=== PATIENT | female | born 1950 | race Caucasian/White ===

== ENCOUNTER 2016-06-10 18:13 | Inpatient (IN) | payer OTHER, MEDICAID ==
--- NOTE | 2016-06-10 18:33 | EDPHY ---
H & P Time Seen by Provider: 06/10/16 18:16 HPI/ROS: CHIEF COMPLAINT: Fever, altered mental status Limitations: Altered mental status, unable to provide any history HISTORY OF PRESENT ILLNESS: 66-year-old female with a history of advanced dementia and diabetes presents with fever and altered mental status. This morning she was found in bed at her long term and was unable to get up. She also developed a fever and has a moist cough. No food or fluids today. Laboratory tests prior to arrival revealed a leukocytosis and hyperglycemia. 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 REVIEW OF SYSTEMS: Unable to determine Past Medical/Surgical History: Dementia Social History: Lives at [facility] Physical Exam: General Appearance: Obtunded, mumbles when I ask her name Eyes: Pupils equal and round ENT, Mouth: Mucous membranes dry Neck: Normal inspection Respiratory: Lungs are clear to auscultation anteriorly Cardiovascular: Regular rate and rhythm Gastrointestinal: Abdomen is soft and nontender Neurological: obtunded, moves all extremities Skin: Warm and dry Extremities: normal inspection Psychiatric: unable to determine Constitutional: Initial Vital Signs Temperature (C) 38.7 C H 06/10/16 18:29 Heart Rate 103 H 06/10/16 18:29 Respiratory Rate 18 06/10/16 18:29 Blood Pressure 169/90 H 06/10/16 18:29 O2 Sat (%) 94 06/10/16 18:29 O2 Delivery Mode Nasal Cannula O2 (L/minute) 2 Allergies/Adverse Reactions: Penicillins Allergy (Verified 06/10/16 18:34) Sulfa (Sulfonamide Antibiotics) Allergy (Verified 06/10/16 18:34) Home Medications: Medication Instructions Recorded Acetaminophen [Tylenol 325mg (*)] 650 mg PO Q6H PRN 06/10/16 Ascorbic Acid [Vitamin C 500 mg 500 mg PO DAILY 06/10/16 (*)] Aspirin [Aspirin 81mg (*)] 81 mg PO DAILY 06/10/16 Clopidogrel Bisulfate [Plavix (*)] 75 mg PO DAILY 06/10/16 Cyanocobalamin [Vitamin B12 (*)] 2,500 mcg SL DAILY 06/10/16 Divalproex [Depakote Sprinkle 125 500 mg PO BID@08,20 06/10/16 MG (*)] Furosemide [Lasix 40 MG (*)] 40 mg PO DAILY 06/10/16 Herbals/Supplements -Info Only 1 ea PO DAILY 06/10/16 Insulin Glargine [Lantus 100 20 units SC DAILY@20 06/10/16 UNITS/ML (*)] LORazepam [Ativan (*)] 0.5 mg PO DAILY 06/10/16 LORazepam [Ativan (*)] 1 mg PO HS 06/10/16 Losartan Potassium [Cozaar 25 mg 25 mg PO DAILY 06/10/16 (*)] Multivitamins [Multivitamin (*)] 1 each PO DAILY 06/10/16 OLANZapine [ZyPREXA 2.5 mg (*)] 2.5 mg PO Q6H PRN 06/10/16 OLANZapine [ZyPREXA 2.5 mg (*)] 7.5 mg PO BID@,06/10/16 Medical Decision Making ED Course/Re-evaluation: This pt presents with fever and AMS. UA c/w UTI and lactate greater than 4. Meets septic shock criteria, IVF 30ml/kg given per protocol. BP normal/ hypertensive throughout ED stay; central line not indicated. Unclear allergy to PCN; for this reason (and because she has a moist and frequent cough, ? pneumonia), I decided to give her Levaquin 750mg IV (instead of Ceftriaxone). Urine/blood cx's sent prior to abx. Serial exams x 3 relatively unchanged, remains obtunded with a non-focal exam. Septic shock as etiology for AMS; I do not suspect alternative cause. Dr. Marcello Leal was consulted for admission. This pt utilized 45 minutes of critical care time by me exclusive of unbundled procedures. Differential Diagnosis: includes though not limited to pneumonia, respiratory failure, hypotension, hypoglycemia, DKA, meningitis, CVA. - Data Points Laboratory Results: Laboratory Results 06/10/16 18:28 06/10/16 18:28 Microbiology Results: MICROBIOLOGY 06/10/16 18:45 Blood Blood Culture - Preliminary 06/10/16 18:55 Blood Blood Culture - Preliminary Medications Given: Discontinued Medications Acetaminophen (Tylenol Rectal) 650 mg WA EDNOW ONE Stop: 06/10/16 18:35 Last Admin: 06/10/16 18:47 Dose: 650 mg Acetaminophen (Tylenol) 650 mg PO Q4HRS PRN PRN Reason: Pain, Mild/Fever, Can Take PO Stop: 12/07/16 19:27 Last Admin: 06/11/16 16:57 Dose: 650 mg Aspirin (Aspirin) 81 mg PO DAILY [facility] Stop: 12/08/16 08:59 Last Admin: 06/12/16 10:52 Dose: Not Given Benzocaine (Hurricaine Branch) 1 each MM ONCALL ONE Stop: 06/13/16 10:52 Last Admin: 06/13/16 12:42 Dose: Not Given Clopidogrel Bisulfate (Plavix) 75 mg PO DAILY [facility] Stop: 12/08/16 08:59 Last Admin: 06/12/16 10:52 Dose: Not Given Divalproex Sodium (Depakote Sprinkle) 500 mg PO BID@ [facility] Stop: 12/08/16 07:59 Last Admin: 06/12/16 10:53 Dose: Not Given Enoxaparin Sodium (Lovenox) 30 mg SC DAILY [facility] Stop: 12/08/16 08:59 Last Admin: 06/12/16 09:39 Dose: 30 mg Furosemide (Lasix Injection) 40 mg IVP ONCE ONE Stop: 06/12/16 01:05 Last Admin: 06/12/16 01:11 Dose: 40 mg Sodium Chloride (Ns) 1,000 mls @ 0 mls/hr IV ONCE ONE PRN Reason: Wide Open Stop: 06/10/16 18:35 Last Admin: 06/10/16 19:30 Dose: 1,000 mls Levofloxacin/Dextrose (Levaquin 750 Mg (Premix)) 150 mls @ 100 mls/hr IV EDNOW ONE PRN Reason: Protocol Stop: 06/10/16 20:32 Last Admin: 06/10/16 19:43 Dose: 150 mls Sodium Chloride (Ns) 1,000 mls @ 200 mls/hr IV CONT BAI[facility] Stop: 12/07/16 19:29 Last Admin: 06/11/16 22:00 Dose: 1,000 mls Azithromycin 500 mg/ Dextrose 255 mls @ 255 mls/hr IV DAILY [facility] PRN Reason: Protocol Stop: 07/11/16 08:59 Last Admin: 06/12/16 07:51 Dose: 255 mls Ceftriaxone Sodium/Dextrose (Rocephin 1 Gm (Premix)) 50 mls @ 100 mls/hr IV DAILY@1999 B[facility] PRN Reason: Protocol Stop: 07/10/16 19:59 Last Admin: 06/11/16 20:05 Dose: 50 mls Valproate Sodium 500 mg/ (Dextrose) 55 mls @ 55 mls/hr IV Q12HRS [facility] Stop: 12/09/16 20:59 Last Admin: 06/13/16 10:01 Dose: 55 mls Potassium Chloride (Potassium Cl 10 Meq (Premix)) 100 mls @ 100 mls/hr IV Q1H [facility] Stop: 06/12/16 18:46 Last Admin: 06/12/16 18:43 Dose: 100 mls Potassium Chloride (Potassium Cl 10 Meq (Premix)) 100 mls @ 100 mls/hr IV Q1H [facility] Stop: 06/13/16 00:59 Last Admin: 06/13/16 00:06 Dose: 100 mls Insulin Glargine (Lantus Syringe) 12 units SC HS [facility] Stop: 12/07/16 20:59 Last Admin: 06/12/16 20:37 Dose: 12 units Lidocaine (Lidocaine 2% Jelly) 2 janine TP ONCALL ONE Stop: 06/13/16 10:52 Last Admin: 06/13/16 11:30 Dose: 2 janine Lidocaine HCl (Lidocaine Hcl 1%) 1 - 30 ml MISC ONCALL ONE Stop: 06/13/16 10:52 Last Admin: 06/13/16 12:39 Dose: 30 ml Lorazepam (Ativan) 0.5 mg PO DAILY [facility] Stop: 12/08/16 08:59 Last Admin: 06/12/16 09:20 Dose: 0.5 mg Lorazepam (Ativan Injection) 0.5 mg IVP DAILY [facility] Stop: 12/10/16 08:59 Last Admin: 06/13/16 12:38 Dose: Not Given Losartan Potassium (Cozaar) 25 mg PO DAILY [facility] Stop: 12/08/16 08:59 Last Admin: 06/12/16 10:54 Dose: Not Given Multivitamins (Tab-A-Noy) 1 each PO DAILY [facility] Stop: 12/08/16 08:59 Last Admin: 06/12/16 10:54 Dose: Not Given Olanzapine (Zyprexa) 7.5 mg PO BID@ [facility] Stop: 12/08/16 08:59 Last Admin: 06/12/16 09:22 Dose: 7.5 mg Sodium Chloride (Ns *For Sepsis Order Set Only*) 2,041 ml 30 ml/kg (2041 ml) IV EDNOW ONE Stop: 06/10/16 18:42 Last Admin: 06/10/16 18:47 Dose: 2,041 ml Departure - Departure Disposition: [facility] Inpatient Acute Clinical Impression: Septic shock Urinary tract infection Qualifiers: Urinary tract infection type: acute cystitis Hematuria presence: without hematuria Qualified Code(s): N30.00 - Acute cystitis without hematuria Condition: Serious
[2016-06-10] MEDS ORDERED: ACETAMINOPHEN 650 MG SUPP PR ONE (18:34)
[2016-06-10] MEDS ORDERED: NS 1,000 ML IV ONE (18:34)
[2016-06-10 18:38] LABS: % IMMATURE GRANULYOCYTES 1.1 % (0.0-1.1); ABSOLUTE IMMATURE GRANULOCYTES 0.28 10^3/uL (0.00-0.10); ADD DIFF? NO; ADD MORPH? NO; ADD SCAN? NO; ATYPICAL LYMPHOCYTE FLAG 10 (0-99); FRAGMENT RBC FLAG 0 (0-99); HEMATOCRIT 48.4 % (38.0-47.0); LEFT SHIFT FLG 10 (0-99); LIPEMIA HEMOLYSIS FLAG 80 (0-99); MEAN CELL HEMOGLOBIN CONCENTR. 33.1 g/dL (32.4-36.7); MEAN CELL VOLUME 90.6 fL (81.5-99.8); MEAN PLATELET VOLUME 10.9 fL (8.7-11.7); PLATELET CLUMPS FLAG 20 (0-99); PLATELET COUNT 257 10^3/uL (150-400); RED BLOOD CELL COUNT 5.34 10^6/uL (4.18-5.33); RED CELL DISTRIBUTION WIDTH 12.9 % (11.5-15.2)
[2016-06-10] MEDS ORDERED: NS 1,000 ML BAG *FOR SEPSIS ORDER SET ONLY IV ONE (18:41)
[2016-06-10 18:46] LABS: INR 1.1 (0.83-1.16); PROTIME(PATIENT) 14.1 SEC (12.0-15.0)
[2016-06-10 18:47] LABS: APTT 23.5 SEC (23.0-38.0)
[2016-06-10 18:50] LABS: COLOR YELLOW; LEUKOCYTE ESTERASE,URINE 3+ (NEGATIVE); NITRITE,URINE POSITIVE (NEGATIVE)
[2016-06-10 18:51] LABS: ANION GAP 13 mEq/L (8-16); BILIRUBIN,TOTAL 1.1 mg/dL (0.1-1.4); CALCIUM 9.9 mg/dL (8.5-10.4); CARBON DIOXIDE 31 mEq/l (22-31); CHLORIDE 99 mEq/L (97-110); CREATININE 1.1 mg/dL (0.6-1.0); GLOMERULAR FILTRATION RATE 49; GLUCOSE 264 mg/dL (70-100); POTASSIUM 4.9 mEq/L (3.5-5.2); SODIUM 143 mEq/L (134-144)
[2016-06-10 18:53] LABS: BACTERIA 4+ /hpf (NONE SEEN); MUCUS 4+ /lpf (NONE-1+); WBC,URINE 50-182 /hpf (0-3)
[2016-06-10] MEDS ORDERED: ONDANSETRON DISINTEGRATING 4 MG TAB PO PRN (19:28)
[2016-06-10] MEDS ORDERED: ACETAMINOPHEN 325 MG TAB PO PRN (19:28)
[2016-06-10] MEDS ORDERED: ONDANSETRON 4 MG/2 ML VIAL IVP PRN (19:28)
[2016-06-10] MEDS ORDERED: D50W 25 GM/50 ML SYR IVP PRN (19:32)
[2016-06-10 19:33] LABS: LACGHOST ORDER
--- NOTE | 2016-06-10 20:13 | GHP ---
[f rep st] HISTORY AND PHYSICAL DATE OF ADMISSION: 06/10/2016 HISTORY OF PRESENT ILLNESS: The patient is a 66-year-old female with a history of diabetes, dementi a, as well as apparent aortic graft. She was brought in from [facility] where she lives when sophie peoples obtunded. The patient was able to provide no history to me. She was able to grunt some answers but really offered no meaningful history. She said her abdomen did hurt. She carries a history of advanced dementia. She was unable to get up and had a fever and a wet coug h today. She had leukocytosis on some lab tests as an outpatient. Her creatinine was 0.9 there. S he denied chest pain. She was unable to answer what her reaction to penicillin is. REVIEW OF SYSTEMS: Complete 10-point review of systems conducted and negative except as noted in th e HPI. PAST MEDICAL HISTORY: Diabetes, high blood pressure, aortic graft seen on her chest x-ray, vascular disease. ALLERGIES: Penicillins and sulfa. HOME MEDICATIONS: Acetaminophen, acidophilus, aspirin, B12, Depakote, furosemide, Lantus 20 units, lorazepam p.r.n., losartan, olanzapine 7.5 daily as well as 2.5 p.r.n., Plavix, vitamin C. SOCIAL HISTORY: Assumed to be a nonsmoker now. Unclear if she smoked in her life. Minimal alcohol . Lives at [facility]. FAMILY HISTORY: Parents . Brother lives in [place]. PHYSICAL EXAMINATION: VITAL SIGNS: Temp 38.7, blood pressure 169/90, pulse 103, breathing 18 times a minute, 94% on room air. GENERAL: Pale. Appears older than her stated age. Minimally responsi ve but able to grunt some answers to questions. HEENT: Sclerae anicteric. Mucous membranes are dr y. NECK: Supple without lymphadenopathy or JVD. LUNGS: Some crackles in the bases bilaterally. HEART: S1, S2 with a holosystolic murmur heard best at the left upper sternal border. ABDOMEN: So ft. There is no rebound or guarding. Bowel sounds are present. LOWER EXTREMITIES: Without edema. It looks like she does not walk. Dorsalis pedis pulses are palpable bilaterally. Calves are nont igor. SKIN: Without rash. NEUROLOGIC: Nonfocal but the patient is obtunded. LABS: Her UA shows 3+ leukocyte esterase, 10-15 red cells, 50-182 white cells. Sodium 142, potassi um 4.9, chloride 99, bicarb 31, BUN 28, creatinine 1.1. Glucose 264. Venous lactate was 3.3. It i s now 4.3. INR is 1.1. White count 24.96, hematocrit 48.4. She has a left shift. TEST DATA: Chest x-ray, interpreted by me, shows previous aortic graft, possible retrocardiac infil trate which would be on the left. It is a poor quality chest film. There is no heart failure. I franc peña discussed the case with Dr. Catherine Osorio in the emergency department. ASSESSMENT/PLAN: 66-year-old female presents with severe sepsis. 1. Severe sepsis as evidenced by lactate leukocytosis. Source of infection: Source is either urin e or lungs. Will treat for both with ceftriaxone and azithromycin noting her penicillin allergy. I do worry about the community resistance of Escherichia coli to fluoroquinolones and thus I feel diane t fluoroquinolone monotherapy is potentially inadequate for her. We will follow her response. She received appropriate fluid bolus in the emergency department. We will repeat a lactate in 4 hours. 2. Diabetes. She takes 20 units of Lantus. I will continue it at 12 given her poor p.o. intake. 3. Mental status changes. This is delirium superimposed upon dementia in this patient. It is seco ndary to her current critical illness. 4. Sepsis addendum: Will check an influenza. 5. Hypertension: We will hold losartan. 6. Code status. It appears to be full. 7. Dementia. Will follow. We will avoid sedating medications. She does take Ativan on a p.r.n. b asis as she has some behavioral issues. This might be a reasonable choice for her. 8. Prophylaxis. Pharmacologic prophylaxis is indicated. Will start low-molecular weight heparin. DISPOSITION: Inpatient status. /[id number]/MODL
[2016-06-10] MEDS: NS 1,000 ML IV SCH (20:43)
[2016-06-10] MEDS ORDERED: OLANZapine 2.5 MG TAB PO PRN (21:00)
[2016-06-10] MEDS: INSULIN GLARGINE 100 UNITS/ML SYRINGE SC SCH (21:41)
[2016-06-11 05:50] LABS: % IMMATURE GRANULYOCYTES 0.8 % (0.0-1.1); ADD DIFF? NO; ADD MORPH? NO; ADD SCAN? NO; ATYPICAL LYMPHOCYTE FLAG 10 (0-99); FRAGMENT RBC FLAG 0 (0-99); HEMATOCRIT 38.2 % (38.0-47.0); HEMOGLOBIN 12.4 g/dL (12.6-16.3); LEFT SHIFT FLG 20 (0-99); LIPEMIA HEMOLYSIS FLAG 80 (0-99); MEAN CELL HEMOGLOBIN 29.8 pg (27.9-34.1); MEAN CELL HEMOGLOBIN CONCENTR. 32.5 g/dL (32.4-36.7); MEAN CELL VOLUME 91.8 fL (81.5-99.8); MEAN PLATELET VOLUME 11.2 fL (8.7-11.7); PLATELET CLUMPS FLAG 0 (0-99); PLATELET COUNT 195 10^3/uL (150-400); RED BLOOD CELL COUNT 4.16 10^6/uL (4.18-5.33); RED CELL DISTRIBUTION WIDTH 12.7 % (11.5-15.2)
[2016-06-11] MEDS: LORazepam 0.5 MG TAB PO SCH (07:40)
[2016-06-11] MEDS: AZITHROMYCIN IV 500 MG in D5W 250 ML IV SCH (07:42)
[2016-06-11] MEDS: DIVALPROEX NA 125 MG CAP.SPRINKLE PO SCH ×2 (07:51→20:12)
[2016-06-11 07:56] LABS: % IMMATURE GRANULYOCYTES 1.1 % (0.0-1.1); ABSOLUTE IMMATURE GRANULOCYTES 0.27 10^3/uL (0.00-0.10); ADD DIFF? NO; ADD MORPH? NO; ADD SCAN? NO; ATYPICAL LYMPHOCYTE FLAG 10 (0-99); FRAGMENT RBC FLAG 0 (0-99); HEMATOCRIT 36.9 % (38.0-47.0); HEMOGLOBIN 12.1 g/dL (12.6-16.3); LEFT SHIFT FLG 30 (0-99); LIPEMIA HEMOLYSIS FLAG 80 (0-99); MEAN CELL HEMOGLOBIN 29.2 pg (27.9-34.1); MEAN CELL HEMOGLOBIN CONCENTR. 32.8 g/dL (32.4-36.7); MEAN CELL VOLUME 88.9 fL (81.5-99.8); MEAN PLATELET VOLUME 10.7 fL (8.7-11.7); PLATELET CLUMPS FLAG 40 (0-99); PLATELET COUNT 198 10^3/uL (150-400); RED BLOOD CELL COUNT 4.15 10^6/uL (4.18-5.33); RED CELL DISTRIBUTION WIDTH 12.9 % (11.5-15.2)
[2016-06-11] MEDS: OLANZapine 2.5 MG TAB PO SCH ×2 (07:59→20:12)
[2016-06-11] MEDS: CLOPIDOGREL BISULFATE 75 MG TAB PO SCH (08:02)
[2016-06-11 08:03] LABS: ALANINE AMINOTRANSFERASE 26 IU/L (9-52); ALBUMIN 2.7 g/dL (3.5-5.0); ALKALINE PHOSPHATASE 74 IU/L (38-126); ANION GAP 9 mEq/L (8-16); ASPARTATE AMINOTRANSFERASE 25 IU/L (14-46); BILIRUBIN,TOTAL 0.9 mg/dL (0.1-1.4); CALCIUM 8.1 mg/dL (8.5-10.4); CARBON DIOXIDE 23 mEq/l (22-31); CHLORIDE 112 mEq/L (97-110); CREATININE 0.6 mg/dL (0.6-1.0); GLOMERULAR FILTRATION RATE > 60; GLUCOSE 157 mg/dL (70-100); POTASSIUM 4.3 mEq/L (3.5-5.2); SODIUM 144 mEq/L (134-144); TOTAL PROTEIN 5.8 g/dL (6.3-8.2)
[2016-06-11] MEDS: ASPIRIN 81 MG CHEWABLE TAB PO SCH (08:06)
[2016-06-11] MEDS: MULTIVITAMINS 1 EACH TAB PO SCH (08:06)
[2016-06-11] MEDS: CYANO/VITAMIN B12 1000 MCG TAB SL SCH (08:08)
[2016-06-11] MEDS: ENOXAPARIN 30 MG/0.3 ML SYR SC SCH (08:11)
[2016-06-11] MEDS: INSULIN LISPRO 100 UNIT/ML SC SCH ×3 (08:15→17:39)
[2016-06-11] MEDS: LOSARTAN POTASSIUM 25 MG TAB PO SCH (08:17)
[2016-06-11] MEDS ORDERED: Herbals/Supplements -Info Only PO SCH (09:00)
[2016-06-11] MEDS: NS 1,000 ML IV SCH ×3 (11:17→22:00)
--- NOTE | 2016-06-11 13:32 | HOSPPROG ---
Hospitalist Progress Note Assessment/Plan: # Acute Severe sepsis - 2/2 presumed urinary source - GNR in urine culture this am CXR (personally reviewed and interpreted) no infiltrates- oxygen saturations 95% on 2L - cont IVF - cont empiric IV abx # pyelonephritis - cont IV ceftriaxone - sensitivities pending # Acute encephalopathy - suspect 2/2 sepsis - continue supportive care and monitor # Acute Leukocytosis - 24 this am - cont IV abx - recheck in am #GEORGE - resolved overnight with IVF # proph - heparin # diet - somnolent can eat if safe # dispo - > 2MN as requiring aggressive care for sepsis and pyelonephritis I have discussed the case with the RN - pt remains very somnolent this am Subjective: no events overnight Objective: Vital Signs Temp Pulse Resp BP Pulse Ox 37.6 C 92 18 150/72 H 95 06/11/16 08:00 06/11/16 08:00 06/11/16 08:00 06/11/16 08:00 06/11/16 08:00 Laboratory Results 06/11/16 07:34 06/11/16 07:34 06/10/16 06/11/16 06/12/16 05:59 05:59 05:59 Intake Total 3815 Balance 3815 PT 14.1 SEC (12.0-15.0) 06/10/16 18:28 INR 1.10 (0.83-1.16) 06/10/16 18:28 - Physical Exam Constitutional: chronically ill appearing Eyes: anicteric sclera Ears, Nose, Mouth, Throat: dry mucous membranes Cardiovascular: regular rate and rhythym Respiratory: no respiratory distress Gastrointestinal: normoactive bowel sounds Genitourinary: no bladder fullness Skin: warm, normal color Musculoskeletal: No asymmetric calves Neurologic: No AAOx3 Psychiatric: No interacting appropriately Lymph, Heme, Immunologic: no cervical LAD ICD10 Worksheet Patient Problems: Problems Problem Status Onset Sepsis Acute - ICD10 Problem Qualifiers (1) Sepsis Qualifiers: Sepsis type: sepsis due to unspecified organism Qualified Code(s): A41.9 - Sepsis, unspecified organism
[2016-06-11] MEDS: INSULIN GLARGINE 100 UNITS/ML SYRINGE SC SCH (20:33)
[2016-06-12] MEDS ORDERED: ACETAMINOPHEN 650 MG SUPP PR ONE (00:02)
[2016-06-12] MEDS: ACETAMINOPHEN 650 MG SUPP PR PRN ×2 (00:13→12:30)
[2016-06-12] MEDS ORDERED: FUROSEMIDE 40 MG/4 ML VIAL IVP ONE (01:04)
--- NOTE | 2016-06-12 01:07 | HOSPPROG ---
Hospitalist Progress Note Assessment/Plan: x-cover note called to bedside to evaluate patient for increased oxygen needs and fever. O: bilat rales tachypnea a/p: uti with persistent fever and tachycardia. repeat lactate is unremarkable -cont ctx and azithro acute resp failure suspect fluid overload in the setting of sepsis and fluid resuscitation -lasix 40mg ivp x 1 -buff cap ivf continue to monitor Objective: Vital Signs Temp Pulse Resp BP Pulse Ox 39.1 C H 114 H 40 H 169/89 H 87 L 06/12/16 01:02 06/12/16 01:02 06/12/16 01:02 06/12/16 01:02 06/12/16 01:02 Laboratory Results 06/11/16 07:34 06/11/16 07:34 06/10/16 06/11/16 06/12/16 05:59 05:59 05:59 Intake Total 3815 2055 Balance 3815 2055 PT 14.1 SEC (12.0-15.0) 06/10/16 18:28 INR 1.10 (0.83-1.16) 06/10/16 18:28 ICD10 Worksheet Patient Problems: Problems Problem Status Onset Sepsis Acute
[2016-06-12 05:23] LABS: ADD DIFF? YES; ADD MORPH? NO; ATYPICAL LYMPHOCYTE FLAG 0 (0-99); FRAGMENT RBC FLAG 0 (0-99); HEMATOCRIT 37.1 % (38.0-47.0); HEMOGLOBIN 12.5 g/dL (12.6-16.3); LEFT SHIFT FLG 60 (0-99); LIPEMIA HEMOLYSIS FLAG 80 (0-99); MEAN CELL HEMOGLOBIN 29.6 pg (27.9-34.1); MEAN CELL HEMOGLOBIN CONCENTR. 33.7 g/dL (32.4-36.7); MEAN CELL VOLUME 87.7 fL (81.5-99.8); MEAN PLATELET VOLUME 11.1 fL (8.7-11.7); PLATELET CLUMPS FLAG 10 (0-99); PLATELET COUNT 194 10^3/uL (150-400); RED BLOOD CELL COUNT 4.23 10^6/uL (4.18-5.33); RED CELL DISTRIBUTION WIDTH 12.4 % (11.5-15.2)
[2016-06-12 05:28] LABS: ADD SCAN? NO
[2016-06-12 05:44] LABS: ANION GAP 12 mEq/L (8-16); CALCIUM 8.4 mg/dL (8.5-10.4); CARBON DIOXIDE 24 mEq/l (22-31); CHLORIDE 105 mEq/L (97-110); CREATININE 0.6 mg/dL (0.6-1.0); GLOMERULAR FILTRATION RATE > 60; GLUCOSE 152 mg/dL (70-100); POTASSIUM 3.3 mEq/L (3.5-5.2); SODIUM 141 mEq/L (134-144)
[2016-06-12 06:38] LABS: PLATELET ESTIMATE ADEQUATE (ADEQ); TOXIC VACUOLIZATION PRESENT
[2016-06-12] MEDS: AZITHROMYCIN IV 500 MG in D5W 250 ML IV SCH (07:51)
[2016-06-12 08:18] LABS: BASE EXCESS 2.3 mEq/L (-2.5-2.5); BICARBONATE 25 mEq/L (22-26); MEASURED OXYGEN SATURATION 93 % (92-95); PCO2 33 mmHg (34-38); PO2 65 mmHg (65-75); TCO2 26 mEq/L (23-27)
[2016-06-12] MEDS ORDERED: PROTOCOL POTASSIUM 1 DOSE MISC PRN (08:53)
[2016-06-12] MEDS: LORazepam 0.5 MG TAB PO SCH (09:20)
[2016-06-12] MEDS: OLANZapine 2.5 MG TAB PO SCH (09:22)
[2016-06-12] MEDS: INSULIN LISPRO 100 UNIT/ML SC SCH ×3 (09:38→17:46)
[2016-06-12] MEDS: ENOXAPARIN 30 MG/0.3 ML SYR SC SCH (09:39)
[2016-06-12] MEDS ORDERED: OLANZapine DISINTEGR 5 MG TAB PO PRN (10:38)
[2016-06-12] MEDS: CLOPIDOGREL BISULFATE 75 MG TAB PO SCH (10:52)
[2016-06-12] MEDS: ASPIRIN 81 MG CHEWABLE TAB PO SCH (10:52)
[2016-06-12] MEDS: DIVALPROEX NA 125 MG CAP.SPRINKLE PO SCH (10:53)
[2016-06-12] MEDS: CYANO/VITAMIN B12 1000 MCG TAB SL SCH (10:53)
[2016-06-12] MEDS: MULTIVITAMINS 1 EACH TAB PO SCH (10:54)
[2016-06-12] MEDS: LOSARTAN POTASSIUM 25 MG TAB PO SCH (10:54)
[2016-06-12] MEDS ORDERED: IOPAMIDOL (ISOVUE 370) 100 ML BTL IV ONE (10:54)
[2016-06-12] MEDS: ERTAPENEM 1 GM in NS 100 ML IV SCH (12:15)
[2016-06-12] MEDS: OLANZapine DISINTEGR 5 MG TAB PO SCH ×2 (12:23→20:26)
--- NOTE | 2016-06-12 13:00 | HOSPPROG ---
Hospitalist Progress Note Assessment/Plan: # Acute Severe sepsis - 2/2 urinary and pulmonary sources - remains febrile Tm 39.2 and WBC 30 this am - decreased IVF 2/2 worsening hypoxia - changing empiric IV abx as below # Acute right sided weakness - CT Head (personally reviewed and interpreted) shows acute right subdural hematoma - stop lovenox - hold ASA/plavix (didnt receive this am 2/2 swallowing difficulties) - consulting NSG # Acute hypoxic respiratory failure - presumed 2/2 aspiration PNA - pt with worsening O2 requirements overnight- oxygen saturations 95% on 5L CT chest (personally reviewed and interpreted) with dense RLL infiltrate - based on exam today suspect aspiration likely - change Azith/ceftriaxone to Ertapenem # Acute pyelonephritis - citrobacter on Urine cx- penem sensitive - ertapenem # Acute encephalopathy - suspect 2/2 sepsis and possible SDH - continue supportive care and monitor # Acute Leukocytosis - 30 this am - Bcx NGTD - recheck in am #GEORGE - remains resolved overnight with IVF- creatinine 0.6 # proph - stop heparin 2/2 SDH # diet - NPO - failed swallow eval # dispo - > 2MN as requiring aggressive care for sepsis and pyelonephritis I have discussed the case with the NSG - they will consult and make recs on management Subjective: reports stable SOB Objective: Vital Signs Temp Pulse Resp BP Pulse Ox 39.2 C H 95 46 H 136/72 H 93 06/12/16 12:22 06/12/16 12:22 06/12/16 12:22 06/12/16 12:22 06/12/16 12:22 Microbiology 06/10/16 Unknown Urine Culture - Final Urine,Catheterized Citrobacter Freundii Laboratory Results 06/12/16 05:05 06/12/16 05:05 06/11/16 06/12/16 06/13/16 05:59 05:59 05:59 Intake Total 3815 3055 Balance 3815 3055 PT 14.1 SEC (12.0-15.0) 06/10/16 18:28 INR 1.10 (0.83-1.16) 06/10/16 18:28 - Physical Exam Constitutional: chronically ill appearing Eyes: anicteric sclera Ears, Nose, Mouth, Throat: dry mucous membranes Cardiovascular: regular rate and rhythym, tachycardia Respiratory: respiratory distress, No expiratory wheeze, No inspiratory crackles Gastrointestinal: normoactive bowel sounds Genitourinary: no bladder fullness Skin: warm, normal color Musculoskeletal: No asymmetric calves Neurologic: No AAOx3 Psychiatric: No agitated Lymph, Heme, Immunologic: no cervical LAD ICD10 Worksheet Patient Problems: Problems Problem Status Onset Sepsis Acute - ICD10 Problem Qualifiers (1) Sepsis Qualifiers: Sepsis type: sepsis due to unspecified organism Qualified Code(s): A41.9 - Sepsis, unspecified organism
[2016-06-12 13:52] LABS: APTT 32.4 SEC (23.0-38.0); INR 1.27 (0.83-1.16); PROTIME(PATIENT) 15.9 SEC (12.0-15.0)
--- NOTE | 2016-06-12 15:17 | GCON ---
[f rep st] CONSULTATION DATE OF CONSULTATION: 06/12/2016 HISTORY OF PRESENT ILLNESS: The patient is a 66-year-old female with a complex medical history and current medical problems including severe sepsis secondary to urinary and pulmonary sources who lives in assisted living and also has a history of advanced dementia, apparently. The patient was noted to have some right-sided weakness while working with the medical team. CTA of the head was performed, which showed small right-sided acute subdural hematoma resting on the right cerebellar tentorium. The patient is quite encephalopathic, does not talk and only responds to pain, and is unable to give any of provided history. Per team, it is not clear what her baseline is, but she is quite often disoriented and can be combative. PAST MEDICAL HISTORY: Diabetes, high blood pressure, history of aortic graft, seen on imaging, likely vascular disease as well as dementia. PAST SURGICAL HISTORY: Not able to obtain, noncontributory. SOCIAL HISTORY: Lives in assisted living at [facility]. FAMILY HISTORY: Parents are . She has a brother in [place]. REVIEW OF SYSTEMS: Not able to be obtained due to the patient's somnolent state. HOME MEDICATIONS: Include: 1. Tylenol. 2. Acidophilus. 3. Aspirin. 4. B-12. 5. Depakote. 6. Furosemide. 7. Lantus. 8. Lorazepam. 9. Losartan. 10. Olanzapine. 11. Plavix. 12. Vitamin C. NEUROLOGICAL PHYSICAL EXAM: VITAL SIGNS: temperature 39.2, blood pressure 136/ 72, heart rate 95, respiratory rate 46, on 5 liters of O2 by mask. GENERAL: She is resting in no apparent distress. Quite obtunded and somnolent. NEUROLOGIC: GCS appears 10 to 11. She withdraws from pain and she moves all of her extremities x4 to painful stimuli. No visible facial droop. Her pupils are equal and reactive to light. She does not spontaneously open her eyes. She does speak in response to painful stimuli. ASSESSMENT AND PLAN: This is a 66-year-old female with a small acute subdural hemorrhage on the right cerebellar tentorium, which does not well explain her current mental status or her right-sided weakness. Will continue to attribute her altered mental status to her severe sepsis and continue medical management of that. We recommend discontinuation of subq Heparin, aspirin and Plavix at this time. The patient has not been taking aspirin and plavix per report as she has been n.p.o. Will repeat a CT scan in 6 hours to monitor progression of the bleed. If it does not expand, we will likely just continue with conservative management and no surgical treatment of the subdural. If it does expand, we will continue to re-evaluate. We will follow along with the continued aggressive medical management of this patient. We appreciate the consultation. The patient was seen and discussed with Dr. Foster Guerra. /[id number]/MODL MTDD
[2016-06-12] MEDS: POTASSIUM Cl (KCl) 100 ML IV SCH ×5 (16:25→23:03)
[2016-06-12 19:00] LABS: POTASSIUM 3.6 mEq/L (3.5-5.2)
[2016-06-12] MEDS: VALPROATE SODIUM 500 MG in D5W 50 ML IV SCH (20:27)
[2016-06-12] MEDS: INSULIN GLARGINE 100 UNITS/ML SYRINGE SC SCH (20:37)
[2016-06-13] MEDS: POTASSIUM Cl (KCl) 100 ML IV SCH (00:06)
[2016-06-13 05:38] LABS: ANION GAP 12 mEq/L (8-16); CALCIUM 8.5 mg/dL (8.5-10.4); CARBON DIOXIDE 22 mEq/l (22-31); CHLORIDE 105 mEq/L (97-110); CREATININE 0.7 mg/dL (0.6-1.0); GLOMERULAR FILTRATION RATE > 60; GLUCOSE 155 mg/dL (70-100); SODIUM 139 mEq/L (134-144)
[2016-06-13 05:55] LABS: ADD DIFF? YES; ADD MORPH? NO; ADD SCAN? NO; ATYPICAL LYMPHOCYTE FLAG 30 (0-99); FRAGMENT RBC FLAG 0 (0-99); HEMATOCRIT 38.1 % (38.0-47.0); HEMOGLOBIN 12.8 g/dL (12.6-16.3); LEFT SHIFT FLG 40 (0-99); LIPEMIA HEMOLYSIS FLAG 80 (0-99); MEAN CELL HEMOGLOBIN 29.7 pg (27.9-34.1); MEAN CELL HEMOGLOBIN CONCENTR. 33.6 g/dL (32.4-36.7); MEAN CELL VOLUME 88.4 fL (81.5-99.8); MEAN PLATELET VOLUME 11.7 fL (8.7-11.7); PLATELET CLUMPS FLAG 0 (0-99); PLATELET COUNT 203 10^3/uL (150-400); RED BLOOD CELL COUNT 4.31 10^6/uL (4.18-5.33); RED CELL DISTRIBUTION WIDTH 12.7 % (11.5-15.2)
[2016-06-13] MEDS ORDERED: ORAL BALANCE GEL TUBE PO PRN (06:45)
[2016-06-13 07:15] LABS: PLATELET ESTIMATE ADEQUATE (ADEQ)
--- NOTE | 2016-06-13 07:39 | HOSPPROG ---
Hospitalist Progress Note Assessment/Plan: Called to see patient for increased tachypnea and increased oxygen requirement. chart reviewed. She has severe pneumonia, sepsis, a new subdural hematoma. CT scan of the chest and chest x-ray personally reviewed. She has significant infiltrate right lower lobe. On exam patient is attended but somewhat responsive. She is quite tachypneic with shallow breathing. Some scattered rhonchi on the right. Pretty good air movement plan: will transfer patient to step-down. Start BiPAP. Will make no changes antibiotics. She did receive a dose of Lasix yesterday will not repeat that today. Recheck chest x-ray in the morning 35 minutes of critical care time was spent with this patient Objective: Vital Signs Temp Pulse Resp BP Pulse Ox 38.0 C 107 H 42 H 159/76 H 96 06/13/16 06:22 06/13/16 06:22 06/13/16 06:22 06/13/16 06:22 06/13/16 06:22 Microbiology 06/10/16 Unknown Urine Culture - Final Urine,Catheterized Citrobacter Freundii Laboratory Results 06/13/16 04:44 06/13/16 04:44 06/12/16 06/13/16 06/14/16 05:59 05:59 05:59 Intake Total 3055 655 Balance 3055 655 PT 15.9 SEC (12.0-15.0) H 06/12/16 13:30 INR 1.27 (0.83-1.16) H 06/12/16 13:30 ICD10 Worksheet Patient Problems: Problems Problem Status Onset Sepsis Acute
[2016-06-13] MEDS ORDERED: LORazepam 2 MG/ML INJ IVP SCH (09:00)
--- NOTE | 2016-06-13 09:06 | NEUSURGPN ---
Assessment/Plan: Assessment: 66 yo female with a history of dementia as well as chronic anticoag and AMS with sepsis. Pt now has sepsis/poor pulmonary status/right sided tentorial SDH Plan: -SDH: Pt had 2 CT scans yesterday and were stable -reviewed with Dr Guerra this am and recommend no anticoagulation -no repeat CTs at this time per Dr Guerra -no neurosurgery recommended at this time -PT/OT/ST -continue to follow neuro exam -warning signs given -call with any questions or concerns -s/w Dr Guerra Subjective: Awake to verbal. Follows commands. 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 Neuro Check Frequency: per routine - Physician Discussed Patient with : Charlie Neurosurgery Physical Exam - Vitals, I&O, Labs I and O 06/12/16 06/13/16 06/14/16 05:59 05:59 05:59 Intake Total 3055 655 Balance 3055 655 Intake: IV Intake (ml) 655 IV Infused (ml) 3055 Ns 1,000 ml @ 200 mls/hr 3000 IV CONT BAILEY Rx#: [id number] cefTRIAXone 1 GM/DEXTROSE 55 50 ml @ 100 mls/hr IV DAILY@2000 [facility] Rx#: [id number] Other: Intake Quantity NPO Sufficient Output Comment Incontinence saturated diapers soaked brief Number of Voids Incontinence 5 1 Bladder Scan Volume (ml) Incontinence 275 Microbiology 06/10/16 Unknown Urine Culture - Final Urine,Catheterized Citrobacter Freundii Vital Signs Temp Pulse Resp BP Pulse Ox 39.1 C H 110 H 40 H 147/72 H 93 06/13/16 08:00 06/13/16 08:00 06/13/16 08:00 06/13/16 08:00 06/13/16 08:00 Laboratory Results 06/13/16 04:44 06/13/16 04:44 ICD10 Worksheet Patient Problems: Problems Problem Status Onset Sepsis Acute
[2016-06-13 09:45] LABS: BASE EXCESS 0.3 mEq/L (-2.5-2.5); BICARBONATE 23 mEq/L (22-26); BIPAP YES; MEASURED OXYGEN SATURATION 92 % (92-95); PCO2 33 mmHg (34-38); PO2 59 mmHg (65-75); TCO2 24 mEq/L (23-27)
[2016-06-13 09:46] LABS: EXP PRESSURE 5; INSP PRESSURE 15; O2 CONCENTRATIION 45 % (0-100); P/F RATIO 131 RATIO
[2016-06-13] MEDS: ERTAPENEM 1 GM in NS 100 ML IV SCH (10:01)
[2016-06-13] MEDS: VALPROATE SODIUM 500 MG in D5W 50 ML IV SCH (10:01)
[2016-06-13] MEDS ORDERED: ALTEPLASE 2 MG VIAL IVP PRN (10:16)
[2016-06-13] MEDS ORDERED: PROPOFOL/EMULSION 1,000 MG/100 ML BOTTLE IV ONE (10:20)
[2016-06-13] MEDS: ACETAMINOPHEN 650 MG SUPP PR PRN ×2 (10:49→15:32)
[2016-06-13] MEDS ORDERED: LIDOCAINE 2% JELLY 5 ML TUBE TP ONE (10:51)
[2016-06-13] MEDS ORDERED: BENZOCAINE UNIT DOSE SPRAY HURRICAINE MM ONE (10:51)
[2016-06-13] MEDS ORDERED: LIDOCAINE 1% 30 ML SDV MISC ONE (10:51)
[2016-06-13] MEDS: CYANO/VITAMIN B12 1000 MCG TAB SL SCH (11:03)
[2016-06-13] MEDS ORDERED: ETOMIDATE 40 MG/20 ML INJ ONE (11:35)
[2016-06-13] MEDS ORDERED: MIDAZOLAM 2 MG/2 ML VIAL ONE (11:35)
[2016-06-13] MEDS: OLANZapine DISINTEGR 5 MG TAB PO SCH (12:38)
[2016-06-13] MEDS ORDERED: MIDAZOLAM 2 MG/2 ML VIAL IVP ONE (12:47)
[2016-06-13] MEDS ORDERED: ETOMIDATE 40 MG/20 ML INJ IVP ONE (12:47)
[2016-06-13 14:30] LABS: BASE EXCESS 0.3 mEq/L (-2.5-2.5); BICARBONATE 23 mEq/L (22-26); MEASURED OXYGEN SATURATION 99 % (92-95); PCO2 33 mmHg (34-38); PO2 169 mmHg (65-75); TCO2 24 mEq/L (23-27)
[2016-06-13] MEDS: PROPOFOL/EMULSION 100 ML IV SCH (14:45)
[2016-06-13] MEDS: NS 1,000 ML IV SCH (14:46)
[2016-06-13] MEDS ORDERED: OLANZapine DISINTEGR 5 MG TAB TUBE PRN (14:48)
[2016-06-13] MEDS: INSULIN LISPRO 100 UNIT/ML SC SCH ×3 (14:49→18:42)
[2016-06-13] MEDS ORDERED: NS BOLUS 1000 ML (Wide open) IV ONE (17:00)
--- NOTE | 2016-06-13 18:06 | GPN ---
[f rep st] PROCEDURE NOTE DATE OF PROCEDURE: 06/13/2016 PROCEDURE: Urgent intubation. INDICATION: Respiratory failure and hypoxemia. CONSENT: Waived due to the emergent nature of the procedure. PREMEDICATIONS: Include 1 mg of Versed and 20 mg of etomidate. DESCRIPTION: After appropriate sedation was achieved using the above-mentioned medications, an 8.0 endotracheal tube was passed using direct laryngoscopy on the first attempt. This was followed by a ppropriate tube condensation and color change on capnography. There were equal breath sounds bilate rally with the absence of midepigastric sounds, and oxygen saturations were maintained at 100% throu ghout the procedure. Overall, patient tolerated this well without obvious complications. Chest x-r ay is pending. /[id number]/MODL
[2016-06-13] MEDS: VALPROIC ACID 250 MG/5 ML UDCUP TUBE SCH ×2 (18:42→23:06)
[2016-06-13] MEDS: AZITHROMYCIN IV 500 MG in D5W 250 ML IV SCH (19:10)
[2016-06-13] MEDS ORDERED: ACETAMINOPHEN 325 MG TAB PO PRN (19:15)
--- NOTE | 2016-06-13 19:25 | GPN ---
[f rep st] PROCEDURE NOTE DATE OF PROCEDURE: 06/13/2016 PROCEDURE: Bronchoscopy. INDICATION: Pneumonia and persistent fever. CONSENT: Waived due to the emergent nature of the procedure. ANESTHESIA: Conscious sedation was achieved using 1 mg of Versed and a propofol drip. DESCRIPTION OF PROCEDURE: The bronchoscope was easily passed through a recently placed endotracheal tube which revealed the tube to be in perfect position. There were white, somewhat thick secretion s seen at the right mainstem, tracking down to the right lower lobes. These were easily suctioned. The airways appeared to be somewhat friable, but no obvious mucosal lesions. The right lower lobe was washed vigorously, producing copious amounts of medium grade white secretions without elvia bloo d. There were no endobronchial lesions. A few of the left side revealed minimal secretions as well . Overall, the patient tolerated the procedure without complications. /[id number]/MODL
--- NOTE | 2016-06-13 19:44 | HOSPPROG ---
Hospitalist Progress Note Assessment/Plan: * Severe sepsis - UTI + aspriation pneumonia -persistent fever/tachycardia/resp failure -on IV invanz - will consult ID * Acute respiratory failure -continual decline this am - d/w Dr. Tillman -patient intubated + bronch * Metabolic encephalopathy * Subdural hematoma - stable by CT -hold ASA/Plavix * DM - Lantus * Dementia with behavior disturbances -zyprexa, depakote * h/o aortic graft CC time spent - additional 45 minutes Subjective: Called by nursing to see patient urgently due to progressively worse status through morning, now severe respiratory distress, on BIPAP, still very rapid respiratory rate, tachycaridic, very poor mental status. Objective: Vital Signs Temp Pulse Resp BP Pulse Ox 38.1 C 81 24 H 135/57 H 100 06/13/16 18:00 06/13/16 18:00 06/13/16 18:00 06/13/16 18:00 06/13/16 18:00 Microbiology 06/13/16 11:45 - Final Sputum, Induced/Suctioned 06/13/16 13:10 Gram Stain - Final Lung Right Lower Lobe - Bronchial Washings Laboratory Results 06/13/16 04:44 06/13/16 18:30 06/12/16 06/13/16 06/14/16 05:59 05:59 05:59 Intake Total 3055 655 1882 Output Total 276 Balance 3055 655 1606 PT 15.9 SEC (12.0-15.0) H 06/12/16 13:30 INR 1.27 (0.83-1.16) H 06/12/16 13:30 CXR viewed: some infiltrate tele: sinus tachy - Physical Exam Constitutional: appears nourished, uncomfortable, other (minimally responsive on BIPAP), No no apparent distress Cardiovascular: regular rate and rhythym, tachycardia, No edema Respiratory: no respiratory distress, no rales or rhonchi, clear to auscultation Gastrointestinal: normoactive bowel sounds, soft, non-tender abdomen, no palpable masses Skin: no rashes or abrasions, no fluctuance, no induration Neurologic: No AAOx3 Psychiatric: encephalopathic, poor insight, poor judgement, poor memory, No interacting appropriately ICD10 Worksheet Patient Problems: Problems Problem Status Onset Sepsis Acute Septic shock Acute Urinary tract infection Acute
[2016-06-13] MEDS ORDERED: fentanYL/NACL/100 ML BAG IV ONE (20:18)
[2016-06-13] MEDS ORDERED: DIVALPROEX NA 500 MG TAB PO SCH (21:00)
[2016-06-13] MEDS ORDERED: fentaNYL/NACL 100 ML IV SCH (21:07)
--- NOTE | 2016-06-13 21:37 | GCON ---
[f rep st] CONSULTATION INFECTIOUS DISEASE CONSULTATION DATE OF CONSULTATION: 06/13/2016 REFERRING PHYSICIAN: Barbara Gray MD REASON FOR CONSULTATION: Fever and pneumonia. HISTORY OF PRESENT ILLNESS: The patient is a 66-year-old female with a past medical history of meir ntia and diabetes, whom I am asked to see in consultation for persistent fever in the setting of travis oing antibiotic therapy for pneumonia. The history is obtained entirely from the medical record and nursing staff as the patient is currently intubated and unable to provide history. The patient was admitted on 06/10/2016 [facility] to be unable to get up with assoc iated fever and cough. Outpatient labs revealed leukocytosis. She was therefore evaluated at [facility] and noted to have a white blood cell count of approximately 25,000, with associa kevin left shift. Influenza testing by PCR was negative. [facility] read as showing no evidence of pneumonia. Subsequently, the patient had persisti ng fever with increased oxygen needs prompting further evaluation with CT scan of the chest. CT sca n revealed diffuse infiltration in the right lung with dense consolidation in the right lower lobe w ith very small associated pleural effusion. She received empiric antibiotic therapy with ceftriaxon e and azithromycin which subsequently was changed to ertapenem with concerns of aspiration. The pat ient was also noted to have what was felt to be acute right-sided weakness prompting a CT scan of th e brain. This revealed an acute right-sided subdural hematoma measuring 13 x 7.8 cm. Neurosurgical consultation was obtained with plans for continued conservative management. Repeat head CT over ti me showed stability of the subdural hematoma. The patient has had persistent high-grade fevers with the majority of her temperatures in the 38 or 39 degree range. Earlier today she had progressive r espiratory distress requiring intubation. She was noted to have yellow purulent secretions present in large volumes. Given her persistent fever, I am now asked to assist in her ongoing management. PAST MEDICAL HISTORY: Diabetes, hypertension, dementia, vascular disease. PAST SURGICAL HISTORY: The patient has visible aortic valve replacement on chest x-ray. CURRENT MEDICATIONS: Ertapenem 1 g IV daily, Pepcid 20 mg IV q.12 hours, Lantus 20 units subcutaneo us daily, Humalog with meals, Ativan 1 mg at bedtime and 0.5 mg p.o. daily, Cozaar 25 mg p.o. daily, Zyprexa 2.5 mg as needed and 7.5 mg p.o. b.i.d., valproic acid 250 mg p.o. q.6 hours, vitamin B12 2 500 mcg sublingual daily. ALLERGIES: Penicillin and sulfonamides, both listed which cannot be further characterized. SOCIAL HISTORY: The patient is a resident of [facility]. The remainder of social history cannot be obtained. FAMILY HISTORY: Currently cannot be obtained. REVIEW OF SYSTEMS: Currently cannot be obtained other than that gleaned from nursing staff regardin g current circumstances. No skin breakdown has been noted. PHYSICAL EXAMINATION: VITAL SIGNS: Temperature maximum 39.1, temperature current 38.1, heart rate 81, respiratory rate 24, blood pressure 135/57, oxygen saturation 100% on 60% FiO2. GENERAL: The p atient is intubated and sedated. HEENT: There is no scleral icterus, conjunctival injection, conju nctival petechiae. Endotracheal tube is in place. There is no nasal discharge. NECK: There is no palpable thyromegaly or adenopathy. Difficulty to range neck. CHEST: Decreased breath sounds at right base. Mechanically ventilated. Respiratory effort is increased. CARDIOVASCULAR: Regular ra te and rhythm without murmurs, gallops, rubs. ABDOMEN: Soft, nontender, nondistended. There is no palpable organomegaly. : Montoya catheter is in place. MUSCULOSKELETAL: There is no cyanosis, c lubbing, or edema. SKIN: No stigmata of endocarditis present. The skin is warm and dry to touch. NEUROLOGIC: Patient is intubated and sedated. There is a slight cogwheeling affect in the left up per extremity, but there is no other muscular rigidity noted. LABORATORY DATA: White blood cell count 25.1, hematocrit 38.1, platelets 203, neutrophils 59%, band s 24%. Serum creatinine is 0.7, AST 25, ALT 26, bilirubin 0.9, alkaline phosphatase 74, albumin 2.7 . Urinalysis shows 10-15 red blood cells and 50-182 white blood cells. Influenza by PCR is negativ e. Urine culture showing greater than 10 to the 5th Citrobacter freundii. Blood cultures x2 sets f rom 06/10/2016 are no growth. Blood cultures x2 sets from 06/13/2016 are pending. Sputum shows 3+ white blood cells with no organisms being seen. CT scan and chest x-ray are reviewed as outlined ab cynthiae. Head CT is also reviewed consistent with subdural hematoma. IMPRESSION: Fever. The patient has persistent high-grade temperature in the 38 and 39 degree range . Consideration for pneumonia, notably aspiration, is present, although the persistent high-grade f ever is unusual for this entity. This is also true for urinary tract infection. The organisms in h er urine may simply represent colonization and have no contribution to her current presentation. Lilly bdural hematoma could contribute to persistent high-grade fever from central mechanism. Other consi deration would be neuroleptic malignant syndrome with use of olanzapine, and therefore will obtain C PK to further evaluate. In terms of other pneumonias that could cause more severe illness, Legionel la would be a consideration. Hepatic abscess or other intraabdominal abscess is also a consideratio n and could be associated with high-grade persistent fevers despite antibiotic therapy. RECOMMENDATIONS: 1. Agree with continued ertapenem. 2. Will resume azithromycin for activity against Legionella. 3. Check Legionella urine antigen. 4. If symptoms persist, think she should undergo CT scan of the abdomen and pelvis to further evalu ate for intraabdominal focus of infection. 5. Follow up additional culture data as available. 6. Check CPK as this would typically be elevated with neuroleptic malignant syndrome. Thank you for this consultation. We will continue to follow the patient with you. /[id number]/MODL
[2016-06-13] MEDS: OLANZapine DISINTEGR 5 MG TAB TUBE SCH (21:58)
[2016-06-13] MEDS: CHLORHEXIDINE GLUCONATE 15 ML UDL PO SCH (21:58)
[2016-06-13] MEDS: FAMOTIDINE 20 MG/NACL 50 ML IV SCH (21:59)
[2016-06-13] MEDS: LORazepam 1 MG TAB TUBE SCH (21:59)
[2016-06-13] MEDS: INSULIN GLARGINE 100 UNITS/ML SYRINGE SC SCH (22:02)
--- NOTE | 2016-06-13 22:42 | GCON ---
[f rep st] CONSULTATION PULMONARY/CRITICAL CARE CONSULT DATE OF CONSULTATION: 06/13/2016 HISTORY OF PRESENT ILLNESS: Mrs. Das is a 66-year-old female who has history of aortic stenosis wh o underwent a recent transcatheter aortic valve replacement at [facility]. She was admitte d there from to 05/16 to 05/31/2016 after being transferred from [facility], where she w as admitted with chest pain and congestive heart failure. She underwent the procedure on the , I believe, april and seemed to do reasonably well and was [facility]. However, she was admitted here at [facility] on 06/10 with mental status changes and i ncreased white count and lactate, thought to be due to a urinary tract infection and possible pulmon pop source. She was treated with ceftriaxone and Zithromax as well as routine prophylaxis with low molecular weight heparin on top of her aspirin and Plavix. She seemed to be relatively stable until the when she had an increased respiratory rate. She was given a trial of Lasix at that time. There was some concerns about right-sided weakness as well. A head CT however showed acute subdura l hematoma. Subsequently all of her anticoagulation medications were discontinued and she was obser juan david overnight. This morning she continued to have difficulty with her pulmonary status. Her respiratory rate was i ncreasing and her oxygenation was borderline. She was placed on BiPAP. The settings were increased due to ongoing respiratory rate and a blood gas showed a pH of 7.46 with a pCO2 of 33, but a PO2 of only 59 despite 80% FiO2. She subsequently underwent intubation which is dictated under separate d ocument. She was unable to provide any historical details. REVIEW OF SYSTEMS: Otherwise negative according to nursing staff. PAST MEDICAL HISTORY: Includes: 1. Critical aortic stenosis as described above. 2. Congestive heart failure with an ejection fraction thought to be a 50%. 3. Diastolic heart failure. 4. Diabetes. 5. Dementia. 6. Hypertension. 7. B12 deficiency. SURGICAL HISTORY: Includes the TAVR as described above. SOCIAL HISTORY: As far as I can tell, is a nonsmoker. No alcohol or IV drug use. FAMILY HISTORY: Noncontributory at this time. CURRENT MEDICATIONS: Include Depakote, ertapenem, Pepcid, Lantus, Humalog, Ativan daily, Zyprexa p. r.n. agitation, and Zofran as well as vitamin B12 daily. ALLERGIES: Include penicillin and sulfa, both of which cause her fingers to tingle. PHYSICAL EXAMINATION: VITAL SIGNS: Prior to intubation, she had a fever of 39.1, respiratory rate of 41, heart rate of 110, blood pressure 147/72, oxygen saturation was 94% on BiPAP 15/5 with 80% Fi O2. GENERAL: She was somnolent but did squeeze her hands on command and shook her head yes when we asked if her BiPAP mask was on comfortable. Other than that, she was noncommunicative. HEENT: Pu pils are equally round and reactive to light. Nonicteric and noninjected. Mucous membranes were dr y without erythema or exudate. There was in her posterior pharynx some dried secretions. NECK: Lilly pple without adenopathy or jugular vein distention. LUNGS: Breath sounds were distant but essentia lly clear to auscultation. HEART: Regular rate and rhythm with a systolic ejection murmur. ABDOME N: Soft, nontender, nondistended without hepatosplenomegaly. EXTREMITIES: No clubbing, cyanosis, or edema. NEUROLOGICAL: Exam appeared to be nonfocal to me. OBJECTIVE DATA: Includes a CT scan from yesterday showing an acute subdural hematoma that was scann ed twice and remained stable at that time. Her white count today was down from 30 to 25, hematocrit was 38, platelets were 203. INR was 1.27 y esterday. Basic metabolic panel was essentially normal save for a glucose 155. Urine culture grew Citrobacter from 06/10. Blood cultures are pending at this time. ASSESSMENT AND PLAN: 1. Acute respiratory failure. Not described above is a CT scan showing a right lower lobe infiltra te with consolidation in the lower lobes, consistent with a pneumonia. It is possibly an aspiration pneumonia. She should be adequately covered with ertapenem at this time. However, she was unable to adequately protect her airway. Her blood gases remained marginal and her respiratory rate was un acceptably high so she was urgently intubated by me, again dictated separately, followed by a bronch oscopy. I did see purulent secretions in her right lung and she underwent aggressive bronchial wash ings and these were sent for culture. In the meantime, will set her on a ventilator protocol with a tidal volume of 500, respiratory rate of 15, FiO2 of 100%, and titrate that as tolerated and follow up on blood gas and chest x-ray from that. In addition we will have to follow up on the bronchosco py results and tailor antibiotics appropriately. I believe Infectious Disease has already been cont acted at this time. 2. Subdural hematoma which appeared to be fairly stable on her CT from yesterday. Neurosurgery is following. We are just observing for now, and of course holding all anticoagulation and using SCDs for deep venous thrombosis prophylaxis. 3. Urinary tract infection. This also appears to be reasonably treated and white count is starting to come down, though she is persistently febrile. We will have to watch closely for final sensitiv ities. 4. Diabetes is being managed currently with a sliding scale insulin. Appears to be relatively well controlled. 5. Congestive heart failure and recent aortic valve replacement. She seems to be stable from that perspective. There has been no hypotension. Critical care time was about 90 minutes evaluating this patient's history, looking through extensive records from outside hospitals, reviewing current records, and spending time at the bedside, discus sing the case with the nurses, and is all separate from procedures in a critically ill patient. /[id number]/MODL
[2016-06-14] MEDS: ACETAMINOPHEN 650 MG SUPP PR PRN (00:55)
[2016-06-14] MEDS ORDERED: POTASSIUM CL 20 MEQ/15 ML UDCUP TUBE ONE (01:00)
[2016-06-14] MEDS: VALPROIC ACID 250 MG/5 ML UDCUP TUBE SCH ×4 (05:11→23:02)
[2016-06-14 05:23] LABS: ADD DIFF? YES; ADD MORPH? NO; ADD SCAN? NO; ATYPICAL LYMPHOCYTE FLAG 60 (0-99); FRAGMENT RBC FLAG 0 (0-99); HEMATOCRIT 30.3 % (38.0-47.0); HEMOGLOBIN 9.7 g/dL (12.6-16.3); LEFT SHIFT FLG 60 (0-99); LIPEMIA HEMOLYSIS FLAG 80 (0-99); MEAN CELL HEMOGLOBIN 29.6 pg (27.9-34.1); MEAN CELL VOLUME 92.4 fL (81.5-99.8); MEAN PLATELET VOLUME 11.4 fL (8.7-11.7); PLATELET CLUMPS FLAG 0 (0-99); PLATELET COUNT 149 10^3/uL (150-400); RED BLOOD CELL COUNT 3.28 10^6/uL (4.18-5.33); RED CELL DISTRIBUTION WIDTH 13.1 % (11.5-15.2)
[2016-06-14 05:34] LABS: INR 1.2 (0.83-1.16); PROTIME(PATIENT) 15.2 SEC (12.0-15.0)
[2016-06-14 05:37] LABS: ALANINE AMINOTRANSFERASE 35 IU/L (9-52); ALBUMIN 1.9 g/dL (3.5-5.0); ALKALINE PHOSPHATASE 73 IU/L (38-126); ANION GAP 7 mEq/L (8-16); ASPARTATE AMINOTRANSFERASE 44 IU/L (14-46); BILIRUBIN,TOTAL 0.3 mg/dL (0.1-1.4); BILIRUBIN-CONJUGATED 0.3 mg/dL (0.0-0.5); CALCIUM 7.6 mg/dL (8.5-10.4); CARBON DIOXIDE 22 mEq/l (22-31); CHLORIDE 112 mEq/L (97-110); CREATININE 0.6 mg/dL (0.6-1.0); GLOMERULAR FILTRATION RATE > 60; GLUCOSE 206 mg/dL (70-100); POTASSIUM 4.6 mEq/L (3.5-5.2); SODIUM 141 mEq/L (134-144); TOTAL PROTEIN 4.7 g/dL (6.3-8.2)
[2016-06-14 05:54] LABS: BASE EXCESS -1.7 mEq/L (-2.5-2.5); BICARBONATE 23 mEq/L (22-26); MEASURED OXYGEN SATURATION 96 % (92-95); PCO2 41 mmHg (34-38); PO2 92 mmHg (65-75); TCO2 24 mEq/L (23-27)
[2016-06-14 05:58] LABS: ASSIST CONTROL YES; END TIDAL CO2 28; O2 CONCENTRATIION 40 % (0-100); P/F RATIO 230 RATIO; TOTAL RATE 20
[2016-06-14 06:21] LABS: LARGE PLATELETS PRESENT; PLATELET ESTIMATE DECREASED (ADEQ); POLYCHROMASIA 1+
--- NOTE | 2016-06-14 07:38 | NEUSURGPN ---
Assessment/Plan: Assessment: 66 yo female with a history of dementia as well as chronic anticoag and AMS with sepsis. Pt now has sepsis/poor pulmonary status/right sided tentorial SDH Plan: -SDH: Pt has had 2 CT scans which are stable -reviewed with Dr Guerra and recommend no anticoagulation -no repeat CTs at this time per Dr Guerra -no surgery recommended at this time -PT/OT/ST -continue to follow neuro exam -NS will sign off and follow peripherally -call with any questions or concerns -D/w Dr Guerra Subjective: Unable to obtain. Intubated/sedated. Reviewed chart and d/w RN. Objective: NAD VSS Intubated and sedated Pupils ~2mm fixed Urinary Catheter in Place: Yes Urinary Catheter Indication: Other (Use Comment) (intubated and sedated) - Physician Discussed Patient with : Charlie Neurosurgery Physical Exam - Vitals, I&O, Labs I and O 06/13/16 06/14/16 06/15/16 05:59 05:59 05:59 Intake Total 655 4067.5 Output Total 726 Balance 655 3341.5 Intake: IV Intake (ml) 655 IV Infused (ml) 3538.5 Ns 1,000 ml @ 125 mls/hr 860 IV CONT BAILEY Rx#: [id number] Ns 1,000 ml @ Wide Open 2547 IV ONCE ONE Rx#: [id number] Propofol/Emulsion 100 ml 99.5 @ Titrate IV CONT BAILEY Rx# :[id number] fentaNYL/NACL 100 ml @ 32 Per Protocol IV CONT BAILEY Rx#:[id number] Tube Feeding (ml) 300 Tube Flush (ml) 229 Output: Urine (ml) 526 Catheter 525 Incontinence 1 Liquid Stool (ml) 200 Catheter 200 Other: Intake Quantity NPO Sufficient Output Comment Incontinence soaked brief Number of Voids Incontinence 1 Number of Stools Catheter 2 Bladder Scan Volume (ml) Incontinence 275 Microbiology 06/13/16 11:45 - Final Sputum, Induced/Suctioned 06/13/16 13:10 Gram Stain - Final Lung Right Lower Lobe - Bronchial Washings Vital Signs Temp Pulse Resp BP Pulse Ox 38.1 C 71 18 95/48 L 99 06/14/16 06:00 06/14/16 06:00 06/14/16 06:00 06/14/16 06:00 06/14/16 06:00 Laboratory Results 06/14/16 05:00 06/14/16 05:00 ICD10 Worksheet Patient Problems: Problems Problem Status Onset Sepsis Acute Septic shock Acute Urinary tract infection Acute
[2016-06-14] MEDS: INSULIN LISPRO 100 UNIT/ML SC SCH ×2 (08:55→14:48)
[2016-06-14] MEDS: CYANO/VITAMIN B12 1000 MCG TAB SL SCH (08:55)
[2016-06-14] MEDS: ERTAPENEM 1 GM in NS 100 ML IV SCH (08:55)
[2016-06-14] MEDS: FAMOTIDINE 20 MG/NACL 50 ML IV SCH ×2 (08:55→22:56)
[2016-06-14] MEDS: CHLORHEXIDINE GLUCONATE 15 ML UDL PO SCH ×2 (08:55→22:57)
[2016-06-14] MEDS: OLANZapine DISINTEGR 5 MG TAB TUBE SCH ×2 (08:57→22:55)
[2016-06-14] MEDS: LORazepam 0.5 MG TAB TUBE SCH (08:57)
[2016-06-14] MEDS: AZITHROMYCIN IV 500 MG in D5W 250 ML IV SCH (09:55)
--- NOTE | 2016-06-14 10:00 | PCMIDPN ---
Assessment/Plan: Assessment/Plan: * Fever: Persistent fever but overall curve may be starting to improve. Diagnostic considerations as outlined in consultation yesterday. Blood cultures remain negative with primary culture finding being Citrobacter in urine. Will follow up BAL culture and Legionella antigen over time. Continue ertapenem and azithromycin. CPK normal making neuroleptic malignant syndrome unlikely. Central contribution with subdural hematoma remains possible. * Pneumonia: Status post intubation and bronchoscopy yesterday. BAL culture with possible early growth of yeast which does not require treatment. Await additional culture over time. 06/14/16 09:56 Subjective: Intubated, sedated. 1 loose BM overnight. Limited pulmonary secretions via ET tube. Objective: Vital Signs Temp Pulse Resp BP Pulse Ox 37.9 C 73 18 107/53 L 98 06/14/16 08:00 06/14/16 09:02 06/14/16 09:02 06/14/16 09:02 06/14/16 09:02 Microbiology 06/13/16 11:45 - Final Sputum, Induced/Suctioned 06/13/16 13:10 Gram Stain - Final Lung Right Lower Lobe - Bronchial Washings Laboratory Results 06/14/16 05:00 06/14/16 05:00 06/13/16 06/14/16 06/15/16 05:59 05:59 05:59 Intake Total 655 4067.5 Output Total 726 Balance 655 3341.5 - Physical Exam General Appearance: non-toxic EENT: ET Tube, No scleral icterus, No conjunctival petechiae Respiratory: lungs clear, No respiratory distress Cardiac/Chest: regular rate, rhythm, No systolic murmur Extremities: No inflammation Abdomen: non-tender, No distended Skin: No embolic lesions - Line/s LUE PICC Lines: No drainage, No erythema ICD10 Worksheet Patient Problems: Problems Problem Status Onset Sepsis Acute Septic shock Acute Urinary tract infection Acute
--- NOTE | 2016-06-14 10:01 | PDINTPN ---
Food Safety Scientist Progress Note Assessment/Plan: Assessment/plan: 66 F s/p recent TAVR at mid April 2016, admitted to [facility] from SNF 2/2 altered MS thought to be from UTI and/or PNA. She was treated with CTX/ Zithromax as well as LMWH for DVT prophylaxis in addition to her Plavix and ASA. She developed ?right -sided weakness and a head CT revealed an acute SDH. ALL anticoag medications were held and she was evaluated by neurosurgery who suggested close observation. However, she had persistent RR>40 with borderline oxygen so was intubated 06/13/16. * Respiratory failure with hypoxemia, now on ventilator and likely due to underlying PNA and poor airway protection. She had some inspisated mucous in her posterior pharynx and had bronchial washing post intubation (culture so far negative). Will plan on weaning today and would only consider extubation if she had excellent parameters. * PNA- ?aspiration- not very clear. Appreciate ID consult and continue with ertapenem for now. Her fever is better today and her wbc continues to fall. * SDH- clinically stable and no surgical intervention planned. Neurosurgery signing off today. Will eventually get PT/OT/rehab once improved and extubated. * UTI?- not clearly contributing as discussed in ID notes; but treated either way. * s/p TAVR- will eventually need to resume ASA/Plavix for 6 months, but obviously need to hold in setting of acute SDH. Typically held for 2 weeks. * Critical care time 40 minutes including bedside evaluation, discussion with team on rounds, with RT, and clos eevaluation of a complex critically ill patient. Subjective: Intubated 06/12 with respiratory distress (RR>40), but much more calm today Objective: Vital Signs Temp Pulse Resp BP Pulse Ox 37.9 C 73 18 107/53 L 98 06/14/16 08:00 06/14/16 09:02 06/14/16 09:02 06/14/16 09:02 06/14/16 09:02 Microbiology 06/13/16 11:45 - Final Sputum, Induced/Suctioned 06/13/16 13:10 Gram Stain - Final Lung Right Lower Lobe - Bronchial Washings Laboratory Results 06/14/16 05:00 06/14/16 05:00 06/13/16 06/14/16 06/15/16 05:59 05:59 05:59 Intake Total 655 4067.5 Output Total 726 Balance 655 3341.5 PT 15.2 SEC (12.0-15.0) H 06/14/16 05:00 INR 1.20 (0.83-1.16) H 06/14/16 05:00 Physical Exam - Physical Exam General Appearance: no apparent distress, other (sedated ) EENT: PERRL/EOMI Neck: supple Respiratory: lungs clear, normal breath sounds, No respiratory distress Cardiac/Chest: normal peripheral pulses, regular rate, rhythm, No edema Abdomen: normal bowel sounds, non-tender, soft, No distended Skin: normal color, warm/dry Lymphatic: no adenopathy Extremities: non-tender, No pedal edema Neuro/Psych: other (sedated) ICD10 Worksheet Patient Problems: Problems Problem Status Onset Sepsis Acute Septic shock Acute Urinary tract infection Acute
[2016-06-14] MEDS: LOSARTAN POTASSIUM 25 MG TAB TUBE SCH (12:19)
[2016-06-14] MEDS ORDERED: PARAMETERS MISC PRN (13:28)
[2016-06-14] MEDS ORDERED: D50W 25 GM/50 ML SYR IVP PRN (13:28)
[2016-06-14] MEDS ORDERED: D50W 25 GM/50 ML VIAL IVP PRN (13:28)
[2016-06-14] MEDS ORDERED: LABETALOL HCL 5 MG/ML 20 ML MDV IVP PRN (14:37)
[2016-06-14] MEDS: ACETAMINOPHEN 325 MG TAB TUBE PRN (14:48)
[2016-06-14] MEDS: NS 1,000 ML IV SCH (14:50)
[2016-06-14] MEDS: INSULIN REGULAR, HUMAN 100 UNIT/1 ML VIAL LOW SC SCH (18:20)
[2016-06-14 18:24] LABS: POTASSIUM 3.6 mEq/L (3.5-5.2)
--- NOTE | 2016-06-14 18:51 | HOSPPROG ---
Hospitalist Progress Note Assessment/Plan: * Severe sepsis - UTI + aspriation pneumonia -IV Invanz + Azithro -consider CT a/p if fails to improve * Acute respiratory failure s/p intubation * Metabolic encephalopathy * Subdural hematoma - stable by CT -hold ASA/Plavix * DM - Lantus * Dementia with behavior disturbances -zyprexa, depakote * Recent TAVR - need to discuss with neurosurgery when okay to restart ASA/ Plavix Subjective: no event Objective: Vital Signs Temp Pulse Resp BP Pulse Ox 37.9 C 89 27 H 134/67 H 99 06/14/16 17:41 06/14/16 17:41 06/14/16 17:41 06/14/16 17:41 06/14/16 17:41 Microbiology 06/13/16 13:10 Gram Stain - Final Lung Right Lower Lobe - Bronchial Washings 06/13/16 11:45 - Final Sputum, Induced/Suctioned Laboratory Results 06/14/16 05:00 06/14/16 18:00 06/13/16 06/14/16 06/15/16 05:59 05:59 05:59 Intake Total 655 4067.5 2597 Output Total 726 65 Balance 655 3341.5 2532 PT 15.2 SEC (12.0-15.0) H 06/14/16 05:00 INR 1.20 (0.83-1.16) H 06/14/16 05:00 d/w Dr. Tillman ICU rounds - possible extubation soon CXR - stable, no change - Physical Exam Constitutional: no apparent distress, appears nourished, not in pain Cardiovascular: regular rate and rhythym, no murmur, rub, or gallop Respiratory: no respiratory distress, no rales or rhonchi, clear to auscultation Gastrointestinal: normoactive bowel sounds, soft, non-tender abdomen, no palpable masses Skin: no rashes or abrasions, no fluctuance, no induration Neurologic: No AAOx3 Psychiatric: encephalopathic, poor insight, poor judgement, poor memory, other ( intubated and sedated), No interacting appropriately, No agitated ICD10 Worksheet Patient Problems: Problems Problem Status Onset Sepsis Acute Septic shock Acute Urinary tract infection Acute
[2016-06-14] MEDS: INSULIN GLARGINE 100 UNITS/ML SYRINGE SC SCH (22:55)
[2016-06-14] MEDS: LORazepam 1 MG TAB TUBE SCH (22:56)
[2016-06-15] MEDS: INSULIN REGULAR, HUMAN 100 UNIT/1 ML VIAL LOW SC SCH ×5 (00:19→23:40)
[2016-06-15] MEDS: PROPOFOL/EMULSION 100 ML IV SCH ×2 (02:17→16:56)
[2016-06-15] MEDS: NS 1,000 ML IV SCH ×2 (02:18→16:57)
[2016-06-15] MEDS ORDERED: POTASSIUM CL 20 MEQ TAB PO ONE (02:26)
[2016-06-15] MEDS ORDERED: POTASSIUM CL 20 MEQ/15 ML UDCUP TUBE ONE (02:30)
[2016-06-15 04:16] LABS: ADD DIFF? YES; ADD MORPH? NO; ADD SCAN? NO; ATYPICAL LYMPHOCYTE FLAG 90 (0-99); FRAGMENT RBC FLAG 0 (0-99); HEMATOCRIT 30.4 % (38.0-47.0); LEFT SHIFT FLG 50 (0-99); LIPEMIA HEMOLYSIS FLAG 80 (0-99); MEAN CELL HEMOGLOBIN 29.4 pg (27.9-34.1); MEAN CELL HEMOGLOBIN CONCENTR. 32.9 g/dL (32.4-36.7); MEAN CELL VOLUME 89.4 fL (81.5-99.8); MEAN PLATELET VOLUME 11.2 fL (8.7-11.7); PLATELET CLUMPS FLAG 0 (0-99); PLATELET COUNT 166 10^3/uL (150-400); RED CELL DISTRIBUTION WIDTH 12.9 % (11.5-15.2)
[2016-06-15 04:36] LABS: ANION GAP 5 mEq/L (8-16); CALCIUM 7.7 mg/dL (8.5-10.4); CARBON DIOXIDE 24 mEq/l (22-31); CHLORIDE 112 mEq/L (97-110); CREATININE 0.4 mg/dL (0.6-1.0); GLOMERULAR FILTRATION RATE > 60; GLUCOSE 193 mg/dL (70-100); POTASSIUM 4.1 mEq/L (3.5-5.2); SODIUM 141 mEq/L (134-144)
[2016-06-15 04:52] LABS: PLATELET ESTIMATE ADEQUATE (ADEQ)
[2016-06-15] MEDS: VALPROIC ACID 250 MG/5 ML UDCUP TUBE SCH ×4 (06:24→23:40)
[2016-06-15] MEDS: LORazepam 0.5 MG TAB TUBE SCH (08:21)
[2016-06-15] MEDS: CYANO/VITAMIN B12 1000 MCG TAB SL SCH (08:25)
[2016-06-15] MEDS: CHLORHEXIDINE GLUCONATE 15 ML UDL PO SCH ×2 (08:25→20:02)
[2016-06-15] MEDS: ERTAPENEM 1 GM in NS 100 ML IV SCH (08:26)
[2016-06-15] MEDS: AZITHROMYCIN IV 500 MG in D5W 250 ML IV SCH (08:26)
[2016-06-15] MEDS: OLANZapine DISINTEGR 5 MG TAB TUBE SCH ×2 (08:27→20:01)
[2016-06-15] MEDS: FAMOTIDINE 20 MG/NACL 50 ML IV SCH ×2 (08:27→20:01)
[2016-06-15] MEDS: LOSARTAN POTASSIUM 25 MG TAB TUBE SCH (08:28)
[2016-06-15 09:54] LABS: BASE EXCESS -0.2 mEq/L (-2.5-2.5); BICARBONATE 23 mEq/L (22-26); MEASURED OXYGEN SATURATION 97 % (92-95); PCO2 35 mmHg (34-38); PO2 82 mmHg (65-75); TCO2 24 mEq/L (23-27)
[2016-06-15 09:55] LABS: CPAP YES
[2016-06-15 09:56] LABS: PATIENT RATE 36; PRESSURE SUPPORT 7
[2016-06-15 09:57] LABS: END TIDAL CO2 27; O2 CONCENTRATIION 40 % (0-100); P/F RATIO 205 RATIO
--- NOTE | 2016-06-15 11:42 | PCMIDPN ---
Assessment/Plan: Assessment/Plan: * Fever: Fever is significantly less prominent. Improvement noted after patient had clearance of respiratory secretions which suggest pneumonia may be etiology. Blood cultures remain negative. Lorena growth present on BAL specimen which does not require therapy. Continue ertapenem and azithromycin. If Legionella antigen negative anticipate stopping azithromycin. Central component still remains possible with subdural hematoma. * Pneumonia: See above discussion. Clinically improving with probable extubation today. 06/15/16 11:39 Subjective: Liquid stool output. Patient waking up and following commands. Plans for extubation later today. Objective: Vital Signs Temp Pulse Resp BP Pulse Ox 36.9 C 93 38 H 166/76 H 98 06/15/16 08:00 06/15/16 10:00 06/15/16 10:00 06/15/16 10:00 06/15/16 10:00 Microbiology 06/13/16 13:10 Gram Stain - Final Lung Right Lower Lobe - Bronchial Washings 06/13/16 11:45 - Final Sputum, Induced/Suctioned Laboratory Results 06/15/16 04:05 06/15/16 04:05 06/14/16 06/15/16 06/16/16 05:59 05:59 05:59 Intake Total 4067.5 4112.5 Output Total 726 965 250 Balance 3341.5 3147.5 -250 Ertapenem # for Azithromycin # 2 Urine Legionella antigen pending Blood cultures no growth BAL with growth of Lorena albicans - Physical Exam General Appearance: other (Intubated but follows commands) EENT: ET Tube, No scleral icterus, No conjunctival petechiae Respiratory: lungs clear Cardiac/Chest: regular rate, rhythm Abdomen: non-tender, No distended Neuro/Psych: other (Able to squeeze fingers when asked and moves both feet when asked) ICD10 Worksheet Patient Problems: Problems Problem Status Onset Sepsis Acute Septic shock Acute Urinary tract infection Acute
[2016-06-15] MEDS: ACETAMINOPHEN 325 MG TAB TUBE PRN (13:20)
--- NOTE | 2016-06-15 13:26 | PDINTPN ---
Ratoprinter Progress Note Assessment/Plan: Assessment/plan: 66 F s/p recent TAVR at mid April 2016, admitted to [facility] from SNF 2/2 altered MS thought to be from UTI and/or PNA. She was treated with CTX/ Zithromax as well as LMWH for DVT prophylaxis in addition to her Plavix and ASA. She developed ?right -sided weakness and a head CT revealed an acute SDH. ALL anticoag medications were held and she was evaluated by neurosurgery who suggested close observation. However, she had persistent RR>40 with borderline oxygen so was intubated 06/13/16. * Respiratory failure with hypoxemia, now on ventilator and likely due to underlying PNA and poor airway protection. She had reasonable weaning today on but her RR was regularly >35 so decided to rest and re-try wean in AM. Uncertain if there is an element of cognitive barrier to full awake and cooperativeness. * PNA- ?aspiration- not very clear. Agree with no therapy for Lorena in BAL. . * SDH- clinically remains stable without evidence of decline; and no surgical intervention planned. Will eventually get PT/OT/rehab once improved and extubated. * UTI?- not clearly contributing as discussed in ID notes; but treated either way. * s/p TAVR- will eventually need to resume ASA/Plavix for 6 months, but obviously need to hold in setting of acute SDH. Typically held for 2 weeks. * Critical care time 35 minutes including bedside evaluation, discussion with team on rounds, with RT, and close evaluation of a complex critically ill patient. 06/15/16 13:23 Subjective: Stable overnight without events. More alert this AM though remains somnolent Objective: Vital Signs Temp Pulse Resp BP Pulse Ox 38.2 C 78 22 H 141/62 H 98 06/15/16 11:53 06/15/16 11:53 06/15/16 11:53 06/15/16 11:53 06/15/16 11:53 Microbiology 06/13/16 13:10 Gram Stain - Final Lung Right Lower Lobe - Bronchial Washings 06/13/16 11:45 - Final Sputum, Induced/Suctioned Laboratory Results 06/15/16 04:05 06/15/16 04:05 06/14/16 06/15/16 06/16/16 05:59 05:59 05:59 Intake Total 4067.5 4112.5 Output Total 726 965 250 Balance 3341.5 3147.5 -250 PT 15.2 SEC (12.0-15.0) H 06/14/16 05:00 INR 1.20 (0.83-1.16) H 06/14/16 05:00 Physical Exam - Physical Exam General Appearance: no apparent distress, other (minimally responsive) EENT: PERRL/EOMI Neck: supple Respiratory: lungs clear, normal breath sounds, No respiratory distress, No accessory muscle use Cardiac/Chest: normal peripheral pulses, regular rate, rhythm, No edema Abdomen: normal bowel sounds, non-tender, soft, No distended Skin: normal color, warm/dry Lymphatic: no adenopathy Extremities: No pedal edema Neuro/Psych: no motor/sensory deficits, other (follows some commands, but eyes remain closed. Grossly non-focal) ICD10 Worksheet Patient Problems: Problems Problem Status Onset Sepsis Acute Septic shock Acute Urinary tract infection Acute
--- NOTE | 2016-06-15 14:55 | HOSPPROG ---
Hospitalist Progress Note Assessment/Plan: * Severe sepsis - UTI + aspiration pneumonia -IV Invanz + Azithro -improved fever after bronch with massive secretions removal -suggests pulmonary source * Acute respiratory failure s/p intubation * Metabolic encephalopathy * Subdural hematoma - stable by CT -hold ASA/Plavix * DM - Lantus * Dementia with behavior disturbances -zyprexa, depakote * Recent TAVR - need to discuss with neurosurgery when okay to restart ASA/ Plavix Subjective: no events Objective: Vital Signs Temp Pulse Resp BP Pulse Ox 38.2 C 72 19 139/59 H 99 06/15/16 11:53 06/15/16 14:00 06/15/16 14:00 06/15/16 14:00 06/15/16 14:00 Microbiology 06/13/16 13:10 Gram Stain - Final Lung Right Lower Lobe - Bronchial Washings Bronchial Washings Culture - Final Lorena Albicans 06/13/16 11:45 - Final Sputum, Induced/Suctioned Sputum Culture - Final Lorena Albicans Laboratory Results 06/15/16 04:05 06/15/16 04:05 06/14/16 06/15/16 06/16/16 05:59 05:59 05:59 Intake Total 4067.5 4112.5 242 Output Total 818 461 7332 Balance 3341.5 3147.5 -1083 PT 15.2 SEC (12.0-15.0) H 06/14/16 05:00 INR 1.20 (0.83-1.16) H 06/14/16 05:00 AXR: good OG tube placement case d/w Dr. Tillman - ICU rounds - weaning to possible extubation - Physical Exam Constitutional: no apparent distress, appears nourished, not in pain Cardiovascular: regular rate and rhythym, no murmur, rub, or gallop Respiratory: no respiratory distress, no rales or rhonchi, clear to auscultation Gastrointestinal: normoactive bowel sounds, soft, non-tender abdomen, no palpable masses Skin: no rashes or abrasions, no fluctuance, no induration Neurologic: No AAOx3 Psychiatric: encephalopathic, poor insight, poor judgement, poor memory, other ( intubated and sedated), No interacting appropriately ICD10 Worksheet Patient Problems: Problems Problem Status Onset Sepsis Acute Septic shock Acute Urinary tract infection Acute
[2016-06-15] MEDS: LORazepam 1 MG TAB TUBE SCH (20:02)
[2016-06-15] MEDS: INSULIN GLARGINE 100 UNITS/ML SYRINGE SC SCH (21:09)
[2016-06-16 03:28] LABS: ADD DIFF? YES; ADD MORPH? NO; FRAGMENT RBC FLAG 0 (0-99); HEMATOCRIT 29.5 % (38.0-47.0); HEMOGLOBIN 9.7 g/dL (12.6-16.3); LEFT SHIFT FLG 60 (0-99); LIPEMIA HEMOLYSIS FLAG 80 (0-99); MEAN CELL HEMOGLOBIN 29.8 pg (27.9-34.1); MEAN CELL HEMOGLOBIN CONCENTR. 32.9 g/dL (32.4-36.7); MEAN CELL VOLUME 90.5 fL (81.5-99.8); MEAN PLATELET VOLUME 11.2 fL (8.7-11.7); PLATELET CLUMPS FLAG 0 (0-99); PLATELET COUNT 162 10^3/uL (150-400); RED BLOOD CELL COUNT 3.26 10^6/uL (4.18-5.33); RED CELL DISTRIBUTION WIDTH 12.8 % (11.5-15.2)
[2016-06-16 03:39] LABS: ADD SCAN? NO; ATYPICAL LYMPHOCYTE FLAG 100 (0-99)
[2016-06-16 03:54] LABS: ANION GAP 3 mEq/L (8-16); CALCIUM 7.6 mg/dL (8.5-10.4); CARBON DIOXIDE 28 mEq/l (22-31); CHLORIDE 106 mEq/L (97-110); CREATININE 0.5 mg/dL (0.6-1.0); GLOMERULAR FILTRATION RATE > 60; GLUCOSE 101 mg/dL (70-100); POTASSIUM 3.8 mEq/L (3.5-5.2); SODIUM 137 mEq/L (134-144)
[2016-06-16] MEDS ORDERED: POTASSIUM Cl (KCl) 50 ML IV ONE (04:06)
[2016-06-16 04:19] LABS: HYPOCHROMIA 1+; POLYCHROMASIA 1+; ROULEAUX PRESENT; SCHISTOCYTES 1+
[2016-06-16 04:20] LABS: PLATELET ESTIMATE ADEQUATE (ADEQ); SMUDGE CELLS 1+
[2016-06-16] MEDS: INSULIN REGULAR, HUMAN 100 UNIT/1 ML VIAL LOW SC SCH ×3 (05:03→18:35)
[2016-06-16] MEDS: VALPROIC ACID 250 MG/5 ML UDCUP TUBE SCH ×3 (05:09→17:49)
[2016-06-16] MEDS: PROPOFOL/EMULSION 100 ML IV SCH (08:18)
[2016-06-16] MEDS: CHLORHEXIDINE GLUCONATE 15 ML UDL PO SCH ×2 (08:54→19:30)
[2016-06-16] MEDS: ERTAPENEM 1 GM in NS 100 ML IV SCH (08:54)
[2016-06-16] MEDS: AZITHROMYCIN IV 500 MG in D5W 250 ML IV SCH (08:54)
[2016-06-16] MEDS: OLANZapine DISINTEGR 5 MG TAB TUBE SCH ×2 (08:55→20:29)
[2016-06-16] MEDS: FAMOTIDINE 20 MG/NACL 50 ML IV SCH ×2 (08:55→20:28)
[2016-06-16] MEDS: CYANO/VITAMIN B12 1000 MCG TAB SL SCH (08:55)
[2016-06-16] MEDS: LORazepam 0.5 MG TAB TUBE SCH (08:56)
[2016-06-16] MEDS: LOSARTAN POTASSIUM 25 MG TAB TUBE SCH (08:56)
--- NOTE | 2016-06-16 10:49 | PCMIDPN ---
Assessment/Plan: Assessment: fevers and respiratory failure. Presumed pneumonia as the cause of her fevers although fever curve is more reminiscent of a drug or central fever. She also has an abnormal UA and a positive urine culture which raises the possibility of a UTI as a source of fever. Regardless she is covered by both ertapenem and azithromycin. The azithromycin is primarily here to cover legionella and since that Ag is negative we will discontinue this med. We will proceed with ertapenem monotherapy covering pneumonia as well as the potential citrobacter UTI. another potential source of fever that more matches the observed pattern is central nervous system hemetoma -- subdural bleed seen on prior CT. Plan: 1) Continue ertapenem. 2) Discontinue azithromycin. 06/16/16 21:48 06/16/16 21:50 06/16/16 21:52 Subjective: Patient doing better. Tolerating her CPAP trial better than yesterday. Probable extubation upcoming today. Fever curve improved. Objective: ertapenem #5 azithromycin #3 Vital Signs Temp Pulse Resp BP Pulse Ox 37.9 C 90 32 H 160/97 H 100 06/16/16 09:42 06/16/16 10:00 06/16/16 10:00 06/16/16 10:00 06/16/16 10:00 Microbiology 06/13/16 13:10 Gram Stain - Final Lung Right Lower Lobe - Bronchial Washings Bronchial Washings Culture - Final Lorena Albicans 06/13/16 11:45 - Final Sputum, Induced/Suctioned Sputum Culture - Final Lorena Albicans Laboratory Results 06/16/16 03:15 06/16/16 03:15 06/15/16 06/16/16 06/17/16 05:59 05:59 05:59 Intake Total 4112.5 3189 Output Total 965 1965 7 Balance 3147.5 1224 -7 - Physical Exam General Appearance: WD/WN, no apparent distress (mild distress with ET tube in place and lightened sedation), No alert Respiratory: lungs clear, normal breath sounds, No respiratory distress Cardiac/Chest: regular rate, rhythm, tachycardia (borderline) Extremities: non-tender, normal inspection Skin: normal color, warm/dry, No rash ICD10 Worksheet Patient Problems: Problems Problem Status Onset Sepsis Acute Septic shock Acute Urinary tract infection Acute
--- NOTE | 2016-06-16 11:18 | PDINTPN ---
Harness Rigger Progress Note Assessment/Plan: Assessment/plan: 66 F s/p recent TAVR at mid April 2016, admitted to [facility] from SNF 2/2 altered MS thought to be from UTI and/or PNA. She was treated with CTX/ Zithromax as well as LMWH for DVT prophylaxis in addition to her Plavix and ASA. She developed ?right -sided weakness and a head CT revealed an acute SDH. ALL anticoag medications were held and she was evaluated by neurosurgery who suggested close observation. However, she had persistent RR>40 with borderline oxygen so was intubated 06/13/16. * Respiratory failure with hypoxemia, ventilator likely due to underlying PNA and poor airway protection. Vent day #4. Weaning again on minimal support and likely to extubate today. * PNA- ?aspiration- not very clear. Discussed with ID and remains on ertapenem. Agree with no therapy for Lorena in BAL. * SDH- No changes. Will eventually get PT/OT/rehab once improved and extubated. * UTI?- not clearly contributing as discussed in ID notes; but treated either way. * s/p TAVR- will eventually need to resume ASA/Plavix for 6 months, but obviously need to hold in setting of acute SDH. Typically held for 2 weeks. * Critical care time 40 minutes including bedside evaluation, discussion with team on rounds, with RT, and close evaluation of a complex critically ill patient. 06/15/16 13:23 06/16/16 11:15 Subjective: Weaned yesterday for several hours, but tahcypneic towards the end. Stable overnight Objective: Vital Signs Temp Pulse Resp BP Pulse Ox 37.9 C 90 32 H 160/97 H 100 06/16/16 09:42 06/16/16 10:00 06/16/16 10:00 06/16/16 10:00 06/16/16 10:00 Microbiology 06/13/16 13:10 Gram Stain - Final Lung Right Lower Lobe - Bronchial Washings Bronchial Washings Culture - Final Lorena Albicans 06/13/16 11:45 - Final Sputum, Induced/Suctioned Sputum Culture - Final Lorena Albicans Laboratory Results 06/16/16 03:15 06/16/16 03:15 06/15/16 06/16/16 06/17/16 05:59 05:59 05:59 Intake Total 4112.5 3189 Output Total 965 1965 7 Balance 3147.5 1224 -7 PT 15.2 SEC (12.0-15.0) H 06/14/16 05:00 INR 1.20 (0.83-1.16) H 06/14/16 05:00 Physical Exam - Physical Exam General Appearance: no apparent distress EENT: PERRL/EOMI Neck: supple Respiratory: lungs clear, normal breath sounds, No respiratory distress Cardiac/Chest: regular rate, rhythm, No edema Abdomen: normal bowel sounds, non-tender, soft, No distended Skin: normal color, warm/dry Lymphatic: no adenopathy Extremities: non-tender, No pedal edema (somnolent on vent, propofol) ICD10 Worksheet Patient Problems: Problems Problem Status Onset Sepsis Acute Septic shock Acute Urinary tract infection Acute
--- NOTE | 2016-06-16 13:53 | HOSPPROG ---
Hospitalist Progress Note Assessment/Plan: * Severe sepsis - suspect aspiration pneumonia more than UTI -IV Invanz -now afebrile * Acute respiratory failure s/p intubation -weaning * Metabolic encephalopathy - now sedated on vent * Subdural hematoma - stable by CT -hold ASA/Plavix * DM - Lantus * Dementia with behavior disturbances -jolanta montelongo * Recent TAVR - need to discuss with neurosurgery when okay to restart ASA/ Plavix Subjective: Weaning Objective: Vital Signs Temp Pulse Resp BP Pulse Ox 37.8 C 90 45 H 192/90 H 96 06/16/16 12:22 06/16/16 13:02 06/16/16 13:02 06/16/16 13:02 06/16/16 13:02 Microbiology 06/13/16 13:10 Gram Stain - Final Lung Right Lower Lobe - Bronchial Washings Bronchial Washings Culture - Final Lorena Albicans 06/13/16 11:45 - Final Sputum, Induced/Suctioned Sputum Culture - Final Lorena Albicans Laboratory Results 06/16/16 03:15 06/16/16 03:15 06/15/16 06/16/16 06/17/16 05:59 05:59 05:59 Intake Total 4112.5 3189 Output Total 965 1965 7 Balance 3147.5 1224 -7 PT 15.2 SEC (12.0-15.0) H 06/14/16 05:00 INR 1.20 (0.83-1.16) H 06/14/16 05:00 d/w Dr Tillman - ICU rounds - weaning coming along tele reviewed - NSR - Physical Exam Constitutional: no apparent distress, appears nourished, not in pain Eyes: PERRL, anicteric sclera Cardiovascular: regular rate and rhythym, no murmur, rub, or gallop Respiratory: no respiratory distress, no rales or rhonchi, clear to auscultation Gastrointestinal: normoactive bowel sounds, soft, non-tender abdomen, no palpable masses Skin: no rashes or abrasions, no fluctuance, no induration Neurologic: No AAOx3 Psychiatric: encephalopathic, other (intubated and sedated), No interacting appropriately, No agitated ICD10 Worksheet Patient Problems: Problems Problem Status Onset Sepsis Acute Septic shock Acute Urinary tract infection Acute
[2016-06-16] MEDS: NS 1,000 ML IV SCH ×2 (15:07→23:58)
[2016-06-16 18:26] LABS: POTASSIUM 3.5 mEq/L (3.5-5.2)
[2016-06-16] MEDS: POTASSIUM Cl (KCl) 50 ML IV SCH ×3 (19:34→22:00)
[2016-06-16] MEDS: INSULIN GLARGINE 100 UNITS/ML SYRINGE SC SCH (20:28)
[2016-06-16] MEDS: LORazepam 1 MG TAB TUBE SCH (20:29)
[2016-06-16] MEDS: ACETAMINOPHEN 325 MG TAB TUBE PRN (20:31)
[2016-06-17] MEDS: VALPROIC ACID 250 MG/5 ML UDCUP TUBE SCH ×4 (00:04→18:01)
[2016-06-17] MEDS: INSULIN REGULAR, HUMAN 100 UNIT/1 ML VIAL LOW SC SCH ×4 (00:04→18:02)
[2016-06-17 04:36] LABS: BASE EXCESS 3.6 mEq/L (-2.5-2.5); BICARBONATE 27 mEq/L (22-26); MEASURED OXYGEN SATURATION 95 % (92-95); PCO2 39 mmHg (34-38); PO2 76 mmHg (65-75); TCO2 28 mEq/L (23-27)
[2016-06-17 04:38] LABS: CPAP YES; PATIENT RATE 28; PRESSURE SUPPORT 7
[2016-06-17 04:39] LABS: O2 CONCENTRATIION 40 % (0-100); P/F RATIO 190 RATIO
[2016-06-17 05:50] LABS: ADD DIFF? YES; ADD MORPH? NO; ADD SCAN? NO; ATYPICAL LYMPHOCYTE FLAG 60 (0-99); FRAGMENT RBC FLAG 0 (0-99); HEMATOCRIT 31.4 % (38.0-47.0); HEMOGLOBIN 10.6 g/dL (12.6-16.3); LEFT SHIFT FLG 80 (0-99); LIPEMIA HEMOLYSIS FLAG 90 (0-99); MEAN CELL HEMOGLOBIN 29.7 pg (27.9-34.1); MEAN CELL HEMOGLOBIN CONCENTR. 33.8 g/dL (32.4-36.7); MEAN PLATELET VOLUME 10.8 fL (8.7-11.7); PLATELET CLUMPS FLAG 0 (0-99); PLATELET COUNT 203 10^3/uL (150-400); RED BLOOD CELL COUNT 3.57 10^6/uL (4.18-5.33); RED CELL DISTRIBUTION WIDTH 12.6 % (11.5-15.2)
[2016-06-17 06:10] LABS: ANION GAP 2 mEq/L (8-16); CALCIUM 7.9 mg/dL (8.5-10.4); CARBON DIOXIDE 28 mEq/l (22-31); CHLORIDE 105 mEq/L (97-110); CREATININE 0.5 mg/dL (0.6-1.0); GLOMERULAR FILTRATION RATE > 60; GLUCOSE 124 mg/dL (70-100); POTASSIUM 4.4 mEq/L (3.5-5.2); SODIUM 135 mEq/L (134-144)
[2016-06-17 06:23] LABS: PLATELET ESTIMATE ADEQUATE (ADEQ); POLYCHROMASIA 1+
[2016-06-17 06:28] LABS: SMUDGE CELLS 1+
--- NOTE | 2016-06-17 07:30 | PCMIDPN ---
Assessment/Plan: #Sepsis with Fever, Resp Failure, marked leukocytosis. Source asp PNA vs UTI. Reviewed CXR 06/13 possible subtle infiltrate RLL, BAL with purulence RLL, possible PNA. Patient has received 8 days of antibiotics and 6 days of empiric therapy directed more at aspiration PNA. Minimal vent settings and leukocytosis decreasing. Persistent fever but may be central fever/due to subdural hematoma. Suspect difficulties with extubation driven by mental status. --Continue to monitor for other etiologies of fever including line infection ( blood cx 06/13 neg), cdiff, drug fever --one more day of ertapenem #R Sided subdural hematoma #Lorena in BAL reflects colonization micro 06/10 blood cx (2) Neg 06/10 Ucx Citrobacter R to / gen ceph and amp/sub 06/13 blood cx (2) NGTD 06/13 BAL Lorena Day #8 Abx ertapenem 1gm IV daily, #6 s/p ceftriazone and azithro Subjective: increased RR and agitation with extubation attempt overnight no other concerns, no diarrhea Objective: Vital Signs Temp Pulse Resp BP Pulse Ox 37.5 C 82 21 H 115/56 L 99 06/17/16 06:00 06/17/16 06:00 06/17/16 06:00 06/17/16 06:00 06/17/16 06:00 Laboratory Results 06/17/16 05:28 06/17/16 05:28 06/16/16 06/17/16 06/18/16 05:59 05:59 05:59 Intake Total 3189 4506 Output Total 1965 4257 Balance 1224 249 - Physical Exam General Appearance: other (sedated) EENT: pale conjunctiva, ET Tube, NG Tube Respiratory: coarse breath sounds Neck: supple Cardiac/Chest: regular rate, rhythm Extremities: pedal edema Abdomen: normal bowel sounds, non-tender, soft Pelvic Exam: durant Skin: pallor, No rash - Line/s LUE PICC Lines: No drainage, No erythema ICD10 Worksheet Patient Problems: Problems Problem Status Onset Sepsis Acute Septic shock Acute Urinary tract infection Acute
[2016-06-17] MEDS: NS 1,000 ML IV SCH ×2 (07:37→15:57)
[2016-06-17] MEDS: CHLORHEXIDINE GLUCONATE 15 ML UDL PO SCH ×2 (08:48→19:54)
[2016-06-17] MEDS: CYANO/VITAMIN B12 1000 MCG TAB SL SCH (09:04)
[2016-06-17] MEDS: FAMOTIDINE 20 MG/NACL 50 ML IV SCH ×2 (09:06→21:23)
[2016-06-17] MEDS: ERTAPENEM 1 GM in NS 100 ML IV SCH (09:06)
[2016-06-17] MEDS: LOSARTAN POTASSIUM 25 MG TAB TUBE SCH (09:07)
[2016-06-17] MEDS: LORazepam 0.5 MG TAB TUBE SCH (09:07)
[2016-06-17] MEDS: OLANZapine DISINTEGR 5 MG TAB TUBE SCH ×2 (09:08→21:23)
[2016-06-17] MEDS: PROPOFOL/EMULSION 100 ML IV SCH (11:06)
[2016-06-17] MEDS: FUROSEMIDE 20 MG/2 ML VIAL IVP SCH ×2 (11:15→21:23)
--- NOTE | 2016-06-17 13:27 | PDINTPN ---
Pharmacy Technologist Progress Note Assessment/Plan: Assessment/plan: 66 F s/p recent TAVR at mid April 2016, admitted to [facility] from SNF 2/2 altered MS thought to be from UTI and/or PNA. She was treated with CTX/ Zithromax as well as LMWH for DVT prophylaxis in addition to her Plavix and ASA. She developed ?right -sided weakness and a head CT revealed an acute SDH. ALL anticoag medications were held and she was evaluated by neurosurgery who suggested close observation. However, she had persistent RR>40 with borderline oxygen so was intubated 06/13/16. * Respiratory failure with hypoxemia, ventilator likely due to underlying PNA and poor airway protection. Vent day #5. She continues to fail weans with increasing RR and yesterday with coarse BS. Her CXR is unremarkable, but her BNP was 4560 so lasix was ordered. Will continue weans today and hopefully extubate in AM * PNA- ?aspiration- not very clear. Discussed with ID and remains on ertapenem. Agree with no therapy for Lorena in BAL. WBC still elevated and hovering around 17. * SDH- No changes. Will eventually get PT/OT/rehab once improved and extubated. * UTI?- not clearly contributing as discussed in ID notes; but treated either way. * s/p TAVR- will eventually need to resume ASA/Plavix for 6 months, but obviously need to hold in setting of acute SDH. Typically held for 2 weeks. * Critical care time 35 minutes including bedside evaluation, discussion with team on rounds, with RT, and close evaluation of a complex critically ill patient. Objective: Vital Signs Temp Pulse Resp BP Pulse Ox 37.9 C 92 21 H 155/65 H 100 06/17/16 12:00 06/17/16 12:00 06/17/16 10:00 06/17/16 10:00 06/17/16 08:05 Laboratory Results 06/17/16 05:28 06/17/16 05:28 06/16/16 06/17/16 06/18/16 05:59 05:59 05:59 Intake Total 3189 4506 Output Total 1965 4257 Balance 1224 249 PT 15.2 SEC (12.0-15.0) H 06/14/16 05:00 INR 1.20 (0.83-1.16) H 06/14/16 05:00 Physical Exam - Physical Exam General Appearance: no apparent distress, other (sedated on vent) EENT: PERRL/EOMI Neck: non-tender, supple Respiratory: lungs clear, normal breath sounds, No respiratory distress, No rales Cardiac/Chest: normal peripheral pulses, regular rate, rhythm, No edema Abdomen: normal bowel sounds, non-tender, soft, No distended Skin: warm/dry, No cyanosis Lymphatic: no adenopathy Extremities: No pedal edema ICD10 Worksheet Patient Problems: Problems Problem Status Onset Sepsis Acute Septic shock Acute Urinary tract infection Acute
[2016-06-17] MEDS: ACETAMINOPHEN 325 MG TAB TUBE PRN (14:12)
--- NOTE | 2016-06-17 15:53 | HOSPPROG ---
Hospitalist Progress Note Assessment/Plan: * Severe sepsis - suspect aspiration pneumonia more than UTI -IV Invanz -now afebrile * Acute respiratory failure s/p intubation -weaning * Metabolic encephalopathy - now sedated on vent * Subdural hematoma - stable by CT -hold ASA/Plavix * DM - Lantus * Dementia with behavior disturbances -jolanta montelongo * Recent TAVR - need to discuss with neurosurgery when okay to restart ASA/ Plavix Subjective: No events Objective: Vital Signs Temp Pulse Resp BP Pulse Ox 38 C 82 19 133/60 H 100 06/17/16 14:00 06/17/16 14:00 06/17/16 14:00 06/17/16 14:00 06/17/16 08:05 Laboratory Results 06/17/16 05:28 06/17/16 05:28 06/16/16 06/17/16 06/18/16 05:59 05:59 05:59 Intake Total 3189 4506 Output Total 1965 4257 Balance 1224 249 PT 15.2 SEC (12.0-15.0) H 06/14/16 05:00 INR 1.20 (0.83-1.16) H 06/14/16 05:00 d/w Dr. Tillman - slow to wean CXR - negative - Physical Exam Constitutional: no apparent distress, appears nourished, not in pain, chronically ill appearing, No uncomfortable Eyes: PERRL, anicteric sclera, No pale conjunctiva, No scleral injection Cardiovascular: regular rate and rhythym, no murmur, rub, or gallop Respiratory: no respiratory distress, no rales or rhonchi, clear to auscultation Gastrointestinal: normoactive bowel sounds, soft, non-tender abdomen, no palpable masses Skin: no rashes or abrasions, no fluctuance, no induration Psychiatric: encephalopathic, other (intubated and sedated) ICD10 Worksheet Patient Problems: Problems Problem Status Onset Sepsis Acute Septic shock Acute Urinary tract infection Acute
[2016-06-17 18:07] LABS: POTASSIUM 4.3 mEq/L (3.5-5.2)
[2016-06-17] MEDS: INSULIN GLARGINE 100 UNITS/ML SYRINGE SC SCH (19:56)
[2016-06-17] MEDS: LORazepam 1 MG TAB TUBE SCH (21:23)
[2016-06-18] MEDS: NS 1,000 ML IV SCH ×3 (00:34→17:14)
[2016-06-18] MEDS: INSULIN REGULAR, HUMAN 100 UNIT/1 ML VIAL LOW SC SCH ×4 (00:34→18:04)
[2016-06-18] MEDS: VALPROIC ACID 250 MG/5 ML UDCUP TUBE SCH ×4 (00:36→18:03)
[2016-06-18] MEDS: ACETAMINOPHEN 325 MG TAB TUBE PRN (02:21)
[2016-06-18] MEDS: PROPOFOL/EMULSION 100 ML IV SCH ×2 (03:30→17:15)
[2016-06-18 04:37] LABS: ADD DIFF? YES; ADD MORPH? NO; ADD SCAN? NO; ATYPICAL LYMPHOCYTE FLAG 50 (0-99); FRAGMENT RBC FLAG 0 (0-99); HEMATOCRIT 30.7 % (38.0-47.0); HEMOGLOBIN 10.5 g/dL (12.6-16.3); LEFT SHIFT FLG 60 (0-99); LIPEMIA HEMOLYSIS FLAG 90 (0-99); MEAN CELL HEMOGLOBIN CONCENTR. 34.2 g/dL (32.4-36.7); MEAN CELL VOLUME 87.7 fL (81.5-99.8); MEAN PLATELET VOLUME 10.4 fL (8.7-11.7); PLATELET CLUMPS FLAG 20 (0-99); PLATELET COUNT 214 10^3/uL (150-400); RED CELL DISTRIBUTION WIDTH 12.8 % (11.5-15.2)
[2016-06-18 04:41] LABS: BASE EXCESS 5.7 mEq/L (-2.5-2.5); BICARBONATE 29 mEq/L (22-26); MEASURED OXYGEN SATURATION 96 % (92-95); PCO2 38 mmHg (34-38); PO2 81 mmHg (65-75); TCO2 30 mEq/L (23-27)
[2016-06-18 04:45] LABS: CPAP YES
[2016-06-18 04:46] LABS: END TIDAL CO2 27; O2 CONCENTRATIION 40 % (0-100); P/F RATIO 203 RATIO; PATIENT RATE 38; PRESSURE SUPPORT 7
[2016-06-18 04:46] LABS: ANION GAP 4 mEq/L (8-16); CALCIUM 8.2 mg/dL (8.5-10.4); CARBON DIOXIDE 30 mEq/l (22-31); CHLORIDE 102 mEq/L (97-110); CREATININE 0.5 mg/dL (0.6-1.0); GLOMERULAR FILTRATION RATE > 60; GLUCOSE 142 mg/dL (70-100); SODIUM 136 mEq/L (134-144)
[2016-06-18 06:30] LABS: PLATELET ESTIMATE ADEQUATE (ADEQ)
[2016-06-18 06:33] LABS: POLYCHROMASIA 1+
--- NOTE | 2016-06-18 08:39 | PCMIDPN ---
Assessment/Plan: #Sepsis with Fever, Resp Failure, marked leukocytosis. Unclear if infectious source to sepsis physiology - consider asp PNA vs UTI. Reviewed CXR 06/17, no focal infiltrate Minimal vent settings, suspect difficulties with extubation driven by mental status. Leukocytosis persists but no focal sign of infection including Cdiff neg 06/14 --dc ertapenem --if temp >38.5 would repeat blood cultures --will follow peripherally #R Sided subdural hematoma #Lorena in BAL reflects colonization micro 06/10 blood cx (2) Neg 06/10 Ucx Citrobacter R to / gen ceph and amp/sub 06/13 blood cx (2) NGTD 06/13 BAL Lorena Day #9 Abx ertapenem 1gm IV daily, #7 s/p ceftriazone and azithro Subjective: no specific events overnight Objective: Vital Signs Temp Pulse Resp BP Pulse Ox 37.7 C 83 20 105/53 L 98 06/18/16 08:23 06/18/16 08:23 06/18/16 08:23 06/18/16 08:23 06/18/16 08:23 Laboratory Results 06/18/16 04:20 06/18/16 04:20 06/17/16 06/18/16 06/19/16 05:59 05:59 05:59 Intake Total 4506 4413.5 Output Total 4257 6050 Balance 249 -1636.5 Tm 38 General Appearance: sedated, pallor EENT: pale conjunctiva, ET Tube, NG Tube Respiratory: on vent, no crackles, sedated Neck: supple Cardiac/Chest: regular rate, rhythm Extremities: mild anasarca Abdomen: normal bowel sounds, non-tender, soft Pelvic Exam: durant Skin: pallor, No rash LUE PICC: No drainage, No erythema ICD10 Worksheet Patient Problems: Problems Problem Status Onset Sepsis Acute Septic shock Acute Urinary tract infection Acute
[2016-06-18] MEDS: CHLORHEXIDINE GLUCONATE 15 ML UDL PO SCH ×2 (08:50→22:37)
[2016-06-18] MEDS: LOSARTAN POTASSIUM 25 MG TAB TUBE SCH (09:02)
[2016-06-18] MEDS: OLANZapine DISINTEGR 5 MG TAB TUBE SCH ×2 (09:04→22:33)
[2016-06-18] MEDS: FAMOTIDINE 20 MG/NACL 50 ML IV SCH ×2 (09:04→22:32)
[2016-06-18] MEDS: LORazepam 0.5 MG TAB TUBE SCH (09:04)
[2016-06-18] MEDS: CYANO/VITAMIN B12 1000 MCG TAB SL SCH (09:10)
--- NOTE | 2016-06-18 15:26 | HOSPPROG ---
Hospitalist Progress Note Assessment/Plan: Assessment: 66-year-old female presents with severe sepsis in the setting of urinary tract infection and aspiration pneumonia Plan: 1. Severe sepsis. POA, evidenced by tachycardia + leukocytosis + source (UTI/ asp PNA) + distant end-organ failure (lactic acidosis 4.3, GEORGE), demonstrating autonomic dysregulation in setting of infxn (per sepsis-2 criteria) - s/p empiric IV Abx and IVF - monitoring CBC 2. Acute hypoxic respiratory failure. Requiring intubation, weaning 3. Acute encephalopathy. Evidenced by global brain dysfunction characterized as poor responsiveness, reportedly a change from her baseline, likely 2/2 toxic effects of infxn, metabolic acidosis - weaned sedation for extubation trial 4. Subdural hematoma. R tentorial, stable by CT - hold ASA/Plavix 5. DM2. Cont lantus 6. Dementia w/ behavioral disturbance. Cont zyprexa 7. Recent TAVR. Restart ASA/plavix when OK w/ NSGY 8. Aspiration pneumonia. RLL on CXR (personally interpreted) likely demonstrating radiographic worsening s/p IVF - s/p 8 day Invanz, d/w Dr. Ortez, discontinue and monitor for fever 9. Citrobacter UTI. Positive UA, s/p invanz 10. GEORGE. Cr peaked at 1.1, s/p IVF, resolved Diet. TF Code. Full PPx. High risk, SCDs Dispo. ADD uncertain, pending clinical stability Subjective: Patient comfortable on vent Objective: Vital Signs Temp Pulse Resp BP Pulse Ox 37.6 C 83 25 H 110/54 L 99 06/18/16 13:19 06/18/16 15:07 06/18/16 15:07 06/18/16 13:19 06/18/16 15:07 Laboratory Results 06/18/16 04:20 06/18/16 04:20 06/17/16 06/18/16 06/19/16 05:59 05:59 05:59 Intake Total 4506 4413.5 Output Total 4257 6050 Balance 249 -1636.5 PT 15.2 SEC (12.0-15.0) H 06/14/16 05:00 INR 1.20 (0.83-1.16) H 06/14/16 05:00 - Physical Exam Constitutional: no apparent distress, not in pain, chronically ill appearing, No uncomfortable Eyes: other (Constricted pupils, fix) Cardiovascular: systolic murmur (106 systolic), No irregularly irregular, No tachycardia, No edema Respiratory: no respiratory distress, no rales or rhonchi, clear to auscultation Gastrointestinal: normoactive bowel sounds, soft, non-tender abdomen, no palpable masses, No distension Neurologic: other (Withdraw from painful stimuli) ICD10 Worksheet Patient Problems: Problems Problem Status Onset Sepsis Acute Septic shock Acute Urinary tract infection Acute
--- NOTE | 2016-06-18 16:10 | PDINTPN ---
Count Room Clerk Progress Note Assessment/Plan: Assessment/plan: 66 F s/p recent TAVR at mid April 2016, admitted to [facility] from SNF 2/2 altered MS thought to be from UTI and/or PNA. She was treated with CTX/ Zithromax as well as LMWH for DVT prophylaxis in addition to her Plavix and ASA. She developed ?right -sided weakness and a head CT revealed an acute SDH. ALL anticoag medications were held and she was evaluated by neurosurgery who suggested close observation. However, she had persistent RR>40 with borderline oxygen so was intubated 06/13/16. * Respiratory failure with hypoxemia, ventilator likely due to underlying PNA and poor airway protection. Vent day #6. She continues to fail weans with increasing RR. Serum HCO3 misty likely 2/2 lasix. Retry weans today with T piece as tolerated. * PNA- ?aspiration- not very clear. Discussed with ID and remains on ertapenem. Agree with no therapy for Lorena in BAL. WBC still elevated and hovering around 17. This remains the same and discussed with ID who suggested likely leukamoid reaction. Continue to observe but low threshold for re-culture, etc. * SDH- No changes. Will eventually get PT/OT/rehab once improved and extubated. * UTI?- not clearly contributing as discussed in ID notes; but treated either way. * s/p TAVR- will eventually need to resume ASA/Plavix for 6 months, but obviously need to hold in setting of acute SDH. Typically held for 2 weeks. * Critical care time 30 minutes including bedside evaluation, discussion with team on rounds, with RT, and close evaluation of a complex critically ill patient. 06/18/16 16:07 Subjective: Stable overnight on vent. Failed weans again 06/17 with high RR. Rx'd with lasix Objective: Vital Signs Temp Pulse Resp BP Pulse Ox 37.6 C 83 25 H 110/54 L 99 06/18/16 13:19 06/18/16 15:07 06/18/16 15:07 06/18/16 13:19 06/18/16 15:07 Laboratory Results 06/18/16 04:20 06/18/16 04:20 06/17/16 06/18/16 06/19/16 05:59 05:59 05:59 Intake Total 4506 4413.5 Output Total 4257 6050 Balance 249 -1636.5 PT 15.2 SEC (12.0-15.0) H 06/14/16 05:00 INR 1.20 (0.83-1.16) H 06/14/16 05:00 Physical Exam - Physical Exam General Appearance: no apparent distress, other (sedsated on vent) EENT: normal ENT inspection Neck: supple Respiratory: lungs clear, normal breath sounds, No respiratory distress, No rales, No rhonchi Cardiac/Chest: normal peripheral pulses, regular rate, rhythm, No edema Abdomen: normal bowel sounds, non-tender, soft, No distended Skin: normal color, warm/dry Lymphatic: no adenopathy Extremities: No pedal edema Neuro/Psych: other (sedated) ICD10 Worksheet Patient Problems: Problems Problem Status Onset Sepsis Acute Septic shock Acute Urinary tract infection Acute
[2016-06-18] MEDS: METOCLOPRAMIDE 10 MG/2 ML VIAL IVP SCH (18:03)
[2016-06-18] MEDS ORDERED: CANN-EASE 2 GM TUBE TP ONE (22:23)
[2016-06-18] MEDS: INSULIN GLARGINE 100 UNITS/ML SYRINGE SC SCH (22:37)
[2016-06-18] MEDS: LORazepam 1 MG TAB TUBE SCH (22:38)
[2016-06-19] MEDS: VALPROIC ACID 250 MG/5 ML UDCUP TUBE SCH ×5 (00:32→23:22)
[2016-06-19] MEDS: METOCLOPRAMIDE 10 MG/2 ML VIAL IVP SCH ×5 (00:32→23:21)
[2016-06-19] MEDS: INSULIN REGULAR, HUMAN 100 UNIT/1 ML VIAL LOW SC SCH ×5 (00:38→23:21)
[2016-06-19 05:01] LABS: ADD DIFF? YES; ADD MORPH? NO; ADD SCAN? NO; ATYPICAL LYMPHOCYTE FLAG 70 (0-99); FRAGMENT RBC FLAG 0 (0-99); HEMATOCRIT 29.7 % (38.0-47.0); HEMOGLOBIN 10.1 g/dL (12.6-16.3); LEFT SHIFT FLG 50 (0-99); LIPEMIA HEMOLYSIS FLAG 90 (0-99); MEAN CELL VOLUME 88.1 fL (81.5-99.8); MEAN PLATELET VOLUME 10.4 fL (8.7-11.7); PLATELET CLUMPS FLAG 0 (0-99); PLATELET COUNT 223 10^3/uL (150-400); RED BLOOD CELL COUNT 3.37 10^6/uL (4.18-5.33)
[2016-06-19] MEDS: PROPOFOL/EMULSION 100 ML IV SCH (05:14)
[2016-06-19 05:17] LABS: ANION GAP 6 mEq/L (8-16); CALCIUM 8.1 mg/dL (8.5-10.4); CARBON DIOXIDE 27 mEq/l (22-31); CHLORIDE 106 mEq/L (97-110); CREATININE 0.5 mg/dL (0.6-1.0); GLOMERULAR FILTRATION RATE > 60; GLUCOSE 92 mg/dL (70-100); SODIUM 139 mEq/L (134-144)
[2016-06-19 06:27] LABS: PLATELET ESTIMATE ADEQUATE (ADEQ); POLYCHROMASIA 1+
[2016-06-19] MEDS: CHLORHEXIDINE GLUCONATE 15 ML UDL PO SCH (08:22)
[2016-06-19] MEDS: CYANO/VITAMIN B12 1000 MCG TAB SL SCH (08:23)
[2016-06-19] MEDS: LOSARTAN POTASSIUM 25 MG TAB TUBE SCH ×2 (08:23→10:18)
[2016-06-19] MEDS: LORazepam 0.5 MG TAB TUBE SCH (08:23)
[2016-06-19] MEDS: FAMOTIDINE 20 MG/NACL 50 ML IV SCH (08:24)
[2016-06-19] MEDS: OLANZapine DISINTEGR 5 MG TAB TUBE SCH ×2 (10:39→21:02)
[2016-06-19] MEDS: NYSTATIN 15 GM CR TUBE TP SCH ×2 (10:44→21:02)
--- NOTE | 2016-06-19 13:32 | HOSPPROG ---
Hospitalist Progress Note Assessment/Plan: Assessment: 66-year-old female presents with severe sepsis in the setting of urinary tract infection and aspiration pneumonia Plan: 1. Severe sepsis. POA, evidenced by tachycardia + leukocytosis + source (UTI/ asp PNA) + distant end-organ failure (lactic acidosis 4.3, GEORGE), demonstrating autonomic dysregulation in setting of infxn (per sepsis-2 criteria) - s/p empiric IV Abx and IVF - monitoring CBC 2. Acute hypoxic respiratory failure. Evidenced by initial SpO2 87% w/ resp distress (RR 52), requiring intubation -CXR 06/17 (personally interpreted) w/o CHF -attempting extubation today, holding sedation -if fails today, repeat CXR and consider diuresing (11kg up from presentation) 3. Acute encephalopathy. Evidenced by global brain dysfunction characterized as poor responsiveness, reportedly a change from her baseline, likely 2/2 toxic effects of infxn, metabolic acidosis -hold sedation for extubation trial 4. Subdural hematoma. R tentorial, stable by CT -hold ASA/Plavix 5. DM2. Cont lantus 6. Dementia w/ behavioral disturbance. Cont zyprexa 7. Recent TAVR. Restart ASA/plavix when OK w/ NSGY, will d/w Cardiology whether ASA/Plavix have absolute indication in TAVR 8. Aspiration pneumonia. RLL on CXR (personally interpreted) likely demonstrating radiographic worsening s/p IVF - s/p 8 day Invanz - monitoring WBC off Abx 9. Citrobacter UTI. Positive UA, s/p invanz 10. GEORGE. Cr peaked at 1.1, s/p IVF, resolved Diet. TF Code. Full PPx. High risk, d/w Dr. Tillman, we agreed to start hep SC today Dispo. ADD uncertain, pending clinical stability Patient remains high risk of mortality, high medical complexity 2/2 issues outlined above. Subjective: Patient following commands off sedation Objective: Vital Signs Temp Pulse Resp BP Pulse Ox 37.6 C 96 26 H 172/88 H 96 06/19/16 06:00 06/19/16 12:00 06/19/16 12:00 06/19/16 12:00 06/19/16 12:00 Microbiology 06/13/16 12:40 Blood Culture - Final Blood 06/13/16 13:30 Blood Culture - Final Blood Laboratory Results 06/19/16 04:45 06/19/16 04:45 06/18/16 06/19/16 06/20/16 05:59 05:59 05:59 Intake Total 4413.5 3630 924 Output Total 6050 4000 Balance -1636.5 -370 924 PT 15.2 SEC (12.0-15.0) H 06/14/16 05:00 INR 1.20 (0.83-1.16) H 06/14/16 05:00 - Physical Exam Constitutional: no apparent distress, not in pain, chronically ill appearing, No uncomfortable Eyes: anicteric sclera, EOMI, other (Pupils are tracking, reactive to light, equal), No scleral injection Cardiovascular: systolic murmur (2/6 at the sternum and apex), No irregularly irregular, No tachycardia, No edema Respiratory: no respiratory distress, no rales or rhonchi, clear to auscultation Gastrointestinal: normoactive bowel sounds, soft, non-tender abdomen, no palpable masses Neurologic: other (Following one-step commands) ICD10 Worksheet Patient Problems: Problems Problem Status Onset Sepsis Acute Septic shock Acute Urinary tract infection Acute
[2016-06-19] MEDS: HEPARIN 5,000 UNIT/0.5 ML SYR SC SCH ×2 (15:24→21:02)
--- NOTE | 2016-06-19 15:56 | PDINTPN ---
Bio Medical Technician Progress Note Assessment/Plan: Assessment/plan: 66 F s/p recent TAVR at mid April 2016, admitted to [facility] from SNF 2/2 altered MS thought to be from UTI and/or PNA. She was treated with CTX/ Zithromax as well as LMWH for DVT prophylaxis in addition to her Plavix and ASA. She developed ?right -sided weakness and a head CT revealed an acute SDH. ALL anticoag medications were held and she was evaluated by neurosurgery who suggested close observation. However, she had persistent RR>40 with borderline oxygen so was intubated 06/13/16. * Respiratory failure with hypoxemia, ventilator likely due to underlying PNA and poor airway protection. Vent day #7. Tolerated TP wean quite well- plan extubation. * PNA- ?aspiration- not very clear. Discussed with ID and remains on ertapenem. Agree with no therapy for Lorena in BAL. WBC still elevated and hovering around 17. This remains the same and discussed with ID who suggested likely leukamoid reaction. Continue to observe but low threshold for re-culture, etc. Reduced today * SDH- No changes. Will eventually get PT/OT/rehab once improved and extubated. * UTI?- not clearly contributing as discussed in ID notes; but treated either way. * s/p TAVR- will eventually need to resume ASA/Plavix for 6 months, but obviously need to hold in setting of acute SDH. Typically held for 2 weeks. * Critical care time 30 minutes including bedside evaluation, discussion with team on rounds, with RT, and close evaluation of a complex critically ill patient. 06/18/16 16:07 06/19/16 15:54 Subjective: Stable overnight and started TP wean this am- stable x several hours Objective: Vital Signs Temp Pulse Resp BP Pulse Ox 36.9 C 100 32 H 176/90 H 97 06/19/16 14:00 06/19/16 14:00 06/19/16 14:00 06/19/16 14:00 06/19/16 14:00 Microbiology 06/13/16 12:40 Blood Culture - Final Blood 06/13/16 13:30 Blood Culture - Final Blood Laboratory Results 06/19/16 04:45 06/19/16 04:45 06/18/16 06/19/16 06/20/16 05:59 05:59 05:59 Intake Total 4413.5 3630 924 Output Total 6050 4000 1900 Balance -1636.5 -370 -976 PT 15.2 SEC (12.0-15.0) H 06/14/16 05:00 INR 1.20 (0.83-1.16) H 06/14/16 05:00 Physical Exam - Physical Exam General Appearance: no apparent distress EENT: PERRL/EOMI Neck: supple Respiratory: lungs clear, normal breath sounds, No respiratory distress, No rales, No rhonchi Cardiac/Chest: normal peripheral pulses, regular rate, rhythm, No edema Abdomen: normal bowel sounds, non-tender, soft, No distended Skin: normal color, warm/dry Lymphatic: no adenopathy Extremities: No pedal edema Neuro/Psych: cognition abnormalities ICD10 Worksheet Patient Problems: Problems Problem Status Onset Sepsis Acute Septic shock Acute Urinary tract infection Acute
[2016-06-19] MEDS: INSULIN GLARGINE 100 UNITS/ML SYRINGE SC SCH (20:55)
[2016-06-19] MEDS: FAMOTIDINE 20 MG TAB TUBE SCH (20:58)
[2016-06-19] MEDS: LORazepam 1 MG TAB TUBE SCH (20:58)
[2016-06-19] MEDS: LABETALOL HCL 5 MG/ML 20 ML MDV IVP PRN (22:17)
[2016-06-20 03:58] LABS: ADD DIFF? YES; ADD MORPH? NO; ADD SCAN? NO; ATYPICAL LYMPHOCYTE FLAG 40 (0-99); FRAGMENT RBC FLAG 0 (0-99); HEMATOCRIT 33.8 % (38.0-47.0); HEMOGLOBIN 11.6 g/dL (12.6-16.3); LEFT SHIFT FLG 30 (0-99); LIPEMIA HEMOLYSIS FLAG 90 (0-99); MEAN CELL HEMOGLOBIN 29.9 pg (27.9-34.1); MEAN CELL HEMOGLOBIN CONCENTR. 34.3 g/dL (32.4-36.7); MEAN CELL VOLUME 87.1 fL (81.5-99.8); MEAN PLATELET VOLUME 10.2 fL (8.7-11.7); PLATELET CLUMPS FLAG 10 (0-99); PLATELET COUNT 249 10^3/uL (150-400); RED BLOOD CELL COUNT 3.88 10^6/uL (4.18-5.33)
[2016-06-20] MEDS: LABETALOL HCL 5 MG/ML 20 ML MDV IVP PRN (04:02)
[2016-06-20 04:09] LABS: ANION GAP 7 mEq/L (8-16); CALCIUM 8.6 mg/dL (8.5-10.4); CARBON DIOXIDE 30 mEq/l (22-31); CHLORIDE 103 mEq/L (97-110); CREATININE 0.5 mg/dL (0.6-1.0); GLOMERULAR FILTRATION RATE > 60; GLUCOSE 106 mg/dL (70-100); POTASSIUM 4.1 mEq/L (3.5-5.2); SODIUM 140 mEq/L (134-144)
[2016-06-20] MEDS: HEPARIN 5,000 UNIT/0.5 ML SYR SC SCH ×3 (05:23→22:04)
[2016-06-20] MEDS: METOCLOPRAMIDE 10 MG/2 ML VIAL IVP SCH ×4 (05:24→23:27)
[2016-06-20] MEDS: VALPROIC ACID 250 MG/5 ML UDCUP TUBE SCH ×4 (05:26→23:27)
[2016-06-20] MEDS: INSULIN REGULAR, HUMAN 100 UNIT/1 ML VIAL LOW SC SCH ×4 (05:26→23:27)
[2016-06-20 05:46] LABS: LARGE PLATELETS PRESENT; PLATELET ESTIMATE ADEQUATE (ADEQ)
[2016-06-20 05:49] LABS: POLYCHROMASIA 1+; TOXIC GRANULATION PRESENT; TOXIC VACUOLIZATION PRESENT
[2016-06-20] MEDS: OLANZapine DISINTEGR 5 MG TAB TUBE SCH (07:27)
[2016-06-20] MEDS: CYANO/VITAMIN B12 1000 MCG TAB SL SCH (10:20)
[2016-06-20] MEDS: LORazepam 0.5 MG TAB TUBE SCH (10:20)
[2016-06-20] MEDS: FAMOTIDINE 20 MG TAB TUBE SCH (10:22)
[2016-06-20] MEDS: FAMOTIDINE 20 MG/NACL 50 ML IV SCH ×2 (10:25→20:09)
[2016-06-20] MEDS: NYSTATIN 15 GM CR TUBE TP SCH ×2 (11:16→20:10)
[2016-06-20 11:32] LABS: COLOR PALE YELLOW; LEUKOCYTE ESTERASE,URINE NEGATIVE (NEGATIVE); NITRITE,URINE NEGATIVE (NEGATIVE)
[2016-06-20 11:36] LABS: BACTERIA TRACE /hpf (NONE SEEN); MUCUS TRACE /lpf (NONE-1+); YEAST PRESENT /hpf (NONE SEEN)
--- NOTE | 2016-06-20 14:15 | PDINTPN ---
Home Security Alarm Installer Progress Note Assessment/Plan: Assessment: 66 F s/p recent TAVR at mid April 2016, admitted to [facility] from SNF 2/2 altered MS thought to be from UTI and/or PNA. She was treated with CTX/ Zithromax as well as LMWH for DVT prophylaxis in addition to her Plavix and ASA. She developed ?right -sided weakness and a head CT revealed an acute SDH. ALL anticoag medications were held and she was evaluated by neurosurgery who suggested close observation. However, she had persistent RR>40 with borderline oxygen so was intubated 06/13/16. * Respiratory failure with hypoxemia: New problem to me today. Extubated 06/19, now on NC O2. CXR with possible worsening pneumonia LLL. * PNA- New problem to me today. ?aspiration- Slightly worse on CXR. Off antibiotics. Agree with no therapy for Lorena in BAL. WBC still elevated and a bit higher today. * SDH- No changes. Starting to work with PT/OT/ST. * UTI?- not clearly contributing as discussed in ID notes; but treated either way, now off antibiotics. U/A with improved, not resolved, urinalysis. * s/p TAVR- will eventually need to resume ASA/Plavix for 6 months, but obviously need to hold in setting of acute SDH. Typically held for 2 weeks. * Nutrition: TF through 06/19, now NPO Plan: ID to see again. Increase activity as tolerated. Hopefully can start diet in 1-2 days, currently at aspiration risk. 06/20/16 14:22 Subjective: C/O hand pain. Weak. No cough. Objective: Vital Signs Temp Pulse Resp BP Pulse Ox 37.6 C 90 22 H 163/84 H 96 06/20/16 12:00 06/20/16 12:00 06/20/16 12:00 06/20/16 12:00 06/20/16 12:00 Laboratory Results 06/20/16 03:30 06/20/16 03:30 06/19/16 06/20/16 06/21/16 05:59 05:59 05:59 Intake Total 3630 1807 Output Total 4000 4350 850 Balance -259 -0035 -535 PT 15.2 SEC (12.0-15.0) H 06/14/16 05:00 INR 1.20 (0.83-1.16) H 06/14/16 05:00 CXR: Increased infiltrate left base. Images reviewed. U/A 10-15 WBC. Physical Exam - Physical Exam General Appearance: alert, no apparent distress EENT: normal ENT inspection Neck: normal inspection Respiratory: lungs clear, normal breath sounds, respiratory distress Cardiac/Chest: regular rate, rhythm, No edema Abdomen: normal bowel sounds, non-tender, soft Skin: normal color, warm/dry Extremities: non-tender, No normal inspection Neuro/Psych: alert, normal mood/affect, No oriented x 3 ICD10 Worksheet Patient Problems: Problems Problem Status Onset Sepsis Acute Septic shock Acute Urinary tract infection Acute
--- NOTE | 2016-06-20 15:49 | HOSPPROG ---
Hospitalist Progress Note Assessment/Plan: Assessment: 66-year-old female presents with severe sepsis in the setting of urinary tract infection and aspiration pneumonia Plan: 1. Severe sepsis. POA, evidenced by tachycardia + leukocytosis + source (UTI/ asp PNA) + distant end-organ failure (lactic acidosis 4.3, GEORGE), demonstrating autonomic dysregulation in setting of infxn (per sepsis-2 criteria) - s/p empiric IV Abx and IVF - monitoring CBC 2. Acute hypoxic respiratory failure. Evidenced by initial SpO2 87% w/ resp distress (RR 52), requiring intubation -repeat CXR w/o CHF (personally interpreted) -extubated successfully 3. Acute on chronic encephalopathy. Evidenced by global brain dysfunction characterized as poor responsiveness, reportedly an acute change from her baseline of dementia, likely 2/2 toxic effects of infxn, metabolic acidosis -remains moderately uncooperative and easily agitated -start on HS melatonin -palliative consultation to establish baseline and goals of care 4. Subdural hematoma. R tentorial, stable by CT -hold ASA/Plavix 5. DM2. Cont lantus 6. Dementia w/ behavioral disturbance. Cont zyprexa when able to take PO 7. Recent TAVR. Restart ASA/plavix when OK w/ NSGY, will d/w Cardiology whether ASA/Plavix have absolute indication in TAVR 8. Aspiration pneumonia. Possibly acute worsening, new prob, further w/u indicated. RLL on second CXR likely demonstrating radiographic worsening s/p IVF , today's CXR w/ acute worsening but infiltrate still appears small - d/w Dr. Kilgore, we agree to reconsult w/ ID and hold on Abx until then - s/p 8 day Invanz - monitoring WBC off Abx - ordered UA, normal, remove durant - get BCx 9. Citrobacter UTI. Positive UA, s/p invanz 10. GEORGE. Cr peaked at 1.1, s/p IVF, resolved Diet. NPO w/ ICE CARVER eval Code. Full PPx. High risk, hep sc Dispo. ADD uncertain, pending clinical stability Patient remains high risk of mortality, high medical complexity 2/2 issues outlined above. Subjective: Patient extubated and on oxygen, minimally cooperative Objective: Vital Signs Temp Pulse Resp BP Pulse Ox 37.5 C 93 27 H 144/77 H 95 06/20/16 14:00 06/20/16 14:00 06/20/16 14:00 06/20/16 14:00 06/20/16 14:00 Laboratory Results 06/20/16 03:30 06/20/16 03:30 06/19/16 06/20/16 06/21/16 05:59 05:59 05:59 Intake Total 3630 1807 Output Total 4000 4350 850 Balance -363 -5660 -850 PT 15.2 SEC (12.0-15.0) H 06/14/16 05:00 INR 1.20 (0.83-1.16) H 06/14/16 05:00 - Physical Exam Constitutional: no apparent distress, chronically ill appearing, obese, uncomfortable Cardiovascular: systolic murmur (106 systolic), No irregularly irregular, No tachycardia, No edema Respiratory: inspiratory crackles (Right lateral base), No expiratory wheeze, No bronchial breath sounds, No respiratory distress Gastrointestinal: normoactive bowel sounds, soft, non-tender abdomen, no palpable masses Psychiatric: encephalopathic, agitated, poor insight, poor judgement, poor memory ICD10 Worksheet Patient Problems: Problems Problem Status Onset Sepsis Acute Septic shock Acute Urinary tract infection Acute
--- NOTE | 2016-06-20 16:22 | PDPCPN ---
Palliative Care Progress Note Assessment/Plan: Referring provider: Dr Montano Reason for consult: Complex medical decision making Symptom control HPI: Veronica Das is a 66 year old female with PMH diabetes, TVAR, and dementia? admitted to the hospital from [facility] for altered mental status. Found to be in septic shock from UTI vs asp PNA. Had respiratory failure requiring intubation now extubated on tent mask. Hospitalization also complicated by SDH after right sided weakness found. Therapies involved, currently NPO due to risk of dysphagia. Antibiotics stopped over the weekend but with increasing leukocytosis, ID involved. Palliative care consulted for complex medical decision making. Met with Veronica at the bedside this afternoon. She was sleeping but able to wake up and answer some simple questions. Denied pain or SOB. Wanted to be left alone so conversation was limited. Called APS temporary [facility] guardians and spoke over the phone with Adali and Lemuel Gibson. Adali Martin had been living at home in her home in [place] up until March when her house was condemned and she was sent to [facility] on a M1 hold. She was deemed incompetent by a boring machine set up operator and underwent TVAR at [facility] in [place] in April. From there she was sent to [facility] before being admitted her at [facility]. Lemuel shared he has known Veronica for about 1 year when he worked as a information systems audit manager for the formerly [employer]. He stated she has been active in the system (fire, police, mental health, etc) in [facility] for the past 20 years but from his understanding she has been "very difficult" since a teenager. He stated she has alienated her family with "mean and odd behavior". He is not sure what her actual mental health dx is as she has never been willing to be seen by a professional. She was dx with dementia at [facility] but is unaware of this dx previously. He stated at [facility] she was heavily sedated on medications to control her behavior before being sent to . At they requested she be in a locked unit for safety concerns. He stated she has a brother who was briefly her MDPOA at [facility] but has since not wanted any contact. She is under [facility] until an official guardian through the courts can be obtained. We discussed concern for potential decline and he agreed this may be likely with her MMP now. He stated she had had a heart problem for many years but refused for it to be addressed until she was deemed not competent and therefore underwent TVAR at that time. He is not sure what her wishes would be then. Assessment: Physical: - Pain: denies pain - tylenol - Dyspnea: - oxygen per pul - fan can be helpful for subjective dyspnea Emotional/psychological: Hx of mental health disorder not diagnosed - continue on scheduled depakote and zyprexa with ativan PRN Advanced Care Planning: Is patient decisional?: No Code Status: Full MD POA: Temporary Guardian Adali [phone] Plan: Return back to [facility] when medically clear per guardian wishes. Subjective: I don't feel good Objective: Social History: Lived alone up until March. Has 5 family members local but are all estranged from patient. Medication list reviewed ROS: General: fatigue, weakness ENT: dysphagia Resp: dyspnea, cough GI: negative : negative MS: negative Skin: negative Neuro: negative Psych: hx of aggressive behavior Functional assessment: PPS: 40% Functional status: dependent on ADLs, IADLs Vital Signs Temp Pulse Resp BP Pulse Ox 37.5 C 93 27 H 144/77 H 95 06/20/16 14:00 06/20/16 14:00 06/20/16 14:00 06/20/16 14:00 06/20/16 14:00 Laboratory Results 06/20/16 03:30 06/20/16 03:30 06/19/16 06/20/16 06/21/16 05:59 05:59 05:59 Intake Total 3630 1807 Output Total 7935 7700 850 Balance -370 -2543 -850 PT 15.2 SEC (12.0-15.0) H 06/14/16 05:00 INR 1.20 (0.83-1.16) H 06/14/16 05:00 Physical Exam - Physical Exam General Appearance: alert, no apparent distress Respiratory: No respiratory distress, No accessory muscle use Skin: normal color, warm/dry Extremities: pedal edema Neuro/Psych: alert, other (flat affect) ICD10 Worksheet Patient Problems: Problems Problem Status Onset Palliative care encounter Acute Sepsis Acute Septic shock Acute Urinary tract infection Acute - ICD10 Problem Qualifiers (1) Palliative care encounter
[2016-06-20] MEDS: D5W 1/2 NS 1,000 ML IV SCH (18:25)
--- NOTE | 2016-06-20 18:29 | PCMIDPN ---
Assessment/Plan: Assessment: fevers and respiratory failure. Fevers now resolved. Patient is off antibiotics for greater than 24 hours. She is extubated and near her baseline as far as function goes. Was asked to revisit patient given increase of white blood cell count from 15.9-18.4 over the last 24 hours. Also of note the chest x-ray also called into question a somewhat worsening right lower lobe infiltrate. My review of the x-ray was not significantly changed. I also do not interpret the variation the white count as sufficiently influenza told to restart antibiotics. Would at this point continue to hold antibiotics and observe. Plan: 1) continue to hold antibiotics. 2. Follow clinical condition and laboratory values. Subjective: Patient is resting in her hospital bed. She is using a face tent for oxygenation. She is verbally responsive but not eager to converse. No new complaints. Objective: No antibiotics. Vital Signs Temp Pulse Resp BP Pulse Ox 36.8 C 93 23 H 135/88 H 95 06/20/16 16:00 06/20/16 18:00 06/20/16 18:00 06/20/16 18:00 06/20/16 18:00 Laboratory Results 06/20/16 03:30 06/20/16 03:30 06/19/16 06/20/16 06/21/16 05:59 05:59 05:59 Intake Total 3630 1807 500 Output Total 4000 4350 850 Balance -370 -2543 -350 - Physical Exam General Appearance: WD/WN, no apparent distress, non-toxic, other (Chronically ill-appearing) Respiratory: lungs clear, normal breath sounds, crackles (Mild in bilateral bases.) Cardiac/Chest: regular rate, rhythm, No tachycardia Skin: normal color, warm/dry, No rash ICD10 Worksheet Patient Problems: Problems Problem Status Onset Palliative care encounter Acute Sepsis Acute Septic shock Acute Urinary tract infection Acute
[2016-06-20] MEDS: INSULIN GLARGINE 100 UNITS/ML SYRINGE SC SCH (20:09)
[2016-06-20] MEDS: OLANZapine DISINTEGR 5 MG TAB PO SCH (20:10)
[2016-06-20] MEDS: LORazepam 1 MG TAB TUBE SCH (20:23)
[2016-06-20] MEDS: MELATONIN 3 MG TAB PO SCH (20:23)
[2016-06-20] MEDS ORDERED: LORazepam 2 MG/ML INJ IV PRN (20:52)
[2016-06-21] MEDS: D5W 1/2 NS 1,000 ML IV SCH (04:09)
[2016-06-21 04:28] LABS: ADD DIFF? YES; ADD MORPH? NO; ADD SCAN? NO; ATYPICAL LYMPHOCYTE FLAG 10 (0-99); FRAGMENT RBC FLAG 0 (0-99); HEMATOCRIT 31.6 % (38.0-47.0); HEMOGLOBIN 10.9 g/dL (12.6-16.3); LEFT SHIFT FLG 10 (0-99); LIPEMIA HEMOLYSIS FLAG 90 (0-99); MEAN CELL HEMOGLOBIN 30.1 pg (27.9-34.1); MEAN CELL HEMOGLOBIN CONCENTR. 34.5 g/dL (32.4-36.7); MEAN CELL VOLUME 87.3 fL (81.5-99.8); MEAN PLATELET VOLUME 10.2 fL (8.7-11.7); PLATELET CLUMPS FLAG 0 (0-99); PLATELET COUNT 237 10^3/uL (150-400); RED BLOOD CELL COUNT 3.62 10^6/uL (4.18-5.33)
[2016-06-21 04:44] LABS: ANION GAP 5 mEq/L (8-16); CALCIUM 8.2 mg/dL (8.5-10.4); CARBON DIOXIDE 29 mEq/l (22-31); CHLORIDE 102 mEq/L (97-110); CREATININE 0.5 mg/dL (0.6-1.0); GLOMERULAR FILTRATION RATE > 60; GLUCOSE 153 mg/dL (70-100); POTASSIUM 3.9 mEq/L (3.5-5.2); SODIUM 136 mEq/L (134-144)
[2016-06-21] MEDS: INSULIN REGULAR, HUMAN 100 UNIT/1 ML VIAL LOW SC SCH ×3 (05:09→23:19)
[2016-06-21] MEDS: METOCLOPRAMIDE 10 MG/2 ML VIAL IVP SCH ×3 (05:10→23:20)
[2016-06-21] MEDS: VALPROIC ACID 250 MG/5 ML UDCUP TUBE SCH ×2 (05:10→17:12)
[2016-06-21] MEDS: HEPARIN 5,000 UNIT/0.5 ML SYR SC SCH (05:15)
[2016-06-21 05:29] LABS: PLATELET ESTIMATE ADEQUATE (ADEQ)
[2016-06-21 05:30] LABS: POLYCHROMASIA 1+
[2016-06-21 05:32] LABS: HYPOCHROMIA 1+
[2016-06-21 06:24] LABS: BASE EXCESS 2.7 mEq/L (-2.5-2.5); BICARBONATE 27 mEq/L (22-26); MEASURED OXYGEN SATURATION 89 % (92-95); PCO2 40 mmHg (34-38); PO2 58 mmHg (65-75); TCO2 28 mEq/L (23-27)
[2016-06-21 06:27] LABS: O2 CONCENTRATIION 50 % (0-100); P/F RATIO 116 RATIO
[2016-06-21] MEDS: NYSTATIN 15 GM CR TUBE TP SCH ×2 (09:26→23:17)
[2016-06-21] MEDS: FAMOTIDINE 20 MG/NACL 50 ML IV SCH ×2 (09:26→23:17)
[2016-06-21] MEDS: CYANO/VITAMIN B12 1000 MCG TAB SL SCH (09:26)
[2016-06-21] MEDS: LOSARTAN POTASSIUM 25 MG TAB TUBE SCH (09:26)
[2016-06-21] MEDS: OLANZapine DISINTEGR 5 MG TAB PO SCH (09:27)
[2016-06-21] MEDS: FUROSEMIDE 20 MG/2 ML VIAL IVP SCH ×2 (10:00→15:38)
[2016-06-21] MEDS ORDERED: FLUMAZENIL 0.5 MG/5 ML MDV IVP PRN (10:00)
--- NOTE | 2016-06-21 11:24 | PCMIDPN ---
Assessment/Plan: Assessment/Plan: 1. Leukocytosis: --unclear if infectious or noninfectious related. - given abd pain on palpation---recommend CT abd/pelvis to further evaluate. -f/u blood cx from 06/20 pending. UA unremarkable. not having diarrhea. -has picc line in LUE: no obvious swelling at this point, monitor. -Hold off on atbx until Ct's done and evaluated -care coordinated with hospitalist team, RN 2. RLL pneumonia: -s/p 7 days of Azithro (06/10-06/16), 2 days of Ceftriaxone(06/10-06/12) and 7 days of invanz (06/12- 06/18/16). Last dose of atbx was on 06/18/16. -f/u CXR not overwhelming for worsening pneumonia. -extubated on 06/19, no new reported aspiration events since then. 3. SDH: -last head Ct done during hospital course, --stable. Last NSG note reviewed. meds off abx Subjective: REmains in ICu. off vent. ON face tent. Agitated last night and was given ativan. MOstly somnolent today but arousable. Not really communicating how she feels. Temp of 99 degrees F today but overall temp curve has been better than previously. Soft stool last night. no durant.picc line in LUE Objective: Vital Signs Temp Pulse Resp BP Pulse Ox 37.4 C 87 34 H 132/60 H 94 06/21/16 04:00 06/21/16 05:45 06/21/16 05:45 06/21/16 05:45 06/21/16 05:45 Laboratory Results 06/21/16 04:10 06/21/16 04:10 06/20/16 06/21/16 06/22/16 05:59 05:59 05:59 Intake Total 1807 1603 Output Total 2660 850 Balance -2543 753 - Physical Exam General Appearance: other (mostly somnolent, but arousable.) EENT: PERRL/EOMI, No thrush Respiratory: coarse breath sounds (mild anteriorly but limited exam) Cardiac/Chest: regular rate, rhythm Extremities: No swelling Abdomen: normal bowel sounds, tender (with guarding and lots of hand movement with exam.) Skin: other (erythema over upper lip and scattered areas on cheeks. no pustules. ) - Time Spent With Patient Time Spent with Patient: greater than 35 minutes Time Spent with Patient: Greater than 35 minutes spent on this patients care, greater than 50% of time spent counseling, educating, and coordinating care regarding the above mentioned plan. ICD10 Worksheet Patient Problems: Problems Problem Status Onset Palliative care encounter Acute Sepsis Acute Septic shock Acute Urinary tract infection Acute
[2016-06-21] MEDS ORDERED: IOPAMIDOL (ISOVUE-300) 100 ML BTL IV ONE (11:32)
[2016-06-21 12:04] LABS: ALBUMIN 2.5 g/dL (3.5-5.0); BILIRUBIN,TOTAL 0.7 mg/dL (0.1-1.4); BILIRUBIN-CONJUGATED 0.4 mg/dL (0.0-0.5); BILIRUBIN-UNCONJUGATED 0.3 mg/dL (0.0-1.1); TOTAL PROTEIN 5.9 g/dL (6.3-8.2)
[2016-06-21 12:43] LABS: BASE EXCESS 3.3 mEq/L (-2.5-2.5); BICARBONATE 27 mEq/L (22-26); MEASURED OXYGEN SATURATION 94 % (92-95); PCO2 38 mmHg (34-38); PO2 70 mmHg (65-75); TCO2 28 mEq/L (23-27)
--- NOTE | 2016-06-21 15:03 | PDINTPN ---
Mental Health Technician Progress Note Assessment/Plan: Assessment: 66 F s/p recent TAVR at mid April 2016, admitted to [facility] from SNF 2/2 altered MS thought to be from UTI and/or PNA. She was treated with CTX/ Zithromax as well as LMWH for DVT prophylaxis in addition to her Plavix and ASA. She developed ?right -sided weakness and a head CT revealed an acute SDH. ALL anticoag medications were held and she was evaluated by neurosurgery who suggested close observation. However, she had persistent RR>40 with borderline oxygen so was intubated 06/13/16. * Respiratory failure with hypoxemia: Extubated 06/19. O2 needs moderate and unchanged. ABG good. * PNA- New problem to me today. ?aspiration. CT with improved right lung, worse left base consolidation. Off antibiotics. Agree with no therapy for Lorena in BAL. WBC still elevated and a bit higher today. * SDH- Improved on CT. * UTI?- not clearly contributing as discussed in ID notes; but treated either way, now off antibiotics. U/A with improved, not resolved, urinalysis pending. * s/p TAVR- will eventually need to resume ASA/Plavix for 6 months, but obviously need to hold in setting of acute SDH. Typically held for 2 weeks. * Nutrition: TF through 06/19, now NPO * Obtuned: ? due to ativan given for agitation last night. However, didn't improve with flumazenil. CTH unremarkable. ABG OK. Plan: Continue to hold antibiotics. Hold Ativan and olanzapine. Follow urine Cx , WBC, temp. 06/21/16 15:10 06/21/16 15:12 Subjective: Minimally responsive, not responding to questions. Objective: Vital Signs Temp Pulse Resp BP Pulse Ox 37.4 C 87 34 H 132/60 H 94 06/21/16 04:00 06/21/16 05:45 06/21/16 05:45 06/21/16 05:45 06/21/16 05:45 Laboratory Results 06/21/16 04:10 06/21/16 04:10 06/20/16 06/21/16 06/22/16 05:59 05:59 05:59 Intake Total 1807 1603 Output Total 4350 850 Balance -2543 753 PT 15.2 SEC (12.0-15.0) H 06/14/16 05:00 INR 1.20 (0.83-1.16) H 06/14/16 05:00 CT Chest: Improved RLL, RUL consolidation, worsened LLL consolidation. Images reviewed. CTH: Minimal residual SDH. No acute findings. CT Abdomen: Nothing acute. Laboratory Tests 06/21/16 12:34 pCO2 38 pO2 70 ABG pH 7.46 H ABG O2 Saturation 94 Physical Exam - Physical Exam General Appearance: obtunded, No alert EENT: normal ENT inspection Neck: normal inspection Respiratory: normal breath sounds, respiratory distress, decreased breath sounds (bases) Cardiac/Chest: regular rate, rhythm, No edema Abdomen: normal bowel sounds, non-tender, soft Skin: normal color, warm/dry Extremities: normal range of motion, non-tender Neuro/Psych: No alert ICD10 Worksheet Patient Problems: Problems Problem Status Onset Palliative care encounter Acute Sepsis Acute Septic shock Acute Urinary tract infection Acute
--- NOTE | 2016-06-21 16:15 | HOSPPROG ---
Hospitalist Progress Note Assessment/Plan: Assessment: 66-year-old female presents with severe sepsis in the setting of urinary tract infection and aspiration pneumonia Plan: 1. Severe sepsis. POA, evidenced by tachycardia + leukocytosis + source (UTI/ asp PNA) + distant end-organ failure (lactic acidosis 4.3, GEORGE), demonstrating autonomic dysregulation in setting of infxn (per sepsis-2 criteria) - s/p empiric IV Abx and IVF - monitoring CBC 2. Acute hypoxic respiratory failure. Evidenced by initial SpO2 87% w/ resp distress (RR 52), requiring intubation -repeat CXR w/ e/o volume overload -extubated successfully -off IVF, starting diuretics 3. Acute on chronic encephalopathy. New worsening today, further w/u indicated. Evidenced by global brain dysfunction characterized as poor responsiveness, reportedly an acute change from her baseline of dementia, likely 2/2 toxic effects of infxn, metabolic acidosis, exacerbated by ativan given o/n -remains somnolent today -holding any sedating Rx (including zyprexa) -HCT ordered and w/o ICH, ABG ordered and wnl -CT abd w/o infxn 4. Subdural hematoma. R tentorial, stable by CT -holding ASA/Plavix 5. DM2. Cont lantus 6. Dementia w/ behavioral disturbance. Holding zyprexa, APX guardian questioning dementia, suggesting may be a mental health illness 7. Recent TAVR. Restart ASA/plavix when OK w/ NSGY, will d/w Cardiology whether ASA/Plavix have absolute indication in TAVR 8. Aspiration pneumonia. CT w/ bilat ASD but is s/p 9 days of Abx (d/w Dr. Guzman, does not recommend Abx today but we will monitor WBC) 9. Citrobacter UTI. Positive UA, s/p invanz 10. GEORGE. Cr peaked at 1.1, s/p IVF, resolved Diet. NPO w/ HOME HEALTH CARE RESPIRATORY THERAPIST eval Code. Full PPx. High risk, lovenox 40 Dispo. ADD uncertain, pending clinical stability Patient remains high risk of mortality, high medical complexity 2/2 issues outlined above. Subjective: patient received Ativan overnight, somnolent today Objective: Vital Signs Temp Pulse Resp BP Pulse Ox 37.4 C 94 32 H 139/68 H 96 06/21/16 08:00 06/21/16 15:24 06/21/16 15:24 06/21/16 15:24 06/21/16 15:24 Laboratory Results 06/21/16 04:10 06/21/16 04:10 06/20/16 06/21/16 06/22/16 05:59 05:59 05:59 Intake Total 1807 1603 Output Total 4350 850 Balance -2543 753 PT 15.2 SEC (12.0-15.0) H 06/14/16 05:00 INR 1.20 (0.83-1.16) H 06/14/16 05:00 - Physical Exam Constitutional: no apparent distress, not in pain, chronically ill appearing, obese, No uncomfortable Cardiovascular: regular rate and rhythym, no murmur, rub, or gallop, No irregularly irregular, No edema Respiratory: reduced air movement ( bilateral bases), inspiratory crackles ( bilaterally), No expiratory wheeze, No bronchial breath sounds Gastrointestinal: normoactive bowel sounds, tenderness ( diffusely throughout), No guarding, No distension Neurologic: other ( responsive to painful stimuli) Psychiatric: not anxious, encephalopathic, other ( not following commands), No interacting appropriately, No agitated ICD10 Worksheet Patient Problems: Problems Problem Status Onset Sepsis Acute Septic shock Acute Urinary tract infection Acute Palliative care encounter Acute
[2016-06-21] MEDS: MELATONIN 3 MG TAB PO SCH (19:35)
[2016-06-22 05:37] LABS: % IMMATURE GRANULYOCYTES 0.9 % (0.0-1.1); ABSOLUTE IMMATURE GRANULOCYTES 0.16 10^3/uL (0.00-0.10); ADD DIFF? NO; ADD MORPH? NO; ADD SCAN? NO; ATYPICAL LYMPHOCYTE FLAG 0 (0-99); FRAGMENT RBC FLAG 0 (0-99); HEMATOCRIT 32.6 % (38.0-47.0); HEMOGLOBIN 10.9 g/dL (12.6-16.3); LEFT SHIFT FLG 10 (0-99); LIPEMIA HEMOLYSIS FLAG 80 (0-99); MEAN CELL HEMOGLOBIN 28.8 pg (27.9-34.1); MEAN CELL HEMOGLOBIN CONCENTR. 33.4 g/dL (32.4-36.7); MEAN PLATELET VOLUME 9.8 fL (8.7-11.7); PLATELET CLUMPS FLAG 0 (0-99); PLATELET COUNT 246 10^3/uL (150-400); RED BLOOD CELL COUNT 3.79 10^6/uL (4.18-5.33)
[2016-06-22] MEDS: METOCLOPRAMIDE 10 MG/2 ML VIAL IVP SCH ×4 (05:47→19:04)
[2016-06-22] MEDS: VALPROIC ACID 250 MG/5 ML UDCUP TUBE SCH ×3 (05:48→07:39)
[2016-06-22 05:49] LABS: ANION GAP 6 mEq/L (8-16); CALCIUM 8.4 mg/dL (8.5-10.4); CARBON DIOXIDE 27 mEq/l (22-31); CHLORIDE 103 mEq/L (97-110); CREATININE 0.5 mg/dL (0.6-1.0); GLOMERULAR FILTRATION RATE > 60; GLUCOSE 96 mg/dL (70-100); POTASSIUM 3.7 mEq/L (3.5-5.2); SODIUM 136 mEq/L (134-144)
[2016-06-22] MEDS: INSULIN REGULAR, HUMAN 100 UNIT/1 ML VIAL LOW SC SCH ×4 (06:10→19:04)
[2016-06-22] MEDS: HEPARIN 5,000 UNIT/0.5 ML SYR SC SCH (07:39)
[2016-06-22] MEDS ORDERED: MAGNESIUM SULF 1 GM/DEXTROSE 100 ML IV ONE (08:23)
[2016-06-22] MEDS: LOSARTAN POTASSIUM 25 MG TAB TUBE SCH (09:57)
[2016-06-22] MEDS: CYANO/VITAMIN B12 1000 MCG TAB SL SCH (09:57)
[2016-06-22] MEDS: FUROSEMIDE 20 MG/2 ML VIAL IVP SCH ×2 (09:58→15:20)
[2016-06-22] MEDS: POTASSIUM Cl (KCl) 100 ML IV SCH ×3 (09:58→12:33)
[2016-06-22] MEDS: NYSTATIN 15 GM CR TUBE TP SCH ×2 (09:59→20:52)
[2016-06-22] MEDS: FAMOTIDINE 20 MG/NACL 50 ML IV SCH ×2 (09:59→20:52)
[2016-06-22] MEDS: ENOXAPARIN 40 MG/0.4 ML SYR SC SCH (09:59)
--- NOTE | 2016-06-22 11:33 | PDINTPN ---
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 from SNF 2/2 altered MS thought to be from UTI and/or PNA. She was treated with CTX/ Zithromax as well as LMWH for DVT prophylaxis in addition to her Plavix and ASA. She developed ?right -sided weakness and a head CT revealed an acute SDH. ALL anticoag medications were held and she was evaluated by neurosurgery who suggested close observation. However, she had persistent RR>40 with borderline oxygen so was intubated 06/13/16. * Respiratory failure with hypoxemia: Extubated 06/19. O2 needs moderate and unchanged. ABG good. * PNA- ?aspiration. CT with improved right lung, worse left base consolidation. Off antibiotics. Agree with no therapy for Lorena in BAL. WBC still elevated but down a bit. * SDH- Improved on CT. * UTI?- not clearly contributing as discussed in ID notes; but treated either way, now off antibiotics. U/A with improved, not resolved, pyuria. * s/p TAVR- will eventually need to resume ASA/Plavix for 6 months, but obviously need to hold in setting of acute SDH. Typically held for 2 weeks. * Nutrition: TF through 06/19 (never consistently at goal), now NPO but getting more alert. * Obtuned: ? due to ativan given for agitation last night. However, didn't improve with flumazenil. CTH unremarkable. ABG OK. Plan: Continue to hold antibiotics. Hold Ativan and olanzapine. Follow WBC, temp. ST eval, ? start PO soon vs. feeding tube. 06/22/16 13:29 06/22/16 13:30 Subjective: More alert, hungry. Feels a bit short of breath. Objective: Vital Signs Temp Pulse Resp BP Pulse Ox 36.8 C 97 24 H 134/64 H 96 06/22/16 07:41 06/22/16 10:00 06/22/16 10:00 06/22/16 10:00 06/22/16 10:00 Laboratory Results 06/22/16 05:15 06/22/16 05:15 06/21/16 06/22/16 06/23/16 05:59 05:59 05:59 Intake Total 1603 583 Output Total 850 Balance 753 583 PT 15.2 SEC (12.0-15.0) H 06/14/16 05:00 INR 1.20 (0.83-1.16) H 06/14/16 05:00 Physical Exam - Physical Exam General Appearance: alert, no apparent distress EENT: normal ENT inspection Neck: normal inspection Respiratory: lungs clear, crackles (bases) Cardiac/Chest: regular rate, rhythm, No edema Abdomen: normal bowel sounds, non-tender Skin: normal color, warm/dry Extremities: normal inspection Neuro/Psych: alert, No normal mood/affect, No oriented x 3 ICD10 Worksheet Patient Problems: Problems Problem Status Onset Palliative care encounter Acute Sepsis Acute Septic shock Acute Urinary tract infection Acute
--- NOTE | 2016-06-22 15:35 | PCMIDPN ---
Assessment/Plan: #Sepsis with Fever, Resp Failure s/p 7 days ertapenem; extubated, sepsis resolved #Leukocytosis: unclear etiology, cdiff neg, munoz CT yesterday negative, AF, slight improvement today #R Sided subdural hematoma #Lorena in BAL reflects colonization 1) No further recs, continue to monitor off antibiotics 2) will follow peripherally micro 06/10 blood cx (2) Neg 06/10 Ucx Citrobacter R to / gen ceph and amp/sub 06/13 blood cx (2) NGTD 06/13 BAL Lorena Subjective: able to state she is in [place]. Conversational but does not have complete thoughts Objective: Vital Signs Temp Pulse Resp BP Pulse Ox 36.8 C 103 H 21 H 157/74 H 95 06/22/16 11:44 06/22/16 14:00 06/22/16 14:00 06/22/16 14:00 06/22/16 14:00 Laboratory Results 06/22/16 05:15 06/22/16 05:15 06/21/16 06/22/16 06/23/16 05:59 05:59 05:59 Intake Total 1603 583 Output Total 850 Balance 753 583 - Physical Exam General Appearance: alert, no apparent distress EENT: pale conjunctiva, dry mucous membranes Respiratory: coarse breath sounds, No accessory muscle use Neck: supple Cardiac/Chest: regular rate, rhythm Abdomen: non-tender, soft Skin: pallor, No rash Neuro/Psych: alert ICD10 Worksheet Patient Problems: Problems Problem Status Onset Palliative care encounter Acute Sepsis Acute Septic shock Acute Urinary tract infection Acute
--- NOTE | 2016-06-22 16:05 | HOSPPROG ---
Hospitalist Progress Note Assessment/Plan: INTERVAL SUMMARY & DAILY PROGRESS NOTE DATE OF ADMISSION:06/10/16 INTERVAL DIAGNOSES 1. Severe sepsis present on arrival 2. Acute hypoxic respiratory failure 3. Acute on chronic encephalopathy 4. Acute subdural hematoma 5. diabetes mellitus type 2 6. His reported dementia with behavioral disturbance 7. Recent TAVR 8. aspiration pneumonia 9. Citrobacter UTI 10. acute kidney injury CONSULTATIONS Pulmonary Critical Care, Infectious Disease PROCEDURES / IMAGING CT of the head demonstrates no increase in the small subdural hematoma, possible left sided pneumonia on chest CT, abdominal CT without significant abnormalities CHIEF COMPLAINT Acute encephalopathy SUBJECTIVE Patient is less responsive today HOSPITAL COURSE BY PROBLEM The patient presented with acute unresponsiveness from [facility], where she lives in long-term care. It was concluded that she most likely was experiencing severe sepsis and respiratory failure in the setting of possible pneumonia or Citrobacter UTI. She received full course of antibiotics for a total of 9 days and she was successfully extubated. Since she has been extubated, her mental status has waxed and waned and is unclear how much of her residual encephalopathy acute versus chronic. She does not have any family or friends and her guardian is through Adult protective Services. Her guardian has reported that her baseline mentation is very agitated, minimally cooperative , currently has full resuscitation and goals of care which they are not comfortable modifying at this time. We are attempting to hold any sedating medications and monitor her mental status for improvement. Will also monitoring her closely for infection, given her persistently elevated and fluctuating white blood cell count. Assessment: 66-year-old female presents with severe sepsis in the setting of urinary tract infection and aspiration pneumonia, c/b persistent encephalopathy Plan: 1. Severe sepsis. POA, 2/2 either aspiration PNA vs. UTI, resolved 2. Acute hypoxic respiratory failure. 2/2 asp PNA, requiring intubation, now extubated and on 3L -repeat CXR w/ e/o volume overload (personally interpreted), diuresing aggressively w/ net neg 3kg o/n, continue lasix another 24hrs and monitor weights closely 3. Acute on chronic encephalopathy. Waxing/waning w/ less responsiveness today w /o receiving any sedating Rx -d/w Dr. Kilgore, we agreed to cont PRN zyprexa, hold scheduled zyprexa, avoid benzos -hold depakote, but add IV scheduled if behavior is aggressive/agitated 4. Subdural hematoma. R tentorial, stable by CT -holding ASA/Plavix 5. DM2. Holding lantus 2/2 poor PO intake 6. Dementia w/ behavioral disturbance. APS guardian questioning dementia, suggesting may be a mental health illness 7. Recent TAVR. Restart ASA/plavix when OK w/ NSGY 8. Aspiration pneumonia. 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 Citrobacter UTI. Positive UA, s/p invanz 10. GEORGE. Cr peaked at 1.1, s/p IVF, resolved Diet. NPO w/ GLUER MACHINE SETUP OPERATOR eval Code. Full PPx. High risk, lovenox 40 Dispo. ADD uncertain, pending clinical stability Patient remains high risk of mortality, high medical complexity 2/2 issues outlined above. Subjective: Patient not participating with exam Objective: Vital Signs Temp Pulse Resp BP Pulse Ox 36.8 C 102 H 24 H 126/66 H 94 06/22/16 11:44 06/22/16 16:00 06/22/16 16:00 06/22/16 16:00 06/22/16 16:00 Laboratory Results 06/22/16 05:15 06/22/16 05:15 06/21/16 06/22/16 06/23/16 05:59 05:59 05:59 Intake Total 1603 583 Output Total 850 Balance 753 583 PT 15.2 SEC (12.0-15.0) H 06/14/16 05:00 INR 1.20 (0.83-1.16) H 06/14/16 05:00 - Physical Exam Constitutional: no apparent distress, not in pain, chronically ill appearing, No uncomfortable Eyes: PERRL, anicteric sclera, EOMI Cardiovascular: regular rate and rhythym, no murmur, rub, or gallop, No irregularly irregular, No edema Respiratory: reduced air movement ( poor inspiratory effort), inspiratory crackles ( bilateral bases), No expiratory wheeze, No bronchial breath sounds Gastrointestinal: normoactive bowel sounds, soft, non-tender abdomen, no palpable masses, No distension Psychiatric: encephalopathic, other ( not responding to verbal stimuli) ICD10 Worksheet Patient Problems: Problems Problem Status Onset Palliative care encounter Acute Sepsis Acute Septic shock Acute Urinary tract infection Acute
[2016-06-23] MEDS: METOCLOPRAMIDE 10 MG/2 ML VIAL IVP SCH ×5 (01:35→23:20)
[2016-06-23] MEDS: INSULIN REGULAR, HUMAN 100 UNIT/1 ML VIAL LOW SC SCH ×5 (01:35→22:55)
[2016-06-23] MEDS: ACETAMINOPHEN 650 MG SUPP PR PRN (02:54)
[2016-06-23 03:30] LABS: % IMMATURE GRANULYOCYTES 0.9 % (0.0-1.1); ABSOLUTE IMMATURE GRANULOCYTES 0.18 10^3/uL (0.00-0.10); ADD DIFF? NO; ADD MORPH? NO; ADD SCAN? NO; ATYPICAL LYMPHOCYTE FLAG 0 (0-99); FRAGMENT RBC FLAG 0 (0-99); HEMATOCRIT 31.6 % (38.0-47.0); HEMOGLOBIN 10.7 g/dL (12.6-16.3); LEFT SHIFT FLG 0 (0-99); LIPEMIA HEMOLYSIS FLAG 90 (0-99); MEAN CELL HEMOGLOBIN 29.6 pg (27.9-34.1); MEAN CELL HEMOGLOBIN CONCENTR. 33.9 g/dL (32.4-36.7); MEAN CELL VOLUME 87.3 fL (81.5-99.8); MEAN PLATELET VOLUME 10.2 fL (8.7-11.7); PLATELET CLUMPS FLAG 0 (0-99); PLATELET COUNT 252 10^3/uL (150-400); RED BLOOD CELL COUNT 3.62 10^6/uL (4.18-5.33); RED CELL DISTRIBUTION WIDTH 13.1 % (11.5-15.2)
[2016-06-23 03:44] LABS: ANION GAP 8 mEq/L (8-16); CALCIUM 8.5 mg/dL (8.5-10.4); CARBON DIOXIDE 27 mEq/l (22-31); CHLORIDE 100 mEq/L (97-110); CREATININE 0.5 mg/dL (0.6-1.0); GLOMERULAR FILTRATION RATE > 60; GLUCOSE 94 mg/dL (70-100); POTASSIUM 3.6 mEq/L (3.5-5.2); SODIUM 135 mEq/L (134-144)
[2016-06-23] MEDS: FUROSEMIDE 20 MG/2 ML VIAL IVP SCH (10:07)
[2016-06-23] MEDS: FAMOTIDINE 20 MG/NACL 50 ML IV SCH ×2 (10:07→20:57)
[2016-06-23] MEDS: OLANZapine DISINTEGR 5 MG TAB PO SCH ×2 (10:07→20:57)
[2016-06-23] MEDS: NYSTATIN 15 GM CR TUBE TP SCH ×2 (10:16→21:10)
[2016-06-23] MEDS: CYANO/VITAMIN B12 1000 MCG TAB SL SCH (10:17)
[2016-06-23] MEDS: ENOXAPARIN 40 MG/0.4 ML SYR SC SCH (10:19)
[2016-06-23] MEDS: CHLORHEXIDINE GLUCONATE 15 ML UDL PO SCH (11:37)
--- NOTE | 2016-06-23 14:04 | HOSPPROG ---
Hospitalist Progress Note Assessment/Plan: # acute on chronic encephalopathy - possibly at baseline - will get collateral - underlying dementia with behavioral disturbance - home zyprexa/depakote # aspiration pna s/p invanz # citrobacter uti s/p invanz # leukocytosis - persistent, unclear baseline # subdural hematoma - stable - holding asa/plavix # recent TAVR - will d/w nsg if ok to restart asa/plavix # DM2 - hold lantus # vte ppx - lovenox ## chart reviewed imaging reviewed Subjective: asking for a diet and to have her rollbelt removed Objective: Vital Signs Temp Pulse Resp BP Pulse Ox 36.6 C 82 23 H 156/52 H 100 06/23/16 07:46 06/23/16 12:00 06/23/16 07:46 06/23/16 12:00 06/23/16 12:00 Laboratory Results 06/23/16 03:00 06/23/16 03:00 06/22/16 06/23/16 06/24/16 05:59 05:59 05:59 Intake Total 583 942 Balance 583 942 PT 15.2 SEC (12.0-15.0) H 06/14/16 05:00 INR 1.20 (0.83-1.16) H 06/14/16 05:00 - Physical Exam Constitutional: no apparent distress Cardiovascular: regular rate and rhythym, no murmur, rub, or gallop Respiratory: no respiratory distress, reduced air movement (mild), No expiratory wheeze, No inspiratory crackles Gastrointestinal: normoactive bowel sounds, soft, non-tender abdomen, no palpable masses ICD10 Worksheet Patient Problems: Problems Problem Status Onset Sepsis Acute Septic shock Acute Urinary tract infection Acute Palliative care encounter Acute
[2016-06-23] MEDS ORDERED: ACETAMINOPHEN 325 MG TAB PO PRN (15:04)
[2016-06-23] MEDS: VALPROIC ACID 250 MG/5 ML UDCUP PO SCH ×2 (17:37→23:21)
--- NOTE | 2016-06-24 03:44 | HOSPPROG ---
Hospitalist Progress Note Assessment/Plan: Patient refusing Depakene oral liq b/c she does not like the taste. Adjusted dosing to 1000mg ER PO daily, start in AM. Objective: Vital Signs Temp Pulse Resp BP Pulse Ox 36.9 C 106 H 18 119/68 92 06/23/16 19:26 06/23/16 19:26 06/23/16 19:26 06/23/16 19:26 06/23/16 19:26 Laboratory Results 06/23/16 03:00 06/23/16 03:00 06/22/16 06/23/16 06/24/16 05:59 05:59 05:59 Intake Total 583 942 Balance 583 942 PT 15.2 SEC (12.0-15.0) H 06/14/16 05:00 INR 1.20 (0.83-1.16) H 06/14/16 05:00 ICD10 Worksheet Patient Problems: Problems Problem Status Onset Sepsis Acute Septic shock Acute Urinary tract infection Acute Palliative care encounter Acute
[2016-06-24] MEDS: METOCLOPRAMIDE 10 MG/2 ML VIAL IVP SCH ×3 (05:02→19:20)
[2016-06-24 05:23] LABS: % IMMATURE GRANULYOCYTES 0.7 % (0.0-1.1); ADD DIFF? NO; ADD MORPH? NO; ADD SCAN? NO; ATYPICAL LYMPHOCYTE FLAG 20 (0-99); FRAGMENT RBC FLAG 0 (0-99); HEMATOCRIT 30.7 % (38.0-47.0); HEMOGLOBIN 10.4 g/dL (12.6-16.3); LEFT SHIFT FLG 10 (0-99); LIPEMIA HEMOLYSIS FLAG 90 (0-99); MEAN CELL HEMOGLOBIN 29.1 pg (27.9-34.1); MEAN CELL HEMOGLOBIN CONCENTR. 33.9 g/dL (32.4-36.7); MEAN CELL VOLUME 85.8 fL (81.5-99.8); PLATELET CLUMPS FLAG 10 (0-99); PLATELET COUNT 262 10^3/uL (150-400); RED BLOOD CELL COUNT 3.58 10^6/uL (4.18-5.33); RED CELL DISTRIBUTION WIDTH 13.2 % (11.5-15.2)
[2016-06-24 05:30] LABS: ANION GAP 6 mEq/L (8-16); CALCIUM 8.6 mg/dL (8.5-10.4); CARBON DIOXIDE 30 mEq/l (22-31); CHLORIDE 102 mEq/L (97-110); CREATININE 0.5 mg/dL (0.6-1.0); GLOMERULAR FILTRATION RATE > 60; GLUCOSE 132 mg/dL (70-100); POTASSIUM 3.7 mEq/L (3.5-5.2); SODIUM 138 mEq/L (134-144)
--- NOTE | 2016-06-24 08:26 | HOSPPROG ---
Hospitalist Progress Note Assessment/Plan: Patient is a 66-year-old female who was admitted for being obtunded. She resides at [facility]. Has underlying diabetes as well as dementia. Today is my 1st encounter with the patient. Chart reviewed. Reviewed her care with Dr Coombs # acute on chronic encephalopathy -likely at her baseline - underlying dementia with behavioral disturbance - home zyprexa/depakote # aspiration pna s/p invanz # citrobacter uti s/p invanz # leukocytosis - persistent, higher than her baseline, but stable # subdural hematoma - stable - Asa restarted/ Dr Coombs spoke with neurosurgery and ok with this/Plavix on hold # recent TAVR - restart asa/plavix on hold # DM2 - hold lantus # vte ppx - lovenox #plan: should be ready for dc in next 1-2 days Subjective: Krysta is c/o of the bad food. Wants her hair brushed and washed. Objective: Vital Signs Temp Pulse Resp BP Pulse Ox 36.6 C 85 22 H 107/59 L 91 L 06/24/16 04:00 06/24/16 04:00 06/24/16 04:00 06/24/16 04:00 06/24/16 04:00 Laboratory Results 06/24/16 05:00 06/24/16 05:00 06/23/16 06/24/16 06/25/16 05:59 05:59 05:59 Intake Total 942 250 Balance 942 250 PT 15.2 SEC (12.0-15.0) H 06/14/16 05:00 INR 1.20 (0.83-1.16) H 06/14/16 05:00 - Physical Exam Constitutional: no apparent distress, not in pain, chronically ill appearing Eyes: PERRL Ears, Nose, Mouth, Throat: hearing normal Cardiovascular: regular rate and rhythym Respiratory: no respiratory distress, reduced air movement Skin: warm, No normal color (pale) Neurologic: AAOx3 Psychiatric: interacting appropriately, not anxious ICD10 Worksheet Patient Problems: Problems Problem Status Onset Palliative care encounter Acute Sepsis Acute Septic shock Acute Urinary tract infection Acute
[2016-06-24] MEDS: CYANO/VITAMIN B12 1000 MCG TAB SL SCH (10:01)
[2016-06-24] MEDS: OLANZapine DISINTEGR 5 MG TAB PO SCH ×2 (10:05→20:14)
[2016-06-24] MEDS: FUROSEMIDE 40 MG TAB PO SCH (10:07)
[2016-06-24] MEDS: ASPIRIN EC 81 MG TAB PO SCH (10:07)
[2016-06-24] MEDS: ENOXAPARIN 40 MG/0.4 ML SYR SC SCH (10:07)
[2016-06-24] MEDS: DIVALPROEX ER 500 MG TAB PO SCH (10:09)
[2016-06-24] MEDS: INSULIN REGULAR, HUMAN 100 UNIT/1 ML VIAL LOW SC SCH ×4 (10:10→22:43)
[2016-06-24] MEDS: FAMOTIDINE 20 MG/NACL 50 ML IV SCH ×2 (10:11→20:14)
[2016-06-24] MEDS: NYSTATIN 15 GM CR TUBE TP SCH ×2 (10:12→20:15)
[2016-06-24] MEDS: LOSARTAN POTASSIUM 25 MG TAB PO SCH (11:22)
[2016-06-25] MEDS: METOCLOPRAMIDE 10 MG/2 ML VIAL IVP SCH ×3 (00:30→12:33)
[2016-06-25] MEDS: FAMOTIDINE 20 MG/NACL 50 ML IV SCH ×2 (08:20→10:16)
[2016-06-25] MEDS: OLANZapine DISINTEGR 5 MG TAB PO SCH ×2 (08:21→20:18)
[2016-06-25] MEDS: FUROSEMIDE 40 MG TAB PO SCH (08:25)
[2016-06-25] MEDS: LOSARTAN POTASSIUM 25 MG TAB PO SCH (08:25)
[2016-06-25] MEDS: CYANO/VITAMIN B12 1000 MCG TAB SL SCH (08:27)
[2016-06-25] MEDS: ASPIRIN EC 81 MG TAB PO SCH (08:27)
[2016-06-25] MEDS: ENOXAPARIN 40 MG/0.4 ML SYR SC SCH (08:28)
[2016-06-25] MEDS: INSULIN REGULAR, HUMAN 100 UNIT/1 ML VIAL LOW SC SCH ×4 (08:53→22:41)
[2016-06-25] MEDS: NYSTATIN 15 GM CR TUBE TP SCH ×2 (08:54→20:31)
--- NOTE | 2016-06-25 09:34 | HOSPPROG ---
Hospitalist Progress Note Assessment/Plan: Patient is a 66-year-old female who was admitted for being obtunded. She resides at [facility]. Has underlying diabetes as well as dementia. # acute on chronic encephalopathy -likely at her baseline - underlying dementia with behavioral disturbance - home Zyprexa/Depakote - declining Depakote in capsule form/ will resume her home dosing # aspiration pna s/p invanz -poor respiratory effort -needs frequent encouragement but can be diff with her behavioral disturbance -requiring 3 liters of O2 # citrobacter uti s/p invanz # leukocytosis - persistent, higher than her baseline, but stable # subdural hematoma - stable - Asa restarted/ Dr Coombs spoke with neurosurgery and ok with this/Plavix on hold # recent TAVR - restart asa/plavix on hold # DM2 - hold lantus # vte ppx - lovenox #plan: pending/needs aggressive pulmonary toileting, recheck labs in a.m. Subjective: Alissa is upset about her depakote in tablet form/ difficult for her to swallow. Objective: Vital Signs Temp Pulse Resp BP Pulse Ox 36.8 C 93 16 132/81 H 91 L 06/25/16 08:00 06/25/16 08:00 06/25/16 08:00 06/25/16 08:00 06/25/16 08:00 Laboratory Results 06/24/16 05:00 06/24/16 05:00 06/24/16 06/25/16 06/26/16 05:59 05:59 05:59 Intake Total 250 320 Output Total 500 Balance 250 -180 PT 15.2 SEC (12.0-15.0) H 06/14/16 05:00 INR 1.20 (0.83-1.16) H 06/14/16 05:00 - Physical Exam Constitutional: no apparent distress, chronically ill appearing Eyes: PERRL Ears, Nose, Mouth, Throat: hearing normal Cardiovascular: regular rate and rhythym Respiratory: no respiratory distress, reduced air movement (bases/poor resp inspiration) Gastrointestinal: normoactive bowel sounds Skin: warm, No normal color (pale) Musculoskeletal: generalized weakness Neurologic: AAOx3 Psychiatric: not encephalopathic, thought process linear ICD10 Worksheet Patient Problems: Problems Problem Status Onset Palliative care encounter Acute Sepsis Acute Septic shock Acute Urinary tract infection Acute
[2016-06-25] MEDS: DIVALPROEX ER 500 MG TAB PO SCH (10:16)
[2016-06-25] MEDS: DIVALPROEX NA 125 MG CAP.SPRINKLE PO SCH ×2 (10:22→20:20)
[2016-06-25] MEDS: OLANZapine DISINTEGR 5 MG TAB PO PRN (16:53)
[2016-06-26 08:21] LABS: % IMMATURE GRANULYOCYTES 0.9 % (0.0-1.1); ABSOLUTE IMMATURE GRANULOCYTES 0.08 10^3/uL (0.00-0.10); ADD DIFF? NO; ADD MORPH? NO; ADD SCAN? NO; ATYPICAL LYMPHOCYTE FLAG 40 (0-99); FRAGMENT RBC FLAG 0 (0-99); HEMATOCRIT 31.1 % (38.0-47.0); HEMOGLOBIN 10.3 g/dL (12.6-16.3); LEFT SHIFT FLG 0 (0-99); LIPEMIA HEMOLYSIS FLAG 80 (0-99); MEAN CELL HEMOGLOBIN 29.6 pg (27.9-34.1); MEAN CELL HEMOGLOBIN CONCENTR. 33.1 g/dL (32.4-36.7); MEAN CELL VOLUME 89.4 fL (81.5-99.8); PLATELET CLUMPS FLAG 0 (0-99); PLATELET COUNT 252 10^3/uL (150-400); RED BLOOD CELL COUNT 3.48 10^6/uL (4.18-5.33); RED CELL DISTRIBUTION WIDTH 13.7 % (11.5-15.2)
[2016-06-26 08:28] LABS: ANION GAP 9 mEq/L (8-16); CALCIUM 8.7 mg/dL (8.5-10.4); CARBON DIOXIDE 28 mEq/l (22-31); CHLORIDE 100 mEq/L (97-110); CREATININE 0.5 mg/dL (0.6-1.0); GLOMERULAR FILTRATION RATE > 60; GLUCOSE 153 mg/dL (70-100); POTASSIUM 4.3 mEq/L (3.5-5.2); SODIUM 137 mEq/L (134-144)
[2016-06-26] MEDS: CYANO/VITAMIN B12 1000 MCG TAB SL SCH (09:42)
[2016-06-26] MEDS: OLANZapine DISINTEGR 5 MG TAB PO SCH (09:43)
[2016-06-26] MEDS: LOSARTAN POTASSIUM 25 MG TAB PO SCH (09:44)
[2016-06-26] MEDS: DIVALPROEX NA 125 MG CAP.SPRINKLE PO SCH (09:45)
[2016-06-26] MEDS: ASPIRIN EC 81 MG TAB PO SCH (09:52)
[2016-06-26] MEDS: FUROSEMIDE 40 MG TAB PO SCH (09:52)
[2016-06-26] MEDS: ENOXAPARIN 40 MG/0.4 ML SYR SC SCH (09:53)
[2016-06-26] MEDS: NYSTATIN 15 GM CR TUBE TP SCH (09:57)
[2016-06-26] MEDS: INSULIN REGULAR, HUMAN 100 UNIT/1 ML VIAL LOW SC SCH ×2 (09:57→12:26)
--- NOTE | 2016-06-26 10:59 | HOSPPROG ---
Hospitalist Progress Note Assessment/Plan: Patient is a 66-year-old female who was admitted for being obtunded. She resides at [facility]. Has underlying diabetes as well as dementia. # acute on chronic encephalopathy -likely at her baseline - underlying dementia with behavioral disturbance - home Zyprexa/Depakote # aspiration pna s/p invanz -poor respiratory effort -needs frequent encouragement but can be diff with her behavioral disturbance -requiring 3 liters of O2 # citrobacter uti s/p invanz # leukocytosis - much improved # subdural hematoma - stable - Asa restarted/ Dr Coombs spoke with neurosurgery and ok with this/Plavix on hold - I spoke with the PA, Janis Vera, who will discuss w neurosurgeon as to when to restart Plavix # recent TAVR - restart asa/plavix on hold # DM2 - hold lantus # vte ppx - lovenox #plan: dc to [facility] Subjective: Alissa has no specific complaints, except for the food. Objective: Vital Signs Temp Pulse Resp BP Pulse Ox 37.3 C 99 14 134/87 H 94 06/26/16 09:25 06/26/16 09:25 06/26/16 09:25 06/26/16 09:25 06/26/16 09:25 Microbiology 06/20/16 17:45 Blood Culture - Final Blood 06/20/16 17:30 Blood Culture - Final Blood Laboratory Results 06/26/16 07:55 06/26/16 07:55 06/25/16 06/26/16 06/27/16 05:59 05:59 05:59 Intake Total 320 Output Total 500 250 Balance -180 -250 PT 15.2 SEC (12.0-15.0) H 06/14/16 05:00 INR 1.20 (0.83-1.16) H 06/14/16 05:00 - Physical Exam Constitutional: not in pain, chronically ill appearing Eyes: PERRL Ears, Nose, Mouth, Throat: hearing normal Cardiovascular: regular rate and rhythym Respiratory: no respiratory distress, reduced air movement (bibasilar/poor respiratoroy effort) Gastrointestinal: normoactive bowel sounds Skin: warm, No normal color (pale) Musculoskeletal: generalized weakness Neurologic: AAOx3 Psychiatric: interacting appropriately, other (frustrated, wants dishes, glasses on tray positioned frequently) ICD10 Worksheet Patient Problems: Problems Problem Status Onset Palliative care encounter Acute Sepsis Acute Septic shock Acute Urinary tract infection Acute
--- NOTE | 2016-06-26 11:12 | PDIAF ---
- Diagnosis Diagnosis: Subdural hematoma, aspiration pna, UTI, recent TAVR Code Status: Full Code - Medication Management Discharge Medications: Medications to Continue on Transfer Acetaminophen [Tylenol 325mg (*)] 650 mg PO Q6H PRN 06/10/16 [Last Taken ] Ascorbic Acid [Vitamin C 500 mg (*)] 500 mg PO DAILY 06/10/16 [Last Taken ] Aspirin [Aspirin 81mg (*)] 81 mg PO DAILY 06/10/16 [Last Taken 06/09/16] Clopidogrel Bisulfate [Plavix (*)] 75 mg PO DAILY 06/10/16 [Last Taken 06/09/16] Cyanocobalamin [Vitamin B12 (*)] 2,500 mcg SL DAILY 06/10/16 [Last Taken ] Divalproex [Depakote Sprinkle 125 MG (*)] 500 mg PO BID@,06/10/16 [Last Taken 06/09/16 20:00] Furosemide [Lasix 40 MG (*)] 40 mg PO DAILY 06/10/16 [Last Taken 06/09/16] Herbals/Supplements -Info Only 1 ea PO DAILY 06/10/16 [Last Taken Unknown] LORazepam [Ativan (*)] 0.5 mg PO DAILY 06/10/16 [Last Taken 06/09/16] LORazepam [Ativan (*)] 1 mg PO HS 06/10/16 [Last Taken 06/09/16] Losartan Potassium [Cozaar 25 mg (*)] 25 mg PO DAILY 06/10/16 [Last Taken ] Multivitamins [Multivitamin (*)] 1 each PO DAILY 06/10/16 [Last Taken 06/09/16] OLANZapine [ZyPREXA 2.5 mg (*)] 2.5 mg PO Q6H PRN 06/10/16 [Last Taken 06/06/16] OLANZapine [ZyPREXA 2.5 mg (*)] 7.5 mg PO BID@,06/10/16 [Last Taken 20:00] Acetaminophen [Tylenol 325mg (*)] 650 mg PO Q4 PRN #0 tab 06/26/16 [Last Taken Unknown] Insulin Glargine [Lantus 100 UNITS/ML (*)] 10 units SC DAILY@20 #0 ml 06/26/16 [ Last Taken Unknown] Melatonin [Melatonin 3 MG (*)] 3 mg PO HS #0 tab 06/26/16 [Last Taken Unknown] Discharge Medications: Refer to the Discharge Home Medication list for PRN reason. - Orders Services needed: Physical Therapy, Occupational Therapy Oxygen: 3 liters Diet Recommendation: no restrictions on diet Diet Texture: Dysphagia 3 - Advanced - Moist, Bite-Size, Thin Liquids, Meds Whole in Puree Additional: PATIENT IS USUALLY ON LANTUS 20 UNITS/ HELD DURING HER HOSPITAL STAY. WAS ON SLIDING SCALE. WILL DECREASE HER LANTUS DOSE TO 10 UNITS/ GLUCOSES HAVE BEEN STABLE. Patient needs encouragement to get oob, needs to eat meals in the chair. Neurosurgery is fine with resuming plavix and aspirin/ monitor for any neuro changes. - Labs/Radiology BMP Date: 07/04/16 CBC Date: 07/04/16 FBS Date: 06/27/16 (daily till stable) Call or Fax Lab and Imaging Results to: repeat chest xray in 6 weeks to be sure resolution of pna - Follow Up Care Current Providers and Referrals: BLANCA KIMBALL [Primary Care Provider] - As per Instructions
--- NOTE | 2016-06-26 12:48 | GDS ---
[f rep st] DISCHARGE SUMMARY DISCHARGE DIAGNOSES: 1. Acute on chronic encephalopathy. 2. Aspiration pneumonia. 3. Citrobacter urinary tract infection. 4. Leukocytosis. 5. Subdural hematoma. 6. Recent transcatheter aortic valve replacement. 7. Diabetes type 2. CONSULTATIONS DURING HER STAY: 1. Jordan Lisa, physician metallurgical laboratory assistant with Neurosurgery services. 2. Dr. Ellis Tillman, water pump installer. 3. Dr. Lalo Hargrove with Infectious Disease. HISTORY OF PRESENT ILLNESS: Briefly, the patient is a 66-year-old female with a history of diabetes, dementia and a recent transcatheter aortic valve replacement, who was brought in from [facility] after she was found obtunded. On admission, she was unable to provide any history to the admitting doctor. It was noted that she had severe sepsis as evidenced by a lactate and increased white blood cell count. She was treated with the sepsis protocol. It was noted that she had some right-sided weakness during her admission. A CT of the head was performed which showed a small right-sided acute subdural hematoma resting on the right cerebellar tentorium. She was evaluated by the neurosurgery team, and recommendation at that time was to stop Plavix and aspirin. She had serial CTs of her head, most recent on June 21. It showed minimal residual of the right tentorial subacute subdural hematoma. She had no new foci or acute hemorrhage. I spoke with the neurosurgical team today and they are in agreement of restarting her Plavix and aspirin. In addition, during her stay, she was seen and evaluated by the Infectious Disease team due to her sepsis, and she had persistent fevers with increased oxygen needs. A CT of her chest was performed which revealed diffuse infiltration in the right lung with dense consolidation in the right lower lobe with a small associated pleural effusion. It was also noted that at that time, she likely had an aspiration pneumonia. She was treated for this and improved throughout her stay. Today, she will be discharged to [facility]. She was residing there prior. HOSPITAL COURSE: Per problem: 1. Acute encephalopathy, this was multifactorial. She has underlying dementia plus she had a small subdural hematoma. She is likely at her baseline. On Zyprexa and Depakote. 2. Aspiration pneumonia. She was treated with Invanz. She is requiring 3 L of oxygen. She will need aggressive pulmonary toileting. 3. Citrobacter urinary tract infection. Invanz. 4. Leukocytosis. Her white blood cell count is much improved. 5. Subdural hematoma. This is stable. 6. Recent TAVR. Plavix and aspirin. 7. Diabetes type 2. Lantus had been placed on hold. She was placed on a sliding scale while here. I have reduced her long-acting Lantus. This can be increased if needed. PENDING LABS AND TESTS: None. CONDITION AT DISCHARGE: Stable. Blood pressure is 134/87, O2 sats on 3 L are 94%, respiratory rate is 14, pulse is 99, temperature is 37.3 Celsius. MEDICATIONS AT DISCHARGE: Please see the EMR. To the best of my knowledge, I have resumed all of her home medications except for the Lantus at lower dose. DISCHARGE INSTRUCTIONS: 1. She needs aggressive pulmonary toileting and needs to get out of bed for all her meals. 2. If she develops any fever, chills, chest pain, shortness of breath, or any neurologic changes, to return to the ER. Greater than 30 minutes discharging and coordinating her care. /[id number]/MODL MTDD
[2016-06-26] MEDS: OLANZapine DISINTEGR 5 MG TAB PO PRN (15:00)
[2016-06-26 16:34] VITALS: BP 113/72; PULSE 82; RESP 18; TEMP 97.5; O2SAT 91
== END 2016-06-26 17:01 | DRG 870 ==
LOC: F3E 20:18 → F2N 06-13 04:58 → F3E 06-23 17:43
PROVIDERS: ADMIT Internal Medicine; ATTEND Internal Medicine
PROC: 5A1955Z Respiratory Ventilation, Greater than 96 Consecutive Hours (ICD-10-PCS; principal; 2016-06-13)
PROC: 0BH18EZ Insertion of Endotracheal Airway into Trachea, Via Natural or Artificial Opening Endoscopic (ICD-10-PCS; principal; 2016-06-13)
PROC: 0B968ZX Drainage of Right Lower Lobe Bronchus, Via Natural or Artificial Opening Endoscopic, Diagnostic (ICD-10-PCS; 2016-06-13)
PROC: 0B938ZX Drainage of Right Main Bronchus, Via Natural or Artificial Opening Endoscopic, Diagnostic (ICD-10-PCS; 2016-06-13)
PROC: 3E1F88Z Irrigation of Respiratory Tract using Irrigating Substance, Via Natural or Artificial Opening Endoscopic (ICD-10-PCS; 2016-06-13)
PROC: 0DH67UZ Insertion of Feeding Device into Stomach, Via Natural or Artificial Opening (ICD-10-PCS; 2016-06-13)
PROC: 02HV33Z Insertion of Infusion Device into Superior Vena Cava, Percutaneous Approach (ICD-10-PCS; 2016-06-13)
PROC: 3E0G76Z Introduction of Nutritional Substance into Upper GI, Via Natural or Artificial Opening (ICD-10-PCS; 2016-06-14)
DX: A41.9 Sepsis, unspecified organism (principal); J69.0 Pneumonitis due to inhalation of food and vomit; R65.21 Severe sepsis with septic shock; N39.0 Urinary tract infection, site not specified; B96.89 Other specified bacterial agents as the cause of diseases classified elsewhere; J96.01 Acute respiratory failure with hypoxia; G93.41 Metabolic encephalopathy; I62.00 Nontraumatic subdural hemorrhage, unspecified; N17.9 Acute kidney failure, unspecified; I50.30 Unspecified diastolic (congestive) heart failure; E11.9 Type 2 diabetes mellitus without complications; F03.91 Unspecified dementia, unspecified severity, with behavioral disturbance; I11.0 Hypertensive heart disease with heart failure; E53.8 Deficiency of other specified B group vitamins; Z95.2 Presence of prosthetic heart valve; Z79.82 Long term (current) use of aspirin; Z79.02 Long term (current) use of antithrombotics/antiplatelets
CPT/HCPCS: 87449-90; 92526-GN; 92610-GN; 97162-GP; 97164-GP; 97166-GO; 97168-GO; 97530-GO; 97530-GP; 97535-GO; C1751; G8978-GP-CM; G8979-GP-CK; G8987-GO-CL; G8987-GO-CM; G8988-GO-CK; G8996-GN-CL; G8997-GN-CI; G8997-GN-CJ; J0456; J0696; J1335; J1650; J1815; J1956; J2060; J2250; J2704; J2765; J3010; J3475; J3490; Q9967

== ENCOUNTER 2016-07-01 18:31 | Inpatient (IN) | payer OTHER, MEDICAID ==
--- NOTE | 2016-07-01 18:50 | CPEKG ---
Heart Rate: 97 RR Interval: 619 P-R Interval: 152 QRSD Interval: 92 QT Interval: 376 QTC Interval: 478 P [place]: 12 QRS [place]: 7 T Wave [place]: 168 EKG Severity - NORMAL ECG - EKG Impression: SINUS RHYTHM Electronically Signed By: Suzan Ron 02-Jul-2016 00:43:42
--- NOTE | 2016-07-01 18:58 | EDPHY ---
H & P Stated Complaint: ams Time Seen by Provider: 07/01/16 18:32 HPI/ROS: CHIEF COMPLAINT: Altered mental status HISTORY OF PRESENT ILLNESS: This is a 66-year-old female who was discharged 2 [facility] on June 26, 5 days ago, following an admission for urosepsis, aspiration pneumonia, and a subdural hematoma. At that hospitalization, the patient was transferred from [facility] after she was found obtunded. During her hospital course she was found to be in severe sepsis and head documented Citrobacter urinary tract infection. She developed some right-sided weakness during her admission and a CT scan was performed which showed a small right-sided acute subdural hematoma. In addition the patient had persistent fevers and increased oxygen needs. CT scan of her chest demonstrated diffuse infiltration in the right lung with dense consolidation in the right lower lobe an associated small pleural effusion. Of note the patient also had a recent transcatheter aortic valve replacement and had been on Plavix and aspirin. These medications were held after her subdural was identified, however, neurosurgery felt they were safe to be restarted upon discharge back to [facility]. She was discharged on 3 L of O2. Today the patient presents via EMS. Evidently she was noted to be less responsive around 3:00 p.m.. There is no history of fever from the half-way , however they do note continued leukocytosis on recent blood work performed. Patient was noted to be hypoxic and is currently on 4 L. The patient herself denies any fevers, chest pain, shortness of breath. She denies any vomiting or diarrhea. REVIEW OF SYSTEMS: Limited secondary to the patient's clinical condition. PAST MEDICAL HISTORY: Acute on chronic encephalopathy, aspiration pneumonia, Citrobacter urinary tract infection, subdural hematoma, recent transcatheter aortic valve replacement, diabetes. SOCIAL HISTORY: Currently resides at [facility]. Full core. VITAL SIGNS Reviewed by me. GENERAL: Pale, looks somewhat older than stated age, lying with close. Will answer simple questions. HEENT: Atraumatic. Eyes: Pupils 3 mm and reactive bilaterally. No icterus, no injection. Mouth: Slightly dry mucous membranes. No erythema or lesions. Neck: supple with no adenopathy. LUNGS: Rhonchi in the right lower lobe. CARDIAC: Distant, regular, soft murmur appreciated. ABDOMEN: Soft, complaints of epigastric discomfort with palpation. No distension. No guarding. BACK: No CVA tenderness. EXTREMITIES: No trauma. No edema. Range of motion is normal throughout. NEURO: lethargic but arousable. Oriented to person and place. Grossly nonfocal. SKIN: Warm and dry, no rash. PSYCHIATRIC: No agitation. - Medical/Surgical History Hx Asthma: No Hx Chronic Respiratory Disease: No Hx Diabetes: Yes Hx Cardiac Disease: Yes Hx Renal Disease: No Hx Cirrhosis: No Hx Alcoholism: No Hx HIV/AIDS: No Hx Splenectomy or Spleen Trauma: No Other PMH: PMH: dementia, CHF, Diabetic type II, HTN. pvd , delusional disorder Constitutional: Initial Vital Signs Heart Rate 92 07/01/16 18:45 Respiratory Rate 20 07/01/16 18:45 Blood Pressure 127/73 H 07/01/16 18:45 O2 Sat (%) 96 07/01/16 18:45 O2 Delivery Mode Nasal Cannula O2 (L/minute) 4 Allergies/Adverse Reactions: Penicillins Allergy (Verified 07/01/16 18:56) Sulfa (Sulfonamide Antibiotics) Allergy (Verified 07/01/16 18:56) Home Medications: Medication Instructions Recorded Acetaminophen [Tylenol 325mg (*)] 650 mg PO Q6H PRN 06/10/16 Ascorbic Acid [Vitamin C 500 mg 500 mg PO DAILY 06/10/16 (*)] Aspirin [Aspirin 81mg (*)] 81 mg PO DAILY 06/10/16 Clopidogrel Bisulfate [Plavix (*)] 75 mg PO DAILY 06/10/16 Cyanocobalamin [Vitamin B12 (*)] 2,500 mcg SL DAILY 06/10/16 Divalproex [Depakote Sprinkle 125 500 mg PO BID@08,20 06/10/16 MG (*)] Furosemide [Lasix 40 MG (*)] 40 mg PO DAILY 06/10/16 Herbals/Supplements -Info Only 1 ea PO DAILY 06/10/16 LORazepam [Ativan (*)] 0.5 mg PO DAILY 06/10/16 LORazepam [Ativan (*)] 1 mg PO HS 06/10/16 Losartan Potassium [Cozaar 25 mg 25 mg PO DAILY 06/10/16 (*)] OLANZapine [ZyPREXA 2.5 mg (*)] 2.5 mg PO Q6H PRN 06/10/16 OLANZapine [ZyPREXA 2.5 mg (*)] 7.5 mg PO BID@09,20 06/10/16 Insulin Glargine [Lantus 100 10 units SC HS 07/01/16 UNITS/ML (*)] Multivitamins W-Minerals [Thera M 1 each PO DAILY 07/01/16 Plus Tablet (*)] Medical Decision Making - Diagnostics EKG Interpretation: 12-LEAD EKG: Please see the full report in [facility]. My interpretation: Sinus rhythm, no ischemic changes noted Imaging: Imaging Impressions Chest X-Ray 07/01/16 18:41 Impression: Opacification of both lower lobes, which is stable in appearance, compatible with bilateral lower lobe pneumonia. E:CN/amm Head CT 07/01/16 18:49 Impression: 1. Continued resolution of a right subdural hematoma along the right tentorium. No new hemorrhage is visualized. 2. Moderate periventricular and deep hemispheric white matter change indicating small vessel ischemic disease. No evidence for acute infarct. 3. Possible sinusitis. 4. Other chronic findings, as above. Results called and discussed with Suzan Ron M.D., on July 01, 2016 at 2007 hours. E:amm ED Course/Re-evaluation: 66-year-old female presenting from [facility] concerns regarding possible ongoing sepsis and altered mental status today. On arrival the patient can provide very little history. She is lethargic but responds to simple questions. Head CT does not demonstrate any new hemorrhage, subdural as continuing to resolve. Laboratory evaluation is remarkable for lactic [place] 2[place] [id number]. Largely unremarkable electrolytes. Urinalysis is clean. Patient's course was discussed with the hospitalist service. Dr. Genna Weston will admit to [facility]. Vital signs remained stable. At around 9:00 p.m. I was asked to see the patient due to concerns regarding abrupt alteration in mental status. Patient is much more somnolent currently is very difficult to arouse. Only medication she has received in the emergency department set was her antibiotic. Vital signs remained stable. I-STAT demonstrates a normal glucose but hemoglobin hematocrit which are trending downward. Rectal exam was performed. No melena. Stool was negative for occult blood. Patient was seen by the hospitalist service, Dr. Jami De Luna in the emergency department. Decision was made the patient would undergo another head CT as she is on anticoagulants. Patient's repeat CT scan demonstrates no intracranial hemorrhage. On return from CT the patient is much more alert. She tells me she is having some chest discomfort. Troponins remain negative. Vital signs remained stable. Patient was admitted to the Step-Down Unit for further evaluation of waxing and waning mental status. Most likely related to metabolic causes. Severe Sepsis/Septic Shock Care Note The patient presents to the ED with concerns regarding pneumonia and urinary tract infection. The patient did have evidence of end-organ dysfunction and met criteria for severe sepsis. This condition was identified by myself at 1945. The patients vital signs are 114/71, 20, afebrile, 97% on 4 L, heart rate 90.. The patient has a venous lactic acid performed within 3 hours of the identification of severe sepsis which was found to be 2.4. The patient has blood cultures drawn and received Invanz as well as vancomycin IV, per the severe sepsis treatment protocol. The initial lactate was elevated and rechecked within 6 hours of the identification time of severe sepsis and found to be: 1.5 Differential Diagnosis: After the history was obtained and physical exam performed, the following differential for the patient's altered mental status was considered included but was not limited to hypoglycemia, electrolyte disturbances, intracranial hemorrhage, hypoxemia, infection, tumor, drug or alcohol intoxication, stroke, or TIA. Consult/Admit Bed Type: Dr. Jami De Luna, step-down - Data Points Laboratory Results: Laboratory Results 07/01/16 18:30 07/01/16 18:30 07/01/16 07/01/16 07/01/16 20:07 19:49 19:49 WBC RBC Hgb Hct MCV MCH MCHC RDW Plt Count MPV Neut % (Auto) Lymph % (Auto) [place] % (Auto) Eos % (Auto) Baso % (Auto) Nucleat RBC Rel Count Absolute Neuts (auto) Absolute Lymphs (auto) Absolute Monos (auto) Absolute Eos (auto) Absolute Basos (auto) Absolute Nucleated RBC Immature Gran % Immature Gran # PT INR APTT VBG Lactic Acid 1.5 mmol/L mmol/L (0.7-2.1) Sodium Potassium Chloride Carbon Dioxide Anion Gap BUN Creatinine Estimated GFR Glucose Calcium Total Bilirubin 0.3 mg/dL mg/dL (0.1-1.4) Conjugated Bilirubin 0.3 mg/dL mg/dL (0.0-0.5) Unconjugated Bilirubin 0.0 mg/dL mg/dL (0.0-1.1) AST 15 IU/L IU/L (14-46) ALT 24 IU/L IU/L (9-52) Alkaline Phosphatase 54 IU/L IU/L (38-126) Troponin I < 0.012 ng/mL ng/mL (0-0.034) Total Protein 5.2 g/dL L g/dL (6.3-8.2) Albumin 2.0 g/dL L g/dL (3.5-5.0) Urine Color YELLOW Urine Appearance CLEAR Urine pH 6.0 (5.0-7.5) Ur Specific [place] 1.008 (1.002-1.030) Urine Protein NEGATIVE (NEGATIVE) Urine Ketones NEGATIVE (NEGATIVE) Urine Blood NEGATIVE (NEGATIVE) Urine Nitrate NEGATIVE (NEGATIVE) Urine Bilirubin NEGATIVE (NEGATIVE) Urine Urobilinogen NEGATIVE EU EU (0.2-1.0) Ur Leukocyte Esterase NEGATIVE (NEGATIVE) Urine Glucose NEGATIVE (NEGATIVE) Valproic Acid 07/01/16 07/01/16 07/01/16 18:35 18:30 18:30 WBC RBC Hgb Hct MCV MCH MCHC RDW Plt Count MPV Neut % (Auto) Lymph % (Auto) [place] % (Auto) Eos % (Auto) Baso % (Auto) Nucleat RBC Rel Count Absolute Neuts (auto) Absolute Lymphs (auto) Absolute Monos (auto) Absolute Eos (auto) Absolute Basos (auto) Absolute Nucleated RBC Immature Gran % Immature Gran # PT INR APTT VBG Lactic Acid 2.4 mmol/L H mmol/L (0.7-2.1) Sodium 134 mEq/L mEq/L (134-144) Potassium 4.3 mEq/L mEq/L (3.5-5.2) Chloride 92 mEq/L L mEq/L (97-110) Carbon Dioxide 32 mEq/l H mEq/l (22-31) Anion Gap 10 mEq/L mEq/L (8-16) BUN 16 mg/dL mg/dL (7-23) Creatinine 0.7 mg/dL mg/dL (0.6-1.0) Estimated GFR > 60 Glucose 152 mg/dL H mg/dL (70-100) Calcium 8.9 mg/dL mg/dL (8.5-10.4) Total Bilirubin 0.4 mg/dL mg/dL (0.1-1.4) Conjugated Bilirubin Unconjugated Bilirubin AST ALT Alkaline Phosphatase Troponin I < 0.012 ng/mL ng/mL (0-0.034) Total Protein Albumin Urine Color Urine Appearance Urine pH Ur Specific [place] Urine Protein Urine Ketones Urine Blood Urine Nitrate Urine Bilirubin Urine Urobilinogen Ur Leukocyte Esterase Urine Glucose Valproic Acid 64.7 mcg/mL mcg/mL (50.0-150.0) 07/01/16 07/01/16 18:30 18:30 WBC 11.46 10^3/uL H 10^3/uL (3.80-9.50) RBC 3.96 10^6/uL L 10^6/uL (4.18-5.33) Hgb 11.5 g/dL L g/dL (12.6-16.3) Hct 35.3 % L % (38.0-47.0) MCV 89.1 fL fL (81.5-99.8) MCH 29.0 pg pg (27.9-34.1) MCHC 32.6 g/dL g/dL (32.4-36.7) RDW 13.2 % % (11.5-15.2) Plt Count 288 10^3/uL 10^3/uL (150-400) MPV 10.0 fL fL (8.7-11.7) Neut % (Auto) 65.9 % % (39.3-74.2) Lymph % (Auto) 20.6 % % (15.0-45.0) Wright % (Auto) 11.0 % % (4.5-13.0) Eos % (Auto) 1.3 % % (0.6-7.6) Baso % (Auto) 0.6 % % (0.3-1.7) Nucleat RBC Rel Count 0.0 % % (0.0-0.2) Absolute Neuts (auto) 7.55 10^3/uL H 10^3/uL (1.70-6.50) Absolute Lymphs (auto) 2.36 10^3/uL 10^3/uL (1.00-3.00) Absolute Monos (auto) 1.26 10^3/uL H 10^3/uL (0.30-0.80) Absolute Eos (auto) 0.15 10^3/uL 10^3/uL (0.03-0.40) Absolute Basos (auto) 0.07 10^3/uL 10^3/uL (0.02-0.10) Absolute Nucleated RBC 0.00 10^3/uL 10^3/uL (0-0.01) Immature Gran % 0.6 % % (0.0-1.1) Immature Gran # 0.07 10^3/uL 10^3/uL (0.00-0.10) PT 13.6 SEC SEC (12.0-15.0) INR 1.05 (0.83-1.16) APTT 27.9 SEC SEC (23.0-38.0) VBG Lactic Acid Sodium Potassium Chloride Carbon Dioxide Anion Gap BUN Creatinine Estimated GFR Glucose Calcium Total Bilirubin Conjugated Bilirubin Unconjugated Bilirubin AST ALT Alkaline Phosphatase Troponin I Total Protein Albumin Urine Color Urine Appearance Urine pH Ur Specific [place] Urine Protein Urine Ketones Urine Blood Urine Nitrate Urine Bilirubin Urine Urobilinogen Ur Leukocyte Esterase Urine Glucose Valproic Acid Medications Given: Discontinued Medications Sodium Chloride (Ns) 1,900 mls @ 3,800 mls/hr 30 ml/kg infuse over 30 min ( 1900 ml) IV EDNOW ONE Stop: 07/01/16 20:13 Last Admin: 07/01/16 20:27 Dose: 1,900 mls Ertapenem 1 gm/ Sodium (Chloride) 100 mls @ 200 mls/hr IV EDNOW ONE PRN Reason: Protocol Stop: 07/01/16 20:20 Last Admin: 07/01/16 22:03 Dose: 100 mls Vancomycin/Sodium Chloride (Vancomycin 1 Gm (Premix)) 250 mls @ 250 mls/hr IV EDNOW ONE PRN Reason: Protocol Stop: 07/01/16 20:50 Last Admin: 07/01/16 20:33 Dose: 250 mls Departure - Departure Disposition: [facility] Inpatient Acute Clinical Impression: Sepsis Qualifiers: Sepsis type: sepsis due to unspecified organism Qualified Code(s): A41.9 - Sepsis, unspecified organism Altered mental status Qualifiers: Altered mental status type: somnolence Qualified Code(s): R40.0 - Somnolence Condition: Fair
[2016-07-01 19:00] LABS: % IMMATURE GRANULYOCYTES 0.6 % (0.0-1.1); ABSOLUTE IMMATURE GRANULOCYTES 0.07 10^3/uL (0.00-0.10); ADD DIFF? NO; ADD MORPH? NO; ADD SCAN? NO; ATYPICAL LYMPHOCYTE FLAG 30 (0-99); FRAGMENT RBC FLAG 0 (0-99); HEMATOCRIT 35.3 % (38.0-47.0); HEMOGLOBIN 11.5 g/dL (12.6-16.3); LEFT SHIFT FLG 0 (0-99); LIPEMIA HEMOLYSIS FLAG 80 (0-99); MEAN CELL HEMOGLOBIN CONCENTR. 32.6 g/dL (32.4-36.7); MEAN CELL VOLUME 89.1 fL (81.5-99.8); PLATELET CLUMPS FLAG 0 (0-99); PLATELET COUNT 288 10^3/uL (150-400); RED BLOOD CELL COUNT 3.96 10^6/uL (4.18-5.33); RED CELL DISTRIBUTION WIDTH 13.2 % (11.5-15.2)
[2016-07-01 19:03] LABS: INR 1.05 (0.83-1.16); PROTIME(PATIENT) 13.6 SEC (12.0-15.0)
[2016-07-01 19:04] LABS: APTT 27.9 SEC (23.0-38.0)
[2016-07-01 19:07] LABS: ANION GAP 10 mEq/L (8-16); BILIRUBIN,TOTAL 0.4 mg/dL (0.1-1.4); CALCIUM 8.9 mg/dL (8.5-10.4); CARBON DIOXIDE 32 mEq/l (22-31); CHLORIDE 92 mEq/L (97-110); CREATININE 0.7 mg/dL (0.6-1.0); GLOMERULAR FILTRATION RATE > 60; GLUCOSE 152 mg/dL (70-100); POTASSIUM 4.3 mEq/L (3.5-5.2); SODIUM 134 mEq/L (134-144)
[2016-07-01 19:18] LABS: TROPONIN I < 0.012 ng/mL (0-0.034)
[2016-07-01] MEDS ORDERED: NS 1,900 ML IV ONE (19:44)
[2016-07-01 19:50] LABS: LACGHOST ORDER
[2016-07-01] MEDS ORDERED: VANCOMYCIN HCL/NORMAL SALINE 250 ML IV ONE (19:51)
[2016-07-01] MEDS ORDERED: ERTAPENEM 1 GM in NS 100 ML IV ONE (19:51)
[2016-07-01 20:21] LABS: COLOR YELLOW; LEUKOCYTE ESTERASE,URINE NEGATIVE (NEGATIVE); NITRITE,URINE NEGATIVE (NEGATIVE)
[2016-07-01] MEDS ORDERED: ALBUTEROL 3 ML DEYVIAL IH PRN (21:00)
[2016-07-01] MEDS ORDERED: ACETAMINOPHEN 650 MG SUPP PR PRN (21:00)
[2016-07-01] MEDS ORDERED: ONDANSETRON DISINTEGRATING 4 MG TAB PO PRN (21:00)
[2016-07-01] MEDS ORDERED: ONDANSETRON 4 MG/2 ML VIAL IVP PRN (21:00)
[2016-07-01] MEDS ORDERED: HYDROmorphONE/DILAUDID 1 MG/ML SYR IVP PRN (21:00)
[2016-07-01] MEDS ORDERED: LORazepam 2 MG/ML INJ IVP PRN (21:00)
[2016-07-01] MEDS ORDERED: NS 1,000 ML IV SCH (21:00)
[2016-07-01 21:20] LABS: ALANINE AMINOTRANSFERASE 24 IU/L (9-52); ALKALINE PHOSPHATASE 54 IU/L (38-126); ASPARTATE AMINOTRANSFERASE 15 IU/L (14-46); BILIRUBIN,TOTAL 0.3 mg/dL (0.1-1.4); BILIRUBIN-CONJUGATED 0.3 mg/dL (0.0-0.5); TOTAL PROTEIN 5.2 g/dL (6.3-8.2)
[2016-07-01] MEDS ORDERED: OLANZapine 2.5 MG TAB PO PRN (21:24)
[2016-07-01] MEDS ORDERED: D50W 25 GM/50 ML SYR IVP PRN (21:27)
[2016-07-01 21:32] LABS: TROPONIN I < 0.012 ng/mL (0-0.034)
[2016-07-01 22:17] LABS: BASE EXCESS 3.7 mEq/L (-2.5-2.5); BICARBONATE 29 mEq/L (22-26); MEASURED OXYGEN SATURATION 95 % (92-95); PCO2 47 mmHg (34-38); PO2 80 mmHg (65-75); TCO2 30 mEq/L (23-27)
[2016-07-01 22:19] LABS: O2 CONCENTRATION LITERS 2.5 LITERS
--- NOTE | 2016-07-01 22:55 | GHP ---
[f rep st] HISTORY AND PHYSICAL DATE OF ADMISSION: 07/01/2016 CHIEF COMPLAINT: Altered mental status. HISTORY OF PRESENT ILLNESS: This is a 66-year-old female, who has a past medical history of chronic encephalopathy secondary to dementia with underlying behavioral disturbance complicated by recent s ubdural hematoma in the setting of being on aspirin and Plavix. Recently in this hospital for sepsi s related to urinary tract infection as well as aspiration pneumonia and worsening mental status. D ischarged to [facility]. She is brought back here today after she was found minimally responsive at [facility]. It seems that at baseline she is able to verbally communicate, at least per jenaro rd, and her current mental status is a significant change from her usual baseline. I am unable to o btain any history from her as she is completely unresponsive at the time my evaluation. In terms of report from [facility], it sounds as if she was in her usual state of health prior to today, and they also noted that she was hypoxic when they evaluated her, both at [facility] and in the ER. PAST MEDICAL HISTORY: 1. Chronic encephalopathy secondary to dementia with behavioral disturbance, chronically on Zyprexa and Depakote. 2. Recent subdural hematoma while on aspirin and Plavix. 3. Valvular heart disease status post TAVR. 4. Type 2 diabetes. 5. Recent aspiration pneumonia. 6. Congestive heart failure. Ejection fraction reported at 50%. 7. Hypertension. 8. B12 deficiency. SURGICAL HISTORY: TAVR. SOCIAL HISTORY: This is unobtainable secondary to patient being completely obtunded. However, she does reside at [facility] and presumably is a nonsmoker and not using drugs or alcohol. FAMILY HISTORY: This is unobtainable by patient and not available per chart review. CODE STATUS: Patient is a full code. REVIEW OF SYSTEMS: Again, this is unobtainable secondary to patient's mental status. MEDICATIONS: Include: 1. Multivitamin. 2. Tylenol. 3. Vitamin C. 4. Lasix. 5. Depakote. 6. Vitamin B12. 7. Plavix. 8. Aspirin. 9. Losartan. 10. Ativan. 11. Insulin glargine. 12. Olanzapine. ALLERGIES: Include penicillin and sulfa. PHYSICAL EXAMINATION: VITAL SIGNS: BP 165/86, heart rate 86, respiratory rate 20, O2 sat is 97% on 4 L. Temperature is 36.9. At hospital discharge 1 week ago, she was discharged on 3 L of oxygen. GENERAL APPEARANCE: This is a chronically ill-appearing female. She is obtunded and not responsiv e. EYES: Pupils are equal and pinpoint and minimally reactive to light. HEENT: Mucous membranes are slightly dry. Oropharynx is clear. CARDIOVASCULAR: Regular rate and rhythm, no MRG. PULMONARY: Diffuse rhonchi and coarse breath sounds throughout anterior exam. ABD OMEN: Soft, nontender. Bowel sounds are present. EXTREMITIES: No clubbing, cyanosis, or edema. SKIN: Pale, warm, dry. NEURO/PSYCH: The patient will withdraw to pain and grunt in response to st ernal rub, but otherwise will not open her eyes volitionally and otherwise completely nonresponsive and somnolent. CLINICAL DATA: Labs reviewed significant for a bicarb of 32. Glucose of 152, troponin's less than 0.012. Lactic acid initially 2.4, now 1.5. Urinalysis completely normal. CBC [facility] blood cell count of 11.46 and hematocrit 35.3. IMAGING: Chest x-ray, personally reviewed and interpreted, shows bilateral lower lobe opacities sim ilar to prior x-ray and consistent with pneumonia. Head CT shows continued resolution of right subdural hematoma without new hemorrhage. No evidence f or acute infarct. EKG reviewed and interpreted independently by myself. Shows sinus rhythm without acute ischemic tracey nges. ASSESSMENT AND PLAN: This is a 66-year-old female with a past medical history of chronic dementia w ith behavioral disturbance as well as recent subdural hematoma and recent aspiration pneumonia prese nting with acute encephalopathy. 1. Acute on chronic encephalopathy. This is a significant change from her baseline where she is at least able to verbally interact. She does not appear to have any focal neurologic signs on exam an d head CT appears stable to improved in terms of her prior subdural hematoma. Suspect this is secon roger to infection as per next. She does have pinpoint pupils, so another possibility would be inadv ertent medication overdose, though it does not appear she is chronically on any opiate pain medicati ons. She will be monitored overnight. We will treat infection as number next. 2. Healthcare-associated pneumonia. Patient with likely recurrent bilateral lower lobe opacificati ons consistent with pneumonia. She is at high risk for aspiration pneumonia and has had prior issue s with aspiration. We will treat for now as hospital-acquired pneumonia with vancomycin and cefepim e. Blood cultures have been obtained and are pending. We will also obtain sputum cultures. 3. Severe sepsis, patient meeting systemic inflammatory response syndrome criteria on arrival, and also with elevated lactate meeting criteria for severe sepsis. Infection is as per above. Her lact ic acid has now cleared. She is hemodynamically stable. 4. Recent subdural hematoma. Again, this is noted to be improved. She was restarted on her aspiri n and Plavix. After hospital discharge per Neurosurgery. 5. Dementia with behavioral disturbance. She is chronically on Depakote, olanzapine, and Ativan wh ich will be continued when she is more alert. I do not suspect that her presenting issues are prima rily psychiatric in nature. 6. Disposition: Inpatient status. The patient will require greater than a 48-hour stay for evalua tion and management of above given her multiple active issues at presentation and high-risk presenti ng issues. 7. Patient is new to my care. Old records reviewed and summarized as per HPI and past medical hist ory. Care plan reviewed with ER physician, including plans for antibiotic therapy. /[id number]/MODL
[2016-07-01 23:14] LABS: % IMMATURE GRANULYOCYTES 0.6 % (0.0-1.1); ABSOLUTE IMMATURE GRANULOCYTES 0.05 10^3/uL (0.00-0.10); ADD DIFF? NO; ADD MORPH? NO; ADD SCAN? NO; ATYPICAL LYMPHOCYTE FLAG 40 (0-99); FRAGMENT RBC FLAG 0 (0-99); HEMATOCRIT 33.1 % (38.0-47.0); HEMOGLOBIN 10.8 g/dL (12.6-16.3); LEFT SHIFT FLG 0 (0-99); LIPEMIA HEMOLYSIS FLAG 80 (0-99); MEAN CELL HEMOGLOBIN 29.5 pg (27.9-34.1); MEAN CELL HEMOGLOBIN CONCENTR. 32.6 g/dL (32.4-36.7); MEAN CELL VOLUME 90.4 fL (81.5-99.8); MEAN PLATELET VOLUME 9.6 fL (8.7-11.7); PLATELET CLUMPS FLAG 20 (0-99); PLATELET COUNT 229 10^3/uL (150-400); RED BLOOD CELL COUNT 3.66 10^6/uL (4.18-5.33); RED CELL DISTRIBUTION WIDTH 13.2 % (11.5-15.2)
[2016-07-02 01:08] LABS: PHENCYCLIDINE URINE BCH < 6 ng/ml (NEGATIVE); PHENCYCLIDINE URINE BCH NEGATIVE (NEGATIVE); TETRAHYDROCANNABINOL URINE < 5 ng/mL (NEGATIVE); TETRAHYDROCANNABINOL URINE NEGATIVE (NEGATIVE)
[2016-07-02] MEDS: IPRATROPIUM/ALBUTEROL 3 ML DEYVIAL IH SCH ×5 (03:17→20:51)
[2016-07-02 03:19] LABS: % IMMATURE GRANULYOCYTES 0.6 % (0.0-1.1); ABSOLUTE IMMATURE GRANULOCYTES 0.05 10^3/uL (0.00-0.10); ADD DIFF? NO; ADD MORPH? NO; ADD SCAN? NO; ATYPICAL LYMPHOCYTE FLAG 30 (0-99); FRAGMENT RBC FLAG 0 (0-99); HEMATOCRIT 29.8 % (38.0-47.0); HEMOGLOBIN 9.7 g/dL (12.6-16.3); LEFT SHIFT FLG 0 (0-99); LIPEMIA HEMOLYSIS FLAG 80 (0-99); MEAN CELL HEMOGLOBIN 29.3 pg (27.9-34.1); MEAN CELL HEMOGLOBIN CONCENTR. 32.6 g/dL (32.4-36.7); MEAN PLATELET VOLUME 9.6 fL (8.7-11.7); PLATELET CLUMPS FLAG 0 (0-99); PLATELET COUNT 218 10^3/uL (150-400); RED BLOOD CELL COUNT 3.31 10^6/uL (4.18-5.33); RED CELL DISTRIBUTION WIDTH 13.5 % (11.5-15.2)
[2016-07-02 03:33] LABS: ANION GAP 8 mEq/L (8-16); CALCIUM 7.8 mg/dL (8.5-10.4); CARBON DIOXIDE 27 mEq/l (22-31); CHLORIDE 105 mEq/L (97-110); CREATININE 0.5 mg/dL (0.6-1.0); GLOMERULAR FILTRATION RATE > 60; GLUCOSE 114 mg/dL (70-100); MAGNESIUM 1.7 mg/dL (1.6-2.3); POTASSIUM 4.1 mEq/L (3.5-5.2); SODIUM 140 mEq/L (134-144)
[2016-07-02] MEDS ORDERED: VANCOMYCIN 750 MG in D5W 150 ML IV SCH (08:30)
[2016-07-02] MEDS ORDERED: CEFEPIME HCL 1 GM in D5W 50 ML IV SCH (09:00)
[2016-07-02] MEDS: ENOXAPARIN 40 MG/0.4 ML SYR SC SCH (09:09)
[2016-07-02] MEDS: INSULIN LISPRO 100 UNIT/ML SC SCH ×3 (09:11→18:37)
[2016-07-02] MEDS: ASPIRIN 81 MG CHEWABLE TAB PO SCH ×2 (11:14→14:27)
[2016-07-02] MEDS: DIVALPROEX NA 125 MG CAP.SPRINKLE PO SCH ×3 (11:14→20:37)
[2016-07-02] MEDS: CLOPIDOGREL BISULFATE 75 MG TAB PO SCH ×2 (11:14→14:27)
[2016-07-02] MEDS: OLANZapine 2.5 MG TAB PO SCH ×3 (11:15→20:36)
[2016-07-02] MEDS: LOSARTAN POTASSIUM 25 MG TAB PO SCH (11:15)
[2016-07-02] MEDS: ERTAPENEM 1 GM in NS 100 ML IV SCH (13:09)
--- NOTE | 2016-07-02 14:34 | HOSPPROG ---
Hospitalist Progress Note Assessment/Plan: * Aspiration PNA -IV Invanz * Dysphagia -honey thick liquids * Metabolic encephalopathy -improved * Advanced dementia with agitation * Recent SDH -ASA/Plavix resumed * s/p TAVR * DM II Subjective: screaming out, confused. Objective: Vital Signs Temp Pulse Resp BP Pulse Ox 36.9 C 87 21 H 135/67 H 95 07/02/16 07:49 07/02/16 08:50 07/02/16 07:49 07/02/16 08:50 07/02/16 07:49 Laboratory Results 07/02/16 03:05 07/02/16 03:05 07/01/16 07/02/16 07/03/16 05:59 05:59 05:59 Intake Total 2850 Output Total 2450 Balance 400 PT 13.6 SEC (12.0-15.0) 07/01/16 18:30 INR 1.05 (0.83-1.16) 07/01/16 18:30 d/w dr. jordan chavarria - ICU rounds - pneumonia, dementia, checking swallow cxr: bibasilar infiltrates - Physical Exam Constitutional: no apparent distress, appears nourished, not in pain Cardiovascular: regular rate and rhythym, no murmur, rub, or gallop Respiratory: no respiratory distress, no rales or rhonchi, clear to auscultation Gastrointestinal: normoactive bowel sounds, soft, non-tender abdomen, no palpable masses Skin: no rashes or abrasions, no fluctuance, no induration Neurologic: No AAOx3 Psychiatric: agitated, poor insight, poor judgement, poor memory, No flat affect ICD10 Worksheet Patient Problems: Problems Problem Status Onset Altered mental status Acute Sepsis Acute Palliative care encounter Acute Septic shock Acute Urinary tract infection Acute
[2016-07-02] MEDS ORDERED: INSULIN GLARGINE 100 UNITS/ML SYRINGE SC SCH (21:00)
[2016-07-02] MEDS ORDERED: LORazepam 1 MG TAB PO SCH (21:00)
[2016-07-03 03:34] VITALS: RESP 14
[2016-07-03 04:06] LABS: % IMMATURE GRANULYOCYTES 0.4 % (0.0-1.1); ABSOLUTE IMMATURE GRANULOCYTES 0.03 10^3/uL (0.00-0.10); ADD DIFF? NO; ADD MORPH? NO; ADD SCAN? NO; ATYPICAL LYMPHOCYTE FLAG 20 (0-99); FRAGMENT RBC FLAG 0 (0-99); HEMOGLOBIN 10.7 g/dL (12.6-16.3); LEFT SHIFT FLG 0 (0-99); LIPEMIA HEMOLYSIS FLAG 80 (0-99); MEAN CELL HEMOGLOBIN 29.2 pg (27.9-34.1); MEAN CELL HEMOGLOBIN CONCENTR. 33.4 g/dL (32.4-36.7); MEAN CELL VOLUME 87.2 fL (81.5-99.8); MEAN PLATELET VOLUME 9.7 fL (8.7-11.7); PLATELET CLUMPS FLAG 0 (0-99); PLATELET COUNT 226 10^3/uL (150-400); RED BLOOD CELL COUNT 3.67 10^6/uL (4.18-5.33); RED CELL DISTRIBUTION WIDTH 13.2 % (11.5-15.2)
[2016-07-03 04:29] LABS: ANION GAP 8 mEq/L (8-16); CALCIUM 8.8 mg/dL (8.5-10.4); CARBON DIOXIDE 27 mEq/l (22-31); CHLORIDE 104 mEq/L (97-110); CREATININE 0.5 mg/dL (0.6-1.0); GLOMERULAR FILTRATION RATE > 60; GLUCOSE 99 mg/dL (70-100); POTASSIUM 4.5 mEq/L (3.5-5.2); SODIUM 139 mEq/L (134-144)
[2016-07-03] MEDS: IPRATROPIUM/ALBUTEROL 3 ML DEYVIAL IH SCH ×2 (05:14→10:40)
[2016-07-03] MEDS: ERTAPENEM 1 GM in NS 100 ML IV SCH (08:58)
[2016-07-03] MEDS: ENOXAPARIN 40 MG/0.4 ML SYR SC SCH (08:59)
[2016-07-03] MEDS ORDERED: FUROSEMIDE 40 MG TAB PO SCH (09:00)
[2016-07-03] MEDS ORDERED: LORazepam 0.5 MG TAB PO SCH (09:00)
[2016-07-03] MEDS ORDERED: CYANO/VITAMIN B12 1000 MCG TAB SL SCH (09:00)
[2016-07-03 09:05] VITALS: BP 122/53; PULSE 81; TEMP 98.5; O2SAT 98
[2016-07-03] MEDS: DIVALPROEX NA 125 MG CAP.SPRINKLE PO SCH (09:58)
[2016-07-03] MEDS: ASPIRIN 81 MG CHEWABLE TAB PO SCH (09:58)
[2016-07-03] MEDS: OLANZapine 2.5 MG TAB PO SCH (09:59)
[2016-07-03] MEDS: CLOPIDOGREL BISULFATE 75 MG TAB PO SCH (09:59)
[2016-07-03] MEDS: LOSARTAN POTASSIUM 25 MG TAB PO SCH (10:00)
[2016-07-03] MEDS: INSULIN LISPRO 100 UNIT/ML SC SCH ×2 (11:13→14:13)
--- NOTE | 2016-07-03 11:29 | PDIAF ---
- Diagnosis Diagnosis: aspiration pneumonia Code Status: Full Code - Medication Management Discharge Medications: Medications to Continue on Transfer Acetaminophen [Tylenol 325mg (*)] 650 mg PO Q6H PRN 06/10/16 [Last Taken ] Ascorbic Acid [Vitamin C 500 mg (*)] 500 mg PO DAILY 06/10/16 [Last Taken ] Aspirin [Aspirin 81mg (*)] 81 mg PO DAILY 06/10/16 [Last Taken 07/01/16] Clopidogrel Bisulfate [Plavix (*)] 75 mg PO DAILY 06/10/16 [Last Taken 07/01/16] Cyanocobalamin [Vitamin B12 (*)] 2,500 mcg SL DAILY 06/10/16 [Last Taken ] Divalproex [Depakote Sprinkle 125 MG (*)] 500 mg PO BID@06/10/16 [Last Taken 07/01/16 08:00] Furosemide [Lasix 40 MG (*)] 40 mg PO DAILY 06/10/16 [Last Taken 07/01/16] Herbals/Supplements -Info Only 1 ea PO DAILY 06/10/16 [Last Taken Unknown] LORazepam [Ativan (*)] 0.5 mg PO DAILY 06/10/16 [Last Taken 07/01/16] LORazepam [Ativan (*)] 1 mg PO HS 06/10/16 [Last Taken 06/30/16] Losartan Potassium [Cozaar 25 mg (*)] 25 mg PO DAILY 06/10/16 [Last Taken ] OLANZapine [ZyPREXA 2.5 mg (*)] 2.5 mg PO Q6H PRN 06/10/16 [Last Taken 06/06/16] OLANZapine [ZyPREXA 2.5 mg (*)] 7.5 mg PO BID@06/10/16 [Last Taken 08:00] Insulin Glargine [Lantus 100 UNITS/ML (*)] 10 units SC HS 07/01/16 [Last Taken 06/30/16] Multivitamins W-Minerals [Thera M Plus Tablet (*)] 1 each PO DAILY 07/01/16 [ Last Taken 07/01/16] Cefuroxime Axetil [Ceftin (*)] 500 mg PO BID #10 tab 07/03/16 [Last Taken Unknown] Clindamycin HCl [Clindamycin] 300 mg PO TID #10 cap 07/03/16 [Last Taken Unknown ] Penitentiary Antibiotic Stop Date: 07/07/16 (stop date for clinda/ceftin) Discharge Medications: Refer to the Discharge Home Medication list for PRN reason. - Orders Services needed: Speech Language Pathologist Diet Texture: Dysphagia 2 - Mechanically Altered - Chopped, Ground, Honey Thick Liquids, Meds Crushed in Puree - Follow Up Care Current Providers and Referrals: BLANCA KIMBALL [Primary Care Provider] - As per Instructions
--- NOTE | 2016-07-03 15:59 | GDS ---
[f rep st] DISCHARGE SUMMARY DISCHARGE DIAGNOSES: 1. Aspiration pneumonia. 2. Significant dysphagia, now on honey thick liquids. 3. Metabolic encephalopathy. 4. Advanced dementia with agitation. 5. Recent subdural hematoma. 6. Recent transcatheter aortic valve replacement for aortic stenosis. 7. Diabetes type 2. HISTORY: Veronica Das is a 66-year-old, long-term resident of [facility] with advanced dementia . She was recently intubated for pneumonia and a subdural hematoma. She was discharged back to [facility]. She now re-presents to the hospital after being found at [facility] unresponsive. M edical evaluation revealed an aspiration pneumonia. She was treated with IV antibiotics and improve d. Swallow evaluation showed significant dysphagia. She had a video fluoro swallow study, the resu lts of which indicated a need for honey thickened liquids, which will be continued at discharge. I suspect aspiration and not a detention acquired organism, and her cultures were negative. So, I think she will be okay to switch to oral therapy. She has a penicillin allergy. So, we will discha rge her on a short course of Ceftin and clindamycin. DISCHARGE MEDICATIONS: Please see computer record for full detailed list. New medications: 1. Clindamycin 300 mg p.o. 3 times a day for 5 more days. 2. Ceftin 500 mg p.o. twice daily for 5 more days. DISCHARGE INSTRUCTIONS: 1. Dysphagia to mechanically altered diet chopped ground with honey thickened liquids and medicatio ns crushed in puree. 2. Ongoing speech therapy at [facility]. Greater 30 minutes' time spent arranging this discharge. Patient seen examined by me on the day of discharge. /[id number]/MODL
--- NOTE | 2016-07-06 11:37 | PQFORM ---
PHYSICIAN QUERY FORM Needs Your Response This query form is being sent to you to assure this patient record is coded properly. Please respond to the question below: PROFESSIONAL DEVELOPMENT MANAGER QUESTION: Dr Gray Sever Sepsis was documented on this patients H/P but not carried out through to the Discharge Summary. Did this patient have Severe Sepsis _x__ Yes ___ No ___ Undetermined ___ Other (Please document ) Thank You Riana GONSALEZ Molding Press Operator INSTRUCTIONS FOR RESPONSE: Answer question by clicking on the "Edit Document" button. Move cursor to area below the stars. When complete, hit "Save." Click on the "Sign" button, then click "Sign" again. Type in your PIN and hit "Enter." MTDD
--- NOTE | 2016-07-06 11:40 | PQFORM ---
PHYSICIAN QUERY FORM Needs Your Response This query form is being sent to you to assure this patient record is coded properly. Please respond to the question below: TUFTING CREELER QUESTION: Dr Gray: Is this patients dysphagia a residual to recent previous Subarachnoid hemorrhage ? ___ Yes ___ No __x_ Unable to determine ___ Other (please document ) Thank You Riana GONSALEZ Applications Coordinator INSTRUCTIONS FOR RESPONSE: Answer question by clicking on the "Edit Document" button. Move cursor to area below the stars. When complete, hit "Save." Click on the "Sign" button, then click "Sign" again. Type in your PIN and hit "Enter." MTDD
== END 2016-07-03 15:14 | DRG 871 ==
LOC: EDUNIT# → OBSVTOIN 21:00 → F2N 07-02 00:25
PROVIDERS: ADMIT Internal Medicine; ATTEND Internal Medicine
DX: A41.9 Sepsis, unspecified organism (principal); R65.20 Severe sepsis without septic shock; J69.0 Pneumonitis due to inhalation of food and vomit; R13.10 Dysphagia, unspecified; E11.9 Type 2 diabetes mellitus without complications; F03.91 Unspecified dementia, unspecified severity, with behavioral disturbance; E53.8 Deficiency of other specified B group vitamins; I10 Essential (primary) hypertension; Z95.2 Presence of prosthetic heart valve; Z86.73 Personal history of transient ischemic attack (TIA), and cerebral infarction without residual deficits
CPT/HCPCS: 80307; 82947-QW; 92526-GN; 92610-GN; 92611-GN; 96365; 97163-GP; 97166-GO; G0480; G8978-GP-CL; G8979-GP-CJ; G8987-GO-CM; G8988-GO-CM; G8989-GO-CM; G8996-GN-CK; G8997-GN-CI; J0692; J1335; J1650; J1815; J2060; J3370

== ENCOUNTER 2016-12-16 08:36 | Inpatient (IN) | payer OTHER, MEDICAID ==
--- NOTE | 2016-12-16 08:41 | EDPHY ---
HPI/HX/ROS/PE/MDM Narrative: CHIEF COMPLAINT: Altered mental status HPI: The patient is a 58-year-old female with a history of diabetes and dementia. She lives at [facility] for long-term care. She was brought to the emergency department by ambulance. Per EMS, the patient has apparently been acting more confused than normal although she is normally alert and oriented x1 at baseline. It is unclear when this began per nursing staff via EMS report. The patient is unable to provide any history but denies any specific pain. REVIEW OF SYSTEMS: Unable to obtain secondary to dementia. PMH: Includes diabetes, dementia. SOCIAL HISTORY: Lives in a longterm. Chronically disabled. PHYSICAL EXAM: General:Patient is awake, in no acute distress. Head: Normocephalic, atraumatic. ENT:Eyes are normal to inspection. ENT inspection normal. Neck: Normal inspection. Full range of motion. Respiratory:No respiratory distress. Breath sounds normal bilaterally. Cardiovascular: Tachycardic rate, regular rhythm.. Strong peripheral pulses. Normal cap refill. Abdomen:The abdomen is nontender to palpation. There are no peritoneal signs. There are normal bowel sounds. Skin: Normal color. No rash. Warm and dry. Extremities: Normal appearance. Full range of motion. Neuro: No focal deficits. MDM: This patient presents with AMS and elevated lactate and glucose. I suspect this is all secondary to severe sepsis from UTI. Patient is responding well to IV fluids. She requires admission to the hospital for further treatment and workup. I see no evidence of septic shock, pneumonia, CVA or trauma. - Data Points Imaging Results: Imaging Impressions Chest X-Ray 12/16/16 08:40 Impression: No pneumonia. FARHEEN in place. Laboratory Results: Laboratory Results 12/16/16 08:58 12/16/16 08:58 12/16/16 12/16/16 12/16/16 10:35 10:30 08:58 WBC RBC Hgb Hct MCV MCH MCHC RDW Plt Count MPV Neut % (Auto) Lymph % (Auto) [place] % (Auto) Eos % (Auto) Baso % (Auto) Nucleat RBC Rel Count Absolute Neuts (auto) Absolute Lymphs (auto) Absolute Monos (auto) Absolute Eos (auto) Absolute Basos (auto) Absolute Nucleated RBC Immature Gran % Immature Gran # VBG Lactic Acid 2.4 mmol/L H mmol/L (0.7-2.1) Sodium 139 mEq/L mEq/L (134-144) Potassium 4.6 mEq/L mEq/L (3.5-5.2) Chloride 101 mEq/L mEq/L (97-110) Carbon Dioxide 22 mEq/l mEq/l (22-31) Anion Gap 16 mEq/L mEq/L (8-16) BUN 34 mg/dL H mg/dL (7-23) Creatinine 0.9 mg/dL mg/dL (0.6-1.0) Estimated GFR > 60 Glucose 421 mg/dL H mg/dL (70-100) Calcium 9.8 mg/dL mg/dL (8.5-10.4) Urine Color [place] Urine Appearance TURBID Urine pH 7.0 (5.0-7.5) Ur Specific [place] 1.022 (1.002-1.030) Urine Protein 2+ H (NEGATIVE) Urine Ketones NEGATIVE (NEGATIVE) Urine Blood 1+ H (NEGATIVE) Urine Nitrate NEGATIVE (NEGATIVE) Urine Bilirubin NEGATIVE (NEGATIVE) Urine Urobilinogen NEGATIVE EU EU (0.2-1.0) Ur Leukocyte Esterase 2+ H (NEGATIVE) Urine RBC 25-50 /hpf H /hpf (0-3) Urine WBC 50-182 /hpf H /hpf (0-3) Ur Epithelial Cells TRACE /lpf /lpf (NONE-1+) Urine Glucose 3+ H (NEGATIVE) 12/16/16 12/16/16 08:58 08:58 WBC 22.21 10^3/uL H 10^3/uL (3.80-9.50) RBC 4.46 10^6/uL 10^6/uL (4.18-5.33) Hgb 13.5 g/dL g/dL (12.6-16.3) Hct 39.8 % % (38.0-47.0) MCV 89.2 fL fL (81.5-99.8) MCH 30.3 pg pg (27.9-34.1) MCHC 33.9 g/dL g/dL (32.4-36.7) RDW 12.2 % % (11.5-15.2) Plt Count 293 10^3/uL 10^3/uL (150-400) MPV 10.5 fL fL (8.7-11.7) Neut % (Auto) 75.8 % H % (39.3-74.2) Lymph % (Auto) 11.0 % L % (15.0-45.0) [place] % (Auto) 12.1 % % (4.5-13.0) Eos % (Auto) 0.0 % L % (0.6-7.6) Baso % (Auto) 0.3 % % (0.3-1.7) Nucleat RBC Rel Count 0.0 % % (0.0-0.2) Absolute Neuts (auto) 16.83 10^3/uL H 10^3/uL (1.70-6.50) Absolute Lymphs (auto) 2.45 10^3/uL 10^3/uL (1.00-3.00) Absolute Monos (auto) 2.68 10^3/uL H 10^3/uL (0.30-0.80) Absolute Eos (auto) 0.00 10^3/uL L 10^3/uL (0.03-0.40) Absolute Basos (auto) 0.07 10^3/uL 10^3/uL (0.02-0.10) Absolute Nucleated RBC 0.00 10^3/uL 10^3/uL (0-0.01) Immature Gran % 0.8 % % (0.0-1.1) Immature Gran # 0.18 10^3/uL H 10^3/uL (0.00-0.10) VBG Lactic Acid 3.1 mmol/L H mmol/L (0.7-2.1) Sodium Potassium Chloride Carbon Dioxide Anion Gap BUN Creatinine Estimated GFR Glucose Calcium Urine Color Urine Appearance Urine pH Ur Specific [place]bot Urine Protein Urine Ketones Urine Blood Urine Nitrate Urine Bilirubin Urine Urobilinogen Ur Leukocyte Esterase Urine RBC Urine WBC Ur Epithelial Cells Urine Glucose Medications Given: Discontinued Medications Sodium Chloride (Ns) 2,000 mls @ 4,000 mls/hr 30 ml/kg infuse over 30 min ( 2000 ml) IV EDNOW ONE PRN Reason: Protocol Stop: 12/16/16 09:51 Last Admin: 12/16/16 09:48 Dose: 2,000 mls Ceftriaxone Sodium/Dextrose (Rocephin 1 Gm (Premix)) 50 mls @ 100 mls/hr IV EDNOW ONE PRN Reason: Protocol Stop: 12/16/16 09:54 Last Admin: 12/16/16 09:47 Dose: 50 mls General Time Seen by Provider: 12/16/16 08:39 Initial Vital Signs: Initial Vital Signs Temperature (C) 36.8 C 12/16/16 08:36 Heart Rate 105 H 12/16/16 08:36 Respiratory Rate 16 12/16/16 08:36 Blood Pressure 121/74 H 12/16/16 08:36 O2 Sat (%) 92 12/16/16 08:36 O2 Delivery Mode Room Air Allergies/Adverse Reactions: Penicillins Allergy (Verified 07/01/16 18:56) Sulfa (Sulfonamide Antibiotics) Allergy (Verified 07/01/16 18:56) Home Medications: Medication Instructions Recorded Acetaminophen [Tylenol 325mg (*)] 650 mg PO Q6H PRN 06/10/16 Ascorbic Acid [Vitamin C 500 mg 500 mg PO DAILY 06/10/16 (*)] Aspirin [Aspirin 81mg (*)] 81 mg PO DAILY 06/10/16 Clopidogrel Bisulfate [Plavix (*)] 75 mg PO DAILY 06/10/16 Cyanocobalamin [Vitamin B12 (*)] 2,500 mcg SL DAILY 06/10/16 Divalproex [Depakote Sprinkle 125 500 mg PO BID@06/10/16 MG (*)] Furosemide [Lasix 40 MG (*)] 40 mg PO DAILY 06/10/16 Herbals/Supplements -Info Only 1 ea PO DAILY 06/10/16 LORazepam [Ativan (*)] 0.5 mg PO DAILY 06/10/16 LORazepam [Ativan (*)] 1 mg PO HS 06/10/16 Losartan Potassium [Cozaar 25 mg 25 mg PO DAILY 06/10/16 (*)] OLANZapine [ZyPREXA 2.5 mg (*)] 2.5 mg PO Q6H PRN 06/10/16 OLANZapine [ZyPREXA 2.5 mg (*)] 7.5 mg PO BID@,06/10/16 Insulin Glargine [Lantus 100 10 units SC HS 07/01/16 UNITS/ML (*)] Multivitamins W-Minerals [Thera M 1 each PO DAILY 07/01/16 Plus Tablet (*)] Cefuroxime Axetil [Ceftin (*)] 500 mg PO BID #10 tab 07/03/16 Clindamycin HCl [Clindamycin] 300 mg PO TID #10 cap 07/03/16 Departure - Departure Disposition: [facility] Inpatient Acute Clinical Impression: Sepsis, Urinary tract infection, Altered mental status Condition: Fair
[2016-12-16 09:14] LABS: % IMMATURE GRANULYOCYTES 0.8 % (0.0-1.1); ABSOLUTE IMMATURE GRANULOCYTES 0.18 10^3/uL (0.00-0.10); ADD DIFF? NO; ADD MORPH? NO; ADD SCAN? NO; ATYPICAL LYMPHOCYTE FLAG 0 (0-99); FRAGMENT RBC FLAG 0 (0-99); HEMATOCRIT 39.8 % (38.0-47.0); HEMOGLOBIN 13.5 g/dL (12.6-16.3); LEFT SHIFT FLG 0 (0-99); LIPEMIA HEMOLYSIS FLAG 90 (0-99); MEAN CELL HEMOGLOBIN 30.3 pg (27.9-34.1); MEAN CELL HEMOGLOBIN CONCENTR. 33.9 g/dL (32.4-36.7); MEAN CELL VOLUME 89.2 fL (81.5-99.8); MEAN PLATELET VOLUME 10.5 fL (8.7-11.7); PLATELET CLUMPS FLAG 10 (0-99); PLATELET COUNT 293 10^3/uL (150-400); RED BLOOD CELL COUNT 4.46 10^6/uL (4.18-5.33); RED CELL DISTRIBUTION WIDTH 12.2 % (11.5-15.2)
[2016-12-16] MEDS ORDERED: NS 2,000 ML IV ONE (09:22)
[2016-12-16 09:36] LABS: ANION GAP 16 mEq/L (8-16); CALCIUM 9.8 mg/dL (8.5-10.4); CARBON DIOXIDE 22 mEq/l (22-31); CHLORIDE 101 mEq/L (97-110); CREATININE 0.9 mg/dL (0.6-1.0); GLOMERULAR FILTRATION RATE > 60; GLUCOSE 421 mg/dL (70-100); POTASSIUM 4.6 mEq/L (3.5-5.2); SODIUM 139 mEq/L (134-144)
[2016-12-16 10:07] LABS: LACGHOST ORDER
[2016-12-16 10:53] LABS: COLOR AMBER; LEUKOCYTE ESTERASE,URINE 2+ (NEGATIVE); NITRITE,URINE NEGATIVE (NEGATIVE)
[2016-12-16 11:14] LABS: RBC,URINE 25-50 /hpf (0-3); WBC,URINE 50-182 /hpf (0-3)
[2016-12-16] MEDS ORDERED: D50W 25 GM/50 ML SYR IVP PRN (14:35)
[2016-12-16] MEDS ORDERED: ONDANSETRON 4 MG/2 ML VIAL IVP PRN (14:36)
[2016-12-16] MEDS ORDERED: ONDANSETRON DISINTEGRATING 4 MG TAB PO PRN (14:36)
[2016-12-16] MEDS ORDERED: ACETAMINOPHEN 325 MG TAB PO PRN (14:36)
[2016-12-16] MEDS ORDERED: INSULIN GLARGINE 100 UNITS/ML SYRINGE SC ONE (14:45)
[2016-12-16] MEDS ORDERED: NS 1,000 ML IV SCH (14:45)
--- NOTE | 2016-12-16 15:01 | PDGENHP ---
History and Physical - Chief Complaint confusion - History of Present Illness This is a 66 yo F who lives at [facility] due to confusion. she has a hx of dementia but was found to be more confused than usual. Her baseline is AAO x1. In the E.D. she was noted to have a Leukocytosis and UA c/w likely UTI. Serum lactate elevated and she was started on IVF and Rocephin. CXR was unremarkable and she does not have any Resp symptoms. BP is stable. she is not tachycardic. It is unclear if she has had a baseline. she was also noted to have hyperglycemia. She is confused and hx obtained from the medical record. ROS: unable to obtain unless specified above PMhx: DMII, Dementia PSHx: unknown Soc Hx: lives at [facility]. ETOH and tobacco use unclear FmHx: unknown Meds/all: per below. allergy to PCN, but tolerating Rocephin well Labs reviewed CXR: personally reviewed, No acute findings. History Information - Allergies/Home Medication List Allergies/Adverse Reactions: Penicillins Allergy (Verified 07/01/16 18:56) Sulfa (Sulfonamide Antibiotics) Allergy (Verified 07/01/16 18:56) Home Medications: Herbals/Supplements -Info Only 1 ea PO DAILY 12/16/16 [Last Taken Unknown] Insulin Glargine [Lantus 100 UNITS/ML (*)] 10 units SC HS 12/16/16 [Last Taken Unknown] Losartan Potassium [Cozaar 25 mg (*)] 25 mg PO DAILY 12/16/16 [Last Taken Unknown] OLANZapine [ZyPREXA 2.5 mg (*)] 2.5 mg PO HS 12/16/16 [Last Taken Unknown] OLANZapine [Zyprexa] 10 mg PO HS 12/16/16 [Last Taken Unknown] I have personally reviewed and updated: medical history - Social History Smoking Status: Never smoked Review of Systems Review of Systems: Physical Exam Physical Exam: Temp Pulse Resp BP Pulse Ox 37.3 C 91 18 150/86 H 90 L 12/16/16 12:24 12/16/16 12:24 12/16/16 12:24 12/16/16 12:24 12/16/16 12:24 Eyes: PERRL, EOMI Ears, Nose, Mouth, Throat: poor dentition, dry mucous membranes Cardiovascular: regular rate and rhythym, No JVD, No edema Respiratory: no respiratory distress, clear to auscultation Gastrointestinal: normoactive bowel sounds, soft, non-tender abdomen Skin: warm, No mottled Neurologic: No AAOx3, No facial droop Psychiatric: encephalopathic, poor judgement, poor memory, No interacting appropriately, No not anxious Lab Data & Imaging Review 12/16/16 08:58 12/16/16 08:58 WBC 22.21 10^3/uL (3.80-9.50) H 12/16/16 08:58 RBC 4.46 10^6/uL (4.18-5.33) 12/16/16 08:58 Hgb 13.5 g/dL (12.6-16.3) 12/16/16 08:58 Hct 39.8 % (38.0-47.0) 12/16/16 08:58 MCV 89.2 fL (81.5-99.8) 12/16/16 08:58 MCH 30.3 pg (27.9-34.1) 12/16/16 08:58 MCHC 33.9 g/dL (32.4-36.7) 12/16/16 08:58 RDW 12.2 % (11.5-15.2) 12/16/16 08:58 Plt Count 293 10^3/uL (150-400) 12/16/16 08:58 MPV 10.5 fL (8.7-11.7) 12/16/16 08:58 Neut % (Auto) 75.8 % (39.3-74.2) H 12/16/16 08:58 Lymph % (Auto) 11.0 % (15.0-45.0) L 12/16/16 08:58 Walker % (Auto) 12.1 % (4.5-13.0) 12/16/16 08:58 Eos % (Auto) 0.0 % (0.6-7.6) L 12/16/16 08:58 Baso % (Auto) 0.3 % (0.3-1.7) 12/16/16 08:58 Nucleat RBC Rel Count 0.0 % (0.0-0.2) 12/16/16 08:58 Absolute Neuts (auto) 16.83 10^3/uL (1.70-6.50) H 12/16/16 08:58 Absolute Lymphs (auto) 2.45 10^3/uL (1.00-3.00) 12/16/16 08:58 Absolute Monos (auto) 2.68 10^3/uL (0.30-0.80) H 12/16/16 08:58 Absolute Eos (auto) 0.00 10^3/uL (0.03-0.40) L 12/16/16 08:58 Absolute Basos (auto) 0.07 10^3/uL (0.02-0.10) 12/16/16 08:58 Absolute Nucleated RBC 0.00 10^3/uL (0-0.01) 12/16/16 08:58 Immature Gran % 0.8 % (0.0-1.1) 12/16/16 08:58 Immature Gran # 0.18 10^3/uL (0.00-0.10) H 12/16/16 08:58 VBG Lactic Acid 2.4 mmol/L (0.7-2.1) H 12/16/16 10:35 Sodium 139 mEq/L (134-144) 12/16/16 08:58 Potassium 4.6 mEq/L (3.5-5.2) 12/16/16 08:58 Chloride 101 mEq/L (97-110) 12/16/16 08:58 Carbon Dioxide 22 mEq/l (22-31) 12/16/16 08:58 Anion Gap 16 mEq/L (8-16) 12/16/16 08:58 BUN 34 mg/dL (7-23) H 12/16/16 08:58 Creatinine 0.9 mg/dL (0.6-1.0) 12/16/16 08:58 Estimated GFR > 60 12/16/16 08:58 Glucose 421 mg/dL (70-100) H 12/16/16 08:58 Calcium 9.8 mg/dL (8.5-10.4) 12/16/16 08:58 Urine Color WESTON 12/16/16 10:30 Urine Appearance TURBID 12/16/16 10:30 Urine pH 7.0 (5.0-7.5) 12/16/16 10:30 Ur Specific [place] 1.022 (1.002-1.030) 12/16/16 10:30 Urine Protein 2+ (NEGATIVE) H 12/16/16 10:30 Urine Ketones NEGATIVE (NEGATIVE) 12/16/16 10:30 Urine Blood 1+ (NEGATIVE) H 12/16/16 10:30 Urine Nitrate NEGATIVE (NEGATIVE) 12/16/16 10:30 Urine Bilirubin NEGATIVE (NEGATIVE) 12/16/16 10:30 Urine Urobilinogen NEGATIVE EU (0.2-1.0) 12/16/16 10:30 Ur Leukocyte Esterase 2+ (NEGATIVE) H 12/16/16 10:30 Urine RBC 25-50 /hpf (0-3) H 12/16/16 10:30 Urine WBC 50-182 /hpf (0-3) H 12/16/16 10:30 Ur Epithelial Cells TRACE /lpf (NONE-1+) 12/16/16 10:30 Urine Glucose 3+ (NEGATIVE) H 12/16/16 10:30 Assessment & Plan Assessment: #Sepsis, source likely urine #Acute on Chronic Encephalopathy #Hyperglycemia and Hx of IDDM #Weakness and Deconditioning #HTN Plan: -admit -Cont Rocephin -Provide more IVF -Give Insulin, check A1C -Hold Losartan -Hold Zyprexa -Lovenox for DVT proph -Full code presumed -PT/OT
[2016-12-16] MEDS ORDERED: D10W 250 ML PRN HYPOGLYCEMIA IV (15:30)
[2016-12-16 18:30] LABS: GLUCOSE 457 mg/dL (70-100)
[2016-12-16] MEDS: INSULIN LISPRO 100 UNIT/ML SC SCH (18:41)
[2016-12-16] MEDS: INSULIN GLARGINE 100 UNITS/ML SYRINGE SC SCH (21:51)
[2016-12-17 05:56] LABS: % IMMATURE GRANULYOCYTES 0.5 % (0.0-1.1); ABSOLUTE IMMATURE GRANULOCYTES 0.09 10^3/uL (0.00-0.10); ADD DIFF? NO; ADD MORPH? NO; ADD SCAN? NO; ATYPICAL LYMPHOCYTE FLAG 20 (0-99); FRAGMENT RBC FLAG 0 (0-99); HEMOGLOBIN 11.3 g/dL (12.6-16.3); LEFT SHIFT FLG 0 (0-99); LIPEMIA HEMOLYSIS FLAG 80 (0-99); MEAN CELL HEMOGLOBIN 30.6 pg (27.9-34.1); MEAN CELL HEMOGLOBIN CONCENTR. 33.2 g/dL (32.4-36.7); MEAN CELL VOLUME 92.1 fL (81.5-99.8); MEAN PLATELET VOLUME 10.3 fL (8.7-11.7); PLATELET CLUMPS FLAG 0 (0-99); PLATELET COUNT 220 10^3/uL (150-400); RED BLOOD CELL COUNT 3.69 10^6/uL (4.18-5.33); RED CELL DISTRIBUTION WIDTH 12.4 % (11.5-15.2)
[2016-12-17 06:05] LABS: ANION GAP 10 mEq/L (8-16); CALCIUM 8.9 mg/dL (8.5-10.4); CARBON DIOXIDE 23 mEq/l (22-31); CHLORIDE 113 mEq/L (97-110); CREATININE 0.6 mg/dL (0.6-1.0); GLOMERULAR FILTRATION RATE > 60; GLUCOSE 224 mg/dL (70-100); POTASSIUM 3.9 mEq/L (3.5-5.2); SODIUM 146 mEq/L (134-144)
[2016-12-17 08:55] LABS: GLUCOSE 222 mg/dL (70-100)
[2016-12-17] MEDS: INSULIN LISPRO 100 UNIT/ML SC SCH ×3 (09:21→17:36)
[2016-12-17] MEDS: ENOXAPARIN 40 MG/0.4 ML SYR SC SCH (09:21)
[2016-12-17] MEDS: MULTIVITAMINS W-MINERALS 1 EACH TAB PO SCH (09:22)
[2016-12-17] MEDS: LOSARTAN POTASSIUM 50 MG TAB PO SCH (09:22)
--- NOTE | 2016-12-17 11:23 | ASMTCMCOM ---
CM Note CM Note Notes: Patient admitted with UTI. Lives at [facility] - yesterday, they called 911 when they found patient more confused than normal. I spoke with patient, wondering if there was anyone she wanted me to call, and she said no. I mentioned her brother (name/number listed in chart) and she said "He doesn't care." I did leave a message for Kaelyn Melton who is listed in chart as patient's family preservation caseworker. Anticipated d/c plan is back to [facility]. CM will follow. Date Signed: 12/17/2016 11:23 AM Electronically Signed By:Mariah Villar RN
--- NOTE | 2016-12-17 14:19 | HOSPPROG ---
Hospitalist Progress Note Assessment/Plan: Patient is a 66-year-old female who was at [facility]. She has a history of dementia and was noted to be more confused than her baseline at baseline she is alert and oriented x1. Today is my 1st encounter with the patient. Chart reviewed. * Sepsis, source likely urine lactate elevated on admit/elevated wbc count * Urinary tract infection asked for urine sent to be cultured on Ceftriaxone/ hx of Citrobacter which was sensitive to this * Acute on Chronic Encephalopathy at baseline she is oriented only to herself this is where she is at today * Hyperglycemia and Hx of IDDM Lantus and sliding scale *Weakness and Deconditioning patient says she has been bedridden *hx of TAVR *HTN bp 131/65 *DVT prophylaxis: LMWH *Plan: ask ST to see/she was evaluated by them in June, continue iv fluids/ concerned she is very dehydrated/ doesn't eat or drink unless fed. F/u with urine culture/ repeat lactate. Subjective: Pat answers by only saying 'yes' or. 'no'/has no complaints. Objective: Vital Signs Temp Pulse Resp BP Pulse Ox 37.2 C 90 16 131/65 H 91 L 12/17/16 12:00 12/17/16 12:00 12/17/16 12:00 12/17/16 12:00 12/17/16 12:00 Microbiology 12/16/16 15:45 Gram Stain - Final Vaginal - Swab Laboratory Results 12/17/16 05:04 12/17/16 08:25 12/16/16 12/17/16 12/18/16 05:59 05:59 05:59 Intake Total 1788 Balance 1788 - Physical Exam Constitutional: appears nourished, not in pain, chronically ill appearing Eyes: PERRL Ears, Nose, Mouth, Throat: hearing normal Cardiovascular: regular rate and rhythym, systolic murmur Respiratory: no respiratory distress Gastrointestinal: normoactive bowel sounds Skin: warm Musculoskeletal: generalized weakness Neurologic: other (alert) Psychiatric: flat affect ICD10 Worksheet Patient Problems: Problems Problem Status Onset Altered mental status Acute Sepsis Acute Urinary tract infection Acute Palliative care encounter Acute Septic shock Acute
[2016-12-17] MEDS ORDERED: ASPIRIN 325 MG TAB PO SCH (16:15)
[2016-12-17] MEDS: ASPIRIN EC 81 MG TAB PO SCH (17:36)
[2016-12-17] MEDS: CLOPIDOGREL BISULFATE 75 MG TAB PO SCH (17:36)
[2016-12-17] MEDS: INSULIN GLARGINE 100 UNITS/ML SYRINGE SC SCH (20:17)
[2016-12-17 22:19] LABS: GLUCOSE 123 mg/dL (70-100)
[2016-12-18] MEDS: ASPIRIN EC 81 MG TAB PO SCH (08:10)
[2016-12-18] MEDS: MULTIVITAMINS W-MINERALS 1 EACH TAB PO SCH (08:10)
[2016-12-18] MEDS: CLOPIDOGREL BISULFATE 75 MG TAB PO SCH (08:10)
[2016-12-18] MEDS: LOSARTAN POTASSIUM 50 MG TAB PO SCH (08:12)
[2016-12-18] MEDS: ENOXAPARIN 40 MG/0.4 ML SYR SC SCH (08:39)
[2016-12-18] MEDS: INSULIN LISPRO 100 UNIT/ML SC SCH ×3 (08:40→17:17)
[2016-12-18 08:57] LABS: % IMMATURE GRANULYOCYTES 0.7 % (0.0-1.1); ADD DIFF? NO; ADD MORPH? NO; ADD SCAN? NO; ATYPICAL LYMPHOCYTE FLAG 20 (0-99); FRAGMENT RBC FLAG 0 (0-99); HEMATOCRIT 33.5 % (38.0-47.0); HEMOGLOBIN 11.3 g/dL (12.6-16.3); LEFT SHIFT FLG 0 (0-99); LIPEMIA HEMOLYSIS FLAG 80 (0-99); MEAN CELL HEMOGLOBIN 30.2 pg (27.9-34.1); MEAN CELL HEMOGLOBIN CONCENTR. 33.7 g/dL (32.4-36.7); MEAN CELL VOLUME 89.6 fL (81.5-99.8); MEAN PLATELET VOLUME 10.1 fL (8.7-11.7); PLATELET CLUMPS FLAG 0 (0-99); PLATELET COUNT 214 10^3/uL (150-400); RED BLOOD CELL COUNT 3.74 10^6/uL (4.18-5.33); RED CELL DISTRIBUTION WIDTH 11.9 % (11.5-15.2)
[2016-12-18 09:25] LABS: ALANINE AMINOTRANSFERASE 32 IU/L (9-52); ALBUMIN 2.8 g/dL (3.5-5.0); ALKALINE PHOSPHATASE 60 IU/L (38-126); ANION GAP 9 mEq/L (8-16); ASPARTATE AMINOTRANSFERASE 30 IU/L (14-46); BILIRUBIN,TOTAL 0.6 mg/dL (0.1-1.4); CALCIUM 8.6 mg/dL (8.5-10.4); CARBON DIOXIDE 21 mEq/l (22-31); CHLORIDE 108 mEq/L (97-110); CREATININE 0.5 mg/dL (0.6-1.0); GLOMERULAR FILTRATION RATE > 60; GLUCOSE 115 mg/dL (70-100); POTASSIUM 3.4 mEq/L (3.5-5.2); SODIUM 138 mEq/L (134-144); TOTAL PROTEIN 5.7 g/dL (6.3-8.2)
[2016-12-18] MEDS ORDERED: PROTOCOL POTASSIUM 1 DOSE MISC PRN (09:33)
[2016-12-18] MEDS ORDERED: MAGNESIUM HYDROXIDE 30 ML UDCUP PO PRN (09:34)
[2016-12-18] MEDS ORDERED: BISACODYL 10 MG SUPP PR PRN (09:34)
[2016-12-18] MEDS ORDERED: LACTULOSE 20 GM/30 ML UDCUP PO PRN (09:34)
--- NOTE | 2016-12-18 09:34 | HOSPPROG ---
Hospitalist Progress Note Assessment/Plan: Patient is a 66-year-old female who was at [facility]. She has a history of dementia and was noted to be more confused than her baseline at baseline she is alert and oriented x1. * Sepsis, source likely urine lactate & wbc improved blood cx NGTD * Urinary tract infection urine cx pending on Ceftriaxone/ hx of Citrobacter which was sensitive to this * Acute on Chronic Encephalopathy at baseline she is oriented only to herself she is at her baseline * Hyperglycemia and Hx of IDDM Lantus and sliding scale/A1C is pending *Weakness and Deconditioning patient says she has been bedridden *hx of TAVR resumed aspirin and Plavix *HTN elevated this morning *DVT prophylaxis: LMWH *Plan: hold Lasix until she has more intake/ requires 1:1 nursing care to feed her, added bowel protocol, stop fluids. Subjective: when asked if anything hurts, she says 'no' Objective: Vital Signs Temp Pulse Resp BP Pulse Ox 36.3 C 87 16 178/100 H 94 12/18/16 07:30 12/18/16 07:30 12/18/16 07:30 12/18/16 07:30 12/18/16 07:30 Microbiology 12/16/16 15:45 Gram Stain - Final Vaginal - Swab Laboratory Results 12/18/16 08:40 12/18/16 08:40 12/17/16 12/18/16 12/19/16 05:59 05:59 05:59 Intake Total 1788 1100 Balance 1788 1100 - Physical Exam Constitutional: no apparent distress, chronically ill appearing Eyes: PERRL Ears, Nose, Mouth, Throat: hearing normal Cardiovascular: regular rate and rhythym, systolic murmur Respiratory: no respiratory distress Gastrointestinal: normoactive bowel sounds, other (slightly rounded) Skin: warm Musculoskeletal: generalized weakness Neurologic: other (only answers with yes and no) Psychiatric: flat affect ICD10 Worksheet Patient Problems: Problems Problem Status Onset Altered mental status Acute Sepsis Acute Urinary tract infection Acute Palliative care encounter Acute Septic shock Acute
[2016-12-18] MEDS ORDERED: POTASSIUM CL 10 MEQ TAB PO ONE (09:56)
[2016-12-18] MEDS ORDERED: POTASSIUM CL 20 MEQ/15 ML UDCUP PO ONE (10:00)
[2016-12-18] MEDS: POLYETHYLENE GLYCOL 3350 17 GM PKT PO SCH (10:55)
[2016-12-18] MEDS ORDERED: INSULIN GLARGINE 100 UNITS/ML SYRINGE SC SCH (13:04)
[2016-12-18 18:36] LABS: POTASSIUM 3.8 mEq/L (3.5-5.2)
[2016-12-18] MEDS: POTASSIUM Cl (KCl) 100 ML IV SCH (19:16)
[2016-12-18] MEDS: SENNOSIDES/DOCUSATE SODIUM TAB PO SCH (20:42)
[2016-12-19 04:52] VITALS: RESP 18
[2016-12-19 05:41] LABS: POTASSIUM 4.1 mEq/L (3.5-5.2)
[2016-12-19 06:15] LABS: HEMOGLOBIN A1C 7.5 % (4.0-6.0)
--- NOTE | 2016-12-19 08:34 | HOSPPROG ---
Hospitalist Progress Note Assessment/Plan: Patient is a 66-year-old female who was at [facility]. She has a history of dementia and was noted to be more confused than her baseline at baseline she is alert and oriented x1. * Sepsis, source likely urine lactate & wbc improved blood cx NGTD * Urinary tract infection urine cx is growing Proteus on Ceftriaxone/ can DC home on Levaquin awaiting sensitivities * Acute on Chronic Encephalopathy at baseline she is oriented only to herself she is at her baseline * Hyperglycemia and Hx of IDDM Lantus and sliding scale/A1C is 7.5 *Weakness and Deconditioning patient says she has been bedridden *hx of TAVR resumed aspirin and Plavix *HTN elevated this morning *DVT prophylaxis: LMWH *Plan: hold Lasix until she has more intake/ requires 1:1 nursing care to feed her, added bowel protocol. she is much better today/ very talkative and wants to go back to her SNF. Subjective: Krysta says she feels fine and wants to be dc. Objective: Vital Signs Temp Pulse Resp BP Pulse Ox 37.2 C 86 18 151/83 H 93 12/19/16 07:58 12/19/16 07:58 12/19/16 07:58 12/19/16 07:58 12/19/16 07:58 Microbiology 12/16/16 15:45 Gram Stain - Final Vaginal - Swab Vaginal Culture - Final Laboratory Results 12/18/16 08:40 12/19/16 05:04 12/18/16 12/19/16 12/20/16 05:59 05:59 05:59 Intake Total 1100 1057 Balance 1100 1057 - Physical Exam Constitutional: not in pain, chronically ill appearing Eyes: PERRL Ears, Nose, Mouth, Throat: hearing normal Cardiovascular: regular rate and rhythym, systolic murmur Respiratory: no respiratory distress Gastrointestinal: normoactive bowel sounds Skin: warm Musculoskeletal: other (non ambulatroy) Psychiatric: interacting appropriately, not anxious ICD10 Worksheet Patient Problems: Problems Problem Status Onset Altered mental status Acute Sepsis Acute Urinary tract infection Acute Palliative care encounter Acute Septic shock Acute
[2016-12-19] MEDS: INSULIN LISPRO 100 UNIT/ML SC SCH ×2 (08:57→13:25)
[2016-12-19] MEDS ORDERED: NON-FORMULARY NEW DRUG (Ranitidine Hcl [Zantac] 150 MG) PO SCH (09:00)
[2016-12-19] MEDS ORDERED: FAMOTIDINE 20 MG TAB PO SCH (09:00)
[2016-12-19] MEDS: ENOXAPARIN 40 MG/0.4 ML SYR SC SCH (10:27)
[2016-12-19] MEDS: LOSARTAN POTASSIUM 50 MG TAB PO SCH (10:28)
[2016-12-19] MEDS: CLOPIDOGREL BISULFATE 75 MG TAB PO SCH (10:28)
[2016-12-19] MEDS: ASPIRIN EC 81 MG TAB PO SCH (10:28)
[2016-12-19] MEDS: MULTIVITAMINS W-MINERALS 1 EACH TAB PO SCH (10:31)
[2016-12-19] MEDS: SENNOSIDES/DOCUSATE SODIUM TAB PO SCH (10:31)
--- NOTE | 2016-12-19 10:35 | PDIAF ---
- Diagnosis Diagnosis: sepsis, uti, diabetes - Medication Management Discharge Medications: Medications to Continue on Transfer Herbals/Supplements -Info Only 1 ea PO DAILY 12/16/16 [Last Taken Unknown] Losartan Potassium [Cozaar 25 mg (*)] 25 mg PO DAILY 12/16/16 [Last Taken Unknown] OLANZapine [ZyPREXA 2.5 mg (*)] 2.5 mg PO HS 12/16/16 [Last Taken Unknown] OLANZapine [Zyprexa] 10 mg PO HS 12/16/16 [Last Taken Unknown] Aspirin EC [Aspirin EC 81 mg (*)] 81 mg PO DAILY 12/17/16 [Last Taken Unknown] Clopidogrel Bisulfate [Plavix (*)] 75 mg PO DAILY 12/17/16 [Last Taken Unknown] Furosemide [Lasix 40 MG (*)] 40 mg PO DAILY 12/17/16 [Last Taken Unknown] Ranitidine HCl [Zantac] 150 mg PO DAILY 12/18/16 [Last Taken 12/14/16] Insulin Glargine [Lantus 100 UNITS/ML (*)] 13 units SC HS #0 12/19/16 [Last Taken Unknown] Multivitamins W-Minerals [Thera M Plus Tablet (*)] 1 each PO DAILY tab [Last Taken Unknown] Polyethylene Glycol 3350 [Miralax 17 gm (*)] 17 gm PO DAILY pkt 12/19/16 [Last Taken Unknown] Sennosides/Docusate Sodium [Senokot-S] 1 - 2 tab PO BID tab 12/19/16 [Last Taken Unknown] levOFLOXACIN [levAQUIN (*)] 750 mg PO DAILY #4 tab 12/19/16 [Last Taken Unknown] Inpatient Coder Antibiotics: levaquin 750 mg daily x 4 more days Intermediate Antibiotic Stop Date: 12/24/16 Discharge Medications: Refer to the Discharge Home Medication list for PRN reason. PICC Care - Routine: N/A - Orders Services needed: Physical Therapy, Occupational Therapy, Speech Language Pathologist Diet Texture: Dysphagia 1 - Pureed, Thin Liquids, Meds Crushed in Puree Additional: HgB A1c is 7.5, Lantus dose increased. Lasix has been held during her hospital stay/ ok to resume if she is eating and drinking well.The sensitivities of her urine culture are pending/ is growing out proteus. Levaquin should cover this. - Labs/Radiology BMP Date: 12/24/16 CBC Date: 12/24/16 - Follow Up Care Current Providers and Referrals: Patient,NotPresent [Unknown] - As per Instructions
[2016-12-19] MEDS: POLYETHYLENE GLYCOL 3350 17 GM PKT PO SCH (10:50)
--- NOTE | 2016-12-19 11:43 | GDS ---
[f rep st] DISCHARGE SUMMARY DISCHARGE DIAGNOSES: 1. Sepsis secondary to urinary tract infection. 2. Urinary tract infection. 3. Toyzn-kv-yinxdwx encephalopathy. 4. Hyperglycemia and history of insulin-dependent diabetes. 5. Weakness and deconditioning. 6. History of a transcatheter aortic valve replacement. 7. Hypertension. HISTORY OF PRESENT ILLNESS: Briefly, the patient is a 66-year-old female, who was at [facility]. She has a history of dementia and was noted to be more confused than her baseline. At baseline, she is alert and oriented to herself. She was admitted to [facility], and noted to have a very high white blood cell count of 22.81 with a lactate of 3.1. She was hydrated during her stay, and treated with ceftriaxone. She will be discharged to the snf facility on Levaquin. Will get repeat labs done later this week. HOSPITAL COURSE PER PROBLEM: 1. Sepsis. She is markedly better after getting treated with IV fluids and antibiotics. Blood cultures have no growth to date. 2. Urinary tract infection. Urine culture is growing Proteus. She was on ceftriaxone. She will be discharged home on Levaquin. 3. Zighd-ar-sgeirry encephalopathy. She is at her baseline. She is very talkative today, and was barely speaking on admission. 4. Hyperglycemia. History of insulin-dependent diabetes. Lantus dose has been increased. Her A1c is 7.5. 5. Weakness and deconditioning. The patient said she has been bedridden for years; she does not know why. 6. History of TAVR. She is on aspirin and Plavix. 7. Hypertension. Blood pressure has been elevated during her stay. CONDITION AT DISCHARGE: Stable. Blood pressure is 151/83, heart rate is 86, respiratory rate is 18, O2 sats on room air 93%, temperature is 37.2 Celsius. MEDICATIONS AT DISCHARGE: Please see the EMR. DISCHARGE INSTRUCTIONS: 1. Recommending Lasix not be resumed until she continues to eat regularly. 2. To continue Levaquin, and follow up with the sensitivities. 3. If she develops fever, chills, chest pain, or shortness of breath, return to the ER. Greater than 30 minutes discharging and coordinating her care. /[id number]/MODL MTDD
--- NOTE | 2016-12-19 11:58 | ASMTCMCOM ---
CM Note CM Note Notes: Pt is being discharged back to [facility] today. CM notified Yvette at [facility] and she will schedule wheelchair mushroom picker for 2PM. CM notified JOSEPH Yost regarding d/c and provided her a phone number to give report. CM faxed over d/c orders. KM spoke w/ Brianda Nguyễn from [employer]. Brianda notified CM that they have letter of guardianship. KM asked Brianda to fax over a copy of guardianship. The paperwork is in pts chart and KM notified Brianda that pt is being discharged today. CM available for changes. Date Signed: 12/19/2016 11:57 AM Electronically Signed By:AMAURI Garcia
[2016-12-19 12:07] VITALS: BP 147/104; PULSE 92; TEMP 98.8; O2SAT 96
--- NOTE | 2016-12-19 16:07 | ASDISCHSUM ---
Discharge Information Plan Status:SNF Medically Cleared to Leave:12/19/2016 Discharge Date:12/19/2016 02:45 PM D/C Disposition:Long-Term Facility ADT D/C Disposition:Long-Term Facility Projected Discharge Date:12/19/2016 12:00 AM Transportation at D/C: Discharge Delay Reason: Follow-Up Date:12/19/2016 12:00 AM Discharge Slot: Final Diagnosis: Placement Information Referral Type:*Care Home/SNF Referral ID:[id number] Provider Name:Ion Matthews/MAYANK Golden Address 1:[address] [facility] Phone Number: Address 2: Fax Number: [facility]:Ion Selection Factors: State:[place] Patient Contact Information Contact Name:FINA Relationship: Address: Work Phone: City: [facility] Phone: [facility] Code: Email: Financial Information Financial Class: Primary Plan Desc:MEDICARE INPATIENT Primary Plan Number:[id number] Secondary Plan Desc:MED[place] Secondary Plan Number:[id number] Assessment Information [facility] CM Progress Note CM Note CM Note Notes: Patient admitted with UTI. Lives at [facility] - yesterday, they called 911 when they found patient more confused than normal. I spoke with patient, wondering if there was anyone she wanted me to call, and she said no. I mentioned her brother (name/number listed in chart) and she said "He doesn't care." I did leave a message for Kaelyn Melotn who is listed in chart as patient's pillowcase maker. Anticipated d/c plan is back to [facility]. CM will follow. Date Signed: 12/17/2016 11:23 AM Electronically Signed By:Mariah Villar RN [facility] CM Progress Note CM Note CM Note Notes: Pt is being discharged back to [facility] today. CM notified Yvette at [facility] and she will schedule wheelchair greens picker for 2PM. CM notified JOSEPH Yost regarding d/c and provided her a phone number to give report. CM faxed over d/c orders. CM spoke w/ Brianda Nguyễn from [employer]. Brianda notified CM that they have letter of guardianship. KM asked Brianda to fax over a copy of guardianship. The paperwork is in pts chart and KM notified Brianda that pt is being discharged today. CM available for changes. Date Signed: 12/19/2016 11:57 AM Electronically Signed By:AMAURI Garcia Intervention Information Intervention Type:*Incorrect Registration Date of Service:12/16/2016 02:36 PM Patient Type:Inpatient Staff Member:JOSEPH Thomason, Aby Hours:0.25 Discipline: Severity:1 (0-1 Hours) Comment:Registered observation, admit order wr itten for inpatient status Intervention Type:*IM-Signed Date of Service:12/19/2016 11:06 AM Patient Type:Inpatient Staff Member:Elsi Salguero Hours: Discipline: Severity: Comment:
== END 2016-12-19 14:45 | DRG 871 ==
LOC: EDUNIT# → F3E 12:20 → OBSVTOIN 14:36
PROVIDERS: ADMIT Family Medicine; ATTEND Internal Medicine
DX: A41.59 Other Gram-negative sepsis (principal); R65.20 Severe sepsis without septic shock; N39.0 Urinary tract infection, site not specified; B96.4 Proteus (mirabilis) (morganii) as the cause of diseases classified elsewhere; G93.40 Encephalopathy, unspecified; E11.65 Type 2 diabetes mellitus with hyperglycemia; I10 Essential (primary) hypertension; F03.90 Unspecified dementia, unspecified severity, without behavioral disturbance, psychotic disturbance, mood disturbance, and anxiety; Z79.4 Long term (current) use of insulin; Z95.2 Presence of prosthetic heart valve
CPT/HCPCS: 82947-QW; 92526-GN; 92610-GN; 96365; 97162-GP; 97166-GO; G8978-GP-CM; G8979-GP-CM; G8987-GO-CN; G8988-GO-CM; G8996-GN-CJ; G8996-GN-CK; G8997-GN-CK; G8998-GN-CJ; J0696; J1650; J1815

== ENCOUNTER 2017-02-04 14:25 | Inpatient (IN) | payer OTHER, MEDICAID ==
--- NOTE | 2017-02-04 14:48 | EDPHY ---
H & P Time Seen by Provider: 02/04/17 14:47 HPI/ROS: CHIEF COMPLAINT: Fever and lethargy for 2 days HISTORY OF PRESENT ILLNESS: Patient was admitted in November and discharged on 12/19/2016, discharge summary personally reviewed. She had sepsis with Proteus UTI and was treated with Rocephin and Levaquin. Patient arrives from [facility] nonverbal with decreased responsiveness and febrile. Further review of systems and history unobtainable as the patient is nonverbal on arrival. PAST MEDICAL HISTORY: Includes CHF, dementia, diabetes, hypertension, coronary disease. Trans catheter aortic valve repair. Social history: [facility] resident General Appearance: Lethargic, nonverbal Eyes: No scleral icterus. ENT, Mouth: Dry mucous membranes. Respiratory: Decreased breath sounds at the bases but no wheezing or rhonchi. Cardiovascular: Regular rate and rhythm. Gastrointestinal: Abdomen is soft and non tender. Neurological: Decreased responsiveness. Withdraws to pain. Will withdraw all 4 extremities. Occasionally makes noises but not any interpretable words. Skin: Warm and dry, no rashes. Musculoskeletal: Does not have stiff neck or meningeal signs. Psychiatric: Unable, nonverbal. Emergency Department course/MDM: Slightly hypoxic, history of recent Proteus UTI. Blood cultures, lactate, cath urine, chest x-ray. 1602: Giacomo, admit. Will give cefepime 2 g IV with recent UTI and ceftriaxone and Levaquin. Penicillin allergy but tolerated ceftriaxone during last hospitalization. Patient was noted to be mildly hypoxemic but with her encephalopathy my initial clinical impression this is possibly hypoventilation. No definite infiltrate seen on chest x-ray, she does have urine reason to have fever and sepsis and encephalopathy. Pneumonia can be considered depending on her clinical course during the next 12- 24 hours. Smoking Status: Never smoked Constitutional: Initial Vital Signs Temperature (C) 38.7 C H 02/04/17 14:30 Heart Rate 92 02/04/17 14:30 Respiratory Rate 18 02/04/17 14:30 Blood Pressure 118/67 02/04/17 14:30 O2 Sat (%) 86 L 02/04/17 14:30 O2 Delivery Mode Room Air Allergies/Adverse Reactions: Penicillins Allergy (Verified 02/04/17 16:51) Sulfa (Sulfonamide Antibiotics) Allergy (Verified 02/04/17 16:51) Home Medications: Medication Instructions Recorded Losartan Potassium [Cozaar 25 mg 25 mg PO DAILY 12/16/16 (*)] OLANZapine [ZyPREXA 2.5 mg (*)] 2.5 mg PO HS 12/16/16 OLANZapine [Zyprexa] 10 mg PO HS 12/16/16 Aspirin EC [Aspirin EC 81 mg (*)] 81 mg PO DAILY 12/17/16 Clopidogrel Bisulfate [Plavix (*)] 75 mg PO DAILY 12/17/16 Furosemide [Lasix 40 MG (*)] 40 mg PO DAILY 12/17/16 Ranitidine HCl [Zantac] 150 mg PO DAILY 12/18/16 Multivitamins W-Minerals [Thera M 1 each PO DAILY tab 12/19/16 Plus Tablet (*)] Acetaminophen [Tylenol 325mg (*)] 650 mg PO Q6 PRN 02/04/17 Ascorbic Acid [Vitamin C 500 mg 500 mg PO DAILY 02/04/17 (*)] Cyanocobalamin (Vitamin B-12) 2,500 mcg SL DAILY 02/04/17 [Vitamin B-12] Divalproex [Depakote Sprinkle 125 500 mg PO TID 02/04/17 MG (*)] Insulin Glargine [Lantus 100 10 units SC HS 02/04/17 UNITS/ML (*)] Melatonin [Melatonin 3 MG (*)] 3 mg PO HS PRN 02/04/17 Nystatin Powder [Mycostatin Powder 1 janine TP DAILY PRN 02/04/17 (RX)] Ondansetron Odt [Zofran Odt 4 mg 4 mg PO Q6 PRN 02/04/17 (*)] Sodium Chloride/Aloe Vera [Saline 14.1 gm NS DAILY PRN 02/04/17 Nasal Gel] Sodium Cl Nasal [[place] (*)] 1 spray NS DAILY PRN 02/04/17 Medical Decision Making - Diagnostics Imaging Results: Imaging Impressions Chest X-Ray 02/04/17 14:54 Impression: 1. Status post TAVR. 2. Mild hypoventilatory features with mild perihilar bronchitis and small posterior pleural effusions with bibasilar subsegmental atelectasis versus minimal infiltrates. Differential Diagnosis: Differential considered including but not limited to UTI, sepsis, pneumonia, meningitis, influenza. - Data Points Laboratory Results: Laboratory Results 02/04/17 14:30 02/04/17 14:30 02/04/17 02/04/17 02/04/17 15:07 15:07 14:47 WBC RBC Hgb Hct MCV MCH MCHC RDW Plt Count MPV Neut % (Auto) Lymph % (Auto) [place] % (Auto) Eos % (Auto) Baso % (Auto) Nucleat RBC Rel Count Absolute Neuts (auto) Absolute Lymphs (auto) Absolute Monos (auto) Absolute Eos (auto) Absolute Basos (auto) Absolute Nucleated RBC Immature Gran % Immature Gran # PT INR APTT VBG Lactic Acid 1.6 mmol/L mmol/L 2.3 mmol/L H mmol/L (0.7-2.1) (0.7-2.1) Sodium Potassium Chloride Carbon Dioxide Anion Gap BUN Creatinine Estimated GFR Glucose Calcium Total Bilirubin Urine Color YELLOW Urine Appearance TURBID Urine pH 5.0 (5.0-7.5) Ur Specific [place] 1.020 (1.002-1.030) Urine Protein 2+ H (NEGATIVE) Urine Ketones TRACE H (NEGATIVE) Urine Blood NEGATIVE (NEGATIVE) Urine Nitrate NEGATIVE (NEGATIVE) Urine Bilirubin NEGATIVE (NEGATIVE) Urine Urobilinogen 2.0 EU H EU (0.2-1.0) Ur Leukocyte Esterase 3+ H (NEGATIVE) Urine RBC 50-182 /hpf H /hpf (0-3) Urine WBC 50-182 /hpf H /hpf (0-3) Ur Epithelial Cells TRACE /lpf /lpf (NONE-1+) Urine Bacteria 4+ /hpf H /hpf (NONE SEEN) Urine Mucus TRACE /lpf /lpf (NONE-1+) Urine Glucose NEGATIVE (NEGATIVE) Valproic Acid 02/04/17 02/04/17 02/04/17 14:30 14:30 14:30 WBC 24.89 10^3/uL H 10^3/uL (3.80-9.50) RBC 4.37 10^6/uL 10^6/uL (4.18-5.33) Hgb 13.4 g/dL g/dL (12.6-16.3) Hct 38.7 % % (38.0-47.0) MCV 88.6 fL fL (81.5-99.8) MCH 30.7 pg pg (27.9-34.1) MCHC 34.6 g/dL g/dL (32.4-36.7) RDW 12.0 % % (11.5-15.2) Plt Count 151 10^3/uL 10^3/uL (150-400) MPV 10.4 fL fL (8.7-11.7) Neut % (Auto) 73.9 % % (39.3-74.2) Lymph % (Auto) 6.3 % L % (15.0-45.0) [place] % (Auto) 18.7 % H % (4.5-13.0) Eos % (Auto) 0.0 % L % (0.6-7.6) Baso % (Auto) 0.2 % L % (0.3-1.7) Nucleat RBC Rel Count 0.0 % % (0.0-0.2) Absolute Neuts (auto) 18.38 10^3/uL H 10^3/uL (1.70-6.50) Absolute Lymphs (auto) 1.57 10^3/uL 10^3/uL (1.00-3.00) Absolute Monos (auto) 4.66 10^3/uL H 10^3/uL (0.30-0.80) Absolute Eos (auto) 0.00 10^3/uL L 10^3/uL (0.03-0.40) Absolute Basos (auto) 0.06 10^3/uL 10^3/uL (0.02-0.10) Absolute Nucleated RBC 0.00 10^3/uL 10^3/uL (0-0.01) Immature Gran % 0.9 % % (0.0-1.1) Immature Gran # 0.22 10^3/uL H 10^3/uL (0.00-0.10) PT 14.5 SEC SEC (12.0-15.0) INR 1.14 (0.83-1.16) APTT 25.6 SEC SEC (23.0-38.0) VBG Lactic Acid Sodium 141 mEq/L mEq/L (134-144) Potassium 3.7 mEq/L mEq/L (3.5-5.2) Chloride 96 mEq/L L mEq/L (97-110) Carbon Dioxide 32 mEq/l H mEq/l (22-31) Anion Gap 13 mEq/L mEq/L (8-16) BUN 22 mg/dL mg/dL (7-23) Creatinine 0.8 mg/dL mg/dL (0.6-1.0) Estimated GFR > 60 Glucose 216 mg/dL H mg/dL (70-100) Calcium 9.2 mg/dL mg/dL (8.5-10.4) Total Bilirubin 0.3 mg/dL mg/dL (0.1-1.4) Urine Color Urine Appearance Urine pH Ur Specific [place] Urine Protein Urine Ketones Urine Blood Urine Nitrate Urine Bilirubin Urine Urobilinogen Ur Leukocyte Esterase Urine RBC Urine WBC Ur Epithelial Cells Urine Bacteria Urine Mucus Urine Glucose Valproic Acid 32.4 mcg/mL L mcg/mL (50.0-150.0) Medications Given: Discontinued Medications Ertapenem 1 gm/ Sodium (Chloride) 100 mls @ 200 mls/hr IV EDNOW ONE PRN Reason: Protocol Stop: 02/04/17 16:31 Last Admin: 02/04/17 17:18 Dose: Not Given Sodium Chloride (Ns) 2,200 mls @ 4,400 mls/hr 30 ml/kg infuse over 30 min ( 2200 ml) IV EDNOW ONE PRN Reason: Protocol Stop: 02/04/17 16:31 Last Admin: 02/04/17 16:41 Dose: 2,200 mls Cefepime HCl 2 gm/ Dextrose 100 mls @ 200 mls/hr IV EDNOW ONE PRN Reason: Protocol Stop: 02/04/17 16:33 Last Admin: 02/04/17 17:14 Dose: 100 mls Departure - Departure Disposition: [facility] Inpatient Acute Clinical Impression: Sepsis Qualifiers: Sepsis type: sepsis due to unspecified organism Qualified Code(s): A41.9 - Sepsis, unspecified organism Urinary tract infection Qualifiers: Urinary tract infection type: acute pyelonephritis Qualified Code(s): N10 - Acute pyelonephritis Condition: Serious
[2017-02-04 14:54] LABS: % IMMATURE GRANULYOCYTES 0.9 % (0.0-1.1); ABSOLUTE IMMATURE GRANULOCYTES 0.22 10^3/uL (0.00-0.10); ADD DIFF? NO; ADD MORPH? NO; ADD SCAN? NO; ATYPICAL LYMPHOCYTE FLAG 0 (0-99); FRAGMENT RBC FLAG 0 (0-99); HEMATOCRIT 38.7 % (38.0-47.0); HEMOGLOBIN 13.4 g/dL (12.6-16.3); LEFT SHIFT FLG 30 (0-99); LIPEMIA HEMOLYSIS FLAG 90 (0-99); MEAN CELL HEMOGLOBIN 30.7 pg (27.9-34.1); MEAN CELL HEMOGLOBIN CONCENTR. 34.6 g/dL (32.4-36.7); MEAN CELL VOLUME 88.6 fL (81.5-99.8); MEAN PLATELET VOLUME 10.4 fL (8.7-11.7); PLATELET CLUMPS FLAG 0 (0-99); PLATELET COUNT 151 10^3/uL (150-400); RED BLOOD CELL COUNT 4.37 10^6/uL (4.18-5.33)
[2017-02-04 15:00] LABS: ANION GAP 13 mEq/L (8-16); CALCIUM 9.2 mg/dL (8.5-10.4); CARBON DIOXIDE 32 mEq/l (22-31); CHLORIDE 96 mEq/L (97-110); CREATININE 0.8 mg/dL (0.6-1.0); GLOMERULAR FILTRATION RATE > 60; GLUCOSE 216 mg/dL (70-100); POTASSIUM 3.7 mEq/L (3.5-5.2); SODIUM 141 mEq/L (134-144)
[2017-02-04 15:07] LABS: BILIRUBIN,TOTAL 0.3 mg/dL (0.1-1.4)
[2017-02-04 15:19] LABS: INR 1.14 (0.83-1.16); PROTIME(PATIENT) 14.5 SEC (12.0-15.0)
[2017-02-04 15:25] LABS: APTT 25.6 SEC (23.0-38.0)
[2017-02-04 15:48] LABS: COLOR YELLOW; LEUKOCYTE ESTERASE,URINE 3+ (NEGATIVE); NITRITE,URINE NEGATIVE (NEGATIVE)
[2017-02-04 15:51] LABS: BACTERIA 4+ /hpf (NONE SEEN); MUCUS TRACE /lpf (NONE-1+); RBC,URINE 50-182 /hpf (0-3); WBC,URINE 50-182 /hpf (0-3)
[2017-02-04] MEDS ORDERED: ERTAPENEM 1 GM in NS 100 ML IV ONE (16:02)
[2017-02-04] MEDS ORDERED: NS 2,200 ML IV ONE (16:02)
[2017-02-04] MEDS ORDERED: ACETAMINOPHEN 325 MG TAB PO PRN (16:03)
[2017-02-04] MEDS ORDERED: ONDANSETRON 4 MG/2 ML VIAL IVP PRN (16:03)
[2017-02-04] MEDS ORDERED: ONDANSETRON DISINTEGRATING 4 MG TAB PO PRN (16:03)
[2017-02-04] MEDS ORDERED: CEFEPIME HCL 2 GM in D5W 100 ML IV ONE (16:04)
--- NOTE | 2017-02-04 16:35 | ASMTCMCOM ---
CM Note CM Note Notes: Chart reviewed and LACE completed prior to admission. Patient is non verbal and unaccompanied in the ER after arriving via EMS from [facility] . I have LM with her NOK listed in the chart: Yahir (brother) [phone] to inform him of patient's admission and phone number for CM to follow and coordinate return to at D/C Date Signed: 02/04/2017 04:34 PM Electronically Signed By:Valentina Wright RN
[2017-02-04] MEDS ORDERED: D50W 25 GM/50 ML SYR IVP PRN (16:49)
[2017-02-04] MEDS ORDERED: NYSTATIN POWDER 15 GM BTL TP PRN (17:02)
--- NOTE | 2017-02-04 17:39 | GHP ---
[f rep st] HISTORY AND PHYSICAL DATE OF ADMISSION: 02/04/2017 CHIEF COMPLAINT: 1. Sepsis. 2. UTI. HISTORY OF PRESENT ILLNESS: A 67-year-old female with history of diabetes, dementia, aortic graft, sent over from [facility] with fevers and somnolence. I spoke with [facility] staff who said she was sleeping all day yesterday "out of it and only awoke up to sternal rub. Chest x- ray yesterday showed atelectasis. This morning, had fever of 101.5 and RR 30s. Also has had nonproductive cough for 1 week. History of UTIs of Proteus November 2016, Citrobacter May 2016, both sensitive to ceftriaxone. REVIEW OF SYSTEMS: I completed a 10-point review of systems. Negative except noted in HPI. Most of this was obtained from staff and ED record, as the patient is only partially participating in interview. 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 PAST SURGICAL HISTORY: TAVR. ALLERGIES: Penicillin, sulfa, but has tolerated ceftriaxone in prior admissions. HOME MEDICATIONS: Zofran as needed, Depakote 500 mg t.i.d., [place] nasal spray, Nystatin powder, melatonin 3 mg q.h.s., Tylenol as needed, Zyprexa 10 mg q.h.s., olanzapine 2.5 mg q.h.s., multivitamin, vitamin C, ranitidine 150 mg daily, losartan 25 mg daily, Plavix 75 mg daily, glargine 10 units subcu h.s., Lasix 40 mg daily, vitamin B12, aspirin 81 mg daily. FAMILY HISTORY: Could not obtain from patient due to encephalopathy. PHYSICAL EXAM: VITAL SIGNS: Temperature 38.7, blood pressure 139/96, heart rate 90s, respiration 16, 91% on 4 L, 86% on room air. GENERAL: The patient is ill appearing, pale. HEENT: PERRLA. Dry mucous membranes. Dry tongue. No oral lesions. CV: Regular rate and rhythm. No murmurs, gallops, or rubs. LUNGS: can not participate in lung exam, but rhonchorous cough. ABDOMEN: Soft , nontender, nondistended. : Suprapubic tenderness on the right. MUSCULOSKELETAL: Moving all 4 extremities. NEURO: 2 through 12 intact. Withdrawals from pain. PSYCH: Alert to hospital and year. She knows her birthday. Skin: pressure ulcer lateral left heel LABORATORY DATA: WBCs 24, hemoglobin 13, hematocrit 38, platelets 151. Coags within normal, lactate 2.3, repeat 1.6. Sodium 141, potassium 4.4, chloride 96 , carbon dioxide 32, creatinine 0.8, glucose 216. UA 50-182 WBCs, +4 bacteria, +3 leuk esterase. Valproic acid 32.4. Chest x-ray, personally reviewed by me, status post TAVR, mild perihilar bronchitis, RML opacity, small effusions ASSESSMENT AND PLAN: 1. Sepsis: Fever, positive urinary tract infection, tachycardia. However, also with new cough. CXR with small infiltrates. Suspect aspiration since unresponsive past 24 hrs.. Urine/blood cultures, procalcitonin pending. Add full resp panel, sputum culture. Prior Proteus/Citrobacter sensitive to ceftriaxone. (she tolerated this abx last admission). Add Clindamycin for aspiration (PCN-allergy) 2. Acute on chronic encephalopathy: likely due to UTI, but h/o subdural hematoma and currently on antiplatelets.Hold these meds until CTH done. Has history of behavioral disturbance, on Zyprexa and Depakote. 3. Diabetes: hold glargine with NPO. SSI. 4. Hypertension: Hold antihypertensive with sepsis. 5. History of subdural hematoma: on Plavix, ASA. Check CTH 6. Acute hypoxic resp failure: rapid clinical decline once arrived on floor. Required 15L NRB. CXR shows RML infiltrate. Suspect aspiration with somnolence over past 24hrs. Add Clindamycin (unknown PCN-allergy). ABG, dimer pending 6. Aortic graft: On Plavix and aspirin. 7. Compensated systolic heart failure. Ejection fraction of 50%: We will hold Lasix and losartan with sepsis. 8. Lactic acidosis: Secondary to acute infection and dehydration. Resolved with IV fluids. 9. Diet: Regular when more alert. 10. Deep vein thrombosis prophylaxis high risk: Lovenox. 11. Heel ulcer: present on admission. Wound care Disp: transfer to ICU given acute hypoxia. Requires IV abx, ICU monitoring. Critical care time spent: 70 min bedside with pt, talking with NH staff and reviewing prior records /[id number]/MODL MTDD
[2017-02-04 18:03] LABS: BASE EXCESS 4.6 mEq/L (-2.5-2.5); BICARBONATE 28 mEq/L (22-26); MEASURED OXYGEN SATURATION 96 % (92-95); PCO2 42 mmHg (34-38); PO2 85 mmHg (65-75); TCO2 30 mEq/L (23-27)
[2017-02-04 18:04] LABS: P/F RATIO 85 RATIO
[2017-02-04 18:05] LABS: O2 CONCENTRATIION 100 % (0-100)
[2017-02-04] MEDS ORDERED: IOPAMIDOL (ISOVUE 370) 100 ML BTL IV ONE (19:59)
[2017-02-04] MEDS ORDERED: MELATONIN 3 MG TAB PO PRN (21:00)
[2017-02-04] MEDS: CLINDAMYCIN 600 MG/DEXTROSE 50 ML IV SCH (21:10)
--- NOTE | 2017-02-04 22:29 | CPEKG ---
Heart Rate: 86 RR Interval: 698 P-R Interval: 156 QRSD Interval: 80 QT Interval: 368 QTC Interval: 440 P [place]: 240 QRS [place]: 6 T Wave [place]: 199 EKG Severity - ABNORMAL ECG - EKG Impression: ECTOPIC ATRIAL RHYTHM EKG Impression: PROBABLE INFERIOR INFARCT, AGE INDETERMINATE EKG Impression: ST DEPRESSION LATERAL LEADS. Electronically Signed By: Sunny Rivera 05-Feb-2017 09:36:15
[2017-02-05] MEDS: CLINDAMYCIN 600 MG/DEXTROSE 50 ML IV SCH ×2 (01:35→07:41)
[2017-02-05] MEDS: OLANZapine 10 MG TAB PO SCH ×2 (02:26→22:04)
[2017-02-05] MEDS: OLANZapine 2.5 MG TAB PO SCH ×2 (02:26→22:04)
[2017-02-05] MEDS: DIVALPROEX NA 125 MG CAP.SPRINKLE PO SCH ×4 (02:27→22:03)
[2017-02-05] MEDS: INSULIN LISPRO 100 UNIT/ML SC SCH ×4 (02:27→18:08)
--- NOTE | 2017-02-05 06:01 | PDMN ---
Medical Necessity Medical necessity: C/M review: est. > 2 MN LOS for eval and TX of acute and persistent sepsis, urinary tract infection, acute on chronic encephalopathy, acute hypoxic respiratory failure, lactic acidosis, requiring transfer from medical surgical unit to SDU ICU, planned Wound Care consult, ongoing IV Ceftriaxone, IV Clindamycin, pulse oximetry, supplemental O2 15l/min nonrebreather mask, acute OT/ST, comorbid diabetes, hypertension, aortic graft, compensated systolic heart failure, hx subdural hematoma per H/P.
[2017-02-05 08:01] LABS: HEMATOCRIT 24.9 % (38.0-47.0); HEMOGLOBIN 8.4 g/dL (12.6-16.3); MEAN CELL HEMOGLOBIN 30.5 pg (27.9-34.1); MEAN CELL HEMOGLOBIN CONCENTR. 33.7 g/dL (32.4-36.7); MEAN CELL VOLUME 90.5 fL (81.5-99.8); RED BLOOD CELL COUNT 2.75 10^6/uL (4.18-5.33)
[2017-02-05] MEDS: ASCORBIC ACID 500 MG TAB PO SCH (08:03)
[2017-02-05] MEDS: ENOXAPARIN 40 MG/0.4 ML SYR SC SCH (08:03)
[2017-02-05] MEDS: MULTIVITAMINS W-MINERALS 1 EACH TAB PO SCH (08:03)
[2017-02-05] MEDS ORDERED: CLOPIDOGREL BISULFATE 75 MG TAB PO SCH (09:00)
[2017-02-05] MEDS ORDERED: ASPIRIN EC 81 MG TAB PO SCH (09:00)
--- NOTE | 2017-02-05 09:35 | HOSPPROG ---
Hospitalist Progress Note Assessment/Plan: DIAGNOSES: # acute encephalopathy # acute complicated UTI, health care associated # acute hypoxemic respiratory failure, with Rhino/enterovirus, right lower lobe infiltrate / health care associated pneumonia (I think this pneumonia is a result of her rhinovirus and not likely an aspiration pneumonia # anemia, with drop in hemoglobin over night, normocytic though no current signs of bleeding, suspect at least partly due to dilution # advanced stage early onset dementia # hx of systolic CHF, DM, B12 defic, Aortic graft, SDH, B12 defic PLANS: -continue current empiric abx, follow cultures -respiratory supportive care -will need to recheck hemoglobin, and will check Hemoccult -avoid sedating / director of oncology active meds -follow sugars closely; will resume lantus as her fasting sugars high -fall risk precautions -DVT and ulcer prophylaxis -physical occupational therapy, swallow eval -at present can transfer back to med surg I reviewed in detail today with Dr. Luciano Kilgore Also seen on multidisciplinary rounds in ICU SUBJECTIVE: Patient denies any particular discomfort but she is fairly confused, yells frequently for her nurse OBJECTIVE Vitals reviewed: T-max 38 degrees this morning, otherwise stable [employer], my review: Sinus Exam: Somnolent but arousable to conversation with some effort, disoriented skin warm dry pale in color resps not labored lungs clear BSs heart regular abd soft nondistended nontender, bowel sounds present limbs warm, no edema iv site ok Laboratory data: Hemoglobin dropped from 13-10, white blood cell count still elevated at 18,000 thousand, platelets dropped overnight as well I reviewed her CT scan images of the head, no evidence of hemorrhage or other acute changes Chest x-ray repeated today my interpretation of the images right lower lobe infiltrate is present, poor inspiratory volumes Objective: Vital Signs Temp Pulse Resp BP Pulse Ox 36.9 C 72 17 132/67 H 95 02/05/17 07:46 02/05/17 07:46 02/05/17 07:46 02/05/17 07:46 02/05/17 07:46 Microbiology 02/05/17 04:55 Respiratory Panel (PCR) - Final Nasal, Sinus - Swab Human Rhinovirus/Enterovirus Laboratory Results 02/05/17 07:45 02/04/17 02/05/17 02/06/17 06:59 06:59 06:59 Intake Total 150 Output Total 50 Balance 100 PT 14.5 SEC (12.0-15.0) 02/04/17 14:30 INR 1.14 (0.83-1.16) 02/04/17 14:30 - Time Spent With Patient Time Spent with Patient: greater than 35 minutes Time Spent with Patient: Greater than 35 minutes spent on this patients care, greater than 50% of time spent counseling, educating, and coordinating care regarding the above mentioned plan. ICD10 Worksheet Patient Problems: Problems Problem Status Onset Sepsis Acute Urinary tract infection Acute Altered mental status Acute Palliative care encounter Acute Septic shock Acute
[2017-02-05 09:42] LABS: % IMMATURE GRANULYOCYTES 0.9 % (0.0-1.1); ABSOLUTE IMMATURE GRANULOCYTES 0.16 10^3/uL (0.00-0.10); ADD DIFF? NO; ADD MORPH? NO; ADD SCAN? NO; ATYPICAL LYMPHOCYTE FLAG 0 (0-99); FRAGMENT RBC FLAG 0 (0-99); HEMATOCRIT 31.6 % (38.0-47.0); HEMOGLOBIN 10.5 g/dL (12.6-16.3); LEFT SHIFT FLG 10 (0-99); LIPEMIA HEMOLYSIS FLAG 80 (0-99); MEAN CELL HEMOGLOBIN 29.8 pg (27.9-34.1); MEAN CELL HEMOGLOBIN CONCENTR. 33.2 g/dL (32.4-36.7); MEAN CELL VOLUME 89.8 fL (81.5-99.8); MEAN PLATELET VOLUME 10.4 fL (8.7-11.7); PLATELET CLUMPS FLAG 30 (0-99); PLATELET COUNT 124 10^3/uL (150-400); RED BLOOD CELL COUNT 3.52 10^6/uL (4.18-5.33); RED CELL DISTRIBUTION WIDTH 12.1 % (11.5-15.2)
[2017-02-05] MEDS ORDERED: ALTEPLASE 2 MG VIAL IVP PRN (09:49)
[2017-02-05 09:59] LABS: ANION GAP 10 mEq/L (8-16); CALCIUM 8.6 mg/dL (8.5-10.4); CARBON DIOXIDE 27 mEq/l (22-31); CHLORIDE 106 mEq/L (97-110); CREATININE 0.5 mg/dL (0.6-1.0); GLOMERULAR FILTRATION RATE > 60; GLUCOSE 196 mg/dL (70-100); POTASSIUM 3.4 mEq/L (3.5-5.2); SODIUM 143 mEq/L (134-144)
[2017-02-05] MEDS ORDERED: AZITHROMYCIN 250 MG TAB PO ONE (10:42)
[2017-02-05] MEDS ORDERED: PNEUMOC 13-VAL CONJ-DIP CRM/PF 0.5 ML SYR IM ONE (11:37)
--- NOTE | 2017-02-05 12:01 | WOCRNPDOC ---
LIL[facility] Advanced Assessment Note - Skin Integrity Problem, Advanced Assess Left Lateral Heel Pressure Injury Dressing Type: Open to Air (wearing off-loading heel boots from facility) Exudate Amount: None Lucille Wound Tissue: Intact Lucille Wound Swelling: None Wound Bed Color: Brown, Purple, Yellow Site Odor: None Site Measurement - Head-to-Toe Length X Width X Depth (cm): 1.1cmx0.6avp0ij Pressure Injury Stage: Deep Tissue Injury (DTI) Pressure Injury Present on Admit: Yes (Documented in H&P) Skin Integrity Problem Comment: Firm, discolored tissue noted over lateral aspect of patient's L heel w/ intact skin over the top. Underlying tissue is brown/purple/yellow in color, non-blanching, appearance indicative of a deep tissue injury. Presently, site is non-fluctuant. No erythema or swelling observed periwound. Current treatment will include off-loading the site completely using the SHAYY Prevalon boot, and monitoring as wound evolves. Wound care will follow-up with patient on Saturday 02/10 to re-assess. Report given to site superintendent Tina. Coccyx Pressure Injury Dressing Type: Allevyn Life Dressing Description: Intact Exudate Amount: None Exudate Characteristic(s): None Integumentary Issue Intervention: Visualized Under Dressing Lucille Wound Tissue: Blanching, Erythema Lucille Wound Swelling: None Wound Bed Color: Purple, Red Wound Bed Constitution: Red/[place] - Non Granular Tissue (in proximal wound) Site Odor: None Site Measurement - Head-to-Toe Length X Width X Depth (cm): Proximal: 0.2cmx0.2cmx0.2cm. Distal x 2 (side by side): L 0.1cmx0.5ibw8hk; R 0.2cmx0.8hiq3mm Pressure Injury Stage: Deep Tissue Injury (DTI) Pressure Injury Present on Admit: Yes (Not noted in H&P; hospitalist notified) Skin Integrity Problem Comment: Three, discrete pinpoint wounds noted on patient 's coccyx. Proximally, there is a small area of partial-thickness tissue loss noted over an area of dimpled, scarred tissue. While partial-thickness loss denotes a stage 2 injury, scar tissue and dimpled indentation suggest this may have been a deeper, more significant injury at some point. I will refrain from staging this as a less serious injury, and will initiate interventions to treat it as though it were a stage 3 or 4. Distally, there are two dark purple, pinpoint spots on the coccyx, with intact skin. These are more consistent with deep tissue injuries. Lucille-wound tissue is blanching throughout. Dressing orders written to encompass all three wounds, and pressure-relieving interventions initiated, including turns side to side q2, TAPS, and low air loss bed. Right Lateral Heel Pressure Injury Dressing Type: Open to Air (off-loading heel boot from facility) Exudate Amount: None Lucille Wound Tissue: Intact Lucille Wound Swelling: None Site Measurement - Head-to-Toe Length X Width X Depth (cm): 0.5cmx0.9ywy6ep Pressure Injury Stage: Stage 1 Pressure Injury Present on Admit: Yes (Not documented in H&P; hospitalist notified) Skin Integrity Problem Comment: Small area of non-blanching tissue noted over R lateral heel, skin intact and no periwound erythema or swelling observed. Patient has a deeper injury on L heel in same spot, indicating that her feet pronate when she is in bed and place increased pressure over those areas. While she was admitted w/ off-loading heel boots from her facility, I changed her over to the Prevalon off-loading boots that we stock, as they off-load and cushion more aggressively. Wound care will continue to follow this patient.
--- NOTE | 2017-02-05 17:53 | ASMTCMCOM ---
CM Note CM Note Notes: Pt needed to have PICC placement today. Pt has adv dementia per RN and not able to sign consent. RN spoke w/pt's brother who did not feel comfortable giving consent. Paperwork from [facility] where pt came from shows that pt has legally appointed Guardian, Charlene Kraus, through [facility]. Spoke w/Lay from this agency who was able to contact guardian and get consent (she discussed this w/ floor RN). Anticipate that pt will dc back to [facility] when medically stable. KM w/f. Date Signed: 02/05/2017 05:52 PM Electronically Signed By:Veronica Yost, RN
[2017-02-05] MEDS: INSULIN GLARGINE 100 UNITS/ML SYRINGE SC SCH (22:04)
[2017-02-05] MEDS: FAMOTIDINE 20 MG TAB PO SCH (22:04)
[2017-02-06 05:07] LABS: % IMMATURE GRANULYOCYTES 1.2 % (0.0-1.1); ABSOLUTE IMMATURE GRANULOCYTES 0.16 10^3/uL (0.00-0.10); ADD DIFF? NO; ADD MORPH? NO; ADD SCAN? NO; ATYPICAL LYMPHOCYTE FLAG 10 (0-99); FRAGMENT RBC FLAG 0 (0-99); HEMATOCRIT 32.9 % (38.0-47.0); HEMOGLOBIN 10.9 g/dL (12.6-16.3); LEFT SHIFT FLG 10 (0-99); LIPEMIA HEMOLYSIS FLAG 80 (0-99); MEAN CELL HEMOGLOBIN 29.6 pg (27.9-34.1); MEAN CELL HEMOGLOBIN CONCENTR. 33.1 g/dL (32.4-36.7); MEAN CELL VOLUME 89.4 fL (81.5-99.8); MEAN PLATELET VOLUME 10.2 fL (8.7-11.7); PLATELET CLUMPS FLAG 10 (0-99); PLATELET COUNT 144 10^3/uL (150-400); RED BLOOD CELL COUNT 3.68 10^6/uL (4.18-5.33); RED CELL DISTRIBUTION WIDTH 11.8 % (11.5-15.2)
[2017-02-06 05:36] LABS: INR 1.11 (0.83-1.16); PROTIME(PATIENT) 14.2 SEC (12.0-15.0)
[2017-02-06 05:37] LABS: ANION GAP 8 mEq/L (8-16); CALCIUM 8.7 mg/dL (8.5-10.4); CARBON DIOXIDE 30 mEq/l (22-31); CHLORIDE 102 mEq/L (97-110); CREATININE 0.6 mg/dL (0.6-1.0); GLOMERULAR FILTRATION RATE > 60; GLUCOSE 111 mg/dL (70-100); POTASSIUM 3.3 mEq/L (3.5-5.2); SODIUM 140 mEq/L (134-144)
[2017-02-06] MEDS ORDERED: NON-FORMULARY NEW DRUG (Ranitidine Hcl [Zantac] 150 MG) PO SCH (09:00)
[2017-02-06] MEDS ORDERED: CYANOCOBALAMIN 2500 MCG SL SCH (09:00)
[2017-02-06] MEDS: FUROSEMIDE 40 MG TAB PO SCH (10:05)
[2017-02-06] MEDS: MULTIVITAMINS W-MINERALS 1 EACH TAB PO SCH (10:05)
[2017-02-06] MEDS: AZITHROMYCIN 250 MG TAB PO SCH (10:06)
[2017-02-06] MEDS: CYANO/VITAMIN B12 1000 MCG TAB PO SCH (10:06)
[2017-02-06] MEDS: FAMOTIDINE 20 MG TAB PO SCH ×2 (10:06→21:29)
[2017-02-06] MEDS: ASCORBIC ACID 500 MG TAB PO SCH (10:06)
--- NOTE | 2017-02-06 10:06 | ASMTCMCOM ---
CM Note CM Note Notes: Meganelisabeth Nguyễn from [facility] called and wanted to know if we had obtained consent for patient to receive PICC line needed over the weekend. Informed Megan the CM had gotten in touch with the patient's guardian, Charlene Kraus, and the PICC line was placed. Patient's nurse expressed concern patient is continuing to aspirate and is wondering if her diet needs to be altered for [facility]. Patient remains full code status. Palliative care consult has been ordered. CM will follow. Date Signed: 02/06/2017 10:05 AM Electronically Signed By:Alix Noland LCSW
[2017-02-06] MEDS: DIVALPROEX NA 125 MG CAP.SPRINKLE PO SCH ×3 (10:07→21:30)
[2017-02-06] MEDS: ENOXAPARIN 40 MG/0.4 ML SYR SC SCH (10:30)
[2017-02-06] MEDS: INSULIN LISPRO 100 UNIT/ML SC SCH ×3 (10:30→17:11)
[2017-02-06] MEDS: LOSARTAN POTASSIUM 25 MG TAB PO SCH (11:13)
--- NOTE | 2017-02-06 17:02 | HOSPPROG ---
Hospitalist Progress Note Assessment/Plan: * Metabolic encephalopathy - improved * Acute respiratory failure 15L - now down to 2L * Pneumonia - suspect bacterial superimposed on Rhinovirus -ceftriaxone, azithro * Possible UTI * Early onset dementia * Dysphagia - now on nectar thick liquids -consider aspiration PNA but is improving on abx for CAP * Non-compliance with diet modifications -consider alternative COR status as high risk -palliative care consult * s/p TAVR * DM -Lantus Subjective: no complaints. Objective: Vital Signs Temp Pulse Resp BP Pulse Ox 36.9 C 76 20 137/6 H 96 02/06/17 15:23 02/06/17 15:23 02/06/17 15:23 02/06/17 15:23 02/06/17 15:23 Microbiology 02/05/17 05:10 - Final Sputum, Induced/Suctioned Laboratory Results 02/06/17 04:43 02/06/17 04:43 02/05/17 02/06/17 02/07/17 05:59 05:59 05:59 Intake Total 150 1200 Output Total 50 Balance 100 1200 PT 14.2 SEC (12.0-15.0) 02/06/17 04:43 INR 1.11 (0.83-1.16) 02/06/17 04:43 case dw Kaelyn Santana W[employer]TER palliative - she has consulted on patient in past. she will call guardian CXR viewed, my personal interpretation is - RLL infiltrate - Physical Exam Constitutional: no apparent distress, appears nourished, not in pain Cardiovascular: regular rate and rhythym, no murmur, rub, or gallop Respiratory: no respiratory distress, no rales or rhonchi, clear to auscultation Gastrointestinal: normoactive bowel sounds, soft, non-tender abdomen, no palpable masses Neurologic: No AAOx3 Psychiatric: interacting appropriately, encephalopathic, poor insight, poor judgement, poor memory, No thought process linear ICD10 Worksheet Patient Problems: Problems Problem Status Onset Sepsis Acute Urinary tract infection Acute Altered mental status Acute Palliative care encounter Acute Septic shock Acute
[2017-02-06] MEDS: OLANZapine 2.5 MG TAB PO SCH (21:29)
[2017-02-06] MEDS: OLANZapine 10 MG TAB PO SCH (21:29)
[2017-02-06] MEDS: INSULIN GLARGINE 100 UNITS/ML SYRINGE SC SCH (21:29)
[2017-02-07 05:01] LABS: % IMMATURE GRANULYOCYTES 1.2 % (0.0-1.1); ABSOLUTE IMMATURE GRANULOCYTES 0.12 10^3/uL (0.00-0.10); ADD DIFF? NO; ADD MORPH? NO; ADD SCAN? NO; ATYPICAL LYMPHOCYTE FLAG 40 (0-99); FRAGMENT RBC FLAG 0 (0-99); HEMATOCRIT 29.7 % (38.0-47.0); HEMOGLOBIN 10.4 g/dL (12.6-16.3); LEFT SHIFT FLG 20 (0-99); LIPEMIA HEMOLYSIS FLAG 90 (0-99); MEAN CELL HEMOGLOBIN 30.4 pg (27.9-34.1); MEAN CELL VOLUME 86.8 fL (81.5-99.8); MEAN PLATELET VOLUME 10.3 fL (8.7-11.7); PLATELET CLUMPS FLAG 10 (0-99); PLATELET COUNT 165 10^3/uL (150-400); RED BLOOD CELL COUNT 3.42 10^6/uL (4.18-5.33); RED CELL DISTRIBUTION WIDTH 11.8 % (11.5-15.2)
[2017-02-07 05:27] LABS: ANION GAP 6 mEq/L (8-16); CALCIUM 8.1 mg/dL (8.5-10.4); CARBON DIOXIDE 31 mEq/l (22-31); CHLORIDE 101 mEq/L (97-110); CREATININE 0.5 mg/dL (0.6-1.0); GLOMERULAR FILTRATION RATE > 60; GLUCOSE 95 mg/dL (70-100); POTASSIUM 3.2 mEq/L (3.5-5.2); SODIUM 138 mEq/L (134-144)
[2017-02-07] MEDS: ENOXAPARIN 40 MG/0.4 ML SYR SC SCH (08:29)
[2017-02-07] MEDS: FAMOTIDINE 20 MG TAB PO SCH ×2 (08:41→22:56)
[2017-02-07] MEDS: CYANO/VITAMIN B12 1000 MCG TAB PO SCH (08:41)
[2017-02-07] MEDS: AZITHROMYCIN 250 MG TAB PO SCH (08:41)
[2017-02-07] MEDS: DIVALPROEX NA 125 MG CAP.SPRINKLE PO SCH ×3 (08:42→22:55)
[2017-02-07] MEDS: INSULIN LISPRO 100 UNIT/ML SC SCH ×3 (08:42→17:57)
[2017-02-07] MEDS: ASCORBIC ACID 500 MG TAB PO SCH (08:42)
[2017-02-07] MEDS: FUROSEMIDE 40 MG TAB PO SCH (08:54)
[2017-02-07] MEDS: LOSARTAN POTASSIUM 25 MG TAB PO SCH (08:55)
[2017-02-07] MEDS: MULTIVITAMINS W-MINERALS 1 EACH TAB PO SCH (08:55)
--- NOTE | 2017-02-07 13:22 | HOSPPROG ---
Hospitalist Progress Note Assessment/Plan: 67-year-old female sent from [facility] secondary to altered mental status. This is my 1st encounter, chart reviewed. Patient discussed with Dr. Gooden admitting provider. * Metabolic encephalopathy - improved Unclear baseline mentation Likely at her baseline * Acute respiratory failure 15L - now down to 2L Multifactorial * Pneumonia - suspect bacterial superimposed on Rhinovirus -ceftriaxone, azithro * Possible UTI Unable to get repeat urine sample due to patient's incontinent On antibiotic therapy Consider urine culture in the future * Early onset dementia Patient intermittently confused * Dysphagia - now on nectar thick liquids consider aspiration PNA but is improving on abx for CAP * Non-compliance with diet modifications -consider alternative COR status as high risk -palliative care consult today * s/p TAVR * DM -Lantus * sepsis Ruled out * skin Multiple areas See wound care note * disposition Await palliative care conference Recommended patient be DNR Patient has no family, tavera of the state Will return to [facility] when able Subjective: Complains of being thirsty. No other specific complaints. Denies any active pain. Objective: Vital Signs Temp Pulse Resp BP Pulse Ox 37.6 C 78 16 121/80 H 94 02/07/17 08:00 02/07/17 08:00 02/07/17 08:00 02/07/17 08:00 02/07/17 08:00 Microbiology 02/05/17 05:10 - Final Sputum, Induced/Suctioned Sputum Culture - Final Laboratory Results 02/07/17 04:30 02/07/17 04:30 02/06/17 02/07/17 02/08/17 05:59 05:59 05:59 Intake Total 1200 1180 Balance 1200 1180 PT 14.2 SEC (12.0-15.0) 02/06/17 04:43 INR 1.11 (0.83-1.16) 02/06/17 04:43 - Physical Exam Constitutional: appears nourished, not in pain, chronically ill appearing Eyes: PERRL, anicteric sclera, EOMI Ears, Nose, Mouth, Throat: moist mucous membranes, hearing normal, ears appear normal Cardiovascular: No JVD, No tachycardia, No edema Respiratory: no respiratory distress, no rales or rhonchi, reduced air movement Gastrointestinal: No tenderness, No ascites, No guarding Skin: warm, erythema, No mottled Musculoskeletal: no joint effusions, pain with ROM, generalized weakness Psychiatric: not anxious, poor insight, poor judgement, poor memory ICD10 Worksheet Patient Problems: Problems Problem Status Onset Sepsis Acute Septic shock Acute Urinary tract infection Acute Palliative care encounter Acute Altered mental status Acute
--- NOTE | 2017-02-07 17:20 | PDPCPN ---
Palliative Care Progress Note Assessment/Plan: Referring provider: Dr Gray Reason for consult: Complex medical decision making Symptom control HPI: Veronica Das is a 67 yo female with PMH diabetes, recent TVAR, and dementia admitted from for fevers and fatigue. Found to have acute respiratory distress from PNA. Also with possible UTI being treated with antibiotics. this is her 4th admission this year. Has hx of dysphagia with non compliance of diet modifications. previous conversations with guardian office has revealed Veronica to have a hx of "odd and mean behavior" which has completed her care as well as her relationships with her family. She was non compliant prior to being deemed incompetent when her house was condemned and placed under state guardianship. Palliative care consulted for complex medical decision making. Veronica seen this afternoon. She was asking for water. She knows she is at [facility] but did not know why. She stated she has been living at [facility] and it has been ok there. Attempted to ask her about her overall quality of life but she was unable to participate in a meaningful conversation. She is most focused on her immediate needs (water, reposition, blankets) and was not able to answer more abstract questions. Attempted to reach guardian Megan per note in chart but the wrong number. Case management aware and working on getting the correct number for the guardian office to discuss goals. Assessment: Physical: - Pain: occasional body pain - tylenol PRN - cough - nebs - oxygen as needed - dysphagia - speech following - on altered diet but not consistent with her desires( wants thin liquids of water) Emotional/psychological: Has had hx of suspected mental health disorder but never officially dx. - on tobin zyprexa as well as depakote Advanced Care Planning: Is patient decisional?: No Code Status: Full MD POA: State Guardian Plan: will continue to try to reach State guardian. Return to when medically ready Subjective: i want some water Objective: Social History: Has 5 family members all local but estranged from all of them. was living in [facility] up until March Medication list reviewed ROS: General: fatigue, weakness ENT: dysphagia Resp: dyspnea, cough GI: negative : negative MS: occasional body pain Skin: negative Neuro: negative Psych: confusion at times Functional assessment: PPS: 40% Functional status: dependent on ADLs, IADLs Vital Signs Temp Pulse Resp BP Pulse Ox 37.1 C 103 H 18 141/64 H 92 02/07/17 16:00 02/07/17 16:00 02/07/17 16:00 02/07/17 16:00 02/07/17 16:00 Microbiology 02/05/17 05:10 - Final Sputum, Induced/Suctioned Sputum Culture - Final Laboratory Results 02/07/17 04:30 02/07/17 04:30 02/06/17 02/07/17 02/08/17 05:59 05:59 05:59 Intake Total 1200 1180 Balance 1200 1180 PT 14.2 SEC (12.0-15.0) 02/06/17 04:43 INR 1.11 (0.83-1.16) 02/06/17 04:43 Physical Exam - Physical Exam General Appearance: alert, no apparent distress EENT: other (dry) Respiratory: No respiratory distress, No accessory muscle use Skin: normal color, warm/dry Extremities: No pedal edema Neuro/Psych: alert, disoriented to time ICD10 Worksheet Patient Problems: Problems Problem Status Onset Sepsis Acute Urinary tract infection Acute Altered mental status Acute Palliative care encounter Acute Septic shock Acute
[2017-02-07] MEDS: INSULIN GLARGINE 100 UNITS/ML SYRINGE SC SCH (22:56)
[2017-02-07] MEDS: OLANZapine 10 MG TAB PO SCH (22:56)
[2017-02-07] MEDS: OLANZapine 2.5 MG TAB PO SCH (22:56)
[2017-02-07 23:16] VITALS: BP 149/80; TEMP 98.1
[2017-02-08] MEDS: AZITHROMYCIN 250 MG TAB PO SCH (08:58)
[2017-02-08] MEDS: CYANO/VITAMIN B12 1000 MCG TAB PO SCH (08:58)
[2017-02-08] MEDS: ASCORBIC ACID 500 MG TAB PO SCH (08:58)
[2017-02-08] MEDS: FAMOTIDINE 20 MG TAB PO SCH (08:58)
[2017-02-08] MEDS: ENOXAPARIN 40 MG/0.4 ML SYR SC SCH (08:59)
[2017-02-08] MEDS: MULTIVITAMINS W-MINERALS 1 EACH TAB PO SCH (08:59)
[2017-02-08] MEDS: DIVALPROEX NA 125 MG CAP.SPRINKLE PO SCH (08:59)
[2017-02-08] MEDS: LOSARTAN POTASSIUM 25 MG TAB PO SCH (08:59)
[2017-02-08] MEDS: FUROSEMIDE 40 MG TAB PO SCH (08:59)
[2017-02-08] MEDS: INSULIN LISPRO 100 UNIT/ML SC SCH ×2 (09:00→12:30)
[2017-02-08 09:54] VITALS: PULSE 85; RESP 19; O2SAT 92
--- NOTE | 2017-02-08 11:29 | PDIAF ---
- Diagnosis Diagnosis: pna Code Status: Full Code - Medication Management Discharge Medications: Medications to Continue on Transfer Losartan Potassium [Cozaar 25 mg (*)] 25 mg PO DAILY 12/16/16 [Last Taken ] OLANZapine [ZyPREXA 2.5 mg (*)] 2.5 mg PO HS 12/16/16 [Last Taken 02/02/17] OLANZapine [Zyprexa] 10 mg PO HS 12/16/16 [Last Taken 02/02/17] Aspirin EC [Aspirin EC 81 mg (*)] 81 mg PO DAILY 12/17/16 [Last Taken 02/02/17] Clopidogrel Bisulfate [Plavix (*)] 75 mg PO DAILY 12/17/16 [Last Taken 02/02/17] Furosemide [Lasix 40 MG (*)] 40 mg PO DAILY 12/17/16 [Last Taken 02/02/17] Ranitidine HCl [Zantac] 150 mg PO DAILY 12/18/16 [Last Taken 02/02/17] Multivitamins W-Minerals [Thera M Plus Tablet (*)] 1 each PO DAILY tab [Last Taken 02/02/17] Acetaminophen [Tylenol 325mg (*)] 650 mg PO Q6 PRN 02/04/17 [Last Taken Unknown] Ascorbic Acid [Vitamin C 500 mg (*)] 500 mg PO DAILY 02/04/17 [Last Taken ] Cyanocobalamin (Vitamin B-12) [Vitamin B-12] 2,500 mcg SL DAILY 02/04/17 [Last Taken 02/02/17] Divalproex [Depakote Sprinkle 125 MG (*)] 500 mg PO TID 02/04/17 [Last Taken 12/11] Insulin Glargine [Lantus 100 UNITS/ML (*)] 10 units SC HS 02/04/17 [Last Taken 02/03/17] Melatonin [Melatonin 3 MG (*)] 3 mg PO HS PRN 02/04/17 [Last Taken Unknown] Nystatin Powder [Mycostatin Powder] 1 janine TP DAILY PRN 02/04/17 [Last Taken Unknown] Ondansetron Odt [Zofran Odt 4 mg (*)] 4 mg PO Q6 PRN 02/04/17 [Last Taken Unknown] Sodium Chloride/Aloe Vera [Saline Nasal Gel] 14.1 gm NS DAILY PRN 02/04/17 [ Last Taken Unknown] Sodium Cl Nasal [Cass [place] (*)] 1 spray NS DAILY PRN 02/04/17 [Last Taken Unknown] Discharge Medications: Refer to the Discharge Home Medication list for PRN reason. PICC Care - Routine: N/A - Orders Services needed: Registered Nurse, Physical Therapy, Occupational Therapy Isolation Type: Droplet Isolation Diet Texture: Dysphagia 2 - Mechanically Altered - Chopped, Ground, [place] Thick Liquids, Meds Crushed in Puree - Follow Up Care Current Providers and Referrals: Patient,NotPresent [Primary Care Provider] - As per Instructions
--- NOTE | 2017-02-08 14:39 | ASMTCMCOM ---
CM Note CM Note Notes: Patient is being d/c'ed today returning to [facility]. Spoke with Yvette at [facility], arranged transport and sent all d/c summaries to [facility]. Yvette is going to call back with the correct phone number for patient's guardian. Will talk with her about their need to change patient's code status and get guardian informed and involved. Date Signed: 02/08/2017 02:37 PM Electronically Signed By:Alix Noland LCSW
--- NOTE | 2017-02-08 16:38 | ASDISCHSUM ---
Discharge Information Plan Status:Snf Return Medically Cleared to Leave: Discharge Date:02/08/2017 01:23 PM CM D/C Disposition:Correction Facility ADT D/C Disposition:Correction Facility Projected Discharge Date:02/08/2017 11:00 AM Transportation at D/C:ALS/BLS Discharge Delay Reason: Follow-Up Date:02/08/2017 11:00 AM Discharge Slot: Final Diagnosis: Placement Information Referral Type:*Snf/SNF Referral ID:[id number] Provider Name:Ion Matthews/[employer] Address 1:[address] Phone Number: Address 2: Fax Number: [facility]:[place] Selection Factors: State:[place] Patient Contact Information Contact Name:FINA Relationship: Address: Work Phone: City: [facility] Phone: [facility] Code: Email: Financial Information Financial Class: Primary Plan Desc:MEDICARE INPATIENT Primary Plan Number:[id number] Secondary Plan Desc:MEDICAID [place] Secondary Plan Number:[id number] Assessment Information LACE LACE Acuity / Level of Care Answers: Was the patient admitted to hospital via the emergency department? Yes: Comorbidities - select Answers: Diabetes without all that apply complications Dementia Emergency dept visits in Answers: 3 last 6 months Score: 10 Date Signed: 02/04/2017 04:18 PM Electronically Signed By:Valentina Wright RN [facility] CM Progress Note CM Note CM Note Notes: Chart reviewed and LACE completed prior to admission. Patient is non verbal and unaccompanied in the ER after arriving via EMS from [facility] . I have LM with her NOK listed in the chart: Yahir (brother) [phone] to inform him of patient's admission and phone number for CM to follow and coordinate return to at D/C Date Signed: 02/04/2017 04:34 PM Electronically Signed By:Valentina Wright RN [facility] CM Progress Note CM Note CM Note Notes: Pt needed to have PICC placement today. Pt has adv dementia per RN and not able to sign consent. RN spoke w/pt's brother who did not feel comfortable giving consent. Paperwork from [facility] where pt came from shows that pt has legally appointed Guardian, Charlene Kraus, through [facility]. Spoke w/Lay from this agency who was able to contact guardian and get consent (she discussed this w/ floor RN). Anticipate that pt will dc back to [facility] when medically stable. CM w/f. Date Signed: 02/05/2017 05:52 PM Electronically Signed By:Veronica Yost RN [facility] CM Progress Note CM Note CM Note Notes: Megan Nguyễn from [facility] called and wanted to know if we had obtained consent for patient to receive PICC line needed over the weekend. Informed Megan the CM had gotten in touch with the patient's guardian, Charlene Kraus, and the PICC line was placed. Patient's nurse expressed concern patient is continuing to aspirate and is wondering if her diet needs to be altered for [facility]. Patient remains full code status. Palliative care consult has been ordered. CM will follow. Date Signed: 02/06/2017 10:05 AM Electronically Signed By:Alix Noland LCSW [facility] CM Progress Note CM Note CM Note Notes: Patient is being d/c'ed today returning to [facility]. Spoke with Yvette at [facility], arranged transport and sent all d/c summaries to [facility]. Yvette is going to call back with the correct phone number for patient's guardian. Will talk with her about their need to change patient's code status and get guardian informed and involved. Date Signed: 02/08/2017 02:37 PM Electronically Signed By:Alix Noland LCSW Intervention Information
--- NOTE | 2017-02-08 22:44 | GDS ---
[f rep st] DISCHARGE SUMMARY DISCHARGE DIAGNOSES: 1. Metabolic encephalopathy. 2. Acute respiratory failure. 3. Pneumonia. 4. Rhinovirus. 5. Pyuria. 6. Dementia. 7. Dysphagia. 8. Noncompliance with diet modifications. 9. Diabetes mellitus. PHYSICAL EXAM: GENERAL: The patient is alert. VITAL SIGNS: Afebrile 36.7, pulse 85, respiratory r ate 19, blood pressure 133/75. She is saturating 92% on 3 L. I have seen and evaluated the patient on the day of discharge. HOSPITAL COURSE: The patient is a 67-year-old female who resides at [facility], who presented to the emergency room after having suffered altered mental status. She was evaluated and diagnosed with : 1. Metabolic encephalopathy, and this has improved. The patient has returned to her baseline mentat ion. The etiology of this is likely infectious source. 2. Acute respiratory failure. The patient was requiring 15 L of oxygen at the time of admission. S he is now down to 2 or 3 L. Her acute respiratory failure is likely secondary to acute infectious pr ocess. 3. Pneumonia. The patient received antibiotic therapy, Rocephin and azithromycin, during this hospi talization. She has completed her course of antibiotic therapy. 4. Rhinovirus. She has been placed on droplet precautions. 5. Pyuria. Urine culture was not sent during this hospitalization, and the patient was treated with antibiotic therapy for her pneumonia, and if her symptoms should recur, she should have a urine cult ure sent. However, the patient is incontinent, making it difficult to obtain a urine culture. 6. Dementia. The patient is confused at baseline. She is a tavera of the [facility] and has no family. 7. Dysphagia. Her diet has been changed to nectar thick liquids. She did have a consultation josé miguel brooke this hospitalization from Speech Therapy. She is noncompliant with her diet modifications. 8. Diabetes mellitus. Lantus has been continued. 9. Skin. She has multiple areas of erythema. Wound Care saw the patient during this hospitalizatio n. 10. Disposition. The patient will be discharged to return to [facility], where she normally resi segundo. It is recommended that she have a palliative care conference and be made a DNR. This was attem pted during this hospitalization; however, communication was difficult with the State care provider. I have discussed this with Case Management, as well as our palliative care team. Again, it is recom mended that she be made a [id number]. There are no pending studies. DISCHARGE MEDICATIONS: Please refer to EMR form. I have not adjusted the patient's previously presc ribed home medications to the best of my knowledge. I spent greater than 35 minutes in the care, coordination, and management of this patient's dispositi on. /[id number]/MODL
--- NOTE | 2017-02-13 13:33 | PQFORM ---
PHYSICIAN QUERY FORM Needs Your Response This query form is being sent to you to assure this patient record is coded properly. Please respond to the question below: MANUSCRIPT EDITOR QUESTION: Dear CAMILA Brand, In reviewing this patients medical record it was noted the patient had the diagnosis of "Sepsis." Patient presented with a fever of 38.7, WBC of 24.89 and Tachycardia. Patient was diagnosed with "Sepsis" due to UTI in the ER report. In the H&P patient was diagnosed with "Sepsis, with positive UTI, fever , tachycardia and a cough. In the Medical Necessity Note patent was diagnosed with "acute and persistent sepsis." After study, should the diagnosis of "Sepsis, Present on admission" be included in the Discharge Summary? ___x_ Yes ____ No ____ Unable to determine Other more appropriate diagnosis Thank you ZULEIMA Guaman HIM/Coding Dept. [phone] INSTRUCTIONS FOR RESPONSE: Answer question by clicking on the "Edit Document" button. Move cursor to area below the stars. When complete, hit "Save." Click on the "Sign" button, then click "Sign" again. Type in your PIN and hit "Enter." MTDD
== END 2017-02-08 13:23 | DRG 871 ==
LOC: EDUNIT# → F1N 16:52 → F2N 18:00 → F3E 02-05 14:19
PROVIDERS: ADMIT Internal Medicine; ATTEND Internal Medicine
PROC: 02HV33Z Insertion of Infusion Device into Superior Vena Cava, Percutaneous Approach (ICD-10-PCS; principal; 2017-02-06)
DX: A41.9 Sepsis, unspecified organism (principal); G93.41 Metabolic encephalopathy; J96.00 Acute respiratory failure, unspecified whether with hypoxia or hypercapnia; J18.9 Pneumonia, unspecified organism; N39.0 Urinary tract infection, site not specified; B34.8 Other viral infections of unspecified site; F03.90 Unspecified dementia, unspecified severity, without behavioral disturbance, psychotic disturbance, mood disturbance, and anxiety; E11.9 Type 2 diabetes mellitus without complications; R13.10 Dysphagia, unspecified; I10 Essential (primary) hypertension; L89.629 Pressure ulcer of left heel, unspecified stage; L89.159 Pressure ulcer of sacral region, unspecified stage; L89.611 Pressure ulcer of right heel, stage 1; Z91.11 Patient's noncompliance with dietary regimen; Z23 Encounter for immunization; Z88.0 Allergy status to penicillin; Z95.3 Presence of xenogenic heart valve
CPT/HCPCS: 92526-GN; 92610-GN; 97165-GO; 97530-GO; C1751; G0009; G8987-GO-CN; G8988-GO-CL; G8996-GN-CJ; G8997-GN-CJ; G8998-GN-CJ; J0692; J0696; J1335; J1650; J1815; Q9967

== ENCOUNTER 2017-02-14 17:05 | Inpatient (IN) | payer OTHER, MEDICAID ==
--- NOTE | 2017-02-14 17:04 | EDPHY ---
H & P Constitutional: Initial Vital Signs Temperature (C) 36.7 C 02/14/17 17:17 Heart Rate 99 02/14/17 17:17 Respiratory Rate 20 02/14/17 17:17 Blood Pressure 104/80 02/14/17 17:17 O2 Sat (%) 84 L 02/14/17 17:17 O2 Delivery Mode Oxymask O2 (L/minute) 14 Allergies/Adverse Reactions: Penicillins Allergy (Verified 02/04/17 16:51) Sulfa (Sulfonamide Antibiotics) Allergy (Verified 02/04/17 16:51) Home Medications: Medication Instructions Recorded Losartan Potassium [Cozaar 25 mg 25 mg PO DAILY 12/16/16 (*)] OLANZapine [ZyPREXA 2.5 mg (*)] 2.5 mg PO HS 12/16/16 OLANZapine [Zyprexa] 10 mg PO HS 12/16/16 Aspirin EC [Aspirin EC 81 mg (*)] 81 mg PO DAILY 12/17/16 Clopidogrel Bisulfate [Plavix (*)] 75 mg PO DAILY 12/17/16 Furosemide [Lasix 40 MG (*)] 40 mg PO DAILY 12/17/16 Ranitidine HCl [Zantac] 150 mg PO DAILY 12/18/16 Multivitamins W-Minerals [Thera M 1 each PO DAILY tab 12/19/16 Plus Tablet (*)] Acetaminophen [Tylenol 325mg (*)] 650 mg PO Q6 PRN 02/04/17 Ascorbic Acid [Vitamin C 500 mg 500 mg PO DAILY 02/04/17 (*)] Cyanocobalamin (Vitamin B-12) 2,500 mcg SL DAILY 02/04/17 [Vitamin B-12] Divalproex [Depakote Sprinkle 125 500 mg PO TID 02/04/17 MG (*)] Insulin Glargine [Lantus 100 10 units SC HS 02/04/17 UNITS/ML (*)] Melatonin [Melatonin 3 MG (*)] 3 mg PO HS PRN 02/04/17 Nystatin Powder [Mycostatin Powder] 1 janine TP DAILY PRN 02/04/17 Ondansetron Odt [Zofran Odt 4 mg 4 mg PO Q6 PRN 02/04/17 (*)] Sodium Chloride/Aloe Vera [Saline 14.1 gm NS DAILY PRN 02/04/17 Nasal Gel] Sodium Cl Nasal [[place] (*)] 1 spray NS DAILY PRN 02/04/17 Medical Decision Making - Diagnostics Imaging Results: Imaging Impressions Chest X-Ray 02/14/17 17:10 Impression: Stable bibasilar consolidation possibly related to atelectasis and/ or pneumonia. PICC Line Insertion 02/14/17 17:28 Impression: 4 [place] double lumen peripherally inserted central catheter is ready to use. Imaging: Discussed imaging studies w/ animal chiropractor Radiologist, I viewed and interpreted images myself ED Course/Re-evaluation: CHIEF COMPLAINT: AMS, elevated WBC HISTORY OF PRESENT ILLNESS: The patient is a 68 y/o female arriving via EMS from [facility] with altered mentation and increased WBC. Her medical history includes respiratory failure, dementia, hypertension, diabetes, and heart failure. Patient was admitted here 02/04, 10 days ago, with sepsis and pneumonia and completed a course of Rocephin and azithromycin during her stay. She was additionally treated for metabolic encephalopathy and acute respiratory failure during that admission requiring 15LPM during initial presentation. She was discharged to [facility] once her mental status returned to baseline. In the paperwork transported with her, it appears she had a chest x-ray on 02/09 and a second one today that showed an improvement in a right perihilar infiltrate. Her WBC has increased from 13 on 02/09 to 23 today. EMS says staff denies recent change in mental status since becoming ill a few weeks ago. Staff at [facility] apparently administered aspirin and a nebulizer treatment prior to EMS transport, though it's not clear she ever had cardiac symptoms. She is unable to provide any history due to condition. She was hypoxemic at 89% on 6LPM for EMS and required nonrebreather to maintain oxygenation. REVIEW OF SYSTEMS: Unable to obtain due to patient condition. PHYSICAL EXAM: HR, BP, O2 Sat, RR. Temp noted General Appearance: Somnolent, pale, ill-appearing, able to state her name Head: Atraumatic without scalp tenderness or obvious injury Eyes: Pupils equal, round, reactive to light and accommodation, EOMI, no trauma , no injection. Ears: Clear bilaterally, no perforation, normal landmarks Nose: Atraumatic, no rhinorrhea, clear. Throat: There is no erythema or exudates, no lesions, normal tonsils, mucus membranes dry. Neck: Supple Respiratory: Lungs have coarse rhonchi throughout. Patient on NRB. Cardiovascular: Regular rate and rhythm, no murmurs, rubs, or gallops. Good capillary refill all extremities. Gastrointestinal: Abdomen is soft, nontender, non-distended, no masses, no rebound, no guarding, no peritoneal signs. Musculoskeletal: Moves all 4 extremities. Neurological: Somnolent, responds to some verbal cues, oriented x1. Withdraws from pain, no obvious focal deficit. Skin: No rashes Past medical history: Dementia, systolic heart failure, sepsis, muscle weakness , diabetes, hypertension, subdural hematoma, recurrent UTI Past surgical history: Aortic graft Family history: Noncontributory Social history: Full code. Currently living at [facility]. [facility] of the [facility]. Prior medical records reviewed including admission 02/04/17 for sepsis. DIAGNOSTICS/PROCEDURES/CRITICAL CARE TIME: PICC line placement by IR. Chest x-ray: bibasilar infiltrate, stable Critical care time spent by me, Dr. Azul, exclusively with this patient was 40 minutes, exclusive of PA time and exclusive of procedures. The organ system at risk was cardiopulmonary and I gave IVF, antibiotics, had PICC established, and admitted to hospitalist for severe sepsis to prevent worsening of the patients condition. DIFFERENTIAL DIAGNOSIS: The differential diagnosis for the patient's altered mental status included but was not limited to hypoglycemia, infectious process, electrolyte abnormality, head injury, neurologic process, anemia, cardiac process, and intoxicants. MEDICAL DECISION MAKING: This is a 67 y/o female with dementia, heart failure, and respiratory failure who presents with altered mentation and an elevated WBC. She is somnolent, pale , and generally ill-appearing. She responds to some questions and is oriented to self only. She is unable to contribute to history and it's unclear what her baseline mental status is due to her dementia. We are unable to get a peripheral IV and patient required PICC when she was here one week ago. I have ordered another PICC today for IV access and sepsis labs. Chest x-ray ordered. 1919: Lactate 2.4. WBC 23. Patient mildly tachycardic at triage. BP remains above 100 systolic. Severe sepsis declared. IV fluid bolus and 750mg IV Levaquin administered for pneumonia. 1924: Spoke with Dr. Tavarez, hospitalist. She recommends adding 2gm IV Cefepime and will admit patient. - Data Points Laboratory Results: Laboratory Results 02/14/17 18:45 02/14/17 18:45 02/14/17 02/14/17 02/14/17 18:45 18:45 18:45 WBC RBC Hgb Hct MCV MCH MCHC RDW Plt Count MPV Neut % (Auto) Lymph % (Auto) [place] % (Auto) Eos % (Auto) Baso % (Auto) Nucleat RBC Rel Count Absolute Neuts (auto) Absolute Lymphs (auto) Absolute Monos (auto) Absolute Eos (auto) Absolute Basos (auto) Absolute Nucleated RBC Immature Gran % Immature Gran # Platelet Estimate PT 14.5 SEC SEC (12.0-15.0) INR 1.14 (0.83-1.16) APTT 28.2 SEC SEC (23.0-38.0) VBG Lactic Acid 2.4 mmol/L H mmol/L (0.7-2.1) Sodium 136 mEq/L mEq/L (134-144) Potassium 4.7 mEq/L mEq/L (3.5-5.2) Chloride 96 mEq/L L mEq/L (97-110) Carbon Dioxide 29 mEq/l mEq/l (22-31) Anion Gap 11 mEq/L mEq/L (8-16) BUN 19 mg/dL mg/dL (7-23) Creatinine 0.7 mg/dL mg/dL (0.6-1.0) Estimated GFR > 60 Glucose 243 mg/dL H mg/dL (70-100) Calcium 8.8 mg/dL mg/dL (8.5-10.4) Total Bilirubin 0.4 mg/dL mg/dL (0.1-1.4) 02/14/17 18:45 WBC 23.84 10^3/uL H 10^3/uL (3.80-9.50) RBC 3.89 10^6/uL L 10^6/uL (4.18-5.33) Hgb 11.8 g/dL L g/dL (12.6-16.3) Hct 34.4 % L % (38.0-47.0) MCV 88.4 fL fL (81.5-99.8) MCH 30.3 pg pg (27.9-34.1) MCHC 34.3 g/dL g/dL (32.4-36.7) RDW 13.0 % % (11.5-15.2) Plt Count 424 10^3/uL H 10^3/uL (150-400) MPV 8.8 fL fL (8.7-11.7) Neut % (Auto) Not Reported Lymph % (Auto) Not Reported [place] % (Auto) Not Reported Eos % (Auto) Not Reported Baso % (Auto) Not Reported Nucleat RBC Rel Count 0.0 % % (0.0-0.2) Absolute Neuts (auto) Not Reported Absolute Lymphs (auto) Not Reported Absolute Monos (auto) Not Reported Absolute Eos (auto) Not Reported Absolute Basos (auto) Not Reported Absolute Nucleated RBC 0.00 10^3/uL 10^3/uL (0-0.01) Immature Gran % Not Reported Immature Gran # Not Reported Platelet Estimate Pending PT INR APTT VBG Lactic Acid Sodium Potassium Chloride Carbon Dioxide Anion Gap BUN Creatinine Estimated GFR Glucose Calcium Total Bilirubin Microbiology Results: MICROBIOLOGY 02/14/17 17:45 Nasal, Sinus - Swab Respiratory Panel (PCR) - Final No Organism Detected Departure - Departure Disposition: [facility] Inpatient Acute Clinical Impression: Severe sepsis Pneumonia Qualifiers: Pneumonia type: due to unspecified organism Laterality: bilateral Lung location : lower lobe of lung Qualified Code(s): J18.9 - Pneumonia, unspecified organism Condition: Fair Referrals: CHILO CUMMINGS MD [Other] - As per Instructions Report Scribed for: Herman Diaz Report Scribed by: Kamilah Cunningham Date of Report: 02/14/17 Time of Report: 17:24
[2017-02-14] MEDS ORDERED: ALTEPLASE 2 MG VIAL IVP PRN (17:28)
[2017-02-14 19:02] LABS: ADD DIFF? YES; ADD MORPH? NO; ADD SCAN? NO; ATYPICAL LYMPHOCYTE FLAG 10 (0-99); FRAGMENT RBC FLAG 10 (0-99); HEMATOCRIT 34.4 % (38.0-47.0); HEMOGLOBIN 11.8 g/dL (12.6-16.3); LEFT SHIFT FLG 40 (0-99); LIPEMIA HEMOLYSIS FLAG 90 (0-99); MEAN CELL HEMOGLOBIN 30.3 pg (27.9-34.1); MEAN CELL HEMOGLOBIN CONCENTR. 34.3 g/dL (32.4-36.7); MEAN CELL VOLUME 88.4 fL (81.5-99.8); MEAN PLATELET VOLUME 8.8 fL (8.7-11.7); PLATELET CLUMPS FLAG 0 (0-99); PLATELET COUNT 424 10^3/uL (150-400); RED BLOOD CELL COUNT 3.89 10^6/uL (4.18-5.33)
[2017-02-14 19:09] LABS: APTT 28.2 SEC (23.0-38.0); INR 1.14 (0.83-1.16); PROTIME(PATIENT) 14.5 SEC (12.0-15.0)
[2017-02-14 19:12] LABS: ANION GAP 11 mEq/L (8-16); BILIRUBIN,TOTAL 0.4 mg/dL (0.1-1.4); CALCIUM 8.8 mg/dL (8.5-10.4); CARBON DIOXIDE 29 mEq/l (22-31); CHLORIDE 96 mEq/L (97-110); CREATININE 0.7 mg/dL (0.6-1.0); GLOMERULAR FILTRATION RATE > 60; GLUCOSE 243 mg/dL (70-100); POTASSIUM 4.7 mEq/L (3.5-5.2); SODIUM 136 mEq/L (134-144)
[2017-02-14] MEDS ORDERED: NS 2,200 ML IV ONE (19:20)
[2017-02-14] MEDS ORDERED: CEFEPIME HCL 2 GM in D5W 100 ML IV ONE (19:26)
[2017-02-14 19:42] LABS: PLATELET ESTIMATE ADEQUATE (ADEQ)
[2017-02-14] MEDS: traZODone 50 MG TAB PO PRN (21:18)
[2017-02-14] MEDS ORDERED: ONDANSETRON DISINTEGRATING 4 MG TAB PO PRN (22:33)
[2017-02-14] MEDS ORDERED: ONDANSETRON 4 MG/2 ML VIAL IVP PRN (22:33)
[2017-02-14] MEDS ORDERED: ALBUTEROL 3 ML DEYVIAL IH PRN (22:33)
[2017-02-14] MEDS: VANCOMYCIN 1 GM in D5W 250 ML IV SCH (23:58)
--- NOTE | 2017-02-15 00:26 | PDGENHP ---
History and Physical - Chief Complaint Leukocytosis - History of Present Illness 67 yo F w/ DM and dementia brought to ED from [facility] due to leukocytosis. Patient was admitted here earlier this month for AHRF and pneumonia, which was treated with course of ceftriaxone and azithromycin. She was also found to be positive for rhinovirus at that time. Patient denies specific complaints to me and is not able to provide additional history. From documentation with patient it seems her care facility was concerned about rising WBC without clear explanation. She has demonstrates a cough of complains of no other symptoms. She is A&Ox1 currently, which I presume is not far from her recent baseline from review of documentation from recent admission. History Information - Allergies/Home Medication List Allergies/Adverse Reactions: Penicillins Allergy (Verified 02/14/17 21:22) Sulfa (Sulfonamide Antibiotics) Allergy (Verified 02/04/17 16:51) Home Medications: Losartan Potassium [Cozaar 25 mg (*)] 25 mg PO DAILY 12/16/16 [Last Taken ] OLANZapine [ZyPREXA 2.5 mg (*)] 2.5 mg PO HS 12/16/16 [Last Taken 02/13/17] OLANZapine [Zyprexa] 10 mg PO HS 12/16/16 [Last Taken 02/13/17] Aspirin EC [Aspirin EC 81 mg (*)] 81 mg PO DAILY 12/17/16 [Last Taken 02/13/17] Clopidogrel Bisulfate [Plavix (*)] 75 mg PO DAILY 12/17/16 [Last Taken 02/13/17] Furosemide [Lasix 40 MG (*)] 40 mg PO DAILY 12/17/16 [Last Taken 02/13/17] Ranitidine HCl [Zantac] 150 mg PO DAILY 12/18/16 [Last Taken 02/13/17] Acetaminophen [Tylenol 325mg (*)] 650 mg PO Q6 PRN 02/04/17 [Last Taken Unknown] Ascorbic Acid [Vitamin C 500 mg (*)] 500 mg PO DAILY 02/04/17 [Last Taken ] Cyanocobalamin (Vitamin B-12) [Vitamin B-12] 2,500 mcg SL DAILY 02/04/17 [Last Taken 02/13/17] Divalproex [Depakote Sprinkle 125 MG (*)] 500 mg PO TID 02/04/17 [Last Taken ] Insulin Glargine [Lantus 100 UNITS/ML (*)] 10 units SC HS 02/04/17 [Last Taken 02/13/17] Melatonin [Melatonin 3 MG (*)] 3 mg PO HS PRN 02/04/17 [Last Taken 02/01/17] Nystatin Powder [Mycostatin Powder] 1 janine TP DAILY PRN 02/04/17 [Last Taken Unknown] Ondansetron Odt [Zofran Odt 4 mg (*)] 4 mg PO Q6 PRN 02/04/17 [Last Taken Unknown] Sodium Chloride/Aloe Vera [Saline Nasal Gel] 1 janine NS Q3 PRN 02/04/17 [Last Taken Unknown] Sodium Cl Nasal [[place] (*)] 1 spray NS Q8 PRN 02/04/17 [Last Taken Unknown ] Ipratropium/Albuterol [Duoneb (*)] 3 ml IH Q6 PRN 02/14/17 [Last Taken Unknown] Potassium Cl [Klor-Con 20 meq (*)] 20 meq PO DAILY 02/14/17 [Last Taken 02/13/17 ] I have personally reviewed and updated: family history, medical history - Past Medical History dementia, diabetes type 2 - Family History Additional family history: Asked, unable to answer - Social History Smoking Status: Never smoked Review of Systems Review of Systems: ROS: 10pt was reviewed & negative except for what was stated in HPI & below Physical Exam Physical Exam: Temp Pulse Resp BP Pulse Ox 37.0 C 92 18 121/65 H 93 02/14/17 23:23 02/14/17 23:23 02/14/17 23:23 02/14/17 23:23 02/14/17 23:23 O2 (L/minute) 4 Constitutional: no apparent distress, chronically ill appearing Eyes: PERRL, EOMI Ears, Nose, Mouth, Throat: moist mucous membranes, no oral mucosal ulcers Cardiovascular: regular rate and rhythym, systolic murmur Respiratory: no respiratory distress, inspiratory crackles (Bibasilar), No expiratory wheeze, No respiratory distress Gastrointestinal: normoactive bowel sounds, soft, non-tender abdomen Skin: warm, normal color Neurologic: sensation intact bilaterally, CN II-XII Intact, other (A&Ox1) Psychiatric: poor insight, poor memory Lab Data & Imaging Review 02/14/17 18:45 02/14/17 18:45 WBC 23.84 10^3/uL (3.80-9.50) H 02/14/17 18:45 RBC 3.89 10^6/uL (4.18-5.33) L 02/14/17 18:45 Hgb 11.8 g/dL (12.6-16.3) L 02/14/17 18:45 Hct 34.4 % (38.0-47.0) L 02/14/17 18:45 MCV 88.4 fL (81.5-99.8) 02/14/17 18:45 MCH 30.3 pg (27.9-34.1) 02/14/17 18:45 MCHC 34.3 g/dL (32.4-36.7) 02/14/17 18:45 RDW 13.0 % (11.5-15.2) 02/14/17 18:45 Plt Count 424 10^3/uL (150-400) H 02/14/17 18:45 MPV 8.8 fL (8.7-11.7) 02/14/17 18:45 Neut % (Auto) Not Reported 02/14/17 18:45 Lymph % (Auto) Not Reported 02/14/17 18:45 [place] % (Auto) Not Reported 02/14/17 18:45 Eos % (Auto) Not Reported 02/14/17 18:45 Baso % (Auto) Not Reported 02/14/17 18:45 Nucleat RBC Rel Count 0.0 % (0.0-0.2) 02/14/17 18:45 Absolute Neuts (auto) Not Reported 02/14/17 18:45 Absolute Lymphs (auto) Not Reported 02/14/17 18:45 Absolute Monos (auto) Not Reported 02/14/17 18:45 Absolute Eos (auto) Not Reported 02/14/17 18:45 Absolute Basos (auto) Not Reported 02/14/17 18:45 Absolute Nucleated RBC 0.00 10^3/uL (0-0.01) 02/14/17 18:45 Immature Gran % Not Reported 02/14/17 18:45 Seg Neutrophils % 79 % 02/14/17 18:45 Band Neutrophils % 4 % 02/14/17 18:45 Lymphocytes % 11 % 02/14/17 18:45 Monocytes % 5 % 02/14/17 18:45 Metamyelocytes % 1 % 02/14/17 18:45 Immature Gran # Not Reported 02/14/17 18:45 Absolute Seg Neuts 18.83 10^/uL (1.70-6.50) H 02/14/17 18:45 Absolute Band Neuts 0.95 10^3/uL (0.00-0.70) H 02/14/17 18:45 Absolute Lymphocytes 2.62 10^3/uL (1.00-3.00) 02/14/17 18:45 Absolute Monocytes 1.19 10^3/uL (0.30-0.80) H 02/14/17 18:45 Absolute Metamyelocyte 0.24 10^3/mL (0.00-0.00) H 02/14/17 18:45 RBC/WBC/PLT Morphology NORMAL (NORMAL) 02/14/17 18:45 Platelet Estimate ADEQUATE (ADEQ) 02/14/17 18:45 PT 14.5 SEC (12.0-15.0) 02/14/17 18:45 INR 1.14 (0.83-1.16) 02/14/17 18:45 APTT 28.2 SEC (23.0-38.0) 02/14/17 18:45 VBG Lactic Acid 2.7 mmol/L (0.7-2.1) H 02/14/17 20:41 Sodium 136 mEq/L (134-144) 02/14/17 18:45 Potassium 4.7 mEq/L (3.5-5.2) 02/14/17 18:45 Chloride 96 mEq/L (97-110) L 02/14/17 18:45 Carbon Dioxide 29 mEq/l (22-31) 02/14/17 18:45 Anion Gap 11 mEq/L (8-16) 02/14/17 18:45 BUN 19 mg/dL (7-23) 02/14/17 18:45 Creatinine 0.7 mg/dL (0.6-1.0) 02/14/17 18:45 Estimated GFR > 60 02/14/17 18:45 Glucose 243 mg/dL (70-100) H 02/14/17 18:45 Calcium 8.8 mg/dL (8.5-10.4) 02/14/17 18:45 Total Bilirubin 0.4 mg/dL (0.1-1.4) 02/14/17 18:45 Imaging Review: CXR with stable bibasilar infiltrates. Visualized and Interpreted Chest x-ray results: Yes Chest X-Ray results: infiltrate Assessment & Plan Assessment: 67 yo F w/ IDDM and dementia presents with rising WBC 2/2 likely pneumonia. Plan: 1. Presumed pneumonia - WBC 23 on admission increased from 10 at time of 02/07 discharge. Noting cough and persistent bibasilar infiltrates, respiratory infectious source most likely explanation. Chronic aspiration is likely playing a role as well. No evidence of infected skin lesions on my skin exam. - Vanc/Cefepime for HCAP coverage noting recent admission and possibility of post-viral pneumonia - Would add anaerobic coverage if worsening - Blood cultures, procalcitonin, and UA ordered - SINK MAKER eval ordered 2. Acute on chronic HRF - Currently maintaining sats w/ 4 L/min O2. Unclear how much of an acute change this is as she was discharged with 3 L on 02/07. - Acute treatment as above - Wean O2 as able 3. IDDM - On insulin glargine 10 u qHS as outpatient per med list. Will manage with SSI for now. 4. Dementia - Patient has dementia at baseline and is a t[place]a of the state. She was seen by palliative care during recent admission (records personally reviewed ) with the intent of guiding future care decisions, however, this proved difficult and not much progress was made. Patient is A&Ox1-2 currently, which seems to be fairly close to baseline from review of records. - CM consult placed Diet - Regular, SINK MAKER eval ordered Code - Full, reviewed MOST form Ppx - SCDs Dispo - Admit to inpatient status noting need for IV antibiotics and complex medical decision making surrounding dementia and legal status
--- NOTE | 2017-02-15 01:31 | PDMN ---
Medical Necessity Medical necessity: C/M review: est. > 2 MN LOS for eval and TX of acute presumed pneumonia, elevated WBC, acute on chronic hypoxic respiratory failure requiring ongoing IV Cefepime, IV Vancomycin, pulse oximetry, supplemental O2, acute inpt ST, comorbid recent hospitalization for acute hypoxic respiratory failure, pneumonia treated with course of IV Ceftriaxone, IV Azithramycin, insulin dependent type 2 diabetes, chronic aspiration, dementia per H/P.
[2017-02-15 04:08] LABS: ADD DIFF? YES; ADD MORPH? NO; ADD SCAN? NO; ATYPICAL LYMPHOCYTE FLAG 0 (0-99); FRAGMENT RBC FLAG 0 (0-99); HEMATOCRIT 28.5 % (38.0-47.0); HEMOGLOBIN 9.9 g/dL (12.6-16.3); LEFT SHIFT FLG 20 (0-99); LIPEMIA HEMOLYSIS FLAG 90 (0-99); MEAN CELL HEMOGLOBIN 30.9 pg (27.9-34.1); MEAN CELL HEMOGLOBIN CONCENTR. 34.7 g/dL (32.4-36.7); MEAN CELL VOLUME 89.1 fL (81.5-99.8); MEAN PLATELET VOLUME 8.9 fL (8.7-11.7); PLATELET CLUMPS FLAG 0 (0-99); PLATELET COUNT 264 10^3/uL (150-400); RED CELL DISTRIBUTION WIDTH 12.7 % (11.5-15.2)
[2017-02-15 04:37] LABS: HYPOCHROMIA 1+; MICROCYTES 1+; PLATELET ESTIMATE ADEQUATE (ADEQ)
[2017-02-15 04:45] LABS: ANION GAP 10 mEq/L (8-16); CALCIUM 8.3 mg/dL (8.5-10.4); CARBON DIOXIDE 25 mEq/l (22-31); CHLORIDE 100 mEq/L (97-110); CREATININE 0.6 mg/dL (0.6-1.0); GLOMERULAR FILTRATION RATE > 60; GLUCOSE 190 mg/dL (70-100); POTASSIUM 4.2 mEq/L (3.5-5.2); SODIUM 135 mEq/L (134-144)
[2017-02-15] MEDS: CEFEPIME HCL 2 GM in D5W 100 ML IV SCH ×3 (04:53→20:33)
[2017-02-15 05:19] LABS: PROCALCITONIN 0.11 ng/mL (0.02-0.10)
[2017-02-15] MEDS: ACETAMINOPHEN 325 MG TAB PO PRN ×2 (10:51→18:34)
[2017-02-15] MEDS: VANCOMYCIN 1 GM in D5W 250 ML IV SCH (10:52)
[2017-02-15] MEDS: INSULIN LISPRO 100 UNIT/ML SC SCH ×3 (10:52→18:34)
--- NOTE | 2017-02-15 11:57 | ASMTCMCOM ---
CM Note CM Note Notes: Chart reviewed. Patient from [facility]. Needs unclear at this point. Anticipate return to [facility] when medically stable for discharge. CM to follow. Date Signed: 02/15/2017 11:57 AM Electronically Signed By:Cammy Wall RN
[2017-02-15] MEDS ORDERED: SODIUM CL NASAL 45 ML BTL NS PRN (13:27)
[2017-02-15] MEDS ORDERED: MELATONIN 3 MG TAB PO PRN (13:27)
[2017-02-15] MEDS ORDERED: SODIUM CL NASAL GEL 14.1 GM TUBE TP PRN (13:27)
--- NOTE | 2017-02-15 15:33 | HOSPPROG ---
Hospitalist Progress Note Assessment/Plan: * Recurrent aspiration PNA -known non-compliance with dietary modification per ST -Cefepime + Flagyl -palliative care consultation due to frequent recurrent aspiration pneumonias - may be more appropriate for DNR * Acute respiratory failure * Advanced dementia with acute metabolic encephalopathy -patient is a tavera of [facility] which makes decision making more difficult -d/w Kaelyn Santana PULLING MACHINE OPERATOR palliative care - last admit court appointed guardian could not be located * DM II -Lantus * Dysphagia -nectar thick liquids * s/p TAVR Subjective: Very confused Objective: Vital Signs Temp Pulse Resp BP Pulse Ox 36.1 C 89 24 H 136/72 H 95 02/15/17 11:41 02/15/17 11:41 02/15/17 11:41 02/15/17 11:41 02/15/17 11:41 Laboratory Results 02/15/17 03:50 02/15/17 03:50 02/14/17 02/15/17 02/16/17 05:59 05:59 05:59 Intake Total 2490 Balance 2490 PT 14.5 SEC (12.0-15.0) 02/14/17 18:45 INR 1.14 (0.83-1.16) 02/14/17 18:45 CXR viewed, my personal interpretation is - minimal infiltrate - Physical Exam Constitutional: no apparent distress, appears nourished, not in pain Cardiovascular: regular rate and rhythym, no murmur, rub, or gallop Respiratory: no respiratory distress, no rales or rhonchi, clear to auscultation Gastrointestinal: normoactive bowel sounds, soft, non-tender abdomen, no palpable masses Skin: no rashes or abrasions, no fluctuance, no induration Neurologic: No AAOx3 Psychiatric: encephalopathic, agitated, poor insight, poor judgement, poor memory, No interacting appropriately, No thought process linear ICD10 Worksheet Patient Problems: Problems Problem Status Onset Pneumonia Acute Severe sepsis Acute Altered mental status Acute Palliative care encounter Acute Sepsis Acute Septic shock Acute Urinary tract infection Acute
[2017-02-15] MEDS: metroNIDAZOLE 500 MG TAB PO SCH ×2 (15:36→20:33)
[2017-02-15] MEDS: DIVALPROEX NA 125 MG CAP.SPRINKLE PO SCH ×2 (15:36→20:34)
[2017-02-15 18:13] LABS: COLOR AMBER; LEUKOCYTE ESTERASE,URINE 3+ (NEGATIVE); NITRITE,URINE NEGATIVE (NEGATIVE)
[2017-02-15 18:27] LABS: MUCUS TRACE /lpf (NONE-1+); RBC,URINE 50-182 /hpf (0-3); WBC,URINE 50-182 /hpf (0-3); YEAST PRESENT /hpf (NONE SEEN)
[2017-02-15] MEDS: OLANZapine 10 MG TAB PO SCH (20:33)
[2017-02-15] MEDS: OLANZapine 2.5 MG TAB PO SCH (20:33)
[2017-02-15] MEDS: INSULIN GLARGINE 100 UNITS/ML SYRINGE SC SCH (21:51)
[2017-02-15] MEDS: traZODone 50 MG TAB PO PRN (21:51)
[2017-02-16] MEDS: CEFEPIME HCL 2 GM in D5W 100 ML IV SCH ×3 (05:11→21:18)
[2017-02-16 05:28] LABS: % IMMATURE GRANULYOCYTES 1.2 % (0.0-1.1); ABSOLUTE IMMATURE GRANULOCYTES 0.28 10^3/uL (0.00-0.10); ADD DIFF? NO; ADD MORPH? NO; ADD SCAN? NO; ATYPICAL LYMPHOCYTE FLAG 0 (0-99); FRAGMENT RBC FLAG 0 (0-99); HEMATOCRIT 28.6 % (38.0-47.0); HEMOGLOBIN 9.7 g/dL (12.6-16.3); LEFT SHIFT FLG 20 (0-99); LIPEMIA HEMOLYSIS FLAG 90 (0-99); MEAN CELL HEMOGLOBIN 29.8 pg (27.9-34.1); MEAN CELL HEMOGLOBIN CONCENTR. 33.9 g/dL (32.4-36.7); MEAN CELL VOLUME 87.7 fL (81.5-99.8); MEAN PLATELET VOLUME 8.9 fL (8.7-11.7); PLATELET CLUMPS FLAG 0 (0-99); PLATELET COUNT 236 10^3/uL (150-400); RED BLOOD CELL COUNT 3.26 10^6/uL (4.18-5.33); RED CELL DISTRIBUTION WIDTH 12.6 % (11.5-15.2)
[2017-02-16 06:03] LABS: ANION GAP 6 mEq/L (8-16); CALCIUM 8.1 mg/dL (8.5-10.4); CARBON DIOXIDE 26 mEq/l (22-31); CHLORIDE 97 mEq/L (97-110); CREATININE 0.5 mg/dL (0.6-1.0); GLOMERULAR FILTRATION RATE > 60; GLUCOSE 146 mg/dL (70-100); POTASSIUM 4.2 mEq/L (3.5-5.2); SODIUM 129 mEq/L (134-144)
[2017-02-16] MEDS: INSULIN LISPRO 100 UNIT/ML SC SCH ×3 (07:30→18:49)
[2017-02-16] MEDS ORDERED: CYANOCOBALAMIN 2500 MCG SL SCH (09:00)
[2017-02-16] MEDS ORDERED: NON-FORMULARY NEW DRUG (Ranitidine Hcl [Zantac] 150 MG) PO SCH (09:00)
[2017-02-16] MEDS: ACETAMINOPHEN 325 MG TAB PO PRN (11:21)
[2017-02-16] MEDS: ENOXAPARIN 40 MG/0.4 ML SYR SC SCH (11:21)
[2017-02-16] MEDS: ASPIRIN EC 81 MG TAB PO SCH (11:22)
[2017-02-16] MEDS: CLOPIDOGREL BISULFATE 75 MG TAB PO SCH (11:22)
[2017-02-16] MEDS: DIVALPROEX NA 125 MG CAP.SPRINKLE PO SCH ×3 (11:22→21:02)
[2017-02-16] MEDS: FAMOTIDINE 20 MG TAB PO SCH (11:23)
[2017-02-16] MEDS: LOSARTAN POTASSIUM 25 MG TAB PO SCH (11:23)
[2017-02-16] MEDS: metroNIDAZOLE 500 MG TAB PO SCH ×2 (11:46→16:33)
--- NOTE | 2017-02-16 15:01 | HOSPPROG ---
Hospitalist Progress Note Assessment/Plan: * Recurrent aspiration PNA -known non-compliance with dietary modification per ST -Cefepime + Flagyl -palliative care consultation due to frequent recurrent aspiration pneumonias - may be more appropriate for DNR * Acute respiratory failure * Advanced dementia with acute metabolic encephalopathy -patient is a tavera of [facility] which makes decision making more difficult -last admit court appointed guardian could not be located * DM II -Lantus * Dysphagia -nectar thick liquids * s/p TAVR * 03/30 BC positive - suspect contaminant * Leukocytosis -await urine culture -consider further imaging if continues to worsen Subjective: somnolent after trazadone last night, per nursing was awake and animated yesterday afternoon Objective: Vital Signs Temp Pulse Resp BP Pulse Ox 37.5 C 99 24 H 135/79 H 93 02/16/17 11:06 02/16/17 11:06 02/16/17 11:06 02/16/17 11:06 02/16/17 11:06 Laboratory Results 02/16/17 05:10 02/16/17 05:10 02/15/17 02/16/17 02/17/17 05:59 05:59 05:59 Intake Total 2490 1230 120 Balance 2490 1230 120 PT 14.5 SEC (12.0-15.0) 02/14/17 18:45 INR 1.14 (0.83-1.16) 02/14/17 18:45 - Physical Exam Constitutional: no apparent distress, appears nourished, not in pain Cardiovascular: regular rate and rhythym, no murmur, rub, or gallop Respiratory: no respiratory distress, no rales or rhonchi, clear to auscultation Gastrointestinal: normoactive bowel sounds, soft, non-tender abdomen, no palpable masses Skin: no rashes or abrasions, no fluctuance, no induration Neurologic: No AAOx3 Psychiatric: encephalopathic, poor insight, poor judgement, poor memory, No interacting appropriately, No agitated ICD10 Worksheet Patient Problems: Problems Problem Status Onset Pneumonia Acute Severe sepsis Acute Altered mental status Acute Palliative care encounter Acute Sepsis Acute Septic shock Acute Urinary tract infection Acute
[2017-02-16 19:55] LABS: ADD MORPH? NO; ADD SCAN? NO; ATYPICAL LYMPHOCYTE FLAG 0 (0-99); FRAGMENT RBC FLAG 0 (0-99); LEFT SHIFT FLG 30 (0-99)
[2017-02-16 20:02] LABS: % IMMATURE GRANULYOCYTES 1.3 % (0.0-1.1); ABSOLUTE IMMATURE GRANULOCYTES 0.29 10^3/uL (0.00-0.10); ADD DIFF? NO; HEMATOCRIT 27.9 % (38.0-47.0); HEMOGLOBIN 9.4 g/dL (12.6-16.3); LIPEMIA HEMOLYSIS FLAG 80 (0-99); MEAN CELL HEMOGLOBIN 29.6 pg (27.9-34.1); MEAN CELL HEMOGLOBIN CONCENTR. 33.7 g/dL (32.4-36.7); MEAN CELL VOLUME 87.7 fL (81.5-99.8); MEAN PLATELET VOLUME 9.2 fL (8.7-11.7); PLATELET CLUMPS FLAG 0 (0-99); PLATELET COUNT 232 10^3/uL (150-400); RED BLOOD CELL COUNT 3.18 10^6/uL (4.18-5.33); RED CELL DISTRIBUTION WIDTH 12.5 % (11.5-15.2)
[2017-02-16] MEDS: VANCOMYCIN 750 MG in D5W 150 ML IV SCH (20:09)
[2017-02-16 20:10] LABS: ALANINE AMINOTRANSFERASE 20 IU/L (9-52); ALBUMIN 2.3 g/dL (3.5-5.0); ALKALINE PHOSPHATASE 68 IU/L (38-126); ANION GAP 8 mEq/L (8-16); ASPARTATE AMINOTRANSFERASE 23 IU/L (14-46); BILIRUBIN,TOTAL 0.5 mg/dL (0.1-1.4); CARBON DIOXIDE 27 mEq/l (22-31); CHLORIDE 96 mEq/L (97-110); CREATININE 0.5 mg/dL (0.6-1.0); GLOMERULAR FILTRATION RATE > 60; GLUCOSE 159 mg/dL (70-100); POTASSIUM 3.7 mEq/L (3.5-5.2); SODIUM 131 mEq/L (134-144); TOTAL PROTEIN 5.5 g/dL (6.3-8.2)
--- NOTE | 2017-02-16 20:55 | HOSPPROG ---
Hospitalist Progress Note Assessment/Plan: Called by RN re: concerns of aspiration despite adhering to the honey-thick CLINICAL RESEARCH COORDINATOR recs, patient appeared to be aspirating to RN. - o2 requirements unchanged, VSS - evaluated patient, poor insp effort, no wheezes or upper airway sounds, heart rhythm regular, AAOx2 (person and place), follows some commands - reviewed daily progress note, labs, micro results - unclear as to the meaning of the GPC clusters on BCx but negative PCR ( perhaps the specific type of staph is not one on the PCR list?), so gave dose of Vanco for empiric coverage if this is a true infxn w/ ongoing WBC 23K - made patient complete NPO, no PO Rx, needs CLINICAL RESEARCH COORDINATOR reassessment in AM - adjusted flagyl to IV q8, OK to hold other non-essential PO home Rx this evening - recheck WBC in AM - does not require repeat CXR or diuresis at this time Objective: Vital Signs Temp Pulse Resp BP Pulse Ox 36.6 C 95 16 107/58 L 89 L 02/16/17 20:00 02/16/17 20:00 02/16/17 20:00 02/16/17 20:00 02/16/17 20:00 Laboratory Results 02/16/17 19:40 02/16/17 19:40 02/15/17 02/16/17 02/17/17 05:59 05:59 05:59 Intake Total 2490 1230 440 Balance 2490 1230 440 PT 14.5 SEC (12.0-15.0) 02/14/17 18:45 INR 1.14 (0.83-1.16) 02/14/17 18:45 ICD10 Worksheet Patient Problems: Problems Problem Status Onset Sepsis Acute Septic shock Acute Urinary tract infection Acute Palliative care encounter Acute Altered mental status Acute Pneumonia Acute Severe sepsis Acute
[2017-02-16] MEDS: OLANZapine 2.5 MG TAB PO SCH (21:02)
[2017-02-16] MEDS: OLANZapine 10 MG TAB PO SCH (21:02)
[2017-02-16] MEDS: INSULIN GLARGINE 100 UNITS/ML SYRINGE SC SCH (21:19)
[2017-02-17] MEDS: CEFEPIME HCL 2 GM in D5W 100 ML IV SCH ×3 (05:08→22:04)
[2017-02-17 05:50] LABS: ADD DIFF? YES; ADD MORPH? NO; ADD SCAN? NO; ATYPICAL LYMPHOCYTE FLAG 0 (0-99); FRAGMENT RBC FLAG 0 (0-99); HEMATOCRIT 26.9 % (38.0-47.0); LEFT SHIFT FLG 20 (0-99); LIPEMIA HEMOLYSIS FLAG 80 (0-99); MEAN CELL HEMOGLOBIN 29.3 pg (27.9-34.1); MEAN CELL HEMOGLOBIN CONCENTR. 33.5 g/dL (32.4-36.7); MEAN CELL VOLUME 87.6 fL (81.5-99.8); MEAN PLATELET VOLUME 9.2 fL (8.7-11.7); PLATELET CLUMPS FLAG 10 (0-99); PLATELET COUNT 235 10^3/uL (150-400); RED BLOOD CELL COUNT 3.07 10^6/uL (4.18-5.33); RED CELL DISTRIBUTION WIDTH 12.7 % (11.5-15.2)
[2017-02-17 05:51] LABS: ANION GAP 5 mEq/L (8-16); CALCIUM 8.1 mg/dL (8.5-10.4); CARBON DIOXIDE 27 mEq/l (22-31); CHLORIDE 100 mEq/L (97-110); CREATININE 0.5 mg/dL (0.6-1.0); GLOMERULAR FILTRATION RATE > 60; GLUCOSE 108 mg/dL (70-100); POTASSIUM 3.6 mEq/L (3.5-5.2); SODIUM 132 mEq/L (134-144)
[2017-02-17 06:40] LABS: PLATELET ESTIMATE ADEQUATE (ADEQ)
[2017-02-17] MEDS: INSULIN LISPRO 100 UNIT/ML SC SCH ×3 (07:59→17:22)
[2017-02-17] MEDS: VANCOMYCIN 750 MG in D5W 150 ML IV SCH (08:30)
[2017-02-17] MEDS: ENOXAPARIN 40 MG/0.4 ML SYR SC SCH (09:56)
[2017-02-17] MEDS ORDERED: IOPAMIDOL (ISOVUE-300) 100 ML BTL ONE (10:51)
--- NOTE | 2017-02-17 11:11 | ASMTCMCOM ---
CM Note CM Note Notes: 02/17/2017 Case Management Note Discussed case with Kaelyn from Palliative. Please see Palliative note. Pt has a state appointed guardian Charlene Nayana from the [facility] Department of Human Services. Adali Murphy is pt [facility] Transfer Station Attendant and can be reached at [phone]. Lemuel Gibson is the Adult Protection Building Services Supervisor and can be reached at [phone]. Per the documentation in the chart, medical decisions that are non emergent will be answered M - F from 8:00 am to 5:00 pm by the [facility] team members. There is an convention services director case management assistant available for emergent decisions during non business hours. Charlene Kraus can be reached for emergencies that happen after business hours on her personal celll phone at [phone]. Other emergency contact numbers can be found in the chart. There is a completed MOST form in the chart. Case Management d/c poc: pt to return to [facility] where she resides when medically stable. Case Management available if needs change. Date Signed: 02/17/2017 11:10 AM Electronically Signed By:Valerie Stover RN
[2017-02-17] MEDS: CLOPIDOGREL BISULFATE 75 MG TAB PO SCH (11:21)
[2017-02-17] MEDS: ASPIRIN EC 81 MG TAB PO SCH (11:21)
[2017-02-17] MEDS: FAMOTIDINE 20 MG TAB PO SCH (11:22)
[2017-02-17] MEDS: DIVALPROEX NA 125 MG CAP.SPRINKLE PO SCH ×3 (11:22→22:05)
[2017-02-17] MEDS: LOSARTAN POTASSIUM 25 MG TAB PO SCH (11:22)
--- NOTE | 2017-02-17 13:03 | PDPCPN ---
Palliative Care Progress Note Assessment/Plan: Referring provider: Dr Montano Reason for consult: Complex medical decision making Symptom control HPI: Veronica Das is a 67 yo with PMH dementia, DM, recent TVAR, and now recurrent aspiration PNA with known non compliance of diet modifications admitted to the hospital from [facility] for leukocytosis. Recent discharge 1 week prior after being treated for ACHF, aspiration PNA, and rhinovirus. Here being treated for presumed recurrent aspiration PNA. Has been followed by speech in the past with recommendations for nectar thick liquids which Veronica does not like or always follow. Palliative care consulted for complex medical decision making. Spoke with State Guardian office Adali on Monday. She stated the caseworkers can help with coordination but all medical decisions are made by the director which is Charlene Warner. She is available for emergency decisions if needed but will have the telephonic case manager follow up on monday for general and routine care. Explained the medical recommendation for DNR/DNI if allowing for oral intake with previously stated no artificial nutrition on her MOST form. Assessment: Physical: - Pain: appears comfortable -tylenol PRN - Dyspnea: - - weakness - nursing support Emotional/psychological: dementia: on scheduled depakote and zyprexa Advanced Care Planning: Is patient decisional?: No Code Status: Full- no artifical nutrition by tube POA: State guardian [facility] Plan: State guardian is available for emergencies over the weekend. Will follow up with guardian on Monday. Will need discussion on MOST form if goal is still to allow for feeding without artificial nutrition. 02/17/17 13:27 Subjective: sleeping Objective: Social History: Lives at [facility]. Was living in [facility] up until March. Has 5 family members local but estranged from all of them. Medication list reviewed ROS: General: fatigue, weakness ENT: dysphagia Resp: dyspnea, cough GI: poor appetite : negative MS: negative Skin: negative Neuro: negative Psych: confusion Functional assessment: PPS: 30% Functional status: dependent on ADLs, IADLs Vital Signs Temp Pulse Resp BP Pulse Ox 37.1 C 88 19 150/78 H 90 L 02/17/17 08:00 02/17/17 08:00 02/17/17 08:00 02/17/17 08:00 02/17/17 08:00 Laboratory Results 02/17/17 05:12 02/17/17 05:12 02/16/17 02/17/17 02/18/17 05:59 05:59 05:59 Intake Total 1230 640 Balance 1230 640 PT 14.5 SEC (12.0-15.0) 02/14/17 18:45 INR 1.14 (0.83-1.16) 02/14/17 18:45 Physical Exam - Physical Exam General Appearance: no apparent distress, other (sleeping) Respiratory: other (tachypenic), No respiratory distress, No accessory muscle use Skin: normal color, warm/dry Extremities: No pedal edema ICD10 Worksheet Patient Problems: Problems Problem Status Onset Pneumonia Acute Severe sepsis Acute Altered mental status Acute Palliative care encounter Acute Sepsis Acute Septic shock Acute Urinary tract infection Acute
[2017-02-17] MEDS: ACETAMINOPHEN 325 MG TAB PO PRN (15:49)
--- NOTE | 2017-02-17 16:06 | HOSPPROG ---
Hospitalist Progress Note Assessment/Plan: * Severe sepsis (POA) -persistent severe leukocytosis and encephalopathy, lactate improved -CT unremarkable -BC most c/w contaminant - DC Vanco -suspect PNA as source * Recurrent aspiration PNA -known non-compliance with dietary modification per ST -Cefepime + Flagyl -palliative care consultation due to frequent recurrent aspiration pneumonias - may be more appropriate for DNR * Acute respiratory failure * Advanced dementia with acute metabolic encephalopathy -patient is a tavera of [facility] * DM II -Lantus * Dysphagia -nectar thick liquids - now NPO due to poor mental status * s/p TAVR * Severe metabolic encephalopathy Subjective: Mental status remains very poor, minimamally responsive Objective: Vital Signs Temp Pulse Resp BP Pulse Ox 37.1 C 88 19 150/78 H 90 L 02/17/17 08:00 02/17/17 08:00 02/17/17 08:00 02/17/17 08:00 02/17/17 08:00 Laboratory Results 02/17/17 05:12 02/17/17 05:12 02/16/17 02/17/17 02/18/17 05:59 05:59 05:59 Intake Total 1230 640 Balance 1230 640 PT 14.5 SEC (12.0-15.0) 02/14/17 18:45 INR 1.14 (0.83-1.16) 02/14/17 18:45 CT head/chest/abd/pelvis - no occult infection, some PNA d/w Kaelyn Santana THERAPY COORDINATOR - have contacted [facility] - decision maker for patient out until monday - Physical Exam Constitutional: no apparent distress, appears nourished, not in pain Cardiovascular: regular rate and rhythym, no murmur, rub, or gallop Respiratory: no respiratory distress, no rales or rhonchi, clear to auscultation Gastrointestinal: normoactive bowel sounds, soft, non-tender abdomen, no palpable masses Skin: no rashes or abrasions, no fluctuance, no induration Neurologic: No AAOx3 Psychiatric: encephalopathic, poor insight, poor judgement, poor memory, No agitated ICD10 Worksheet Patient Problems: Problems Problem Status Onset Pneumonia Acute Severe sepsis Acute Altered mental status Acute Palliative care encounter Acute Sepsis Acute Septic shock Acute Urinary tract infection Acute
[2017-02-17] MEDS: OLANZapine 10 MG TAB PO SCH (22:04)
[2017-02-17] MEDS: OLANZapine 2.5 MG TAB PO SCH (22:04)
[2017-02-17] MEDS: INSULIN GLARGINE 100 UNITS/ML SYRINGE SC SCH (22:05)
[2017-02-18] MEDS: CEFEPIME HCL 2 GM in D5W 100 ML IV SCH ×3 (05:33→22:08)
[2017-02-18 06:00] LABS: ADD DIFF? YES; ADD MORPH? NO; ADD SCAN? NO; ATYPICAL LYMPHOCYTE FLAG 30 (0-99); FRAGMENT RBC FLAG 0 (0-99); HEMATOCRIT 26.8 % (38.0-47.0); HEMOGLOBIN 9.4 g/dL (12.6-16.3); LEFT SHIFT FLG 20 (0-99); LIPEMIA HEMOLYSIS FLAG 90 (0-99); MEAN CELL HEMOGLOBIN 30.4 pg (27.9-34.1); MEAN CELL HEMOGLOBIN CONCENTR. 35.1 g/dL (32.4-36.7); MEAN CELL VOLUME 86.7 fL (81.5-99.8); MEAN PLATELET VOLUME 9.2 fL (8.7-11.7); PLATELET CLUMPS FLAG 0 (0-99); PLATELET COUNT 263 10^3/uL (150-400); RED BLOOD CELL COUNT 3.09 10^6/uL (4.18-5.33); RED CELL DISTRIBUTION WIDTH 12.9 % (11.5-15.2)
[2017-02-18 06:15] LABS: ANION GAP 9 mEq/L (8-16); CALCIUM 8.3 mg/dL (8.5-10.4); CARBON DIOXIDE 27 mEq/l (22-31); CHLORIDE 99 mEq/L (97-110); CREATININE 0.5 mg/dL (0.6-1.0); GLOMERULAR FILTRATION RATE > 60; GLUCOSE 135 mg/dL (70-100); POTASSIUM 3.6 mEq/L (3.5-5.2); SODIUM 135 mEq/L (134-144)
[2017-02-18 06:32] LABS: HYPOCHROMIA 1+; PLATELET ESTIMATE ADEQUATE (ADEQ); POLYCHROMASIA 1+
[2017-02-18] MEDS: INSULIN LISPRO 100 UNIT/ML SC SCH ×3 (09:58→18:00)
[2017-02-18] MEDS: ENOXAPARIN 40 MG/0.4 ML SYR SC SCH (10:11)
[2017-02-18] MEDS: FAMOTIDINE 20 MG TAB PO SCH (10:56)
[2017-02-18] MEDS: LOSARTAN POTASSIUM 25 MG TAB PO SCH (10:56)
[2017-02-18] MEDS: ASPIRIN EC 81 MG TAB PO SCH (10:57)
[2017-02-18] MEDS: DIVALPROEX NA 125 MG CAP.SPRINKLE PO SCH ×3 (10:57→22:22)
[2017-02-18] MEDS: CLOPIDOGREL BISULFATE 75 MG TAB PO SCH (10:57)
--- NOTE | 2017-02-18 17:01 | HOSPPROG ---
Hospitalist Progress Note Assessment/Plan: * Severe sepsis (POA) -persistent severe leukocytosis and encephalopathy, lactate improved -CT unremarkable -BC most c/w contaminant - DC Vanco -query recurrent aspiration PNA as source - minimal infiltrate on ct -consider lorena glabrata UTI - d/w Dr. Daniels * Recurrent aspiration PNA -known non-compliance with dietary modification per ST -Cefepime + Flagyl -palliative care consultation due to frequent recurrent aspiration pneumonias - may be more appropriate for DNR * Acute respiratory failure * Advanced dementia with acute metabolic encephalopathy -patient is a tavera of [facility] * DM II -Lantus * Dysphagia -nectar thick liquids - now NPO due to poor mental status * s/p TAVR * Severe metabolic encephalopathy Subjective: mental status a little better today Objective: Vital Signs Temp Pulse Resp BP Pulse Ox 36.6 C 87 18 133/77 H 92 02/18/17 08:00 02/18/17 08:00 02/18/17 08:00 02/18/17 08:00 02/18/17 08:00 Microbiology 02/15/17 18:30 Urine Culture - Final Urine,Clean Catch Lorena Glabrata Laboratory Results 02/18/17 05:40 02/18/17 05:40 02/17/17 02/18/17 02/19/17 05:59 05:59 05:59 Intake Total 640 1300 440 Balance 640 1300 440 PT 14.5 SEC (12.0-15.0) 02/14/17 18:45 INR 1.14 (0.83-1.16) 02/14/17 18:45 tele reviewed - NSR - Physical Exam Constitutional: no apparent distress, appears nourished, not in pain Cardiovascular: regular rate and rhythym, no murmur, rub, or gallop Respiratory: no respiratory distress, no rales or rhonchi, clear to auscultation Gastrointestinal: normoactive bowel sounds, soft, non-tender abdomen, no palpable masses Skin: no rashes or abrasions, no fluctuance, no induration Neurologic: No AAOx3 Psychiatric: encephalopathic, poor insight, poor judgement, poor memory, other ( a little more awake today), No interacting appropriately ICD10 Worksheet Patient Problems: Problems Problem Status Onset Pneumonia Acute Severe sepsis Acute Altered mental status Acute Palliative care encounter Acute Sepsis Acute Septic shock Acute Urinary tract infection Acute
[2017-02-18] MEDS: INSULIN GLARGINE 100 UNITS/ML SYRINGE SC SCH (22:08)
[2017-02-18] MEDS: OLANZapine 10 MG TAB PO SCH (22:22)
[2017-02-18] MEDS: OLANZapine 2.5 MG TAB PO SCH (22:22)
[2017-02-19] MEDS: CEFEPIME HCL 2 GM in D5W 100 ML IV SCH (04:32)
[2017-02-19 04:54] LABS: % IMMATURE GRANULYOCYTES 1.4 % (0.0-1.1); ABSOLUTE IMMATURE GRANULOCYTES 0.13 10^3/uL (0.00-0.10); ADD DIFF? NO; ADD MORPH? NO; ADD SCAN? NO; ATYPICAL LYMPHOCYTE FLAG 20 (0-99); FRAGMENT RBC FLAG 0 (0-99); HEMATOCRIT 26.6 % (38.0-47.0); HEMOGLOBIN 9.1 g/dL (12.6-16.3); LEFT SHIFT FLG 20 (0-99); LIPEMIA HEMOLYSIS FLAG 90 (0-99); MEAN CELL HEMOGLOBIN 29.9 pg (27.9-34.1); MEAN CELL HEMOGLOBIN CONCENTR. 34.2 g/dL (32.4-36.7); MEAN CELL VOLUME 87.5 fL (81.5-99.8); MEAN PLATELET VOLUME 9.1 fL (8.7-11.7); PLATELET CLUMPS FLAG 0 (0-99); PLATELET COUNT 289 10^3/uL (150-400); RED BLOOD CELL COUNT 3.04 10^6/uL (4.18-5.33); RED CELL DISTRIBUTION WIDTH 13.2 % (11.5-15.2)
[2017-02-19 05:00] LABS: ANION GAP 10 mEq/L (8-16); CALCIUM 8.1 mg/dL (8.5-10.4); CARBON DIOXIDE 27 mEq/l (22-31); CHLORIDE 102 mEq/L (97-110); CREATININE 0.5 mg/dL (0.6-1.0); GLOMERULAR FILTRATION RATE > 60; GLUCOSE 120 mg/dL (70-100); POTASSIUM 3.2 mEq/L (3.5-5.2); SODIUM 139 mEq/L (134-144)
[2017-02-19 09:47] VITALS: TEMP 97.8
[2017-02-19] MEDS: ASPIRIN EC 81 MG TAB PO SCH (09:56)
[2017-02-19] MEDS: DIVALPROEX NA 125 MG CAP.SPRINKLE PO SCH (09:56)
[2017-02-19] MEDS: CLOPIDOGREL BISULFATE 75 MG TAB PO SCH (09:56)
[2017-02-19] MEDS: FAMOTIDINE 20 MG TAB PO SCH (09:56)
[2017-02-19] MEDS: ENOXAPARIN 40 MG/0.4 ML SYR SC SCH (09:56)
[2017-02-19] MEDS: INSULIN LISPRO 100 UNIT/ML SC SCH ×2 (10:23→13:16)
--- NOTE | 2017-02-19 10:24 | PDIAF ---
- Diagnosis Diagnosis: Recurrent aspiration pneumonia Code Status: Full Code - Medication Management Discharge Medications: Medications to Continue on Transfer Losartan Potassium [Cozaar 25 mg (*)] 25 mg PO DAILY 12/16/16 [Last Taken ] OLANZapine [ZyPREXA 2.5 mg (*)] 2.5 mg PO HS 12/16/16 [Last Taken 02/13/17] OLANZapine [Zyprexa] 10 mg PO HS 12/16/16 [Last Taken 02/13/17] Aspirin EC [Aspirin EC 81 mg (*)] 81 mg PO DAILY 12/17/16 [Last Taken 02/13/17] Clopidogrel Bisulfate [Plavix (*)] 75 mg PO DAILY 12/17/16 [Last Taken 02/13/17] Furosemide [Lasix 40 MG (*)] 40 mg PO DAILY 12/17/16 [Last Taken 02/13/17] Ranitidine HCl [Zantac] 150 mg PO DAILY 12/18/16 [Last Taken 02/13/17] Multivitamins W-Minerals [Thera M Plus Tablet (*)] 1 each PO DAILY tab [Last Taken 02/13/17] Acetaminophen [Tylenol 325mg (*)] 650 mg PO Q6 PRN 02/04/17 [Last Taken Unknown] Ascorbic Acid [Vitamin C 500 mg (*)] 500 mg PO DAILY 02/04/17 [Last Taken ] Cyanocobalamin (Vitamin B-12) [Vitamin B-12] 2,500 mcg SL DAILY 02/04/17 [Last Taken 02/13/17] Divalproex [Depakote Sprinkle 125 MG (*)] 500 mg PO TID 02/04/17 [Last Taken ] Insulin Glargine [Lantus 100 UNITS/ML (*)] 10 units SC HS 02/04/17 [Last Taken 02/13/17] Melatonin [Melatonin 3 MG (*)] 3 mg PO HS PRN 02/04/17 [Last Taken 02/01/17] Nystatin Powder [Mycostatin Powder] 1 janine TP DAILY PRN 02/04/17 [Last Taken Unknown] Ondansetron Odt [Zofran Odt 4 mg (*)] 4 mg PO Q6 PRN 02/04/17 [Last Taken Unknown] Sodium Chloride/Aloe Vera [Saline Nasal Gel] 1 janine NS Q3 PRN 02/04/17 [Last Taken Unknown] Sodium Cl Nasal [Capac Nash (*)] 1 spray NS Q8 PRN 02/04/17 [Last Taken Unknown ] Ipratropium/Albuterol [Duoneb (*)] 3 ml IH Q6 PRN 02/14/17 [Last Taken Unknown] Potassium Cl [Klor-Con 20 meq (*)] 20 meq PO DAILY 02/14/17 [Last Taken 02/13/17 ] Cefixime [Suprax] 400 mg PO DAILY #7 capsule 02/19/17 [Last Taken Unknown] metroNIDAZOLE [Flagyl 500 mg (*)] 500 mg PO TID #30 tab 02/19/17 [Last Taken Unknown] Superintendent [employer] Antibiotic Stop Date: 02/26/17 Discharge Medications: Refer to the Discharge Home Medication list for PRN reason. - Orders Services needed: Speech Language Pathologist Isolation Type: None Diet Texture: Dysphagia 1 - Pureed, Honey Thick Liquids, Meds Crushed in Puree Equipment: Palliative Care Consult Additional: Recommend discussion with [facility] appointed guardian regarding possible DNR status. Patient has recurrent aspiration pneumonia, non- compliant with dietary restrictions. Recommend DNR. - Follow Up Care Current Providers and Referrals: CHILO CUMMINGS MD [Other] - As per Instructions
[2017-02-19] MEDS: LOSARTAN POTASSIUM 25 MG TAB PO SCH (10:46)
--- NOTE | 2017-02-19 11:06 | ASMTCMCOM ---
CM Note CM Note Notes: Jorge contact information Charlene Bishop [phone]. Adali [phone]. Date Signed: 02/15/2017 01:57 PM Electronically Signed By:Cammy Wall RN
[2017-02-19 12:07] VITALS: BP 142/85; PULSE 95; RESP 16; O2SAT 98
--- NOTE | 2017-02-19 14:00 | ASDISCHSUM ---
Discharge Information Plan Status:SNF Medically Cleared to Leave: Discharge Date:02/19/2017 01:17 PM D/C Disposition:Jail Facility ADT D/C Disposition:Jail Facility Projected Discharge Date:02/20/2017 11:00 AM Transportation at D/C:Wheelchair Van Discharge Delay Reason: Follow-Up Date:02/20/2017 11:00 AM Discharge Slot: Final Diagnosis: Placement Information Referral Type:*[facility]/SNF Referral ID:[id number] Provider Name:Ion Matthews/MAYANK Golden Address 1:[address] Phone Number: Address 2: Fax Number: [facility]:[place] Selection Factors: State:[place] Patient Contact Information Contact Name:FINA Relationship: Address: Work Phone: City: [facility] Phone: [facility] Code: Email: Financial Information Financial Class: Primary Plan Desc:MEDICARE INPATIENT Primary Plan Number:[id number] Secondary Plan Desc:MEDICAID [place] Secondary Plan Number:[id number] Assessment Information LACE LACE Length of stay for Answers: 1 day current admission Acuity / Level of Care Answers: Was the patient admitted to hospital via the emergency department? Yes: Comorbidities - select Answers: Dementia all that apply Emergency dept visits in Answers: 3 last 6 months Score: 10 Date Signed: 02/15/2017 11:46 AM Electronically Signed By:Cammy Wall RN [facility] CM Progress Note CM Note CM Note Notes: Chart reviewed. Patient from [facility]. Needs unclear at this point. Anticipate return to [facility] when medically stable for discharge. CM to follow. Date Signed: 02/15/2017 11:57 AM Electronically Signed By:Cammy Wall RN [facility] CM Progress Note CM Note CM Note Notes: Jorge contact information Charlene Ashtono [phone]. Adali [phone]. Date Signed: 02/15/2017 01:57 PM Electronically Signed By:Cammy Wall RN [facility] CM Progress Note CM Note CM Note Notes: 02/17/2017 Case Management Note Discussed case with Kaelyn from Palliative. Please see Palliative note. Pt has a state appointed guardian Charlene Kraus from the [facility] Department of Human Services. Adali Natehelene is pt [facility] [employer] and can be reached at [phone]. Lemuel Gibson is the Adult Protection Manager [employer] and can be reached at [phone]. Per the documentation in the chart, medical decisions that are non emergent will be answered M - F from 8:00 am to 5:00 pm by the [facility] team members. There is an astronomy professor registered nurse hh case manager available for emergent decisions during non business hours. Charlene Nayana can be reached for emergencies that happen after business hours on her personal celll phone at [phone]. Other emergency contact numbers can be found in the chart. There is a completed MOST form in the chart. Case Management d/c poc: pt to return to [facility] where she resides when medically stable. Case Management available if needs change. Date Signed: 02/17/2017 11:10 AM Electronically Signed By:Valerie Stover RN Case Management Discharge Plan Note Case Management Discharge Discharge Order Complete? Answers: Yes Patient to Obtain Answers: Other Notes: Ion Barnum Medications Transportation Arranged Answers: JOE Thompson Case Management Transport Answers: Yes Form Complete Faxed Final Orders Answers: Yes Agency/Facility Transfer Answers: Yes Report Printed & Faxed to Receiving Agency Discharge Comments Notes: Patient is tavera of [facility] Date Signed: 02/19/2017 11:05 AM Electronically Signed By:Cammy Wall RN Intervention Information
--- NOTE | 2017-02-19 20:57 | GDS ---
[f rep st] DISCHARGE SUMMARY DISCHARGE DIAGNOSES: 1. Recurrent aspiration pneumonia. 2. Severe sepsis. 3. Chronic dysphagia with noncompliance with dietary modifications. 4. Advanced dementia. 5. Acute respiratory failure. 6. Acute metabolic encephalopathy. 7. Diabetes type 2. 8. Status post transcatheter aortic valve replacement. HISTORY: The patient is a 67-year-old female with advanced dementia, living in a fci, with known severe dysphagia for which honey-thick liquids are chronically recommended. She is noncomplian t with these dietary modifications. She presents to the hospital frequently with recurrent aspiratio n pneumonias. Her presentation again this time was for the same. She was quite sick with severe sep sis and a severe persistent metabolic encephalopathy. Eventually, she did improve and was able to to lerate oral intake again with modifications in place. The patient is a tavera of [facility] and cannot make decisions for herself. My opinion is that a DNR COR status should be considered in her, given her advanced debilitated state with recurrent aspirati on pneumonias and inability to follow dietary modifications and understand the consequences, given he r advanced dementia. I think she will continue to have recurrent admissions for aspiration pneumonia and eventually go into a fulminant respiratory failure requiring intubation in the near future. I b linettee DNR would be a more appropriate status for her, given these above conditions. We attempted to contact her guardian through [facility] and were unsuccessful in terms of discussing this with the person who actually had decision-making capabilities. I am recommending upon return to [facility] that Palliative Care continue to be involved and that her physicians at [facility] continue to wo rk with her guardians at [facility] regarding an appropriate COR status. DISCHARGE MEDICATIONS: Please see computerized record for full detailed list. New medications: Antibiotics will be: 1. Cefixime 400 mg p.o. daily for 7 days. 2. Flagyl 500 mg p.o. three times daily for 7 days. ADDITIONAL DISCHARGE INSTRUCTIONS: 1. Dysphagia 1 diet, pureed with honey-thick liquids and medications crushed in puree. 2. Ongoing speech therapy. 3. Palliative Care consultation. 4. Recommend discussion with [facility] appointed guardian regarding possible DNR status. Greater than 30 minutes' time was spent arranging this discharge. Patient seen and examined by me on the day of discharge. /[id number]/MODL
== END 2017-02-19 13:17 | DRG 871 ==
LOC: EDUNIT# → F2W 21:49 → F3E 02-18 20:40
PROVIDERS: ADMIT Hospitalist; ATTEND Hospitalist
PROC: 02HV33Z Insertion of Infusion Device into Superior Vena Cava, Percutaneous Approach (ICD-10-PCS; principal; 2017-02-14)
DX: A41.9 Sepsis, unspecified organism (principal); R65.20 Severe sepsis without septic shock; J69.0 Pneumonitis due to inhalation of food and vomit; J96.00 Acute respiratory failure, unspecified whether with hypoxia or hypercapnia; G93.41 Metabolic encephalopathy; R13.10 Dysphagia, unspecified; Z91.11 Patient's noncompliance with dietary regimen; F03.90 Unspecified dementia, unspecified severity, without behavioral disturbance, psychotic disturbance, mood disturbance, and anxiety; E11.9 Type 2 diabetes mellitus without complications; Z95.2 Presence of prosthetic heart valve
CPT/HCPCS: 92526-GN; 92610-GN; 96374; C1751; G8996-GN-CK; G8997-GN-CK; J0692; J1650; J1815; J1956; J3370; Q9967

== ENCOUNTER 2017-02-25 13:57 | Inpatient (IN) | payer OTHER, MEDICAID ==
--- NOTE | 2017-02-25 13:54 | EDPHY ---
H & P HPI/ROS: CHIEF COMPLAINT: Possible sepsis Limitations: Altered mental status HISTORY OF PRESENT ILLNESS: The patient is a 67 y/o female with a history of recurrent aspiration pneumonia arriving via EMS from [facility] for possible sepsis. She was admitted to this hospital from 02/15/17-02/19/17 for pneumonia and severe sepsis. She was prescribed Cefixime and Flagyl upon discharge. In the last 24 hours her caregivers noticed she stopped eating and had an altered mental status. Associated with persistent cough and fever. She is unable to answer questions and groans to pain stimuli. Prior medical records reviewed including discharge summary from Dr. Gray on , REVIEW OF SYSTEMS: Unable to obtain Past Medical/Surgical History: Dementia, CHF, type 2 diabetes, hypertension, stent LAD Social History: Lives at [facility], single, retired Physical Exam: General Appearance: Obtunded, unable to answer questions, pale Eyes: Pupils equal and round, no conjunctival pallor or injection ENT, Mouth: Mucous membranes dry Neck: Normal inspection Respiratory: Left-sided rales to auscultation Cardiovascular: Irregular tachycardia Gastrointestinal: Abdomen is soft and non-tender Neurological: Groans to pain by stimuli. Skin: Abrasion to right side of chin. Warm and dry, no rash Extremities: Nontender, no pedal edema Psychiatric: Mood and affect normal Constitutional: Initial Vital Signs Temperature (C) 38 C 02/25/17 14:02 Heart Rate 110 H 02/25/17 14:02 Respiratory Rate 22 H 02/25/17 14:02 Blood Pressure 147/89 H 02/25/17 14:02 O2 Sat (%) 86 L 02/25/17 14:02 O2 Delivery Mode Room Air O2 (L/minute) 3 Allergies/Adverse Reactions: Penicillins Allergy (Verified 02/14/17 21:22) Sulfa (Sulfonamide Antibiotics) Allergy (Verified 02/04/17 16:51) Home Medications: Medication Instructions Recorded Losartan Potassium [Cozaar 25 mg 25 mg PO DAILY 12/16/16 (*)] OLANZapine [ZyPREXA 2.5 mg (*)] 2.5 mg PO HS 12/16/16 OLANZapine [Zyprexa] 10 mg PO HS 12/16/16 Aspirin EC [Aspirin EC 81 mg (*)] 81 mg PO DAILY 12/17/16 Clopidogrel Bisulfate [Plavix (*)] 75 mg PO DAILY 12/17/16 Furosemide [Lasix 40 MG (*)] 40 mg PO DAILY 12/17/16 Ranitidine HCl [Zantac] 150 mg PO DAILY 12/18/16 Multivitamins W-Minerals [Thera M 1 each PO DAILY tab 12/19/16 Plus Tablet (*)] Acetaminophen [Tylenol 325mg (*)] 650 mg PO Q6 PRN 02/04/17 Cyanocobalamin (Vitamin B-12) 2,500 mcg SL DAILY 02/04/17 [Vitamin B-12] Insulin Glargine [Lantus 100 10 units SC HS 02/04/17 UNITS/ML (*)] Melatonin [Melatonin 3 MG (*)] 3 mg PO HS PRN 02/04/17 Nystatin Powder [Mycostatin Powder] 1 janine TP DAILY PRN 02/04/17 Ondansetron Odt [Zofran Odt 4 mg 4 mg PO Q6 PRN 02/04/17 (*)] Sodium Chloride/Aloe Vera [Saline 1 janine NS Q3 PRN 02/04/17 Nasal Gel] Sodium Cl Nasal [[place] (*)] 1 spray NS Q8 PRN 02/04/17 Potassium Cl [Klor-Con 20 meq (*)] 20 meq PO DAILY 02/14/17 Cefixime [Suprax] 400 mg PO DAILY #7 capsule 02/19/17 metroNIDAZOLE [Flagyl 500 mg (*)] 500 mg PO TID #30 tab 02/19/17 Ascorbic Acid [Vitamin C 500 mg 500 mg PO DAILY 02/25/17 (*)] Herbals/Supplements -Info Only 1 ea PO DAILY 02/25/17 Medical Decision Making - Diagnostics EKG Interpretation: EKG interpreted by me reveals sinus tachycardia with a rate of 110, normal axis , normal intervals, ST and T segments normal. Interpretation: sinus tachycardia Imaging Results: Imaging Impressions Chest X-Ray 02/25/17 14:04 Impression: Improved aeration in both lower lobes from the comparison chest CT. Opacification remains in the right lower lobe, which could be residual pneumonia or atelectasis. Other chronic findings, as above. Imaging: I viewed and interpreted images myself ED Course/Re-evaluation: The patient is a 67 y/o female with a history of aspiration pneumonia presenting with altered mental status and decreased appetite in the last 24 hours. On exam she has left-sided lung rales, tachycardia, hypoxia and does not answer questions. Likely worsening pneumonia. 1403: Patient's EKG reveals sinus tachycardia Patient's chest x-ray reveals right lower lobe pneumonia. Meets SIRS criteria. Lactate normal, does not meet severe sepsis criteria. IV NS 1 L given. The patient is more vocal after the normal saline, but still not able to answer questions appropriately. Blood cultures drawn and Cefepime 1 g IV ordered. 1518: Spoke to hospitalist service, Dr. Gooden accepts admission of this patient. Abx selection discussed, Dr. Gooden will see the pt and decide on abx choice. The patient was stable throughout her emergency department stay. She will be admitted for pneumonia. Differential Diagnosis: Differential diagnosis includes pyelonephritis, cholecystitis, influenza, cellulitis, pneumonia, abscess, meningitis. - Data Points Laboratory Results: Laboratory Results 02/25/17 15:15 02/25/17 15:15 02/25/17 02/25/17 02/25/17 15:15 15:15 15:15 WBC 17.41 10^3/uL H 10^3/uL (3.80-9.50) RBC 3.63 10^6/uL L 10^6/uL (4.18-5.33) Hgb 10.9 g/dL L g/dL (12.6-16.3) Hct 33.7 % L % (38.0-47.0) MCV 92.8 fL fL (81.5-99.8) MCH 30.0 pg pg (27.9-34.1) MCHC 32.3 g/dL L g/dL (32.4-36.7) RDW 15.1 % % (11.5-15.2) Plt Count 440 10^3/uL H 10^3/uL (150-400) MPV 9.3 fL fL (8.7-11.7) Neut % (Auto) 78.4 % H % (39.3-74.2) Lymph % (Auto) 8.4 % L % (15.0-45.0) Cole % (Auto) 12.0 % % (4.5-13.0) Eos % (Auto) 0.0 % L % (0.6-7.6) Baso % (Auto) 0.5 % % (0.3-1.7) Nucleat RBC Rel Count 0.0 % % (0.0-0.2) Absolute Neuts (auto) 13.63 10^3/uL H 10^3/uL (1.70-6.50) Absolute Lymphs (auto) 1.47 10^3/uL 10^3/uL (1.00-3.00) Absolute Monos (auto) 2.09 10^3/uL H 10^3/uL (0.30-0.80) Absolute Eos (auto) 0.00 10^3/uL L 10^3/uL (0.03-0.40) Absolute Basos (auto) 0.09 10^3/uL 10^3/uL (0.02-0.10) Absolute Nucleated RBC 0.00 10^3/uL 10^3/uL (0-0.01) Immature Gran % 0.7 % % (0.0-1.1) Immature Gran # 0.13 10^3/uL H 10^3/uL (0.00-0.10) VBG Lactic Acid 1.9 mmol/L mmol/L (0.7-2.1) Turbidity Sodium 145 mEq/L H mEq/L (134-144) Potassium 3.9 mEq/L mEq/L (3.5-5.2) Chloride 107 mEq/L mEq/L (97-110) Carbon Dioxide 28 mEq/l mEq/l (22-31) Anion Gap 10 mEq/L mEq/L (8-16) BUN 29 mg/dL H mg/dL (7-23) Creatinine 0.6 mg/dL mg/dL (0.6-1.0) Estimated GFR > 60 Glucose 232 mg/dL H mg/dL (70-100) Calcium 8.6 mg/dL mg/dL (8.5-10.4) Specimen Hemolysis Nasal Influenza A PCR Nasal Influenza B PCR 02/25/17 02/25/17 02/25/17 14:35 14:35 14:35 WBC REJ RBC Not Reported Hgb Not Reported Hct Not Reported MCV Not Reported MCH Not Reported MCHC Not Reported RDW Not Reported Plt Count Not Reported MPV Not Reported Neut % (Auto) Not Reported Lymph % (Auto) Not Reported Cole % (Auto) Not Reported Eos % (Auto) Not Reported Baso % (Auto) Not Reported Nucleat RBC Rel Count Not Reported Absolute Neuts (auto) Not Reported Absolute Lymphs (auto) Not Reported Absolute Monos (auto) Not Reported Absolute Eos (auto) Not Reported Absolute Basos (auto) Not Reported Absolute Nucleated RBC Not Reported Immature Gran % Not Reported Immature Gran # Not Reported VBG Lactic Acid REJ Turbidity TNP Sodium TNP Potassium TNP Chloride TNP Carbon Dioxide TNP Anion Gap TNP BUN TNP Creatinine TNP Estimated GFR TNP Glucose TNP Calcium TNP Specimen Hemolysis REJ Nasal Influenza A PCR Nasal Influenza B PCR 02/25/17 14:20 WBC RBC Hgb Hct MCV MCH MCHC RDW Plt Count MPV Neut % (Auto) Lymph % (Auto) Cole % (Auto) Eos % (Auto) Baso % (Auto) Nucleat RBC Rel Count Absolute Neuts (auto) Absolute Lymphs (auto) Absolute Monos (auto) Absolute Eos (auto) Absolute Basos (auto) Absolute Nucleated RBC Immature Gran % Immature Gran # VBG Lactic Acid Turbidity Sodium Potassium Chloride Carbon Dioxide Anion Gap BUN Creatinine Estimated GFR Glucose Calcium Specimen Hemolysis Nasal Influenza A PCR NEGATIVE FOR FLU A (NEGATIVE) Nasal Influenza B PCR NEGATIVE FOR FLU B (NEGATIVE) Medications Given: Lactated Ringer's (Lr) 1,000 mls @ 75 mls/hr IV CONT BAILEY Stop: 08/24/17 16:29 Last Admin: 02/25/17 17:10 Dose: 1,000 mls Vancomycin HCl 750 mg/ (Dextrose) 150 mls @ 150 mls/hr IV Q12H BAILEY Stop: 03/27/17 16:59 Last Admin: 02/25/17 17:10 Dose: 150 mls Insulin Human Lispro (Humalog Lispro) 0 unit SC TIDMEAL BAILEY PRN Reason: Protocol Stop: 08/24/17 17:59 Last Admin: 02/25/17 18:32 Dose: Not Given Olanzapine (Zyprexa) 2.5 mg PO HS BAILEY Stop: 08/24/17 20:59 Last Admin: 02/25/17 19:27 Dose: Not Given Olanzapine (Zyprexa) 10 mg PO HS BAILEY Stop: 08/24/17 20:59 Last Admin: 02/25/17 19:27 Dose: Not Given Discontinued Medications Acetaminophen (Tylenol Rectal) 650 mg AR EDNOW ONE Stop: 02/25/17 14:14 Last Admin: 02/25/17 14:16 Dose: 650 mg Sodium Chloride (Ns) 1,000 mls @ 0 mls/hr IV ONCE ONE PRN Reason: Wide Open Stop: 02/25/17 14:07 Last Admin: 02/25/17 14:09 Dose: 1,000 mls Cefepime HCl 2 gm/ Dextrose 100 mls @ 200 mls/hr IV EDNOW ONE PRN Reason: Protocol Stop: 02/25/17 15:41 Last Admin: 02/25/17 18:47 Dose: Not Given Departure - Departure Disposition: [facility] Inpatient Acute Clinical Impression: Pneumonia Qualifiers: Pneumonia type: aspiration pneumonia Aspiration pneumonia type: unspecified Laterality: right Lung location: lower lobe of lung Qualified Code(s): J69.0 - Pneumonitis due to inhalation of food and vomit Sepsis Qualifiers: Sepsis type: sepsis due to unspecified organism Qualified Code(s): A41.9 - Sepsis, unspecified organism Condition: Fair Report Scribed for: Ebony Osorio Report Scribed by: Audra Webster Date of Report: 02/25/17 Time of Report: 13:54 Physician Review and Approval Statement: 02/25/17 13:54 Portions of this note were transcribed by a medical receptionist. I personally performed a history, physical exam, medical decision making, and confirmed accuracy of information the transcribed note.
[2017-02-25] MEDS ORDERED: NS 1,000 ML IV ONE (14:06)
--- NOTE | 2017-02-25 14:08 | CPEKG ---
Heart Rate: 110 RR Interval: 545 P-R Interval: 156 QRSD Interval: 76 QT Interval: 324 QTC Interval: 439 P Salado: 16 QRS Salado: -8 T Wave Salado: 124 EKG Severity - ABNORMAL ECG - EKG Impression: SINUS TACHYCARDIA EKG Impression: PROBABLE LVH WITH SECONDARY REPOL ABNRM EKG Impression: INFERIOR INFARCT, AGE INDETERMINATE Electronically Signed By: Ebony Osorio 25-Feb-2017 17:55:03
[2017-02-25] MEDS ORDERED: ACETAMINOPHEN 650 MG SUPP PR ONE (14:13)
[2017-02-25] MEDS ORDERED: CEFEPIME HCL 2 GM in D5W 100 ML IV ONE (15:12)
[2017-02-25] MEDS ORDERED: ONDANSETRON DISINTEGRATING 4 MG TAB PO PRN ×2 (15:31→18:28)
[2017-02-25] MEDS ORDERED: ONDANSETRON 4 MG/2 ML VIAL IVP PRN (15:31)
[2017-02-25] MEDS ORDERED: ACETAMINOPHEN 325 MG TAB PO PRN (15:31)
[2017-02-25 15:32] LABS: % IMMATURE GRANULYOCYTES 0.7 % (0.0-1.1); ABSOLUTE IMMATURE GRANULOCYTES 0.13 10^3/uL (0.00-0.10); ADD DIFF? NO; ADD MORPH? NO; ADD SCAN? NO; ATYPICAL LYMPHOCYTE FLAG 10 (0-99); FRAGMENT RBC FLAG 20 (0-99); HEMATOCRIT 33.7 % (38.0-47.0); HEMOGLOBIN 10.9 g/dL (12.6-16.3); LEFT SHIFT FLG 0 (0-99); LIPEMIA HEMOLYSIS FLAG 80 (0-99); MEAN CELL HEMOGLOBIN CONCENTR. 32.3 g/dL (32.4-36.7); MEAN CELL VOLUME 92.8 fL (81.5-99.8); MEAN PLATELET VOLUME 9.3 fL (8.7-11.7); PLATELET CLUMPS FLAG 0 (0-99); PLATELET COUNT 440 10^3/uL (150-400); RED BLOOD CELL COUNT 3.63 10^6/uL (4.18-5.33); RED CELL DISTRIBUTION WIDTH 15.1 % (11.5-15.2)
[2017-02-25 15:57] LABS: ANION GAP 10 mEq/L (8-16); CALCIUM 8.6 mg/dL (8.5-10.4); CARBON DIOXIDE 28 mEq/l (22-31); CHLORIDE 107 mEq/L (97-110); CREATININE 0.6 mg/dL (0.6-1.0); GLOMERULAR FILTRATION RATE > 60; GLUCOSE 232 mg/dL (70-100); POTASSIUM 3.9 mEq/L (3.5-5.2); SODIUM 145 mEq/L (134-144)
--- NOTE | 2017-02-25 16:51 | GHP ---
[f rep st] HISTORY AND PHYSICAL DATE OF ADMISSION: 02/25/2017 CHIEF COMPLAINT: Acute encephalopathy, fever. HISTORY OF PRESENT ILLNESS: A 67-year-old female with history of chronic dysphagia, recurrent aspiration, UTI, and dementia, who was brought in from [facility] for possible sepsis. She was here at [facility] 02/15/2017 through 02/19 for pneumonia and severe sepsis. She was discharged on Suprax and Flagyl for 7 days for aspiration pneumonia. In the last 24 hours, her caregivers noted that she has stopped eating and has been more confused. Upon Dr. Osorio's exam, she was unable to answer questions. During my interview, she was more alert, was able to tell me that she has had a nonproductive cough. Says she has not been eating. Denies nausea, vomiting, or diarrhea, had pain all over. REVIEW OF SYSTEMS: The patient not able to participate fully, so most of the history is obtained from prior records. PAST MEDICAL HISTORY: 1. Aspiration pneumonia, recurrent. 2. Chronic dysphagia. 3. Dementia. 4. Diabetes. 5. Hypertension. 6. History of subdural hematoma. 7. History of systolic heart failure with EF of 50%. 8. Normocytic anemia. 9. Proteus UTI. 10. Stent to the LAD. 11. Rhinovirus/enterovirus on 02/05/2017. 12. Dysphagia. She should be eating nectar thick liquids. SOCIAL HISTORY: Lives at [facility]. She is a patient of [facility], and guardianship has not been obtained, but this was attempted during last hospitalization. PAST SURGICAL HISTORY: TAVR. FAMILY HISTORY: The patient unable to tell me, but noncontributory. MEDICATIONS: Miner spray sodium chloride nasal gel, Zofran as needed, nystatin powder, melatonin 3 mg p.r.n., Flagyl 500 mg three times daily completed, Zyprexa 10 mg at bedtime, Zyprexa 2.5 mg bedtime, vitamin C 500 daily, ranitidine 150 mg daily, Klor-Con 20 mg daily, losartan 25 mg daily, Plavix 75 mg daily, glargine 10 units at bedtime, Lasix 40 mg daily, herbal supplements, Suprax 400 mg daily, aspirin 81 mg daily. ALLERGIES: Penicillin, sulfa. She has tolerated cephalosporins in the past. PHYSICAL EXAMINATION: VITAL SIGNS: Temperature 38, blood pressure 149/89, heart rate 110, respirations 22, 86% on room air, 95% on 3 L. GENERAL: Chronically ill-appearing, pale. HEENT: PERRLA dry mucous membranes. Oropharynx clear. HEART: Tachycardic, regular. LUNGS: Diffuse rhonchi. ABDOMEN: Diffuse tenderness with palpation, but no rebound or guarding. : Right suprapubic pain. No Montoya. MUSCULOSKELETAL: Moving all 4 extremities. SKIN: Warm, dry. NEURO: 2 through 12 intact. PSYCH: Alert to hospital. LABORATORY DATA: WBC is 17, hemoglobin 10, hematocrit 33, platelets 440, sodium 145, potassium 3.9, chloride 109, carbon dioxide 28, BUN 29, creatinine 0.6, glucose is 232, calcium is 8.6. UA is pending. Negative influenza. EKG, personally reviewed by me, Q-waves in inferior leads, LVH, ST depression V5. ST depression lateral leads seen on prior. Chest x-ray, personally reviewed by me, right middle lobe opacity. CTA 02/17/2017: No PE. Near collapse of bilateral lower lobes with associated mucous plugging and bronchomalacia. Trace pleural edema. ASSESSMENT/PLAN: 1. Sepsis: Elevated white count, tachycardic. Suspect recurrent aspiration pneumonia vs pneumonitis. CXR shows improved aeration from prior CT. Full resp PCR and sputum culture pending. Also check UA and blood cultures. Treat with broad antibiotics given recent hospitalization with vanc and cefepime, until culture data back. 2. Acute on chronic encephalopathy. more alert and conversive at the time of my interview. Again, likely secondary to acute illness. Electrolytes within normal. No focal neuro deficits. 3. Chronic dysphagia. she is to eat nectar thick liquids, but appears not to be compliant. Has had several admissions for recurrent aspiration. She is a patient of [facility] and it would be prudent to work with Case Management for appointment of a guardian. 4. Type 2 diabetes: half glargine dose to 5 units since not eating. SSI. 5. History of transcatheter aortic valve replacement. 6. Hypertension. Resume home medications when more alert 7. History of subdural hematoma. No acute neuro deficits now. 8. Normocytic anemia. H/H stable. 9. History of Proteus urinary tract infection. UA is pending. 10. Acute hypoxic respiratory failure. Suspect aspiration pneumonia versus pneumonitis. Again, we will cover broadly with antibiotics, and check a full respiratory culture. 11. Diet. Keep n.p.o. for now until we can do appropriate swallow. Continue IV fluids. 12. Deep vein thrombosis prophylaxis high risk. Lovenox. DISPOSITION: The patient warrants inpatient admission given acute sepsis and warranting IV fluids, IV antibiotics. /[id number]/MODL MTDD
[2017-02-25] MEDS: LR 1,000 ML IV SCH (17:10)
[2017-02-25] MEDS: VANCOMYCIN 750 MG in D5W 150 ML IV SCH (17:10)
[2017-02-25] MEDS ORDERED: SODIUM CL NASAL 45 ML BTL NS PRN (18:28)
[2017-02-25] MEDS ORDERED: NYSTATIN POWDER 15 GM BTL TP PRN (18:28)
[2017-02-25] MEDS ORDERED: SODIUM CL NASAL GEL 14.1 GM TUBE TP PRN (18:28)
[2017-02-25] MEDS ORDERED: MELATONIN 3 MG TAB PO PRN (18:28)
[2017-02-25] MEDS: INSULIN LISPRO 100 UNIT/ML SC SCH (18:32)
[2017-02-25] MEDS: OLANZapine 2.5 MG TAB PO SCH ×2 (19:27)
[2017-02-25] MEDS: HALOPERIDOL LACT 5 MG/ML INJ IVP PRN (22:06)
[2017-02-25] MEDS: CEFEPIME HCL 2 GM in D5W 100 ML IV SCH (22:07)
[2017-02-25] MEDS: INSULIN GLARGINE 100 UNITS/ML SYRINGE SC SCH (22:07)
[2017-02-26] MEDS: HALOPERIDOL LACT 5 MG/ML INJ IVP PRN ×2 (00:24→06:24)
[2017-02-26 00:51] LABS: COLOR YELLOW; LEUKOCYTE ESTERASE,URINE 1+ (NEGATIVE); NITRITE,URINE NEGATIVE (NEGATIVE)
[2017-02-26 01:03] LABS: BACTERIA TRACE /hpf (NONE SEEN); MUCUS TRACE /lpf (NONE-1+); WBC,URINE 15-25 /hpf (0-3); YEAST PRESENT /hpf (NONE SEEN)
[2017-02-26 01:10] LABS: RBC,URINE NONE SEEN /hpf (0-3)
[2017-02-26] MEDS: VANCOMYCIN 750 MG in D5W 150 ML IV SCH (04:38)
[2017-02-26 05:33] LABS: HEMATOCRIT 33.1 % (38.0-47.0); HEMOGLOBIN 10.6 g/dL (12.6-16.3); MEAN CELL HEMOGLOBIN 30.5 pg (27.9-34.1); MEAN CELL VOLUME 95.1 fL (81.5-99.8); RED BLOOD CELL COUNT 3.48 10^6/uL (4.18-5.33); RED CELL DISTRIBUTION WIDTH 14.9 % (11.5-15.2)
[2017-02-26 05:43] LABS: ANION GAP 7 mEq/L (8-16); CALCIUM 8.8 mg/dL (8.5-10.4); CARBON DIOXIDE 33 mEq/l (22-31); CHLORIDE 107 mEq/L (97-110); CREATININE 0.5 mg/dL (0.6-1.0); GLOMERULAR FILTRATION RATE > 60; GLUCOSE 196 mg/dL (70-100); POTASSIUM 3.8 mEq/L (3.5-5.2); SODIUM 147 mEq/L (134-144)
[2017-02-26] MEDS: CEFEPIME HCL 2 GM in D5W 100 ML IV SCH ×2 (06:24→15:40)
--- NOTE | 2017-02-26 06:31 | PDMN ---
Medical Necessity Medical necessity: Pt meets INPT criteria per MD as of 02/25/17; est. LOS >2 MN for eval/tx of sepsis requiring IV fluid, IVAB, suspect recurrent aspiration pna vs pneumonitis, aucte hypoxic respiratory failure, acute on chronic encephalopathy, chronic dysphagia, type 2 DM, htn; hx TAVR, SDH, anemia, UTI per H&P.
[2017-02-26] MEDS ORDERED: Herbals/Supplements -Info Only PO SCH (09:00)
[2017-02-26] MEDS ORDERED: Cyanocobalamin (Vitamin B-12) [Vitamin B-12] 2,500 MCG SL SCH (09:00)
[2017-02-26] MEDS: ASCORBIC ACID 500 MG TAB PO SCH ×2 (10:30→12:12)
[2017-02-26] MEDS: ASPIRIN EC 81 MG TAB PO SCH ×2 (10:30→12:12)
[2017-02-26] MEDS: CLOPIDOGREL BISULFATE 75 MG TAB PO SCH ×2 (10:30→12:12)
[2017-02-26] MEDS: FAMOTIDINE 20 MG TAB PO SCH ×2 (10:30→12:12)
--- NOTE | 2017-02-26 10:30 | WOCRNPDOC ---
WOCRN Advanced Assessment Note - Skin Integrity Problem, Advanced Assess Left First Toe Pressure Injury Dressing Type: Open to Air Closure Description: Approximated Lucille Wound Tissue: Intact Lucille Wound Swelling: None Wound Bed Color: Brady (non-blanching) Site Measurement - Head-to-Toe Length X Width X Depth (cm): 1x1.2xintact Pressure Injury Stage: Stage 1 Pressure Injury Present on Admit: Yes Skin Integrity Problem Comment: Patient in bilateral heel boots. Skin warm to the touch. Skin at tip of left great toe is pink, non-blanching, and intact. Wound care will not continue to follow this wound. Please reconsult PRN.
[2017-02-26] MEDS: POTASSIUM CL 20 MEQ TAB PO SCH ×2 (10:31→12:12)
[2017-02-26] MEDS: MULTIVITAMINS W-MINERALS 1 EACH TAB PO SCH ×2 (10:31→12:12)
[2017-02-26] MEDS: INSULIN LISPRO 100 UNIT/ML SC SCH ×3 (10:42→19:32)
[2017-02-26] MEDS: ENOXAPARIN 40 MG/0.4 ML SYR SC SCH (10:43)
[2017-02-26] MEDS: LR 1,000 ML IV SCH (10:44)
--- NOTE | 2017-02-26 10:49 | HOSPPROG ---
Hospitalist Progress Note Assessment/Plan: Patient is a 67-year-old female with a history of chronic dysphagia, recurrent aspiration, UTI, dementia who was brought in from [facility] for possible sepsis. She has been here 4 times since November. She was recently discharged due to aspiration pneumonia and for chronic dysphagia with noncompliance with her dietary modifications. Today is my 1st encounter with the patient. Chart reviewed. * sepsis with elevated white blood cell count and tachycardia -most likely due to really current aspiration -chest x-ray shows a right middle lobe opacity-will check a procalcitonin level to help with caring for Pat *likely recurrent aspiration pneumonia -ST to see -on Cefepime and vanco * chronic dysphagia, to be on nectar thick liquids -history of noncompliance * diabetes type 2 -Glargine dose decreased since she is not eating much -on sliding scale * history of a transcatheter aortic valve replacement -meds resumed *anemia -follow *hypernatremia -suspect she is dehydrated * hypertension -home meds resumed * history of subdural hematoma * history of Proteus urinary tract infection -suspect she has chronic colonization *Plan: will ask Palliative Care team to see again to see if she qualifies or even wants hospice. She wants to eat regular diet but aspirates. Subjective: Pat says everything hurts on her body. Objective: Vital Signs Temp Pulse Resp BP Pulse Ox 36.6 C 80 12 124/64 H 96 02/26/17 07:06 02/26/17 07:06 02/26/17 07:06 02/26/17 07:06 02/26/17 07:06 Microbiology 02/25/17 18:15 Respiratory Panel (PCR) - Final Nasal, Sinus - Swab No Organism Detected Laboratory Results 02/26/17 05:20 02/26/17 05:20 02/25/17 02/26/17 02/27/17 05:59 05:59 05:59 Intake Total 1011 Balance 1011 - Physical Exam Constitutional: chronically ill appearing, No not in pain Eyes: PERRL Ears, Nose, Mouth, Throat: hearing normal Cardiovascular: regular rate and rhythym Respiratory: no respiratory distress, reduced air movement Skin: warm Musculoskeletal: generalized weakness Neurologic: other (drowsy, difficulty w answerinng questions, but says her arms and legs hurt) Psychiatric: flat affect ICD10 Worksheet Patient Problems: Problems Problem Status Onset Pneumonia Acute Sepsis Acute Altered mental status Acute Palliative care encounter Acute Septic shock Acute Severe sepsis Acute Urinary tract infection Acute
[2017-02-26] MEDS ORDERED: ACETAMINOPHEN 650 MG/20.3 ML UDCUP PO PRN (11:42)
--- NOTE | 2017-02-26 12:02 | ASMTCMCOM ---
CM Note CM Note Notes: Patient admitted for sepsis/aspiration PNA - this is a frequent reason of admission for her. She was brought from [facility] where she resides. Her last hospitalization was 02/15-02/19 for the same. Per CM note 02/17, patient has a guardian [facility] ([phone] during M-F business hours unless in case of emergency). Her [facility] production control coordinating clerk is Adali Murphy [phone]. I attemped to call [facility] to see if these people had been contacted re: patient's hospital admission but was unable to reach staff. CM will follow up with and [facility] guardian/CM tomorrow. Patient will likely discharge back to . Date Signed: 02/26/2017 12:02 PM Electronically Signed By:Mariah Villar RN
--- NOTE | 2017-02-26 17:59 | HOSPPROG ---
Hospitalist Progress Note Assessment/Plan: XC Note: Called by RN for increased O2 needs, on 15 LPM by face mask. I went to bedside. Pt is somnolent. STAT CXR and ABG ordered. Also check BNP and echo. She has h/o dysphagia and recurrent aspiration PNA. She is tachycardic, HR 110's. RR 24-28. Afebrile. Lung sounds are coarse with upper airway sounds / secretions. Copious deep suctioning is performed by RT and sputum culture sent. No JVD or peripheral edema to suggest volume overload or CHF. CXR shows slight increased opacities in LLL, otherwise unchanged with persistent RLL opacification ABG 7.45/37/ Assessment and Plan: 67 with recurrent aspiration pneumonia with ongoing aspiration, increased oxygen requirement and difficulty managing secretions. Transfer to ICU for increased respiratory support with vapotherm +/- bipap, RT suctioning. She is full code and may require intubation if condition worsens. Trial mucomyst. ?Benefit of bronchoscopy, pulm consult in am. Given her h/o recurrent aspiration PNA with recent hospitalization, living in a SNF, will change atbx from Cefepime to Meropenem (PCN allergy) for better anaerobic and continued pseudomonal coverage. Plans for VFSS and Palliative care. Objective: Vital Signs Temp Pulse Resp BP Pulse Ox 37.3 C 91 18 139/89 H 95 02/26/17 15:02 02/26/17 15:02 02/26/17 15:02 02/26/17 15:02 02/26/17 15:02 Microbiology 02/25/17 18:15 Respiratory Panel (PCR) - Final Nasal, Sinus - Swab No Organism Detected Laboratory Results 02/26/17 05:20 02/26/17 05:20 02/25/17 02/26/17 02/27/17 05:59 05:59 05:59 Intake Total 1011 Balance 1011 ICD10 Worksheet Patient Problems: Problems Problem Status Onset Pneumonia Acute Sepsis Acute Altered mental status Acute Palliative care encounter Acute Septic shock Acute Severe sepsis Acute Urinary tract infection Acute
[2017-02-26 18:50] LABS: BASE EXCESS 1.4 mEq/L (-2.5-2.5); BICARBONATE 25 mEq/L (22-26); MEASURED OXYGEN SATURATION 91 % (92-95); PCO2 37 mmHg (34-38); PO2 61 mmHg (65-75); TCO2 26 mEq/L (23-27)
[2017-02-26] MEDS: OLANZapine 2.5 MG TAB PO SCH ×2 (21:45→21:46)
[2017-02-26] MEDS: INSULIN GLARGINE 100 UNITS/ML SYRINGE SC SCH (21:46)
[2017-02-27] MEDS: MEROPENEM 1 GM in NS 100 ML IV SCH ×4 (00:16→22:02)
[2017-02-27 05:12] LABS: % IMMATURE GRANULYOCYTES 0.7 % (0.0-1.1); ABSOLUTE IMMATURE GRANULOCYTES 0.18 10^3/uL (0.00-0.10); ADD DIFF? NO; ADD MORPH? NO; ADD SCAN? NO; ATYPICAL LYMPHOCYTE FLAG 0 (0-99); FRAGMENT RBC FLAG 0 (0-99); HEMATOCRIT 30.4 % (38.0-47.0); HEMOGLOBIN 9.4 g/dL (12.6-16.3); LEFT SHIFT FLG 10 (0-99); LIPEMIA HEMOLYSIS FLAG 80 (0-99); MEAN CELL HEMOGLOBIN 29.7 pg (27.9-34.1); MEAN CELL HEMOGLOBIN CONCENTR. 30.9 g/dL (32.4-36.7); MEAN CELL VOLUME 96.2 fL (81.5-99.8); MEAN PLATELET VOLUME 9.8 fL (8.7-11.7); PLATELET CLUMPS FLAG 0 (0-99); PLATELET COUNT 273 10^3/uL (150-400); RED BLOOD CELL COUNT 3.16 10^6/uL (4.18-5.33); RED CELL DISTRIBUTION WIDTH 14.8 % (11.5-15.2)
[2017-02-27 05:32] LABS: ANION GAP 11 mEq/L (8-16); CALCIUM 8.3 mg/dL (8.5-10.4); CARBON DIOXIDE 25 mEq/l (22-31); CHLORIDE 109 mEq/L (97-110); CREATININE 0.4 mg/dL (0.6-1.0); GLOMERULAR FILTRATION RATE > 60; GLUCOSE 164 mg/dL (70-100); SODIUM 145 mEq/L (134-144)
[2017-02-27] MEDS ORDERED: ACETYLCYSTEINE 20% IH/PO 4 ML VIAL IH SCH (07:30)
[2017-02-27] MEDS ORDERED: CANN-EASE 2 GM TUBE TP ONE (09:09)
--- NOTE | 2017-02-27 09:17 | ECHO ---
[email or web address] [address] [address] Main: [phone] Fax: Transthoracic Echocardiogram Name: PETAR POWELL MR#: [id number] Study Date: 02/27/2017 Study Time: 07:36 AM Date of : 1950 Age: 67 year(s) Height: 162.6 cm (64 in.) Weight: 72.58 kg (160 lb.) BSA: 1.78 m2 Gender: Female Examination: Echo Indication: Respiratory failure 130 Image Quality: Contrast: Requested by: Faiza Tavarez BP: 130 mmHg/65 mmHg Heart Rate: Rhythm: Indication: Respiratory failure Procedure Staff Travelers' Aid Worker: Johanna Yanez Reading Physician: Carlos Pinon Requesting Provider: Conclusions: Normal size left ventricle. Global hypercontractility of the left ventricle. The ejection fraction is estimated to be 70-75 %. Moderate mitral annular calcification. Trivial mitral valve regurgitation. Aortic valve is not well visualized. AV max PG is 20mmHG. AV mean PG is 12mmHG.. The pulmonary artery pressure could not be adequately estimated. No old studies for comparison. Measurements: Chambers Valvular Assessment AV/MV Valvular Assessment TV/PV Normal Normal Normal Name Value Range Name Value Range Name Value Range Ao Loan (MM): 3.3 cm (2.2 cm-3.7 AV meanP mmHg ( - ) cm) LVOT Vmax: 0.85 m/s (0.7 m/s-1.1 IVSd (2D): 0.8 cm (0.6 cm-1.1 m/s) cm) MAYELA (VTI): 1.0 cm ( - ) LVDd (2D): 3.1 cm (3.9 cm-5.3 MV E Vmax: 0.73 m/s ( - ) cm) MV A Vmax: 1.16 m/s ( - ) LVDs (2D): 1.9 cm (2.1 cm-4 MV E/A: 0.63 ( - ) cm) LVPWd (2D): 0.7 cm ( - ) LVOTd 1.8 cm 1.8 cm mm LVEF (2D): 72 (>=54 %) EF Range: 70-75 % Continued Measurements: Chambers Valvular Assessment AV/MV Patient: PETRA POWELL Study Date: 02/27/2017 Page 1 of 2 07:36 AM Name Value Name Value LADs: 3.0 cm MV E/E' Septal: 18.60 LADs Lon.2 cm MV E/E' Lateral: 13.50 LA Area: 11.6 cm2 Findings: Left Ventricle: Normal size left ventricle. No LV hypertrophy. Global hypercontractility of the left ventricle. The ejection fraction is estimated to be 70-75 %. No regional wall motion abnormality. Diastolic function is indeterminate.. Right Ventricle: Normal size right ventricle. Left Atrium: The left atrium is normal in size. Right Atrium: The right atrium is normal in size. Mitral Valve: Moderate mitral annular calcification. Trivial mitral valve regurgitation. Aortic Valve: Aortic valve is not well visualized. AV max PG is 20mmHG. AV mean PG is 12mmHG.. Tricuspid Valve: The tricuspid valve is normal in appearance and function. Trivial tricuspid valve regurgitation. Pulmonic Valve: Pulmonary valve not well visualized. Aorta: The aorta is normal. Pericardium: No pericardial effusion. (No Signature Object) Patient: PETAR POWELL Study Date: 02/27/2017 Page 2 of 2 07:36 AM [id number]
[2017-02-27] MEDS: INSULIN LISPRO 100 UNIT/ML SC SCH ×3 (09:30→17:57)
[2017-02-27] MEDS: ENOXAPARIN 40 MG/0.4 ML SYR SC SCH (09:32)
[2017-02-27] MEDS: ASCORBIC ACID 500 MG TAB PO SCH (10:22)
[2017-02-27] MEDS: ASPIRIN EC 81 MG TAB PO SCH (10:22)
[2017-02-27] MEDS: MULTIVITAMINS W-MINERALS 1 EACH TAB PO SCH (10:23)
[2017-02-27] MEDS: POTASSIUM CL 20 MEQ TAB PO SCH (10:23)
[2017-02-27] MEDS: LR 1,000 ML IV SCH (11:43)
[2017-02-27] MEDS: CLOPIDOGREL BISULFATE 75 MG TAB PO SCH (11:44)
[2017-02-27] MEDS: CYANO/VITAMIN B12 1000 MCG TAB PO SCH (11:45)
[2017-02-27] MEDS: FAMOTIDINE 20 MG TAB PO SCH (11:45)
--- NOTE | 2017-02-27 14:20 | PDPCPN ---
Palliative Care Progress Note Assessment/Plan: Referring provider: January Fermin Reason for consult: Complex medical decision making Symptom control HPI: Veronica Das is a 67 yo with PMH dementia, DM, TVAR 04/2016, and recurrent aspiration PNA 2/2 dysphagia admitted to the hospital for increased confusion and poor appetite. Found to have possible aspiration PNA and being treated with antibiotics. Hospitalization complicated by possible acute aspiration event last evening during medication administration with decompensation of respiratory status and transfer to ICU/step down now on 8 L of oxygen. This is her 3rd admission in the past 30 days all for recurrent aspiration PNA. She has been followed by speech with recommendations of altered diet that Veronica historically does not follow. Palliative care consulted for complex medical decision making. Spoke with [facility] Guardian office, first spoke with Pricilla about recommendations for consideration of DNR based on previous non compliance with diet and continual aspiration. Then spoke with Lemuel Gibson who was not aware of previous attempts by [facility] to contact the office for consideration of change in code status. Discussed again the medical reasons for change in code status. He requested this be faxed in writing so that can pursue this upwards to director Charlene Montoya who is the official guardian of Veronica. Assessment: Physical: - Pain: appears comfortable -tylenol PRN - Dyspnea: - oxygen as needed - on nebs - Dysphagia - Speech involved - recommendations for altered diet historically patient has not been compliant with - MOST form states no artificial nutrition by tube Emotional/psychological: hx of agitation 2/2 dementia - on scheduled zyprexa Advanced Care Planning: Is patient decisional?: No Code Status: Full MD POA: Has State Guardian- supervisor case loading is Pricilla Nguyễn [phone], her filling and packing supervisor is Lemuel Gibson at [phone]. Actual Guardian is the director Charlene Montoya Plan: Have spoke with [facility] office and faxed medical reports stating medical need for decision making regarding change in code status. She remains with no artificial nutrition by tube from previous MOST form. Subjective: sleeping Objective: Social History: Never , living at [facility]. Used to live in [facility] up until about 1 year ago. Has family local but all estranged. Medication list reviewed ROS: General: fatigue, weakness ENT: dysphagia Resp: dyspnea GI: poor appetite : negative MS: negative Skin: negative Neuro: negative Psych: confusion Functional assessment: PPS: 30% Functional status:dependent on ADLs, IADLs Vital Signs Temp Pulse Resp BP Pulse Ox 37.5 C 92 29 H 140/65 H 92 02/27/17 12:00 02/27/17 12:00 02/27/17 12:00 02/27/17 12:00 02/27/17 12:00 Microbiology 02/26/17 17:55 - Final Sputum, Expectorated Laboratory Results 02/27/17 04:50 02/27/17 04:50 02/26/17 02/27/17 02/28/17 05:59 05:59 05:59 Intake Total 2772 Balance 2772 Physical Exam - Physical Exam General Appearance: no apparent distress, other (sleeping) Respiratory: No respiratory distress, No accessory muscle use Skin: normal color, warm/dry Extremities: No pedal edema Neuro/Psych: other (sleeping, fatigued) ICD10 Worksheet Patient Problems: Problems Problem Status Onset Pneumonia Acute Sepsis Acute Altered mental status Acute Palliative care encounter Acute Septic shock Acute Severe sepsis Acute Urinary tract infection Acute
--- NOTE | 2017-02-27 14:52 | HOSPPROG ---
Hospitalist Progress Note Assessment/Plan: Patient is a 67-year-old female with a history of chronic dysphagia, recurrent aspiration, UTI, dementia who was brought in from [facility] for possible sepsis. She has been here 4 times since November. She was recently discharged due to aspiration pneumonia and for chronic dysphagia with noncompliance with her dietary modifications. * recurrent aspiration pneumonia * On meropenem and vanc * Oxygen requirement seems to be little better today * Continue watching in step-down * chronic dysphagia, to be on nectar thick liquids -history of noncompliance * sepsis with elevated white blood cell count and tachycardia * Improving * diabetes type 2 -Glargine dose decreased since she is not eating much -on sliding scale * history of a transcatheter aortic valve replacement -meds resumed *anemia -follow *hypernatremia * Continue IV fluids * hypertension * home meds resumed * history of subdural hematoma * history of Proteus urinary tract infection * suspect she has chronic colonization * social * Ms. Das's guardian is [facility]. She has been admitted 4 times since November for recurrent aspiration. She is not compliant with dietary recommendations. She also has end-stage dementia. All the above issues are progressive and not reversible. If an aspiration event were bad enough that she would require intubation, prolonged ICU course with not improve any of the above problems and would probably make her more likely to aspirate in the future due to worsening weakness. Thus I am recommending DNR status for this patient. Subjective: Oxygen requirement seems to better. does not seem short of breath Objective: Vital Signs Temp Pulse Resp BP Pulse Ox 37.5 C 92 29 H 140/65 H 92 02/27/17 12:00 02/27/17 12:00 02/27/17 12:00 02/27/17 12:00 02/27/17 12:00 Microbiology 02/26/17 17:55 - Final Sputum, Expectorated Laboratory Results 02/27/17 04:50 02/27/17 04:50 02/26/17 02/27/17 02/28/17 05:59 05:59 05:59 Intake Total 2772 Balance 2772 Discussed with palliative care - Physical Exam Constitutional: no apparent distress, appears nourished, not in pain Eyes: anicteric sclera, EOMI Ears, Nose, Mouth, Throat: moist mucous membranes Cardiovascular: regular rate and rhythym Respiratory: no respiratory distress, no rales or rhonchi, clear to auscultation Neurologic: other (Responds to some questions. Not oriented) ICD10 Worksheet Patient Problems: Problems Problem Status Onset Pneumonia Acute Sepsis Acute Altered mental status Acute Palliative care encounter Acute Septic shock Acute Severe sepsis Acute Urinary tract infection Acute
--- NOTE | 2017-02-27 15:41 | ASMTCMCOM ---
CM Note CM Note Notes: [facility] Palliative Care RN, Kaelyn trying to work with Ethan Co to assist in changing patient's code status to DNR. Patient has a [place], State appt guardian, Charlene Montoya whot can only be reached through Land Surveyor Manager, Pricilla Nguyễn [phone]. Patient will return to [facility] on discharge. CM should contact Pricilla when patient returns to . Date Signed: 02/27/2017 03:41 PM Electronically Signed By:Dolores Chavarria LCSW
--- NOTE | 2017-02-27 17:55 | WOCRNPDOC ---
[facility]ILI Advanced Assessment Note - Skin Integrity Problem, Advanced Assess Left Lateral Heel Pressure Injury Site Measurement - Head-to-Toe Length X Width X Depth (cm): 1x1.5x0 Pressure Injury Stage: Unstageable Pressure Injury Present on Admit: Yes Skin Integrity Problem Comment: Patient with heel offloading boots on bilateral lower legs. This wound is quite old and healing well. No intervention necessary. Remaining eschar will fall off soon. Coccyx Pressure Injury Dressing Type: Open to Air Site Measurement - Head-to-Toe Length X Width X Depth (cm): 1.5x1x0 Pressure Injury Stage: Stage 1 Pressure Injury Present on Admit: Yes Skin Integrity Problem Comment: Patient not really responsive and is incontinent. There are satellite lesions present kayy anal. JOSEPH Ortega present and will treat with antifungal barrier cream. Wound care will sign off. Please reconsult prn.
[2017-02-27] MEDS: OLANZapine 2.5 MG TAB PO SCH ×2 (21:43)
[2017-02-27] MEDS: INSULIN GLARGINE 100 UNITS/ML SYRINGE SC SCH (21:43)
[2017-02-28 06:52] LABS: % IMMATURE GRANULYOCYTES 0.6 % (0.0-1.1); ABSOLUTE IMMATURE GRANULOCYTES 0.11 10^3/uL (0.00-0.10); ADD DIFF? NO; ADD MORPH? NO; ADD SCAN? NO; ATYPICAL LYMPHOCYTE FLAG 10 (0-99); FRAGMENT RBC FLAG 0 (0-99); HEMATOCRIT 29.3 % (38.0-47.0); HEMOGLOBIN 9.1 g/dL (12.6-16.3); LEFT SHIFT FLG 0 (0-99); LIPEMIA HEMOLYSIS FLAG 80 (0-99); MEAN CELL HEMOGLOBIN 29.7 pg (27.9-34.1); MEAN CELL HEMOGLOBIN CONCENTR. 31.1 g/dL (32.4-36.7); MEAN CELL VOLUME 95.8 fL (81.5-99.8); MEAN PLATELET VOLUME 9.8 fL (8.7-11.7); PLATELET CLUMPS FLAG 10 (0-99); PLATELET COUNT 256 10^3/uL (150-400); RED BLOOD CELL COUNT 3.06 10^6/uL (4.18-5.33); RED CELL DISTRIBUTION WIDTH 14.9 % (11.5-15.2)
[2017-02-28] MEDS: MEROPENEM 1 GM in NS 100 ML IV SCH ×3 (07:22→21:06)
[2017-02-28 07:38] LABS: ANION GAP 10 mEq/L (8-16); CALCIUM 8.8 mg/dL (8.5-10.4); CARBON DIOXIDE 28 mEq/l (22-31); CHLORIDE 112 mEq/L (97-110); CREATININE 0.5 mg/dL (0.6-1.0); GLOMERULAR FILTRATION RATE > 60; GLUCOSE 100 mg/dL (70-100); POTASSIUM 3.7 mEq/L (3.5-5.2); SODIUM 150 mEq/L (134-144)
[2017-02-28] MEDS: INSULIN LISPRO 100 UNIT/ML SC SCH ×3 (08:09→17:44)
[2017-02-28] MEDS: ENOXAPARIN 40 MG/0.4 ML SYR SC SCH (08:58)
[2017-02-28] MEDS: CLOPIDOGREL BISULFATE 75 MG TAB PO SCH (09:23)
[2017-02-28] MEDS: ASPIRIN EC 81 MG TAB PO SCH (09:23)
[2017-02-28] MEDS: CYANO/VITAMIN B12 1000 MCG TAB PO SCH (09:23)
[2017-02-28] MEDS: ASCORBIC ACID 500 MG TAB PO SCH (09:23)
[2017-02-28] MEDS: FAMOTIDINE 20 MG TAB PO SCH (09:24)
[2017-02-28] MEDS: MULTIVITAMINS W-MINERALS 1 EACH TAB PO SCH (09:24)
[2017-02-28] MEDS: POTASSIUM CL 20 MEQ TAB PO SCH (09:24)
--- NOTE | 2017-02-28 13:13 | HOSPPROG ---
Hospitalist Progress Note Assessment/Plan: Patient is a 67-year-old female with a history of chronic dysphagia, recurrent aspiration, UTI, dementia who was brought in from [facility] for possible sepsis. She has been here 4 times since November. She was recently discharged due to aspiration pneumonia and for chronic dysphagia with noncompliance with her dietary modifications. * recurrent aspiration pneumonia * On meropenem * Oxygen requirement seems to be little better today * Continue watching in step-down * chronic dysphagia, to be on nectar thick liquids -history of noncompliance * encephalopathy * Pretty severe end-stage dementia * Will hold Zyprexa to see if she can wake up a little bit more * sepsis with elevated white blood cell count and tachycardia * Improving * diabetes type 2 -Glargine dose decreased since she is not eating much -on sliding scale * history of a transcatheter aortic valve replacement -meds resumed *anemia -follow *hypernatremia * Continue IV fluids * hypertension * home meds resumed * history of subdural hematoma * history of Proteus urinary tract infection * suspect she has chronic colonization * social * Ms. Das's guardian is [facility]. She has been admitted 4 times since November for recurrent aspiration. She is not compliant with dietary recommendations. She also has end-stage dementia. All the above issues are progressive and not reversible. If an aspiration event were bad enough that she would require intubation, prolonged ICU course with not improve any of the above problems and would probably make her more likely to aspirate in the future due to worsening weakness. Thus I am recommending DNR status for this patient. Subjective: Pretty somnolent Objective: Vital Signs Temp Pulse Resp BP Pulse Ox 38.3 C 104 H 30 H 135/60 H 90 L 02/28/17 08:00 02/28/17 12:00 02/28/17 12:00 02/28/17 12:00 02/28/17 12:00 Microbiology 02/26/17 17:55 - Final Sputum, Expectorated Laboratory Results 02/28/17 06:45 02/28/17 06:45 02/27/17 02/28/17 03/01/17 05:59 05:59 05:59 Intake Total 2772 1815 Balance 2772 1815 - Physical Exam Constitutional: no apparent distress, appears nourished, not in pain Eyes: anicteric sclera Respiratory: no respiratory distress, no rales or rhonchi, clear to auscultation Gastrointestinal: normoactive bowel sounds, soft, non-tender abdomen, no palpable masses Neurologic: other (Somnolent), No AAOx3 ICD10 Worksheet Patient Problems: Problems Problem Status Onset Pneumonia Acute Sepsis Acute Altered mental status Acute Palliative care encounter Acute Septic shock Acute Severe sepsis Acute Urinary tract infection Acute
--- NOTE | 2017-02-28 16:18 | PDPCPN ---
Palliative Care Progress Note Assessment/Plan: HPI: Veronica Das is a 67 yo with PMH dementia, DM, TVAR 04/2016, and recurrent aspiration PNA 2/2 dysphagia admitted to the hospital for increased confusion and poor appetite. Found to have possible aspiration PNA and being treated with antibiotics. Hospitalization complicated by possible acute aspiration event last evening during medication administration with decompensation of respiratory status and transfer to ICU/step down now on 8 L of oxygen. This is her 3rd admission in the past 30 days all for recurrent aspiration PNA. She has been followed by speech with recommendations of altered diet that Veronica historically does not follow. Palliative care consulted for complex medical decision making. Spoke with [facility] Guardian office Lemuel who confirmed they received fax from yesterday and have taken it to the next level of their process ( Director Charlene and their admitted attorneys for review). Update given on her clinical status with improving WBC but still remains with altered mental status not currently able to voice any decisions. He stated Pricilla will be in to the hospital tomorrow to visit with Veronica and hopes to have a conversation with Veronica about her wishes for DNR and/or tube feeding. Assessment: Physical: - Pain: appears comfortable -tylenol PRN - Dyspnea: - oxygen as needed - on nebs - Dysphagia - Speech involved - recommendations for altered diet historically patient has not been compliant with - MOST form states no artificial nutrition by tube Emotional/psychological: hx of agitation 2/2 dementia - on scheduled zyprexa Advanced Care Planning: Is patient decisional?: No Code Status: Full MD POA: Has State Guardian- family preservation caseworker is Pricilla Gopi [phone], her supervisor cigar processing is Lemuel Gibson at [phone]. Actual Guardian is the director Charlene Montoya Plan: Pricilla Nguyễn family preservation caseworker will be coming to see Veronica tomorrow 03/01 to attempt to have goals of care discussion with her regarding her wishes for DNR and/or tube feedings. Subjective: did not speak, opens eyes to voice Objective: Vital Signs Temp Pulse Resp BP Pulse Ox 38.3 C 104 H 30 H 135/60 H 90 L 02/28/17 08:00 02/28/17 12:00 02/28/17 12:00 02/28/17 12:00 02/28/17 12:00 Microbiology 02/26/17 17:55 - Final Sputum, Expectorated Laboratory Results 02/28/17 06:45 02/28/17 06:45 02/27/17 02/28/17 03/01/17 05:59 05:59 05:59 Intake Total 2772 1817 Balance 2772 1814 Physical Exam - Physical Exam General Appearance: no apparent distress, other (sleeping) Respiratory: No respiratory distress, No accessory muscle use Skin: normal color, warm/dry Extremities: No pedal edema Neuro/Psych: other (sleeping, opens eyes to voice) ICD10 Worksheet Patient Problems: Problems Problem Status Onset Pneumonia Acute Sepsis Acute Altered mental status Acute Palliative care encounter Acute Septic shock Acute Severe sepsis Acute Urinary tract infection Acute
[2017-02-28] MEDS: INSULIN GLARGINE 100 UNITS/ML SYRINGE SC SCH (21:06)
[2017-03-01] MEDS: MEROPENEM 1 GM in NS 100 ML IV SCH ×3 (06:07→21:55)
[2017-03-01] MEDS: INSULIN LISPRO 100 UNIT/ML SC SCH ×3 (08:44→21:42)
[2017-03-01] MEDS: ENOXAPARIN 40 MG/0.4 ML SYR SC SCH (08:44)
[2017-03-01] MEDS: CLOPIDOGREL BISULFATE 75 MG TAB PO SCH (08:55)
[2017-03-01] MEDS: ASCORBIC ACID 500 MG TAB PO SCH (08:55)
[2017-03-01] MEDS: ASPIRIN EC 81 MG TAB PO SCH (08:55)
[2017-03-01] MEDS: CYANO/VITAMIN B12 1000 MCG TAB PO SCH (08:55)
[2017-03-01] MEDS: POTASSIUM CL 20 MEQ TAB PO SCH (08:56)
[2017-03-01] MEDS: FAMOTIDINE 20 MG TAB PO SCH (08:56)
[2017-03-01] MEDS: MULTIVITAMINS W-MINERALS 1 EACH TAB PO SCH (08:56)
[2017-03-01 09:52] LABS: ANION GAP 12 mEq/L (8-16); CALCIUM 8.5 mg/dL (8.5-10.4); CARBON DIOXIDE 28 mEq/l (22-31); CHLORIDE 106 mEq/L (97-110); CREATININE 0.4 mg/dL (0.6-1.0); GLOMERULAR FILTRATION RATE > 60; GLUCOSE 137 mg/dL (70-100); POTASSIUM 3.3 mEq/L (3.5-5.2); SODIUM 146 mEq/L (134-144)
--- NOTE | 2017-03-01 11:59 | HOSPPROG ---
Hospitalist Progress Note Assessment/Plan: Patient is a 67-year-old female with a history of chronic dysphagia, recurrent aspiration, UTI, dementia who was brought in from [facility] for possible sepsis. She has been here 4 times since November. She was recently discharged due to aspiration pneumonia and for chronic dysphagia with noncompliance with her dietary modifications. Overnight and this morning she has become more hypoxic and is requiring up to 15 liters Palliative Care is following A discussion to determine goals of care going forward is pending * recurrent aspiration pneumonia * On meropenem * Acute Respiratory Failure, due to aspiration pneumonia, now requiring 15 L o2 * Acute on chronic dysphagia -She did not tolerate nectar thick liquids * encephalopathy * Pretty severe end-stage dementia * Cont hold Zyprexa to see if she can wake up a little bit more * sepsis with elevated white blood cell count and tachycardia * Improving, on Meropenem * diabetes type 2 -Glargine dose decreased since she is not eating much -on sliding scale -Cont Lantus * history of a transcatheter aortic valve replacement -meds resumed *anemia -follow *hypernatremia * repeat labs pending * hypertension * home meds resumed * history of subdural hematoma * history of Proteus urinary tract infection * suspect she has chronic colonization * social * Ms. Das's guardian is [facility]. She has been admitted 4 times since November for recurrent aspiration. She is not compliant with dietary recommendations. She also has end-stage dementia. All the above issues are progressive and not reversible. If an aspiration event were bad enough that she would require intubation, prolonged ICU course with not improve any of the above problems and would probably make her more likely to aspirate in the future due to worsening weakness. Thus I am recommending DNR status for this patient. Plan: -Check CXR now, further reccs per results. Her O2 needs have gone down slightly. May need trial of Lasix -Await labs and consider changing fluids to 1/2 NS -Cont Meropenem, may need PICC depending on which direction care will go -Cont NPO -Await decision regarding changing code status, tube feeds. -Given her advance MMP and recurrent aspiration pneumonia, would benefit from palliative care -Keep in Step down total critical care time is 35 minutes Subjective: Opens eyes. Does not follow commands. Now on 15 L O2. Appears comfortable Objective: Vital Signs Temp Pulse Resp BP Pulse Ox 36.9 C 100 27 H 157/78 H 95 03/01/17 07:21 03/01/17 09:45 03/01/17 09:45 03/01/17 09:45 03/01/17 09:45 Microbiology 02/26/17 00:32 Urine Culture - Final Urine,Catheterized Lorena Glabrata 02/26/17 17:55 - Final Sputum, Expectorated Sputum Culture - Final Lorena Albicans Laboratory Results 02/28/17 06:45 03/01/17 09:00 02/28/17 03/01/17 03/02/17 05:59 05:59 05:59 Intake Total 1815 1550 Balance 1815 1550 - Physical Exam Constitutional: no apparent distress Eyes: PERRL Ears, Nose, Mouth, Throat: moist mucous membranes Cardiovascular: regular rate and rhythym, No edema Respiratory: reduced air movement, inspiratory crackles Gastrointestinal: normoactive bowel sounds Genitourinary: no bladder fullness Skin: warm Neurologic: No facial droop Psychiatric: encephalopathic ICD10 Worksheet Patient Problems: Problems Problem Status Onset Pneumonia Acute Sepsis Acute Altered mental status Acute Palliative care encounter Acute Septic shock Acute Severe sepsis Acute Urinary tract infection Acute
[2017-03-01] MEDS ORDERED: FUROSEMIDE 20 MG/2 ML VIAL IVP ONE (12:01)
[2017-03-01] MEDS: POTASSIUM Cl (KCl) 20 MEQ in 1/2 NS 1,000 ML IV SCH (12:43)
--- NOTE | 2017-03-01 13:30 | ASMTCMCOM ---
CM Note CM Note Notes: Left a message for Pricilla Nguyễn ([phone]) who was planning on visiting today and had hoped to meet with the hospitalist. Awaiting her return call. We are still looking into changing her code status to DNR and Pricilla will need to address this issue. CM will follow. Date Signed: 03/01/2017 01:30 PM Electronically Signed By:Alix Noland LCSW
--- NOTE | 2017-03-01 16:07 | PDPCPN ---
Palliative Care Progress Note Assessment/Plan: HPI: Veronica Das is a 67 yo with PMH dementia, DM, TVAR 04/2016, and recurrent aspiration PNA 2/2 dysphagia admitted to the hospital for increased confusion and poor appetite. Found to have possible aspiration PNA and being treated with antibiotics. Hospitalization complicated by possible acute aspiration event last evening during medication administration with decompensation of respiratory status and transfer to ICU/step down now on 8 L of oxygen. This is her 3rd admission in the past 30 days all for recurrent aspiration PNA. She has been followed by speech with recommendations of altered diet that Veronica historically does not follow. Palliative care consulted for complex medical decision making. Met with Pricilla outside of the room this afternoon. We reviewed that previous attempts at goals of care conversations have been tried before when Veronica was fully alert and awake but even then she was not able to completely comprehend the risks/benefits of her choices and was not decisional even at that moment on complex feeding decisions. Her previous history has been that of someone who chooses to make her own decisions that support what she considers a good quality of life even if it is against medical advice or may lead to a hastened (not seeking a TVAR until she was deemed incompetent, signing a wavier form at allowing her to eat, MOST form which states no artificial nutrition). Discussed if we allow for her to have "pleasure foods", medically her wishes for Full code are not consistent or appropriate with this choice. Discussed if her quality of life includes continuing to eat food despite her very high aspiration risk then that treatment is most consistent with comfort care only and hospice care. Assessment: Physical: - Pain: appears comfortable -tylenol PRN - Dyspnea: - oxygen as needed - on nebs - Dysphagia - Speech involved - recommendations for altered diet historically patient has not been compliant with - MOST form states no artificial nutrition by tube Emotional/psychological: hx of agitation 2/2 dementia - on scheduled zyprexa Advanced Care Planning: Is patient decisional?: No Code Status: Full MD POA: Has State Guardian- rn case manager is Pricilla Nguyễn [phone], her newspaper distributor supervisor is Lemuel Gibson at [phone]. Actual Guardian is the director Charlene Montoya Plan: Pricilla Nguyễn will send her report to her newspaper distributor supervisor Lemuel to take up through the next steps of their process. Pricilla will be in touch with next decisions. Subjective: sleeping, opens eyes to voice Objective: Vital Signs Temp Pulse Resp BP Pulse Ox 36.8 C 81 19 131/54 H 96 03/01/17 12:00 03/01/17 12:00 03/01/17 12:00 03/01/17 12:00 03/01/17 12:00 Microbiology 02/26/17 00:32 Urine Culture - Final Urine,Catheterized Lorena Glabrata 02/26/17 17:55 - Final Sputum, Expectorated Sputum Culture - Final Lorena Albicans Laboratory Results 02/28/17 06:45 03/01/17 09:00 02/28/17 03/01/17 03/02/17 05:59 05:59 05:59 Intake Total 1815 1550 Balance 1815 1550 Physical Exam - Physical Exam General Appearance: no apparent distress Respiratory: No respiratory distress, No accessory muscle use Skin: normal color, warm/dry Extremities: No pedal edema Neuro/Psych: other (opens eyes to voice) ICD10 Worksheet Patient Problems: Problems Problem Status Onset Pneumonia Acute Sepsis Acute Altered mental status Acute Palliative care encounter Acute Septic shock Acute Severe sepsis Acute Urinary tract infection Acute
[2017-03-01] MEDS ORDERED: ALTEPLASE 2 MG VIAL IVP PRN (16:43)
[2017-03-01] MEDS ORDERED: PROPOFOL/EMULSION 1,000 MG/100 ML BOTTLE IV ONE (20:27)
[2017-03-01] MEDS ORDERED: fentanYL/NACL/100 ML BAG IV ONE (20:27)
[2017-03-01] MEDS ORDERED: fentaNYL/NACL 100 ML IV SCH (20:30)
[2017-03-01 20:37] LABS: % IMMATURE GRANULYOCYTES 0.6 % (0.0-1.1); ABSOLUTE IMMATURE GRANULOCYTES 0.09 10^3/uL (0.00-0.10); ADD DIFF? NO; ADD MORPH? NO; ADD SCAN? NO; ATYPICAL LYMPHOCYTE FLAG 10 (0-99); FRAGMENT RBC FLAG 0 (0-99); HEMATOCRIT 31.3 % (38.0-47.0); LEFT SHIFT FLG 10 (0-99); LIPEMIA HEMOLYSIS FLAG 80 (0-99); MEAN CELL HEMOGLOBIN CONCENTR. 31.9 g/dL (32.4-36.7); MEAN PLATELET VOLUME 10.4 fL (8.7-11.7); PLATELET CLUMPS FLAG 0 (0-99); PLATELET COUNT 276 10^3/uL (150-400); RED BLOOD CELL COUNT 3.33 10^6/uL (4.18-5.33); RED CELL DISTRIBUTION WIDTH 14.1 % (11.5-15.2)
[2017-03-01] MEDS ORDERED: SUCCINYLCHOLINE CHLORIDE 200 MG/10 ML VIAL IVP ONE (20:38)
[2017-03-01] MEDS ORDERED: ETOMIDATE 40 MG/20 ML INJ IVP ONE (20:38)
[2017-03-01] MEDS ORDERED: ETOMIDATE 40 MG/20 ML INJ ONE (20:39)
[2017-03-01] MEDS: PROPOFOL/EMULSION 100 ML IV SCH (20:40)
[2017-03-01] MEDS ORDERED: SUCCINYLCHOLINE CHLORIDE*ANESTHESIA ONLY*200 MG/10 ML SYR IVP ONE (20:40)
--- NOTE | 2017-03-01 20:47 | HOSPPROG ---
Hospitalist Progress Note Assessment/Plan: XC Note: Responded to STAT team for increased O2 requirement and desaturations to 80% on 15 LPM. Pt has h/o chronic dysphagia and recurrent aspiration pneumonia, currently being treated for asp PNA. She is not managing her secretions and moving little air on exam with coarse breath sounds and sinus tachycardia. Deep suctioning performed by RT with little improvement and she did not tolerate this well, continued to drop her sats and required BVM / assisted ventilation. She was emergently intubated by Dr. Diaz with etomidate and succ. Propofol and Fentanyl for sedation. Transfer to ICU. ABG in 30-60 minutes and prn per RT. CXR now for tube placement. OG tube also placed. Total critical care time at bedside 40 minutes. Objective: Vital Signs Temp Pulse Resp BP Pulse Ox 37.3 C 122 H 38 H 155/78 H 77 L 03/01/17 18:36 03/01/17 19:52 03/01/17 19:52 03/01/17 19:52 03/01/17 19:52 Microbiology 02/26/17 00:32 Urine Culture - Final Urine,Catheterized Lorena Glabrata 02/26/17 17:55 - Final Sputum, Expectorated Sputum Culture - Final Lorena Albicans Laboratory Results 03/01/17 20:30 02/28/17 03/01/17 03/02/17 05:59 05:59 05:59 Intake Total 1815 1550 750 Balance 1815 1550 750 ICD10 Worksheet Patient Problems: Problems Problem Status Onset Pneumonia Acute Sepsis Acute Altered mental status Acute Palliative care encounter Acute Septic shock Acute Severe sepsis Acute Urinary tract infection Acute
[2017-03-01 20:49] LABS: ALANINE AMINOTRANSFERASE 20 IU/L (9-52); ALBUMIN 2.6 g/dL (3.5-5.0); ALKALINE PHOSPHATASE 70 IU/L (38-126); ANION GAP 14 mEq/L (8-16); ASPARTATE AMINOTRANSFERASE 32 IU/L (14-46); BILIRUBIN,TOTAL 0.6 mg/dL (0.1-1.4); CALCIUM 8.4 mg/dL (8.5-10.4); CARBON DIOXIDE 25 mEq/l (22-31); CHLORIDE 101 mEq/L (97-110); CREATININE 0.4 mg/dL (0.6-1.0); GLOMERULAR FILTRATION RATE > 60; GLUCOSE 134 mg/dL (70-100); SODIUM 140 mEq/L (134-144); TOTAL PROTEIN 5.8 g/dL (6.3-8.2)
--- NOTE | 2017-03-01 20:50 | EDPHY ---
ED Progress Note Narrative: 20:10 Asked to perform rapid sequence intubation by Dr. Tavarez, hospitalist. Patient meets criteria for intubation and is full code. Procedure: Rapid sequence intubation. Indication for the procedure was respiratory failure due to aspiration pneumonia. The patient was preoxygenated with 100% oxygen by face mask. The patient was given the following IV medications: 20mg Etomidate, 120mg succinylcholine. The patient was orally endotracheally intubated under direct visualization with a 7.5 ETT. Tracheal intubation was confirmed with misting on the tube; breath sounds were auscultated equally bilaterally; appropriate color change with [place]idal CO2 detector. Chest X-ray shows ETT in good position. The procedure was performed by myself, Dr. Diaz. Vitals stable. Reviewed x-ray. ETT in good position. Patient will be transferred to ICU.
[2017-03-01 22:11] LABS: BASE EXCESS 0.8 mEq/L (-2.5-2.5); BICARBONATE 23 mEq/L (22-26); MEASURED OXYGEN SATURATION 93 % (92-95); PCO2 31 mmHg (34-38); PO2 63 mmHg (65-75); TCO2 24 mEq/L (23-27)
[2017-03-01 22:12] LABS: END TIDAL CO2 30; O2 CONCENTRATIION 60 % (0-100); P/F RATIO 105 RATIO; SIMV YES
[2017-03-01 22:13] LABS: PATIENT RATE 12; PRESSURE SUPPORT 7
[2017-03-02] MEDS: INSULIN GLARGINE 100 UNITS/ML SYRINGE SC SCH ×2 (02:06→21:07)
[2017-03-02 04:15] LABS: % IMMATURE GRANULYOCYTES 0.4 % (0.0-1.1); ABSOLUTE IMMATURE GRANULOCYTES 0.05 10^3/uL (0.00-0.10); ADD DIFF? NO; ADD MORPH? NO; ADD SCAN? NO; ATYPICAL LYMPHOCYTE FLAG 0 (0-99); FRAGMENT RBC FLAG 0 (0-99); HEMOGLOBIN 8.4 g/dL (12.6-16.3); LEFT SHIFT FLG 10 (0-99); LIPEMIA HEMOLYSIS FLAG 80 (0-99); MEAN CELL HEMOGLOBIN 30.1 pg (27.9-34.1); MEAN CELL HEMOGLOBIN CONCENTR. 32.3 g/dL (32.4-36.7); MEAN CELL VOLUME 93.2 fL (81.5-99.8); MEAN PLATELET VOLUME 10.6 fL (8.7-11.7); PLATELET CLUMPS FLAG 10 (0-99); PLATELET COUNT 225 10^3/uL (150-400); RED BLOOD CELL COUNT 2.79 10^6/uL (4.18-5.33); RED CELL DISTRIBUTION WIDTH 14.3 % (11.5-15.2)
[2017-03-02] MEDS: PROPOFOL/EMULSION 100 ML IV SCH (04:15)
[2017-03-02 04:42] LABS: ANION GAP 14 mEq/L (8-16); CALCIUM 8.3 mg/dL (8.5-10.4); CARBON DIOXIDE 26 mEq/l (22-31); CHLORIDE 106 mEq/L (97-110); CREATININE 0.4 mg/dL (0.6-1.0); GLOMERULAR FILTRATION RATE > 60; GLUCOSE 99 mg/dL (70-100); MAGNESIUM 1.7 mg/dL (1.6-2.3); SODIUM 146 mEq/L (134-144)
[2017-03-02] MEDS: MEROPENEM 1 GM in NS 100 ML IV SCH ×3 (05:18→21:07)
[2017-03-02] MEDS: INSULIN LISPRO 100 UNIT/ML SC SCH ×3 (08:34→18:19)
[2017-03-02] MEDS ORDERED: PROTOCOL POTASSIUM 1 DOSE MISC PRN (09:41)
[2017-03-02] MEDS ORDERED: POTASSIUM Cl (KCl) 50 ML IV SCH (09:45)
[2017-03-02] MEDS: POTASSIUM Cl (KCl) 100 ML IV SCH ×2 (10:01→11:16)
[2017-03-02] MEDS: POTASSIUM CL 20 MEQ/15 ML UDCUP TUBE SCH (10:21)
[2017-03-02] MEDS: FAMOTIDINE 20 MG TAB TUBE SCH (10:36)
[2017-03-02] MEDS: CLOPIDOGREL BISULFATE 75 MG TAB PO SCH (10:36)
[2017-03-02] MEDS: ENOXAPARIN 40 MG/0.4 ML SYR SC SCH (10:36)
[2017-03-02] MEDS: CYANO/VITAMIN B12 1000 MCG TAB TUBE SCH (10:36)
[2017-03-02] MEDS: ASCORBIC ACID 500 MG TAB TUBE SCH (10:37)
[2017-03-02] MEDS: ASPIRIN 81 MG CHEWABLE TAB TUBE SCH (10:37)
[2017-03-02] MEDS: MULTIVITAMINS W-MINERALS 1 EACH TAB PO SCH (10:39)
[2017-03-02 11:21] LABS: PROCALCITONIN 0.12 ng/mL (0.02-0.10)
[2017-03-02] MEDS ORDERED: MELATONIN 3 MG TAB TUBE PRN (11:30)
[2017-03-02] MEDS: MULTIVIT/MINERAL/FERR GLUC 15 ML UDL TUBE SCH (12:04)
--- NOTE | 2017-03-02 12:41 | HOSPPROG ---
Hospitalist Progress Note Assessment/Plan: Patient is a 67-year-old female with a history of chronic dysphagia, recurrent aspiration, UTI, dementia who was brought in from [facility] for possible sepsis. She has been here 4 times since November. She was recently discharged due to aspiration pneumonia and for chronic dysphagia with noncompliance with her dietary modifications. Awaiting a decision regarding palliative care, change of code status, and likely hospice Failed transfer to floor yesterday and went into resp failure with intubation CXR personally reviewed, improved from yesterday pror to diuretics * recurrent aspiration pneumonia * On meropenem * Acute Respiratory Failure, due to aspiration pneumonia, now intubated * Acute on chronic dysphagia -She did not tolerate nectar thick liquids * encephalopathy * Pretty severe end-stage dementia * Cont hold Zyprexa to see if she can wake up a little bit more * sepsis with elevated white blood cell count and tachycardia * Improving, on Meropenem * diabetes type 2 -Glargine dose decreased since she is not eating much -on sliding scale -Cont Lantus * history of a transcatheter aortic valve replacement -meds resumed *anemia -follow *hypernatremia * repeat labs pending * hypertension * home meds resumed * history of subdural hematoma * history of Proteus urinary tract infection * suspect she has chronic colonization * social * Ms. Das's guardian is [facility]. She has been admitted 4 times since November for recurrent aspiration. She is not compliant with dietary recommendations. She also has end-stage dementia. All the above issues are progressive and not reversible. If an aspiration event were bad enough that she would require intubation, prolonged ICU course with not improve any of the above problems and would probably make her more likely to aspirate in the future due to worsening weakness. Thus I am recommending DNR status for this patient. Plan: -Additional Lasix today -Vent per pulm -Cont Meropenem -NPO -Await decision regarding nursing home care -She would benefit from Hospice -Keep ICU total critical care time is 35 minutes D/W multi disciplinary team during rounds Subjective: required intubation yesterday evening. Afebrile. On Meropenem. Recent TTE reviewed Objective: Vital Signs Temp Pulse Resp BP Pulse Ox 36.1 C 85 12 152/64 H 100 03/01/17 20:00 03/02/17 12:00 03/02/17 12:00 03/02/17 12:00 03/02/17 12:00 Microbiology 02/26/17 00:32 Urine Culture - Final Urine,Catheterized Lorena Glabrata Laboratory Results 03/02/17 04:00 03/02/17 04:00 03/01/17 03/02/17 03/03/17 05:59 05:59 05:59 Intake Total 1550 1379 Balance 1550 1379 - Physical Exam Constitutional: no apparent distress Eyes: PERRL, EOMI Ears, Nose, Mouth, Throat: moist mucous membranes Cardiovascular: regular rate and rhythym, edema (UE's) Respiratory: reduced air movement Gastrointestinal: normoactive bowel sounds, soft, non-tender abdomen Skin: warm Psychiatric: encephalopathic Lymph, Heme, Immunologic: No petechiae ICD10 Worksheet Patient Problems: Problems Problem Status Onset Pneumonia Acute Sepsis Acute Altered mental status Acute Palliative care encounter Acute Septic shock Acute Severe sepsis Acute Urinary tract infection Acute
[2017-03-02 13:40] LABS: POTASSIUM 3.8 mEq/L (3.5-5.2)
[2017-03-02] MEDS ORDERED: POTASSIUM Cl (KCl) 50 ML IV ONE (13:46)
[2017-03-02] MEDS: POTASSIUM Cl (KCl) 20 MEQ in NS 50 ML IV SCH ×2 (14:26→15:29)
--- NOTE | 2017-03-02 16:01 | ASMTCMCOM ---
CM Note CM Note Notes: Pt. was intubated and her medical situation indicates heightened concern to have legal guardian Charlene Fiore make a decision whether Pt. should have full care or move to comfort measures. Pt's MOST form in chart. Legal guardian is to be contacted through [facility] (APS). SWer contacted frontline worker, Ms. Violeta Nguyễn [phone] and her supervisor filter assembly, Mr. Hdez Paige . Lemuel called me back and they plan to have an answer from guardian regarding Pt's course of care either tonight or tomorrow. Gave him both CM phone number and ICU floor RN station number. CM to follow. Date Signed: 03/02/2017 04:00 PM Electronically Signed By:Vivian Carias LCSW
--- NOTE | 2017-03-02 16:28 | GCON ---
[f rep st] CONSULTATION PULMONARY/CRITICAL CARE CONSULTATION DATE OF CONSULTATION: 03/02/2017 REFERRING PROVIDER: Helio Lancaster REASON FOR REFERRAL: Evaluation and management of aspiration and respiratory failure. HISTORY: Ms Das is a 67-year-old woman with a history of dementia, chronic dysphagia, and recurrent aspiration, status post several hospitalizations over the past few months for pneumonia (presumably aspiration) and severe sepsis. Dysphagia diet was recommended but the patient is apparently refused to comply with this. She was admitted on February 25 with reduced p.o. intake and increased confusion as well as a nonproductive cough. She was found to be tachycardic with an elevated white blood count, and a chest x-ray which actually showed improved but not resolved aeration of the lower lobes when compared to a CAT scan done a week earlier. The patient was admitted and started on vancomycin and cefepime. She had fairly high oxygen needs shortly after admission, but these improved to 3 to 4 L over the next several days. Her antibiotic was changed to meropenem. She failed speech therapy evaluation and has previously documented refusal for a feeding tube. Last night she had increased oxygen needs with hypoxemia. It was felt she was having difficulty managing her secretions which did not improve with suctioning by RT. She was emergently intubated and has remained on the ventilator. She is off sedation currently, but is not reliably following commands or answering questions. PAST MEDICAL HISTORY: 1. Recurrent aspiration pneumonia. 2. Chronic dysphagia. 3. Dementia. 4. Diabetes. 5. Hypertension. 6. Status post TAVR earlier this year. 7. Systolic heart failure with ejection fraction of 50%. 8. Normocytic anemia. 9. History of Proteus UTI. 10. History of subdural hematoma. MEDICATIONS: At the time of admission include melatonin, Flagyl, Zyprexa, vitamin C, losartan, Plavix, and insulin. ALLERGIES: Penicillin and sulfa. SOCIAL HISTORY: The patient lives at [facility]. She is a tavera of [facility]. FAMILY HISTORY: Unobtainable. REVIEW OF SYSTEMS: Unobtainable. PHYSICAL EXAMINATION: GENERAL: The patient is awake and alert, but not reliably following commands. VITAL SIGNS: Blood pressure is 133/70 with a heart rate of 82. She is afebrile. Oxygen saturations are 100% on 50% oxygen. HEENT: Normocephalic and atraumatic. No icterus. NECK: No adenopathy. Trachea is midline. CHEST: Clear to auscultation. CARDIAC: Regular rate and rhythm without murmur. ABDOMEN: Soft, nontender. Bowel sounds are present. EXTREMITIES: No clubbing, cyanosis, or edema. NEURO: The patient is awake. She is weakly moving all extremities, but not to command. LABORATORY: White blood count is 12.2, trending down over the last several days. A hemoglobin is 8.4, a platelet count is 225. A sodium is 146 with potassium of 3.0, creatinine 0.4, glucose is 128. A BNP is 2060 and a procalcitonin is 0.12. Arterial blood gas from last night shows a pH of 7.49 with a pO2 of 63, a CO2 of 31, a bicarbonate of 23 on IMV with a rate of 12 with a tidal volume of 550, 60% oxygen. A chest x-ray from today shows some left greater than right basilar atelectasis/volume loss, increased from a prior chest x-ray. The endotracheal tube is in the appropriate position. Images reviewed by me. ASSESSMENT: 1. Acute respiratory failure. The patient had hypoxemic respiratory failure, likely on the basis of aspiration with retained secretions. Her oxygenation has improved markedly with intubation. Her chest x-ray still shows some areas of atelectasis/volume loss. 2. Recurrent aspiration. As above, chest x-ray is consistent with basilar atelectasis likely due to inability to clear secretions. She is on meropenem with a falling white blood count and no fever since yesterday morning. 3. History of dementia. 4. Anemia. The patient's hemoglobin has drifted down a bit over the last few days. There is no apparent significant blood loss. RECOMMENDATIONS: 1. Continue mechanical ventilation and meropenem. A bronchoscopy can be considered for chest x-ray worsening or not improving, but she will likely have ongoing problems with handling secretions once extubated. 2. Follow hemoglobin. 3. Await decision regarding the patient's guardian with respect to DNR status. Once patient has made DNR, further discussions regarding palliative/hospice care can be pursued. /[id number]/MODL MTDD
[2017-03-02] MEDS: POTASSIUM Cl (KCl) 20 MEQ in 1/2 NS 1,000 ML IV SCH (17:37)
[2017-03-02 18:27] LABS: POTASSIUM 4.5 mEq/L (3.5-5.2)
[2017-03-03 00:49] LABS: POTASSIUM 4.1 mEq/L (3.5-5.2)
[2017-03-03] MEDS: PROPOFOL/EMULSION 100 ML IV SCH ×2 (01:57→19:04)
[2017-03-03] MEDS: POTASSIUM Cl (KCl) 20 MEQ in 1/2 NS 1,000 ML IV SCH ×3 (04:29→09:45)
[2017-03-03] MEDS: MEROPENEM 1 GM in NS 100 ML IV SCH ×3 (05:02→21:33)
[2017-03-03 05:23] LABS: % IMMATURE GRANULYOCYTES 0.5 % (0.0-1.1); ABSOLUTE IMMATURE GRANULOCYTES 0.05 10^3/uL (0.00-0.10); ADD DIFF? NO; ADD MORPH? NO; ADD SCAN? NO; ATYPICAL LYMPHOCYTE FLAG 40 (0-99); FRAGMENT RBC FLAG 0 (0-99); HEMATOCRIT 25.1 % (38.0-47.0); HEMOGLOBIN 8.4 g/dL (12.6-16.3); LEFT SHIFT FLG 10 (0-99); LIPEMIA HEMOLYSIS FLAG 80 (0-99); MEAN CELL HEMOGLOBIN 30.9 pg (27.9-34.1); MEAN CELL HEMOGLOBIN CONCENTR. 33.5 g/dL (32.4-36.7); MEAN CELL VOLUME 92.3 fL (81.5-99.8); MEAN PLATELET VOLUME 10.7 fL (8.7-11.7); PLATELET CLUMPS FLAG 0 (0-99); PLATELET COUNT 207 10^3/uL (150-400); RED BLOOD CELL COUNT 2.72 10^6/uL (4.18-5.33); RED CELL DISTRIBUTION WIDTH 14.6 % (11.5-15.2)
[2017-03-03 05:29] LABS: ANION GAP 12 mEq/L (8-16); CARBON DIOXIDE 22 mEq/l (22-31); CHLORIDE 105 mEq/L (97-110); CREATININE 0.4 mg/dL (0.6-1.0); GLOMERULAR FILTRATION RATE > 60; GLUCOSE 76 mg/dL (70-100); MAGNESIUM 1.8 mg/dL (1.6-2.3); SODIUM 139 mEq/L (134-144)
[2017-03-03] MEDS: INSULIN LISPRO 100 UNIT/ML SC SCH ×3 (07:52→19:03)
[2017-03-03] MEDS: ENOXAPARIN 40 MG/0.4 ML SYR SC SCH (09:45)
[2017-03-03] MEDS: CYANO/VITAMIN B12 1000 MCG TAB TUBE SCH (09:45)
[2017-03-03] MEDS: FAMOTIDINE 20 MG TAB TUBE SCH (09:46)
[2017-03-03] MEDS: MULTIVIT/MINERAL/FERR GLUC 15 ML UDL TUBE SCH (09:46)
[2017-03-03] MEDS: ASCORBIC ACID 500 MG TAB TUBE SCH (09:46)
[2017-03-03] MEDS: ASPIRIN 81 MG CHEWABLE TAB TUBE SCH (09:46)
[2017-03-03] MEDS: CLOPIDOGREL BISULFATE 75 MG TAB TUBE SCH (09:46)
[2017-03-03] MEDS: POTASSIUM CL 20 MEQ/15 ML UDCUP TUBE SCH (09:51)
[2017-03-03] MEDS ORDERED: FUROSEMIDE 20 MG/2 ML VIAL IVP ONE (11:45)
[2017-03-03] MEDS ORDERED: FUROSEMIDE 20 MG/2 ML VIAL IVP SCH (11:45)
--- NOTE | 2017-03-03 11:49 | HOSPPROG ---
Hospitalist Progress Note Assessment/Plan: Patient is a 67-year-old female with a history of chronic dysphagia, recurrent aspiration, UTI, dementia who was brought in from [facility] for possible sepsis. She has been here 4 times since November. She was recently discharged due to aspiration pneumonia and for chronic dysphagia with noncompliance with her dietary modifications. Remains intubated Awaiting a decision regarding palliative care, change of code status, and likely hospice * recurrent aspiration pneumonia * On meropenem * Acute Respiratory Failure, due to aspiration pneumonia, now intubated * Acute on chronic dysphagia -She did not tolerate nectar thick liquids * encephalopathy * Pretty severe end-stage dementia * Cont hold Zyprexa to see if she can wake up a little bit more * sepsis with elevated white blood cell count and tachycardia * Improving, on Meropenem * diabetes type 2 -Glargine dose decreased since she is not eating much -on sliding scale -Cont Lantus * history of a transcatheter aortic valve replacement -meds resumed *anemia -follow *hypernatremia * repeat labs pending * hypertension * home meds resumed * history of subdural hematoma * history of Proteus urinary tract infection * suspect she has chronic colonization Plan: -Lasix again today -Vent per pulm -Cont Meropenem -NPO -Await decision regarding snf care -She would benefit from Hospice -Keep ICU D/W multi disciplinary team during rounds Subjective: Still intubated. VSS. Does not follow commands. Good urine output. Objective: Vital Signs Temp Pulse Resp BP Pulse Ox 36.8 C 78 12 150/62 H 99 03/03/17 03:00 03/03/17 11:33 03/03/17 11:33 03/03/17 06:00 03/03/17 11:33 Laboratory Results 03/03/17 04:55 03/03/17 04:55 03/02/17 03/03/17 03/04/17 05:59 05:59 05:59 Intake Total 1379 1708.0 Output Total 1125 Balance 1379 583.0 - Physical Exam Constitutional: no apparent distress Eyes: PERRL Ears, Nose, Mouth, Throat: moist mucous membranes Cardiovascular: regular rate and rhythym, edema (UE) Respiratory: reduced air movement Gastrointestinal: normoactive bowel sounds Skin: warm Psychiatric: encephalopathic Lymph, Heme, Immunologic: No petechiae ICD10 Worksheet Patient Problems: Problems Problem Status Onset Pneumonia Acute Sepsis Acute Altered mental status Acute Palliative care encounter Acute Septic shock Acute Severe sepsis Acute Urinary tract infection Acute
--- NOTE | 2017-03-03 12:02 | PDINTPN ---
Reel Hooker Progress Note Assessment/Plan: Assessment: Acute Respiratory Failure: Remains on ventilator due to ongoing oxygen needs and airway protection s/p aspiration. Sedated with propofol. Aspiration Pneumonia: Hx of chronic aspiration. WBC trending down, afebrile. On meropenem. Dementia: Anemia: Hgb low, but unchanged from yesterday. No active bleeding apparent. Plan: Continue meropenem. Repeat CXR. Follow H/H. Await decision re: Cor status from guardian, then will make decision regarding extubation if O2 needs remain manageable. 03/03/17 12:05 Subjective: Intubated, sedated, minimall responsive. Objective: Vital Signs Temp Pulse Resp BP Pulse Ox 36.8 C 78 12 150/62 H 99 03/03/17 03:00 03/03/17 11:33 03/03/17 11:33 03/03/17 06:00 03/03/17 11:33 Laboratory Results 03/03/17 04:55 03/03/17 04:55 03/02/17 03/03/17 03/04/17 05:59 05:59 05:59 Intake Total 1379 1708.0 Output Total 1125 Balance 1379 583.0 Physical Exam - Physical Exam General Appearance: alert, no apparent distress EENT: normal ENT inspection Neck: normal inspection Respiratory: lungs clear, normal breath sounds Cardiac/Chest: regular rate, rhythm, No edema Abdomen: normal bowel sounds, non-tender, soft Skin: normal color, warm/dry Extremities: normal inspection Neuro/Psych: No alert (sedated, minimally arousable), No oriented x 3 ICD10 Worksheet Patient Problems: Problems Problem Status Onset Pneumonia Acute Sepsis Acute Altered mental status Acute Palliative care encounter Acute Septic shock Acute Severe sepsis Acute Urinary tract infection Acute
--- NOTE | 2017-03-03 12:40 | ASMTCMCOM ---
CM Note CM Note Notes: Spoke with ARIE Mann, who wanted updated medical information and stated she hoped to get an answer for us today. Conveyed our concerns about going into the weekend without a clear direction and how we felt this was not good patient care. Violeta states she hopes her supervisor shaving and splitting can make it happen. Violeta had questions about patient returning to [facility]. Clarified she would return there with hospice support if she goes to DNR status. Violeta states they have concerns about [facility] and the care they give. Violeta was encouraged to take those concerns up with [facility]. We are still awaiting a call back at 12:38. CM will follow. Date Signed: 03/03/2017 12:39 PM Electronically Signed By:Alix Noland LCSW
[2017-03-03] MEDS ORDERED: ACETAMINOPHEN 650 MG/20.3 ML UDCUP TUBE PRN (15:30)
--- NOTE | 2017-03-03 16:52 | ASMTCMCOM ---
CM Note CM Note Notes: Received a telephone call from Charlene Montoya, patient's state appointed guardian who was in the office with Lemuel Gibson, price accuracy supervisor with [facility]. Ms. Montoya states she is changing patient's status from full code to DNR/DNI as of today 03/03/17 at 4:23 (16:23). Notified Maeve, charge nurse who will get the dr's order for this.Ms. Montoya also would like the staff to be notified that patient's brother, Yahir Das is allowed to call and visit. In addition, Charlene provided her cell phone number and wants to be notified with any major change in the patient's medical status ([phone]). It is ok to contact her directly with this information. CM will follow. Date Signed: 03/03/2017 04:51 PM Electronically Signed By:Alix Noland LCSW
[2017-03-03 19:02] LABS: POTASSIUM 3.8 mEq/L (3.5-5.2)
[2017-03-03] MEDS: INSULIN GLARGINE 100 UNITS/ML SYRINGE SC SCH (21:33)
[2017-03-03] MEDS ORDERED: POTASSIUM Cl (KCl) 50 ML IV ONE (22:01)
[2017-03-03] MEDS ORDERED: POTASSIUM Cl (KCl) 100 ML IV ONE (22:30)
[2017-03-04] MEDS: POTASSIUM Cl (KCl) 20 MEQ in 1/2 NS 1,000 ML IV SCH ×2 (00:08→15:57)
[2017-03-04] MEDS: MEROPENEM 1 GM in NS 100 ML IV SCH ×3 (05:31→23:11)
[2017-03-04] MEDS: PROPOFOL/EMULSION 100 ML IV SCH (05:32)
[2017-03-04] MEDS: INSULIN LISPRO 100 UNIT/ML SC SCH ×3 (07:59→19:07)
[2017-03-04 09:37] LABS: % IMMATURE GRANULYOCYTES 0.9 % (0.0-1.1); ABSOLUTE IMMATURE GRANULOCYTES 0.11 10^3/uL (0.00-0.10); ADD DIFF? NO; ADD MORPH? NO; ADD SCAN? NO; ATYPICAL LYMPHOCYTE FLAG 50 (0-99); FRAGMENT RBC FLAG 0 (0-99); HEMATOCRIT 25.9 % (38.0-47.0); HEMOGLOBIN 8.3 g/dL (12.6-16.3); LEFT SHIFT FLG 10 (0-99); LIPEMIA HEMOLYSIS FLAG 80 (0-99); MEAN CELL HEMOGLOBIN 29.5 pg (27.9-34.1); MEAN CELL VOLUME 92.2 fL (81.5-99.8); MEAN PLATELET VOLUME 10.7 fL (8.7-11.7); PLATELET CLUMPS FLAG 10 (0-99); PLATELET COUNT 243 10^3/uL (150-400); RED BLOOD CELL COUNT 2.81 10^6/uL (4.18-5.33); RED CELL DISTRIBUTION WIDTH 14.8 % (11.5-15.2)
[2017-03-04 09:48] LABS: ANION GAP 11 mEq/L (8-16); CALCIUM 8.5 mg/dL (8.5-10.4); CARBON DIOXIDE 22 mEq/l (22-31); CHLORIDE 106 mEq/L (97-110); CREATININE 0.5 mg/dL (0.6-1.0); GLOMERULAR FILTRATION RATE > 60; GLUCOSE 61 mg/dL (70-100); POTASSIUM 4.2 mEq/L (3.5-5.2); SODIUM 139 mEq/L (134-144)
[2017-03-04] MEDS: D50W 25 GM/50 ML SYR IVP PRN (11:43)
--- NOTE | 2017-03-04 11:51 | HOSPPROG ---
Hospitalist Progress Note Assessment/Plan: Patient is a 67-year-old female with a history of chronic dysphagia, recurrent aspiration, UTI, dementia who was brought in from [facility] for possible sepsis. She has been here 4 times since November. She was recently discharged due to aspiration pneumonia and for chronic dysphagia with noncompliance with her dietary modifications. Remains intubated Code status changed to DNR/DNI per guardian * recurrent aspiration pneumonia * On meropenem * Acute Respiratory Failure, due to aspiration pneumonia, cont intubated * Acute on chronic dysphagia * encephalopathy * Pretty severe end-stage dementia * Holding Zyprexa * sepsis with elevated white blood cell count and tachycardia * Improving, on Meropenem * diabetes type 2 -slight hypoglycemia -D/C Lantus -Cont ISS * history of a transcatheter aortic valve replacement -meds resumed *anemia -follow *hypernatremia: resolved * hypertension * home meds resumed * history of subdural hematoma * history of Proteus urinary tract infection * suspect she has chronic colonization Plan: -Vent per pulm -Lasix x 1 -Cont Meropenem -She would benefit from Hospice -Lovenox for DVT proph -DNR d/w nurse Subjective: cannot follow commands. AFebrile. Code status changed to DNR/DNI Objective: Vital Signs Temp Pulse Resp BP Pulse Ox 37.4 C 87 12 149/74 H 40 L 03/04/17 04:00 03/04/17 11:23 03/04/17 10:00 03/04/17 10:00 03/04/17 11:23 Laboratory Results 03/04/17 09:20 03/04/17 09:20 03/03/17 03/04/17 03/05/17 05:59 05:59 05:59 Intake Total 1708.0 2675 Output Total 1125 2900 Balance 583.0 -225 - Physical Exam Constitutional: no apparent distress Eyes: PERRL Ears, Nose, Mouth, Throat: moist mucous membranes Cardiovascular: regular rate and rhythym, edema (trace UE) Respiratory: clear to auscultation Gastrointestinal: normoactive bowel sounds, soft, non-tender abdomen Skin: warm Neurologic: No AAOx3 Psychiatric: encephalopathic, No interacting appropriately Lymph, Heme, Immunologic: No petechiae ICD10 Worksheet Patient Problems: Problems Problem Status Onset Pneumonia Acute Sepsis Acute Altered mental status Acute Palliative care encounter Acute Septic shock Acute Severe sepsis Acute Urinary tract infection Acute
[2017-03-04] MEDS ORDERED: FUROSEMIDE 20 MG/2 ML VIAL IVP ONE (11:53)
[2017-03-04] MEDS: ASPIRIN 81 MG CHEWABLE TAB TUBE SCH (12:05)
[2017-03-04] MEDS: CYANO/VITAMIN B12 1000 MCG TAB TUBE SCH (12:05)
[2017-03-04] MEDS: ENOXAPARIN 40 MG/0.4 ML SYR SC SCH (12:05)
[2017-03-04] MEDS: ASCORBIC ACID 500 MG TAB TUBE SCH (12:05)
[2017-03-04] MEDS: CLOPIDOGREL BISULFATE 75 MG TAB TUBE SCH (12:05)
[2017-03-04] MEDS: POTASSIUM CL 20 MEQ/15 ML UDCUP TUBE SCH (12:06)
[2017-03-04] MEDS: FAMOTIDINE 20 MG TAB TUBE SCH (12:08)
[2017-03-04] MEDS: MULTIVIT/MINERAL/FERR GLUC 15 ML UDL TUBE SCH (12:08)
[2017-03-04 12:39] LABS: POTASSIUM 3.8 mEq/L (3.5-5.2)
[2017-03-04] MEDS ORDERED: POTASSIUM Cl (KCl) 50 ML IV ONE (13:12)
[2017-03-04] MEDS ORDERED: POTASSIUM Cl (KCl) 20 MEQ in NS 50 ML IV SCH (13:30)
--- NOTE | 2017-03-04 14:33 | PDINTPN ---
Auto Phone Installer Progress Note Assessment/Plan: Assessment: Acute Respiratory Failure: Remains on ventilator due to ongoing oxygen needs and airway protection s/p aspiration. Sedated with propofol. Aspiration Pneumonia: Hx of chronic aspiration. WBC still mildly elevated; afebrile. On meropenem. CXR looks better. Dementia: Anemia: Hgb low, but unchanged from yesterday. No active bleeding apparent. Plan: Continue meropenem. Wean sedation. Follow H/H. Consider extubation. DNR/ DNI now. 03/04/17 14:33 Subjective: Intubated, sedated. Objective: Vital Signs Temp Pulse Resp BP Pulse Ox 37.4 C 80 17 119/57 L 98 03/04/17 04:00 03/04/17 14:00 03/04/17 14:00 03/04/17 14:00 03/04/17 12:00 Laboratory Results 03/04/17 09:20 03/04/17 12:14 03/03/17 03/04/17 03/05/17 05:59 05:59 05:59 Intake Total 1708.0 2675 Output Total 1125 2900 1000 Balance 583.0 -225 -1000 CXR: Improved bases. Images reviewed by me. Physical Exam - Physical Exam General Appearance: no apparent distress, No alert EENT: normal ENT inspection Neck: normal inspection Respiratory: lungs clear, normal breath sounds Cardiac/Chest: regular rate, rhythm, No edema Abdomen: normal bowel sounds, non-tender, soft Skin: normal color, warm/dry Extremities: normal inspection Neuro/Psych: No alert ICD10 Worksheet Patient Problems: Problems Problem Status Onset Pneumonia Acute Sepsis Acute Altered mental status Acute Palliative care encounter Acute Septic shock Acute Severe sepsis Acute Urinary tract infection Acute
[2017-03-04 18:58] LABS: POTASSIUM 4.4 mEq/L (3.5-5.2)
[2017-03-04] MEDS ORDERED: PROTOCOL POTASSIUM 1 DOSE MISC PRN (22:02)
[2017-03-05 04:42] LABS: % IMMATURE GRANULYOCYTES 1.2 % (0.0-1.1); ABSOLUTE IMMATURE GRANULOCYTES 0.13 10^3/uL (0.00-0.10); ADD DIFF? NO; ADD MORPH? NO; ADD SCAN? NO; ATYPICAL LYMPHOCYTE FLAG 60 (0-99); FRAGMENT RBC FLAG 0 (0-99); HEMATOCRIT 26.8 % (38.0-47.0); LEFT SHIFT FLG 10 (0-99); LIPEMIA HEMOLYSIS FLAG 80 (0-99); MEAN CELL HEMOGLOBIN 30.5 pg (27.9-34.1); MEAN CELL HEMOGLOBIN CONCENTR. 33.6 g/dL (32.4-36.7); MEAN CELL VOLUME 90.8 fL (81.5-99.8); MEAN PLATELET VOLUME 10.5 fL (8.7-11.7); PLATELET CLUMPS FLAG 0 (0-99); PLATELET COUNT 244 10^3/uL (150-400); RED BLOOD CELL COUNT 2.95 10^6/uL (4.18-5.33); RED CELL DISTRIBUTION WIDTH 14.6 % (11.5-15.2)
[2017-03-05 04:59] LABS: ANION GAP 10 mEq/L (8-16); CALCIUM 8.3 mg/dL (8.5-10.4); CARBON DIOXIDE 25 mEq/l (22-31); CHLORIDE 99 mEq/L (97-110); CREATININE 0.4 mg/dL (0.6-1.0); GLOMERULAR FILTRATION RATE > 60; GLUCOSE 67 mg/dL (70-100); POTASSIUM 4.1 mEq/L (3.5-5.2); SODIUM 134 mEq/L (134-144)
[2017-03-05] MEDS: MEROPENEM 1 GM in NS 100 ML IV SCH ×3 (05:42→22:09)
[2017-03-05] MEDS: D50W 25 GM/50 ML SYR IVP PRN (05:56)
[2017-03-05] MEDS: INSULIN LISPRO 100 UNIT/ML SC SCH ×3 (08:58→19:12)
[2017-03-05] MEDS: POTASSIUM Cl (KCl) 20 MEQ in 1/2 NS 1,000 ML IV SCH (09:54)
[2017-03-05] MEDS: ENOXAPARIN 40 MG/0.4 ML SYR SC SCH (10:07)
[2017-03-05] MEDS ORDERED: FUROSEMIDE 20 MG/2 ML VIAL IVP ONE (10:55)
--- NOTE | 2017-03-05 11:04 | HOSPPROG ---
Hospitalist Progress Note Assessment/Plan: Patient is a 67-year-old female with a history of chronic dysphagia, recurrent aspiration, UTI, dementia who was brought in from [facility] for possible sepsis. She has been here 4 times since November. She was recently discharged due to aspiration pneumonia and for chronic dysphagia with noncompliance with her dietary modifications. Ethan Rausch is her court appointed power of ip attorney. They have made her DNR/ DNI. This was decided while the patient was already intubated. They have not made a decision regarding feeding tube although her MOST form is c/w no feeding tube wanted. They have not made a decision regarding hospice Her hospitalization has been complicated by Acute Resp Failure requiring intubation. Etiology was likely multifactorial to include pneumonia and volume overload. She has been treated with Meropen and IV Lasix daily. Volume status has improved and she was extubated successfully on 03/04. She is now down to 2 L O2. Today she will be transferred out of the SDU. She is at high risk for aspiration. She would benefit from hospice. Nutrition is still an issue. While a decision regarding hospice is made she needs some nutrition. I have discussed this with her nurse who will call the poa today to determine if we can start TPN. consultants: pulm/traffic representative, palliative team * recurrent aspiration pneumonia * On meropenem * Acute Respiratory Failure, due to aspiration pneumonia, cont intubated * Acute on chronic dysphagia * encephalopathy * Pretty severe end-stage dementia * Holding Zyprexa * sepsis with elevated white blood cell count and tachycardia * Improving, on Meropenem * diabetes type 2 -slight hypoglycemia -D/C Lantus -Cont ISS * history of a transcatheter aortic valve replacement -meds resumed *anemia -follow *hypernatremia: resolved * hypertension * home meds resumed * history of subdural hematoma * history of Proteus urinary tract infection * suspect she has chronic colonization Plan: -per above -Additional Lasix today. can likely do a trial off lasix tomorrow -Cont Meropenem. I will reorder procalcitonin to help with abx duration. She still has mild leukocytosis. Has been afebrile -She would benefit from Hospice -Lovenox for DVT proph -DNR discussed at ICU rounds Subjective: alert and awake. follows some commands. Does not talk. Objective: Vital Signs Temp Pulse Resp BP Pulse Ox 37.1 C 96 29 H 130/69 H 93 03/05/17 08:00 03/05/17 08:00 03/05/17 08:00 03/05/17 08:00 03/05/17 08:00 Laboratory Results 03/05/17 04:30 03/05/17 04:30 03/04/17 03/05/17 03/06/17 05:59 05:59 05:59 Intake Total 2675 1720.1 Output Total 2900 2125 Balance -225 -404.9 - Time Spent With Patient Time Spent with Patient: greater than 35 minutes Time Spent with Patient: Greater than 35 minutes spent on this patients care, greater than 50% of time spent counseling, educating, and coordinating care regarding the above mentioned plan. - Physical Exam Constitutional: no apparent distress Eyes: PERRL, EOMI Ears, Nose, Mouth, Throat: moist mucous membranes Cardiovascular: regular rate and rhythym, No edema Respiratory: no respiratory distress, no rales or rhonchi, clear to auscultation Gastrointestinal: normoactive bowel sounds, soft, non-tender abdomen Skin: warm Psychiatric: encephalopathic Lymph, Heme, Immunologic: No petechiae ICD10 Worksheet Patient Problems: Problems Problem Status Onset Pneumonia Acute Sepsis Acute Altered mental status Acute Palliative care encounter Acute Septic shock Acute Severe sepsis Acute Urinary tract infection Acute
[2017-03-05] MEDS: ASPIRIN 81 MG CHEWABLE TAB TUBE SCH (11:29)
[2017-03-05] MEDS: ASCORBIC ACID 500 MG TAB TUBE SCH (11:29)
[2017-03-05] MEDS: CYANO/VITAMIN B12 1000 MCG TAB TUBE SCH (11:30)
[2017-03-05] MEDS: MULTIVIT/MINERAL/FERR GLUC 15 ML UDL TUBE SCH (11:30)
[2017-03-05] MEDS: CLOPIDOGREL BISULFATE 75 MG TAB TUBE SCH (11:30)
[2017-03-05] MEDS: FAMOTIDINE 20 MG TAB TUBE SCH (11:30)
[2017-03-05] MEDS: POTASSIUM CL 20 MEQ/15 ML UDCUP TUBE SCH (11:31)
--- NOTE | 2017-03-05 13:25 | PDDCSUM ---
Discharge Summary Discharge Summary: HPI/Hospital Course Patient is a 67-year-old female with a history of chronic dysphagia, recurrent aspiration, UTI, dementia who was brought in from [facility] for possible sepsis. She has been here 4 times since November. She was recently discharged due to aspiration pneumonia and for chronic dysphagia with noncompliance with her dietary modifications. Ethan Rausch is her court appointed power of bar manager. They have made her DNR/ DNI. They have requested hospice care and this has been arranged at [facility]. Her hospitalization had been complicated by Acute Resp Failure requiring intubation. Etiology was likely multifactorial to include pneumonia and volume overload. She has been treated with Meropen and IV Lasix daily. Volume status has improved and she was extubated successfully on 03/04. She is now down to 2 L O2. She was transferred out of the SDU today. She is at high risk for aspiration. Hospice has been arranged and she is being discharged to hospice at [facility]. consultants: pulm/spring assembler, palliative team * recurrent aspiration pneumonia * On meropenem x 7 days, now stopped * Acute Respiratory Failure, due to aspiration pneumonia, cont intubated * Acute on chronic dysphagia * encephalopathy * sepsis with elevated white blood cell count and tachycardia * diabetes type 2 * history of a transcatheter aortic valve replacement *anemia *hypernatremia: resolved * hypertension * history of subdural hematoma * history of Proteus urinary tract infection * suspect she has chronic colonization Exam: Please see PN from today Meds: please see med rec Further mgmt per hospice team total time spent arranging discharge is 45 minutes
--- NOTE | 2017-03-05 13:44 | PDIAF ---
- Diagnosis Diagnosis: Hospice, aspiration pneumononia Code Status: Do Not Resuscitate - Medication Management Discharge Medications: Refer to the Discharge Home Medication list for PRN reason. - Orders Isolation Type: None - Follow Up Care Current Providers and Referrals: Patient,NotPresent [Unknown] - As per Instructions
[2017-03-05] MEDS ORDERED: predniSONE 20 MG TAB PO ONE (16:10)
--- NOTE | 2017-03-05 17:26 | ASMTCMCOM ---
CM Note CM Note Notes: Call received from ERIC Chang, Card Hand. Pt's discharge canceled - pt's legal guardian unable to sign hospice paperwork and return to [facility] today. [facility] unable to accept pt without necessary paperwork. Update provided to Wenceslao DIAZ CTL, Elizabeth, RN and pt. Per Charlene, pt's guardian to arrive from out of state late tonight and will be available to sign paperwork on Mon03/06/17. Dr. Gooden updated; Dr. Lancaster assuming care for the evening. CM will cont to follow. Current discharge plan: [facility] via [facility] Mon03/06/17 Date Signed: 03/05/2017 05:26 PM Electronically Signed By:Rufina Gary RN
[2017-03-05 19:58] LABS: POTASSIUM 4.3 mEq/L (3.5-5.2)
[2017-03-06] MEDS: POTASSIUM Cl (KCl) 20 MEQ in 1/2 NS 1,000 ML IV SCH (03:49)
[2017-03-06] MEDS: MEROPENEM 1 GM in NS 100 ML IV SCH (05:26)
[2017-03-06 07:11] VITALS: BP 141/89; PULSE 104; RESP 36; TEMP 97.7; O2SAT 94
[2017-03-06] MEDS: ENOXAPARIN 40 MG/0.4 ML SYR SC SCH (08:46)
--- NOTE | 2017-03-06 11:07 | PDIAF ---
- Diagnosis Diagnosis: Hospice, aspiration pneumononia Code Status: Do Not Resuscitate - Medication Management Discharge Medications: Refer to the Discharge Home Medication list for PRN reason. - Orders Isolation Type: None Additional: hospice eval and treat - Follow Up Care Current Providers and Referrals: Patient,NotPresent [Unknown] - As per Instructions
[2017-03-06] MEDS: CLOPIDOGREL BISULFATE 75 MG TAB TUBE SCH (11:22)
[2017-03-06] MEDS: CYANO/VITAMIN B12 1000 MCG TAB TUBE SCH (11:22)
[2017-03-06] MEDS: FAMOTIDINE 20 MG TAB TUBE SCH (11:22)
[2017-03-06] MEDS: ASCORBIC ACID 500 MG TAB TUBE SCH (11:22)
[2017-03-06] MEDS: ASPIRIN 81 MG CHEWABLE TAB TUBE SCH (11:22)
[2017-03-06] MEDS: POTASSIUM CL 20 MEQ/15 ML UDCUP TUBE SCH (11:23)
[2017-03-06] MEDS: MULTIVIT/MINERAL/FERR GLUC 15 ML UDL TUBE SCH (11:23)
[2017-03-06] MEDS: INSULIN LISPRO 100 UNIT/ML SC SCH (11:23)
--- NOTE | 2017-03-06 11:29 | ASMTCMCOM ---
CM Note CM Note Notes: Patient is d/cing to [facility] today with [facility] in place for comfort care. Discharge summaries were forwarded to [facility] and transportation was arranged with [facility] with picking belt operator time at 12:00 noon. [facility] spoke with Jamel Sheikh this morning and relayed they had the paperwork they needed. Patient to be transported stretcher. Date Signed: 03/06/2017 11:29 AM Electronically Signed By:Alix Noland LCSW
--- NOTE | 2017-03-06 16:23 | ASDISCHSUM ---
Discharge Information Plan Status:SNF Medically Cleared to Leave:03/05/2017 Discharge Date:03/06/2017 12:02 PM D/C Disposition:Hospice Facility ADT D/C Disposition:Hospice Facility Projected Discharge Date:03/06/2017 03:00 PM Transportation at D/C:ALS/BLS Discharge Delay Reason: Follow-Up Date:03/06/2017 03:00 PM Discharge Slot: Final Diagnosis:Asp PNA Placement Information Referral Type:*Hospice Referral ID:[id number] Provider Name:[facility] Address 1:[address] [place] Address 2: City:[place] Selection Factors: State:[place] Referral Type:*Custodial/SNF Referral ID:[id number] Provider Name:[facility] Address 1:[address] Phone Number: Address 2: Fax Number: [facility]:[place] Selection Factors: State:[place] Patient Contact Information Contact Name:FINA Relationship:Brothsowmya Address: Work Phone: City: [facility] Phone: [facility]/Zip Code: Email: Financial Information Financial Class: Primary Plan Desc:MEDICARE INPATIENT Primary Plan Number:[id number] Secondary Plan Desc:MEDICA[place] Secondary Plan Number:[id number] Assessment Information [facility] CM Progress Note CM Note CM Note Notes: Patient admitted for sepsis/aspiration PNA - this is a frequent reason of admission for her. She was brought from [facility] where she resides. Her last hospitalization was 02/15-02/19 for the same. Per CM note 02/17, patient has a guardian Charlene Kraus [facility] ([phone] during M-F business hours unless in case of emergency). Her [facility] bell hole digger is Adali Murphy [phone]. I attemped to call [facility] to see if these people had been contacted re: patient's hospital admission but was unable to reach staff. CM will follow up with and [facility] guardian/CM tomorrow. Patient will likely discharge back to . Date Signed: 02/26/2017 12:02 PM Electronically Signed By:Mariah Villar RN [facility] Progress Note CM Note CM Note Notes: [facility] Palliative Care RN, Kaelyn trying to work with [facility] to assist in changing patient's code status to DNR. Patient has a [facility], State appt guardian, Charlene Montoya whot can only be reached through [employer], Pricilla Nguyễn [phone]. Patient will return to [facility] on discharge. CM should contact Pricilla when patient returns to . Date Signed: 02/27/2017 03:41 PM Electronically Signed By:Dolores Chavarria LCSW [facility] Progress Note CM Note CM Note Notes: Left a message for Pricilla Nguyễn ([phone]) who was planning on visiting today and had hoped to meet with the hospitalist. Awaiting her return call. We are still looking into changing her code status to DNR and Pricilla will need to address this issue. CM will follow. Date Signed: 03/01/2017 01:30 PM Electronically Signed By:Alix Noland LCSW [facility] Progress Note CM Note CM Note Notes: Pt. was intubated and her medical situation indicates heightened concern to have legal guardian Charlene Fiore make a decision whether Pt. should have full care or move to comfort measures. Pt's MOST form in chart. Legal guardian is to be contacted through [facility] (APS). SWer contacted frontline worker, Ms. Violeta Nguyễn [phone] and her weave room supervisor, Michelle Gibson . Lemuel called me back and they plan to have an answer from guardian regarding Pt's course of care either tonight or tomorrow. Gave him both CM phone number and ICU floor RN station number. CM to follow. Date Signed: 03/02/2017 04:00 PM Electronically Signed By:Vivian Carias LCSW [facility] Progress Note CM Note CM Note Notes: Spoke with ARIE Mann, who wanted updated medical information and stated she hoped to get an answer for us today. Conveyed our concerns about going into the weekend without a clear direction and how we felt this was not good patient care. Violeta states she hopes her weave room supervisor can make it happen. Violeta had questions about patient returning to [facility]. Clarified she would return there with hospice support if she goes to DNR status. Violeta states they have concerns about [facility] and the care they give. Violeta was encouraged to take those concerns up with [facility]. We are still awaiting a call back at 12:38. CM will follow. Date Signed: 03/03/2017 12:39 PM Electronically Signed By:Alix Noland LCSW [facility] Progress Note CM Note CM Note Notes: Received a telephone call from Charlenealejandra Montoya, patient's state appointed guardian who was in the office with Lemuel Gibson, weave room supervisor with [facility]. Ms. Montoya states she is changing patient's status from full code to DNR/DNI as of today 03/03/17 at 4:23 (16:23). Notified Maeve, charge nurse who will get the dr's order for this.Ms. Montoya also would like the staff to be notified that patient's brother, Yahir Das is allowed to call and visit. In addition, Charlene provided her cell phone number and wants to be notified with any major change in the patient's medical status ([phone]). It is ok to contact her directly with this information. CM will follow. Date Signed: 03/03/2017 04:51 PM Electronically Signed By:Alix Noland LCSW Case Management Discharge Plan Note Case Management Discharge Discharge Order Complete? Answers: Yes Patient to Obtain Answers: Other Notes: [facility] Medications Transportation Arranged Answers: [facility] Transport will Pick (Date 03/05/2017 03:00 PM & Time) Case Management Transport Answers: Yes Form Complete Faxed Final Orders Answers: Yes Notes: to [facility] Hospice Agency/Facility Transfer Answers: Yes Notes: [facility] and [facility] Report Printed & Faxed to Hospice Receiving Agency Family Notified Answers: Yes Notes: Guardian contacted Discharge Comments Notes: Patient on Comfort Measures. Patient has been discharged back to [facility] with [facility]. Guardian contacted and [facility] to e-mail Guardian w/Hospice contract. [facility] to transport at 3:00. Date Signed: 03/05/2017 02:42 PM Electronically Signed By:Dolores Chavarria LCSW [facility] CM Progress Note CM Note CM Note Notes: Call received from ERIC Chang, [employer]. Pt's discharge canceled - pt's legal guardian unable to sign hospice paperwork and return to [facility] today. [facility] unable to accept pt without necessary paperwork. Update provided to Wenceslao DIAZ CTL, Elizabeth, RN and pt. Per Charlene, pt's guardian to arrive from out of state [facility] and will be available to sign paperwork on Mon03/06/17. Dr. Gooden updated; Dr. Lancaster assuming care for the evening. CM will cont to follow. Current discharge plan: [facility] via [facility] stretcher Mon03/06/17 Date Signed: 03/05/2017 05:26 PM Electronically Signed By:Rufina Gary RN [facility] CM Progress Note CM Note CM Note Notes: Patient is d/cing to [facility] today with [facility] in place for comfort care. Discharge summaries were forwarded to [facility] and transportation was arranged with [facility] with fruit or nut picker time at 12:00 noon. [facility] spoke with Jamel Sheikh this morning and relayed they had the paperwork they needed. Patient to be transported stretcher. Date Signed: 03/06/2017 11:29 AM Electronically Signed By:Alix Noland LCSW Intervention Information
--- NOTE | 2017-03-07 04:59 | GDS ---
[f rep st] DISCHARGE SUMMARY DISCHARGE DIAGNOSES: Include: 1. Recurrent aspiration. 2. Chronic dysphagia. 3. Recurrent urinary tract infection. 4. Dementia. 5. Sepsis secondary to pneumonia. HISTORY OF PRESENT ILLNESS: For details of the patient's initial presentation, please see the histor y and physical dated 03/02/2017. CONSULTATIONS: Include: Pulmonary Critical Care. HOSPITAL COURSE: By issue: Sepsis secondary to recurrent aspiration pneumonia. The patient receive d IV antibiotic treatment with improvement in her pulmonary status. She was transferred to the medic al floor. Extensive discussions were had between established decision makers, and the decision was c oncluded that hospice therapy would be the most appropriate based on her recurrent re-hospitalization s with aspiration pneumonia. Patient is being discharged off antibiotics to hospice care. MEDICATIONS: At the time of disposition, were none. DISPOSITION: Patient is being discharged to inpatient hospice for end of life/comfort care. /[id number]/MODL
== END 2017-03-06 12:02 | disposition hospice, home (50) | DRG 871 ==
LOC: EDUNIT# → F3E 16:07 → F2N 02-26 18:45 → F1N 03-01 17:57 → F2N 03-01 20:40 → F3E 03-05 13:09
PROVIDERS: ADMIT Internal Medicine; ATTEND Hospitalist
PROC: 5A1945Z Respiratory Ventilation, 24-96 Consecutive Hours (ICD-10-PCS; principal; 2017-03-01)
PROC: 0BH17EZ Insertion of Endotracheal Airway into Trachea, Via Natural or Artificial Opening (ICD-10-PCS; principal; 2017-03-01)
PROC: 02HV33Z Insertion of Infusion Device into Superior Vena Cava, Percutaneous Approach (ICD-10-PCS; 2017-03-01)
DX: A41.9 Sepsis, unspecified organism (principal); J69.0 Pneumonitis due to inhalation of food and vomit; G93.41 Metabolic encephalopathy; R13.10 Dysphagia, unspecified; Z91.11 Patient's noncompliance with dietary regimen; J96.01 Acute respiratory failure with hypoxia; E87.79 Other fluid overload; E87.0 Hyperosmolality and hypernatremia; F03.90 Unspecified dementia, unspecified severity, without behavioral disturbance, psychotic disturbance, mood disturbance, and anxiety; E11.9 Type 2 diabetes mellitus without complications; L89.620 Pressure ulcer of left heel, unstageable; L89.151 Pressure ulcer of sacral region, stage 1; I11.0 Hypertensive heart disease with heart failure; I50.22 Chronic systolic (congestive) heart failure; I25.10 Atherosclerotic heart disease of native coronary artery without angina pectoris; Z95.5 Presence of coronary angioplasty implant and graft; Z79.02 Long term (current) use of antithrombotics/antiplatelets; Z95.3 Presence of xenogenic heart valve
CPT/HCPCS: C1751; J0330; J0692; J1650; J1815; J1940; J2185; J2704; J3010; J3370